=== PATIENT | male | born 1940 | race Caucasian/White ===

== ENCOUNTER 2017-05-24 10:54 | Emergency (ER) | payer MEDICARE, BC ==
[2017-05-24] MEDS ORDERED: RX INFO: IV CONTRAST WAS GIVEN 1 EACH MISC MISCELLANE PRN (11:51)
[2017-05-24] MEDS ORDERED: IOHEXOL 350 MG/ML 25 ML BOTTLE (ORAL USE) PO PRN (11:51)
--- NOTE | 2017-05-24 11:58 | ED ---
Abdominal Pain HPI - General Chief Complaint: Abdominal Pain Stated Complaint: abdominal pain Time Seen by Provider: 05/24/17 11:32 Source: patient Mode of arrival: ambulatory Limitations: no limitations - History of Present Illness Initial Comments: is a 76-year-old male presents to the emergency department for evaluation of lower abdominal pain for approximately 2 weeks duration. Patient reports that approximately 2 weeks ago he began experiencing a sharp pain that begins in his Helbig her suprapubic region, radiates up to his umbilicus and then resolves. He reports the pain occurs intermittently without any exacerbating or causative features. The pain occurs tout relation to urination, bowel movements, eating, or movement. When the pain occurs it lasts for moments and then resolves. Patient reports that despite having this pain intermittently for 2 weeks he has maintained his normal diet. He denies any change in bowel or bladder habits. He denies any history of urinary tract infection or kidney stones. He does have a history of prostate cancer which was treated with radiation in the past. Patient reports there is no pain to palpation and he cannot elicit the pain in any way. He reports that yesterday evening he had an episode of pain which was associated with dry heaves and breaking out in a cold sweat, however this resolved within minutes. He reports that after that episode he drank a cold glass of water and was able to sleep comfortably throughout the night. He reports that while waiting in the emergency department he did have a mild episode of pain however had resolved prior to being evaluated. Patient denies any fevers, vomiting, diarrhea, constipation, dysuria or urinary frequency, chest pain or shortness of breath. He denies any change in activities of daily living, diet. He denies any pain in his back or weakness in his legs. He reports he is otherwise feeling well. Patient states the reason he came to the emergency department this morning is because he told his with episode of pain and dry heaves last night and she advised him he needed to be evaluated. Patient has never had a colonoscopy due to refusal to have one. - Related Data Home Medications Medication Instructions Recorded Confirmed Albuterol Inhaler [Ventolin Hfa 2 puff INHALATION RT-QID PRN 06/05/15 05/24/17 Inhaler] Albuterol Nebulized (Conc) 2.5 mg INHALATION RT-TID 06/05/15 05/24/17 [Ventolin Nebulized (Conc)] Budesonide [Pulmicort] 0.5 mg INHALATION RT-BID 06/05/15 05/24/17 Cetirizine HCl [Zyrtec] 10 mg PO DAILY 06/05/15 05/24/17 Lisinopril [Prinivil] 10 mg PO DAILY 06/05/15 05/24/17 Simvastatin [Zocor] 40 mg PO HS 06/05/15 05/24/17 Omeprazole 40 mg PO DAILY 05/24/17 05/24/17 Previous Rx's Medication Instructions Recorded Oxybutynin Chloride [Ditropan] 2.5 mg PO TID #15 tab 05/24/17 Allergies Allergy/AdvReac Type Severity Reaction Status Date / Time No Known Allergies Allergy Verified 05/24/17 12:41 Review of Systems ROS Statement: Those systems with pertinent positive or pertinent negative responses have been documented in the HPI. ROS Other: All systems not noted in ROS Statement are negative. Constitutional: Denies: fever, chills, weakness, night sweats ENT: Denies: congestion Respiratory: Denies: cough, dyspnea Cardiovascular: Denies: chest pain, palpitations Endocrine: Denies: fatigue Gastrointestinal: Reports: abdominal pain, nausea. Denies: vomiting, diarrhea, constipation, hematemesis, melena, hematochezia Genitourinary: Denies: urgency, dysuria, frequency Musculoskeletal: Denies: back pain Skin: Denies: rash, lesions Neurological: Denies: headache, weakness, numbness Psychiatric: Reports: anxiety (Patient states seen doctors makes him anxious). Denies: depression Hematological/Lymphatic: Denies: easy bleeding, easy bruising, swollen glands Past Medical History Past Medical History: Asthma, Cancer, COPD, Hyperlipidemia, Hypertension Additional Past Medical History / Comment(s): prostate cancer History of Any Multi-Drug Resistant Organisms: None Reported Past Surgical History: Cholecystectomy Additional Past Surgical History / Comment(s): radiation for prostate cancer; and hormone treatment for prostate cancer Past Psychological History: No Psychological Hx Reported Smoking Status: Former smoker Past Alcohol Use History: Occasional Past Drug Use History: None Reported - Past Family History Father Family Medical History: Deep Vein Thrombosis (DVT) Mother Family Medical History: Deep Vein Thrombosis (DVT) General Exam Limitations: no limitations General appearance: alert, in no apparent distress Head exam: Present: atraumatic, normocephalic ENT exam: Present: normal exam, mucous membranes moist. Absent: mucous membranes dry Neck exam: Present: normal inspection Respiratory exam: Present: normal lung sounds bilaterally. Absent: respiratory distress, wheezes Cardiovascular Exam: Present: regular rate GI/Abdominal exam: Present: soft, normal bowel sounds. Absent: distended, tenderness, guarding, rebound, rigid, diminished bowel sounds, hyperactive bowel sounds, hypoactive bowel sounds, organomegaly, mass, bruit, pulsatile mass , hernia Rectal exam: Present: deferred Extremities exam: Present: normal inspection Back exam: Present: normal inspection Neurological exam: Present: alert, oriented X3, normal gait Psychiatric exam: Present: normal affect, normal mood Skin exam: Present: warm, dry, intact, normal color. Absent: rash Course Vital Signs 05/24/17 05/24/17 05/24/17 10:58 13:41 15:18 Temperature 97.8 F 98.4 F 98.7 F Pulse Rate 100 85 63 Respiratory 20 18 18 Rate Blood Pressure 190/88 189/103 189/103 O2 Sat by Pulse 99 98 97 Oximetry - Reevaluation(s) Reevaluation #1: Lab and CT results were discussed with the patient and his at bedside. Patient reports he has had no episodes of pain while being in the emergency department. The patient that he has a mass on CT located in his colon, and that he needs further imaging and evaluation to further delineate the cause of this mass. I advised the patient that he needs follow-up with GI for colonoscopy. at bedside ensures that he will have appropriate follow-up. Patient reports otherwise feeling well and is eager for discharge home. 05/24/17 14:54 Medical Decision Making - Medical Decision Making Patient was seen and examined Vital signs were reviewed patient is afebrile, patient was noted to have a heart rate of 100 upon arrival however his heart rate had decreased upon evaluation Labs and CT imaging were ordered Patient reports no symptoms at the time of evaluation, he did declined any medications for pain or antiemetics CT results reveal abnormal bladder consistent with history of radiation as well as a mass in the colon concerning for colon cancer. During that the patient has never had a colonoscopy this is a very concerning finding. I discussed these findings with the patient and his at bedside I advised that he needs follow-up with his PCP for referral to GI for colonoscopy in the near future. Patient expressed understanding. I discussed with the patient that his suprapubic pain without any evidence of urinary tract infection or findings on CT is consistent with possible bladder spasms and that he can try ditropan and for treatment. Patient is agreeable and prescription was given. All questions pertaining to care were answered to the best of my ability, I advised the patient and that CT imaging is not definitive diagnosis for any type of cancer and that he needs a colonoscopy with possible biopsy. I advised them that our workup did not reveal a definitive cause for his pain and that if it persists he needs to follow-up with his [facility] physician and possible referral to urology. Patient is at bedside expressed understanding of this plan and agreement with plan for discharge home. - Lab Data Result diagrams: 05/24/17 11:25 05/24/17 11:25 Lab Results 05/24/17 05/24/17 05/24/17 Range/Units 11:25 11:25 11:25 WBC 9.5 (3.8-10.6) k/uL RBC 4.15 L (4.30-5.90) m/uL Hgb 13.4 (13.0-17.5) gm/dL Hct 38.8 L (39.0-53.0) % MCV 93.4 (80.0-100.0) fL MCH 32.3 (25.0-35.0) pg MCHC 34.6 (31.0-37.0) g/dL RDW 14.3 (11.5-15.5) % Plt Count 342 (150-450) k/uL Neutrophils % 71 % Lymphocytes % 21 % Monocytes % 5 % Eosinophils % 2 % Basophils % 0 % Neutrophils # 6.8 (1.3-7.7) k/uL Lymphocytes # 2.0 (1.0-4.8) k/uL Monocytes # 0.5 (0-1.0) k/uL Eosinophils # 0.2 (0-0.7) k/uL Basophils # 0.0 (0-0.2) k/uL Sodium 136 L (137-145) mmol/L Potassium 4.5 (3.5-5.1) mmol/L Chloride 103 (98-107) mmol/L Carbon Dioxide 23 (22-30) mmol/L Anion Gap 10 mmol/L BUN 10 (9-20) mg/dL Creatinine 0.87 (0.66-1.25) mg/dL Est GFR (MDRD) Af Amer >60 (>60 ml/min/1.73 sqM) Est GFR (MDRD) Non-Af >60 (>60 ml/min/1.73 sqM) Glucose 99 (74-99) mg/dL Calcium 9.0 (8.4-10.2) mg/dL Urine Color Yellow Urine Appearance Clear (Clear) Urine pH 6.0 (5.0-8.0) Ur Specific Dendron 1.016 (1.001-1.035) Urine Protein Trace H (Negative) Urine Glucose (UA) Negative (Negative) Urine Ketones Negative (Negative) Urine Blood Negative (Negative) Urine Nitrite Negative (Negative) Urine Bilirubin Negative (Negative) Urine Urobilinogen 2.0 (<2.0) mg/dL Ur Leukocyte Esterase Negative (Negative) Disposition Clinical Impression: Abdominal pain, Bladder spasms, Mass of colon Disposition: HOME SELF-CARE Instructions: Abdominal Pain (ED) Additional Instructions: CT scan reveals a mass in the colon, you need to follow up with GI for colonoscopy. Prescriptions: Oxybutynin Chloride [Ditropan] 2.5 mg PO TID #15 tab Referrals: Truman Yu DO [Primary Care Provider] - 1-2 days
[2017-05-24 12:12] LABS: Basophils % (A) 0 %; CH 31.6; Eosinophils # (A) 0.2 k/uL (0-0.7); Eosinophils % (A) 2 %; HCT 38.8 % (39.0-53.0); HDW 2.84; HGB 13.4 gm/dL (13.0-17.5); Luc # (Auto) 0.13; Luc % (Auto) 1; Lymphocytes % (A) 21 %; MCH 32.3 pg (25.0-35.0); MCHC 34.6 g/dL (31.0-37.0); MCV 93.4 fL (80.0-100.0); Monocytes # (A) 0.5 k/uL (0-1.0); Monocytes % (A) 5 %; Neutrophils # (A) 6.8 k/uL (1.3-7.7); Neutrophils % (A) 71 %; RBC 4.15 m/uL (4.30-5.90); RDW 14.3 % (11.5-15.5); WBC 9.5 k/uL (3.8-10.6); WBC (Perox) 9.76
[2017-05-24 12:16] LABS: Appearance,Urine Clear (Clear); Bilirubin,Urine Negative (Negative); Glucose,Urine (UA) Negative (Negative); Ketones,Urine Negative (Negative); Leukocyte Esterase,Urine Negative (Negative); Nitrite,Urine Negative (Negative); Protein,Urine Trace (Negative); Specific Gravity,Urine 1.016 (1.001-1.035); UA Billing (MACRO vs. MICRO) CHEM
[2017-05-24 12:20] LABS: Anion Gap 10 mmol/L; Blood Urea Nitrogen 10 mg/dL (9-20); Carbon Dioxide 23 mmol/L (22-30); Chloride 103 mmol/L (98-107); Glucose 99 mg/dL (74-99); Non-African American GFR(MDRD) >60 (>60 ml/min/1.73 sqM); Potassium 4.5 mmol/L (3.5-5.1); Sodium 136 mmol/L (137-145)
[2017-05-24 13:42] VITALS: BP 189/103; RESP 18
--- NOTE | 2017-05-24 14:37 | CT ---
EXAMINATION TYPE: CT abdomen pelvis w con DATE OF EXAM: 05/24/2017 COMPARISON: NONE HISTORY: Patient complains of midline pelvic pain. CT DLP: 1303.1 mGycm, Automated Exposure Control for Dose Reduction was Utilized. CONTRAST: CT scan of the abdomen and pelvis is performed with oral and with IV Contrast, patient injected with 100 mL of Omnipaque 300. FINDINGS: LUNG BASES: No significant abnormality is appreciated. LIVER/GB: Cholecystectomy clips are seen. There is subcentimeter low dense lesion right hepatic lobe on axial image 23 too small to further characterize per presumed benign. Smaller hypodense lesion is seen left hepatic dome on axial image 14 presumed benign. Vague subcentimeter hyperdense area right h epatic dome too small to further characterize. PANCREAS: No significant abnormality is seen. SPLEEN: Lobulated contour to spleen is seen. ADRENALS: No significant abnormality is seen. KIDNEYS: There are a few simple appearing cysts scattered throughout the left kidney upper to mid yvette e level and subcentimeter low dense lesion right kidney coronal image 65 mid to lower pole level pres umed benign. No hydronephrosis is evident bilaterally. Bladder is poorly distended with irregular mil d concentric wall thickening. BOWEL: Oral contrast does not reach terminal ileal level. There is no suspicious small or large bowel dilatation. There are some diverticula scattered throughout the colon. There is some prominence of f ecal material in the right and transverse colon as well as majority of the left colon. There is abrup t eccentric nodular soft tissue in the distal left colon Seen best coronal image 49 and also suspicio us on sagittal image 101 in which Apple core type neoplasm cannot be excluded. Lesion is less suspici ous on axial images. There is some redundant sigmoid colon with diverticula distal to this. No acute diverticulitis is liam dent. Normal-appearing appendix is sinus from the cecum towards the mid anterior abdomen and terminating on axial image 35 left of midline. PROSTATE/SEMINAL VESICLES: 3 gold therapy seeds are seen in prostate gland felt within normal limits in size. Scattered adjacent phleboliths are noted. LYMPH NODES: No greater than 1cm abdominal or pelvic lymph nodes are appreciated. OSSEOUS STRUCTURES: Slight S-shaped scoliosis is seen. Moderate multilevel spurring in the spine is n oted. There is disc space narrowing L3-L4 and L5-S1 levels. OTHER: Mild to moderate calcified atherotic change of the abdominal aorta extending into pelvic branc h vessels is seen. Slight ectasia is identified. No greater than 3 cm aneurysmal change is seen. Small fat-containing left inguinal hernia is noted. IMPRESSION: 1. Abnormal appearance to bladder with irregular concentric wall thickening, finding most likely on b asis of radiation treatment related to prostate cancer, acute cystitis should be excluded with clinic al and urine lab correlation. 2. No acute finding is seen to account for patient's symptoms. No complete bowel obstruction is noted . There is however suspicious slightly eccentric lesion in the distal left colon worrisome for coloni c neoplasm. Colonoscopy follow-up advised. This is causing mild to borderline moderate proximal colon ic fecal stasis proximal to this.
[2017-05-24 15:21] VITALS: PULSE 63; TEMP 98.7
== END 2017-05-24 15:18 | disposition home or self-care (01) ==
LOC: EC 10:54
DX: K63.89 Other specified diseases of intestine (principal); N32.89 Other specified disorders of bladder; R10.33 Periumbilical pain; J45.909 Unspecified asthma, uncomplicated; J44.9 Chronic obstructive pulmonary disease, unspecified; E78.5 Hyperlipidemia, unspecified; I10 Essential (primary) hypertension; Z87.891 Personal history of nicotine dependence; Z79.51 Long term (current) use of inhaled steroids; Z79.899 Other long term (current) drug therapy; Z85.46 Personal history of malignant neoplasm of prostate; Z90.49 Acquired absence of other specified parts of digestive tract
CPT/HCPCS: 36415; 80048; 85025; 81003; 87086; 74177; 99284; Q9967

== ENCOUNTER 2017-06-04 09:27 | Day surgery (SDC) | payer MEDICARE, BC ==
[2017-06-01 14:17] VITALS: BMI 30.7
[~2017-06-04 09:27] MED LIST: LACTATED RINGERS 1,000 ML IV SCH; LIDOCAINE 1% 20 ML VIAL (10MG/ML) FOR IV START INTRADERMA PRN
[2017-06-04 10:01] VITALS: TEMP 97.8
[2017-06-04] MEDS ORDERED: PROPOFOL 10 MG/ML 20 ML VIAL IV ONE (11:11)
--- NOTE | 2017-06-04 11:13 | P.GSHP ---
History of Present Illness H&P Date: 06/04/17 Chief Complaint: Left colon mass 's is a 76-year-old male who underwent recent CAT scan. He's found to have a suspicious mass of the left colon. He presents today for colonoscopy. Past Medical History Past Medical History: Asthma, Cancer, COPD, GERD/Reflux, Hyperlipidemia, Hypertension Additional Past Medical History / Comment(s): states "mass seen in bowel on CT scan" when seen in ER recently for bladder spasm,uses O2@2L NC during night and prn daily,prostate cancer History of Any Multi-Drug Resistant Organisms: None Reported Past Surgical History: Cholecystectomy Additional Past Surgical History / Comment(s): radiation for prostate cancer 2014; and hormone treatment for prostate cancer Past Anesthesia/Blood Transfusion Reactions: No Reported Reaction Additional Past Anesthesia/Blood Transfusion Reaction / Comment(s): no hx blood transfusion Past Psychological History: No Psychological Hx Reported Smoking Status: Former smoker Past Alcohol Use History: Occasional Additional Past Alcohol Use History / Comment(s): quit smoking 2006 approx, smoked approx 30yrs <1ppd Past Drug Use History: None Reported - Past Family History Father History Unknown: Yes Family Medical History: Deep Vein Thrombosis (DVT) Mother History Unknown: Yes Family Medical History: Deep Vein Thrombosis (DVT) Medications and Allergies Home Medications Medication Instructions Recorded Confirmed Type Albuterol Inhaler [Ventolin Hfa 2 puff INHALATION RT-QID PRN 06/05/15 06/01/17 History Inhaler] Albuterol Nebulized (Conc) 2.5 mg INHALATION RT-TID 06/05/15 06/01/17 History [Ventolin Nebulized (Conc)] Budesonide [Pulmicort] 0.5 mg INHALATION RT-BID 06/05/15 06/01/17 History Lisinopril [Prinivil] 10 mg PO QAM 06/05/15 06/01/17 History Simvastatin [Zocor] 40 mg PO HS 06/05/15 06/01/17 History Omeprazole 40 mg PO DAILY PRN 05/24/17 06/01/17 History Allergies Allergy/AdvReac Type Severity Reaction Status Date / Time No Known Allergies Allergy Verified 06/01/17 14:08 Surgical - Exam Vital Signs Temp Pulse Resp BP Pulse Ox 97.8 F 98 20 123/82 95 06/04/17 10:00 06/04/17 10:00 06/04/17 10:00 06/04/17 10:00 06/04/17 10:00 - General well developed, no distress - Eyes PERRL - ENT normal pinna - Neck no masses - Respiratory normal expansion - Cardiovascular Rhythm: regular - Abdomen Abdomen: soft, non tender Assessment and Plan Plan: CAT scan findings of left colon mass. We'll perform colonoscopy for direct visualization.
--- NOTE | 2017-06-04 11:34 | P.OP ---
Date of Procedure: 06/04/17 Preoperative Diagnosis: Colon mass Postoperative Diagnosis: Colon polyp at 70 cm Obstructing colon mass at 90 cm Procedure(s) Performed: Colonoscopy Implants: Anesthesia: MAC Surgeon: Jonathan Day Pathology: other (Colon mass at 90 cm, colon polyps at 70 cm) Condition: stable Disposition: PACU Indications for Procedure: Operative Findings: Description of Procedure: The patient's placed on the endoscopy table lateral position. He received IV sedation. Digital rectal exam was performed which revealed no abnormalities. The flexible colonoscope was then placed patient anus passed throughout the colon. The 70 cm sergey there was a pair of peduncular polyps removed with the snare. At the 90 cm sergey in the proximal left colon there was an obstructing mass which had the appearance of an adenocarcinoma. The mass was biopsied. Scope night passed beyond the mass. Scope was withdrawn. In the descending colon a few scattered diverticula. The colon polyp was visualized. There is no evidence of any bleeding. The sigmoid colon appeared normal. The rectum appeared normal. Scope was withdrawn for patient.
[2017-06-04 11:38] VITALS: RESP 16
[2017-06-04 12:10] LABS: ALT 30 U/L (21-72); AST 20 U/L (17-59); Alkaline Phosphatase 77 U/L (38-126); Anion Gap 14 mmol/L; Blood Urea Nitrogen 13 mg/dL (9-20); Calcium 8.7 mg/dL (8.4-10.2); Carbon Dioxide 24 mmol/L (22-30); Chloride 95 mmol/L (98-107); Glucose 90 mg/dL (74-99); Non-African American GFR(MDRD) >60 (>60 ml/min/1.73 sqM); Potassium 3.8 mmol/L (3.5-5.1); Sodium 133 mmol/L (137-145); Total Bilirubin 0.7 mg/dL (0.2-1.3); Total Protein 6.6 g/dL (6.3-8.2)
[2017-06-04 12:12] VITALS: BP 137/89; PULSE 71
[2017-06-04 12:26] LABS: Basophils % (A) 0 %; CH 31.3; CHCM 33.7; Eosinophils # (A) 0.1 k/uL (0-0.7); Eosinophils % (A) 1 %; HCT 36.6 % (39.0-53.0); HDW 2.83; HGB 12.6 gm/dL (13.0-17.5); Luc # (Auto) 0.14; Luc % (Auto) 1; Lymphocytes # (A) 1.2 k/uL (1.0-4.8); Lymphocytes % (A) 12 %; MCH 32.1 pg (25.0-35.0); MCHC 34.4 g/dL (31.0-37.0); MCV 93.3 fL (80.0-100.0); Mean Platelet Volume 6.8; Monocytes # (A) 0.6 k/uL (0-1.0); Monocytes % (A) 6 %; Neutrophils # (A) 7.7 k/uL (1.3-7.7); Neutrophils % (A) 80 %; RBC 3.92 m/uL (4.30-5.90); RDW 14.3 % (11.5-15.5); WBC 9.6 k/uL (3.8-10.6); WBC (Perox) 9.81
== END 2017-06-04 12:37 | disposition home or self-care (01) ==
LOC: ORWHC2ENDO 09:27
PROVIDERS: ATTEND Surgery
DX: D12.6 Benign neoplasm of colon, unspecified (principal); K57.30 Diverticulosis of large intestine without perforation or abscess without bleeding; J44.9 Chronic obstructive pulmonary disease, unspecified; K21.9 Gastro-esophageal reflux disease without esophagitis; E78.5 Hyperlipidemia, unspecified; I10 Essential (primary) hypertension; Z85.46 Personal history of malignant neoplasm of prostate; Z92.3 Personal history of irradiation; Z79.51 Long term (current) use of inhaled steroids; Z79.899 Other long term (current) drug therapy; Z87.891 Personal history of nicotine dependence
CPT/HCPCS: 93005; 88305; 80053; 82378; 85025; 45380; 45385; J2704; 44404

== ENCOUNTER 2017-06-06 07:30 | Inpatient (IN) | payer MEDICARE, BC ==
[~2017-06-06 07:30] MED LIST changes: +HEPARIN SODIUM,PORCINE 5,000 UNIT/ML 1 ML VIAL SQ ONE; -LACTATED RINGERS 1,000 ML IV SCH; -LIDOCAINE 1% 20 ML VIAL (10MG/ML) FOR IV START INTRADERMA PRN; +metroNIDAZOLE-NS PMX 500 MG in SALINE 1 100ML.BAG IVPB ONE
[2017-06-06] MEDS ORDERED: DEXAMETHASONE SOD PHOSPHATE 10 MG/ML 1 ML VIAL IV ONE (15:22)
[2017-06-06] MEDS ORDERED: ONDANSETRON 4 MG/2 ML VIAL IVP ONE (15:22)
[2017-06-06] MEDS ORDERED: LIDOCAINE 1% 20 ML VIAL (10MG/ML) FOR IV START INTRADERMA PRN (15:22)
[2017-06-06] MEDS: LACTATED RINGERS 1,000 ML IV SCH (15:30)
--- NOTE | 2017-06-06 15:36 | P.GSHP ---
History of Present Illness H&P Date: 06/06/17 Chief Complaint: Left colon mass This a 76-year-old male who underwent recent CAT scan is found have a left colon mass his colonoscopy showed a very large distracting tumor in the left colon at the 90 cm sergey. He presents today for left colectomy. Patient reversed surgery including possible colostomy. - Constitutional Constitutional: Reports as per HPI Past Medical History Past Medical History: Asthma, Cancer, COPD, GERD/Reflux, Hyperlipidemia, Hypertension Additional Past Medical History / Comment(s): states "mass seen in bowel on CT scan" when seen in ER recently for bladder spasm,uses O2@2L NC during night and prn daily,prostate cancer History of Any Multi-Drug Resistant Organisms: None Reported Past Surgical History: Cholecystectomy Additional Past Surgical History / Comment(s): radiation for prostate cancer 2014; and hormone treatment for prostate cancer Past Anesthesia/Blood Transfusion Reactions: No Reported Reaction Additional Past Anesthesia/Blood Transfusion Reaction / Comment(s): no hx blood transfusion Past Psychological History: No Psychological Hx Reported Smoking Status: Former smoker Past Alcohol Use History: Occasional Additional Past Alcohol Use History / Comment(s): quit smoking 2006 approx, smoked approx 30yrs <1ppd Past Drug Use History: None Reported - Past Family History Father History Unknown: Yes Family Medical History: Deep Vein Thrombosis (DVT) Mother History Unknown: Yes Family Medical History: Deep Vein Thrombosis (DVT) Medications and Allergies Home Medications Medication Instructions Recorded Confirmed Type Albuterol Inhaler [Ventolin Hfa 2 puff INHALATION RT-QID PRN 06/05/15 06/01/17 History Inhaler] Albuterol Nebulized (Conc) 2.5 mg INHALATION RT-TID 06/05/15 06/01/17 History [Ventolin Nebulized (Conc)] Lisinopril [Prinivil] 10 mg PO QAM 06/05/15 06/01/17 History Simvastatin [Zocor] 40 mg PO HS 06/05/15 06/01/17 History Omeprazole 40 mg PO DAILY PRN 05/24/17 06/01/17 History Allergies Allergy/AdvReac Type Severity Reaction Status Date / Time No Known Allergies Allergy Verified 06/06/17 15:22 Surgical - Exam Vital Signs Temp Pulse Resp BP Pulse Ox 98.3 F 88 16 153/91 96 06/06/17 15:18 06/06/17 15:18 06/06/17 15:18 06/06/17 15:18 06/06/17 15:18 - General well developed, no distress - Eyes PERRL - ENT normal pinna - Neck no masses - Respiratory normal expansion - Cardiovascular Rhythm: regular - Abdomen Abdomen: soft, non tender Assessment and Plan Plan: Left colon mass. Patient will undergo left colectomy today.
[2017-06-06] MEDS ORDERED: fentaNYL (PF) 50 MCG/ML 2 ML AMP IV ONE (15:50)
[2017-06-06] MEDS ORDERED: MIDAZOLAM 2 MG/2 ML VIAL IV ONE (15:50)
[2017-06-06] MEDS ORDERED: diphenhydrAMINE 50 MG/ML 1 ML VIAL IVP PRN (16:05)
[2017-06-06] MEDS ORDERED: NALOXONE 0.4 MG/ML 1 ML VIAL IV PRN (16:05)
[2017-06-06] MEDS ORDERED: ONDANSETRON 4 MG/2 ML VIAL IVP PRN ×2 (16:05→20:45)
[2017-06-06] MEDS ORDERED: SUCCINYLCHOLINE CHLORIDE 100 MG/5 ML SYR IV ONE (18:47)
[2017-06-06] MEDS ORDERED: fentaNYL (PF) 50 MCG/ML 2 ML AMP ONE (18:47)
[2017-06-06] MEDS ORDERED: MIDAZOLAM 2 MG/2 ML VIAL ONE (18:47)
[2017-06-06] MEDS ORDERED: NEOSTIGMINE 1 MG/ML 10 ML VIAL ONE (18:47)
[2017-06-06] MEDS ORDERED: LIDOCAINE 1% INJ 10MG/ML (20 ML MDV) ONE (18:47)
[2017-06-06] MEDS ORDERED: LABETALOL 5 MG/ML VIAL MDV ONE (18:47)
[2017-06-06] MEDS ORDERED: GLYCOPYRROLATE 0.2 MG/ML 2 ML VIAL ONE (18:47)
[2017-06-06] MEDS ORDERED: ROCURONIUM BROMIDE 10 MG/ML 10 ML VIAL IV ONE (18:47)
[2017-06-06] MEDS ORDERED: PROPOFOL 10 MG/ML 20 ML VIAL IV ONE (18:47)
[2017-06-06] MEDS ORDERED: LACTATED RINGERS 1,000 ML IV ONE (19:34)
[2017-06-06] MEDS: HYDROmorphone 1 MG/ML 1 ML SYRINGE IVP PRN ×2 (20:04→20:16)
[2017-06-06] MEDS: BUPIVACAINE (PF) 0.5% 37.5 ML, HYDROMORPHONE (PF) 5 MG in SODIUM CHLORIDE 0.9% 212 ML EPIDURAL PRN (20:14)
[2017-06-06] MEDS ORDERED: BENZOCAINE/MENTHOL LOZENG 1 EACH LOZENGE MUCOUS MEM PRN (20:45)
[2017-06-06] MEDS ORDERED: METOCLOPRAMIDE 5 MG/ML 2 ML VIAL IVP PRN (20:45)
[2017-06-06] MEDS ORDERED: LEVALBUTEROL NEB 1.25 MG/3 ML AMP INHALATION ONE (20:46)
--- NOTE | 2017-06-06 20:51 | P.OP ---
Date of Procedure: 06/06/17 Preoperative Diagnosis: Left colon mass Postoperative Diagnosis: left colon mass, deferred to pathology Procedure(s) Performed: Left colectomy Takedown splenic flexure Implants: Anesthesia: ARVINA Surgeon: Jonathan Day Estimated Blood Loss (ml): 0.5 Pathology: other (Left colon) Condition: stable Disposition: PACU Indications for Procedure: Operative Findings: Description of Procedure: The patient's placed the operative table in the supine position. He received general anesthesia. His abdomen was prepped and draped usual sterile fashion. The abdomen was entered through a midline incision. The Bookwalter retractors placed a wound. The abdomen explored. The liver appeared normal. The patient had a mass in the left colon near the splenic flexure. Using left cautery the white line of Toldt was divided left colon was retracted medially. Then using the LigaSure device the splenic flexure was taken down. The mass was visualized. The colon was transected proximally distally using the GI stapler, the mesentery the bowel was divided using LigaSure device. and then using the MERVAT and TA stapler a [id number] functional end-to-end staple anastomosis created. The abdomen was irrigated there is no bleeding seen. The fascia is closed loop #1 PDS suture. Skin was closed claire. Patient tolerated the procedure well will well and was sent to recovery in stable condition.
[2017-06-06 21:31] VITALS: BMI 29.9
[2017-06-06] MEDS: D5-0.45% NACL WITH KCL 20MEQ/L 1,000 ML IV SCH (21:32)
[2017-06-06] MEDS: FAMOTIDINE 20 MG/2 ML VIAL IV SCH (21:32)
[2017-06-06 21:47] LABS: Basophils % (A) 0 %; CH 31.8; CHCM 33.5; Eosinophils # (A) 0.1 k/uL (0-0.7); Eosinophils % (A) 1 %; HCT 36.5 % (39.0-53.0); HDW 2.74; HGB 12.2 gm/dL (13.0-17.5); Luc # (Auto) 0.06; Luc % (Auto) 0; Lymphocytes # (A) 0.7 k/uL (1.0-4.8); Lymphocytes % (A) 6 %; MCH 31.8 pg (25.0-35.0); MCHC 33.3 g/dL (31.0-37.0); MCV 95.5 fL (80.0-100.0); Mean Platelet Volume 7.3; Monocytes # (A) 0.3 k/uL (0-1.0); Monocytes % (A) 2 %; Neutrophils # (A) 11.8 k/uL (1.3-7.7); Neutrophils % (A) 91 %; RBC 3.82 m/uL (4.30-5.90); RDW 14.5 % (11.5-15.5); WBC (Perox) 13.62
[2017-06-06 22:16] LABS: Anion Gap 8 mmol/L; Blood Urea Nitrogen 10 mg/dL (9-20); Carbon Dioxide 23 mmol/L (22-30); Chloride 98 mmol/L (98-107); Glucose 130 mg/dL (74-99); Non-African American GFR(MDRD) >60 (>60 ml/min/1.73 sqM); Potassium 4.6 mmol/L (3.5-5.1); Sodium 129 mmol/L (137-145)
[2017-06-06] MEDS: HEPARIN SODIUM,PORCINE 5,000 UNIT/ML 1 ML VIAL SQ SCH (23:26)
[2017-06-07] MEDS ORDERED: ALBUTEROL NEBULIZED 2.5 MG/3 ML INHALATION PRN (08:21)
[2017-06-07] MEDS: HEPARIN SODIUM,PORCINE 5,000 UNIT/ML 1 ML VIAL SQ SCH ×3 (08:23→23:28)
[2017-06-07] MEDS: ALVIMOPAN 12 MG CAPSULE PO SCH ×2 (08:24→21:30)
[2017-06-07] MEDS: FAMOTIDINE 20 MG/2 ML VIAL IV SCH (08:24)
[2017-06-07] MEDS ORDERED: PANTOPRAZOLE 40 MG TABLET PO PRN (08:31)
[2017-06-07] MEDS: ALBUTEROL NEBULIZED 2.5 MG/3 ML INHALATION SCH ×3 (08:32→18:56)
--- NOTE | 2017-06-07 09:15 | P.PN ---
Progress Note - Text Postop day 1 status post left colectomy under general endotracheal anesthesia, epidural catheter placed for postoperative analgesia, vital signs stable, visual licks: 0/10 , patient currently on epidural infusion Dilaudid/ bupivacaine at 7 mL per hour, epidural site okay , no erythema ,and no tenderness, patient had no motor deficit. Assessment and plan= acute postop pain, pain well controlled we'll continue the same management, epidural infusion at 7 mL per hour
[2017-06-07] MEDS: LISINOPRIL 10 MG TAB PO SCH (09:58)
[2017-06-07] MEDS: OXYBUTYNIN CHLORIDE 5 MG TAB PO SCH ×4 (09:58→21:40)
[2017-06-07 11:25] LABS: Basophils % (A) 0 %; CH 31.3; CHCM 33.3; Eosinophils % (A) 0 %; HCT 35.5 % (39.0-53.0); HDW 2.78; HGB 11.9 gm/dL (13.0-17.5); Luc # (Auto) 0.12; Luc % (Auto) 1; Lymphocytes % (A) 7 %; MCH 31.8 pg (25.0-35.0); MCHC 33.6 g/dL (31.0-37.0); MCV 94.7 fL (80.0-100.0); Mean Platelet Volume 7.2; Monocytes # (A) 0.7 k/uL (0-1.0); Monocytes % (A) 6 %; Neutrophils # (A) 11.1 k/uL (1.3-7.7); Neutrophils % (A) 86 %; RBC 3.75 m/uL (4.30-5.90); RDW 14.2 % (11.5-15.5); WBC (Perox) 13.39
[2017-06-07 11:35] LABS: Anion Gap 7 mmol/L; Blood Urea Nitrogen 8 mg/dL (9-20); Calcium 8.1 mg/dL (8.4-10.2); Carbon Dioxide 24 mmol/L (22-30); Chloride 100 mmol/L (98-107); Glucose 111 mg/dL (74-99); Non-African American GFR(MDRD) >60 (>60 ml/min/1.73 sqM); Potassium 5.2 mmol/L (3.5-5.1); Sodium 131 mmol/L (137-145)
[2017-06-07] MEDS: LACTATED RINGERS 1,000 ML IV SCH (17:04)
[2017-06-07] MEDS: D5-0.45% NACL WITH KCL 20MEQ/L 1,000 ML IV SCH ×3 (17:05→21:16)
--- NOTE | 2017-06-07 18:04 | P.PN ---
Progress Note - Text Patient is status post left colectomy and takedown splenic flexure. He is doing fairly well today. He's had some minimal points of pain. He's had no real bowel function. On exam his vital signs are stable. His abdomen soft. His incision site is clean dry tach. The parents patient remained on clear liquid diet. We'll advance his diet once his bowel functions returned.
[2017-06-07] MEDS: BUDESONIDE 1 MG/2 ML NEBU INHALATION PRN (18:56)
[2017-06-07] MEDS: BUPIVACAINE (PF) 0.5% 37.5 ML, HYDROMORPHONE (PF) 5 MG in SODIUM CHLORIDE 0.9% 212 ML EPIDURAL PRN (21:14)
[2017-06-07] MEDS: LATANOPROST 0.005% OPHTH DROPS 2.5 ML BTL BOTH EYES SCH (21:31)
[2017-06-07] MEDS: FAMOTIDINE 20 MG TAB PO SCH (21:31)
[2017-06-07] MEDS: ATORVASTATIN 20 MG TAB PO SCH (21:31)
[2017-06-08] MEDS: D5-0.45% NACL WITH KCL 20MEQ/L 1,000 ML IV SCH ×2 (00:59→08:54)
[2017-06-08] MEDS: BUDESONIDE 1 MG/2 ML NEBU INHALATION PRN (07:49)
[2017-06-08] MEDS: ALBUTEROL NEBULIZED 2.5 MG/3 ML INHALATION SCH ×3 (07:49→19:16)
[2017-06-08] MEDS: ALVIMOPAN 12 MG CAPSULE PO SCH ×2 (08:34→20:28)
[2017-06-08] MEDS: FAMOTIDINE 20 MG TAB PO SCH ×2 (08:34→20:28)
[2017-06-08] MEDS: HEPARIN SODIUM,PORCINE 5,000 UNIT/ML 1 ML VIAL SQ SCH ×2 (08:34→17:57)
[2017-06-08] MEDS: OXYBUTYNIN CHLORIDE 5 MG TAB PO SCH ×2 (08:34→08:37)
[2017-06-08] MEDS: LISINOPRIL 10 MG TAB PO SCH (08:35)
--- NOTE | 2017-06-08 09:41 | P.PN ---
Progress Note - Text Postop day 2 from open colectomy, epidural catheter inserted for postop pain control. Epidural solution: Bupivacaine 0.075% with Dilaudid 20 mcgs/ml running at 7 mL an hour. Patient pain is well controlled with visual analog score of 0-1/10. Slight pain when he moves around. No nausea vomiting, itching, weakness or numbness in the legs or headache reported by the patient. Plan: To continue the epidural infusion at the current rate.
--- NOTE | 2017-06-08 16:53 | P.PN ---
Subjective Principal diagnosis: Status post left hemicolectomy The patient status post left hemicolectomy for colon cancer. He's doing fairly good. Pain is controlled. No nausea or vomiting. Objective - Vital Signs Vital signs: Vital Signs Temp 98.0 F 06/08/17 14:27 Pulse 76 06/08/17 14:27 Resp 18 06/08/17 14:27 BP 131/76 06/08/17 14:27 Pulse Ox 92 L 06/08/17 14:27 Intake & Output 06/07/17 06/08/17 06/08/17 18:59 06:59 18:59 Output Total 550 700 Balance -550 -700 Weight 81.647 kg Output: Urine 550 700 Other: Voiding Method Indwelling Catheter Indwelling Catheter - Constitutional General appearance: Present: cooperative, no acute distress - Respiratory Respiratory: bilateral: CTA, diminished (Mildly) - Cardiovascular Rhythm: regular - Gastrointestinal General gastrointestinal: Present: decreased bowel sounds, soft Localized gastrointestinal: surgical scar: diffuse (Dressings intact clean and dry) - Labs CBC & Chem 7: 06/07/17 11:04 06/07/17 11:04 Assessment and Plan (1) Mass of colon Status: Acute Plan: Encourage activity. Continue DVT and ulcer prophylaxis. Control pain. Monitor his oral intake. Progressing slowly.
[2017-06-08] MEDS: ATORVASTATIN 20 MG TAB PO SCH (20:28)
[2017-06-08] MEDS: LATANOPROST 0.005% OPHTH DROPS 2.5 ML BTL BOTH EYES SCH (20:28)
[2017-06-09] MEDS: HEPARIN SODIUM,PORCINE 5,000 UNIT/ML 1 ML VIAL SQ SCH ×3 (00:15→18:18)
[2017-06-09] MEDS: LACTATED RINGERS 1,000 ML IV SCH ×2 (00:24→18:18)
[2017-06-09] MEDS: ALBUTEROL NEBULIZED 2.5 MG/3 ML INHALATION SCH ×3 (07:45→18:15)
[2017-06-09] MEDS: BUDESONIDE 1 MG/2 ML NEBU INHALATION PRN ×2 (07:45→18:15)
[2017-06-09] MEDS: ALVIMOPAN 12 MG CAPSULE PO SCH ×2 (10:03→20:57)
[2017-06-09] MEDS: LISINOPRIL 10 MG TAB PO SCH (10:03)
[2017-06-09] MEDS: FAMOTIDINE 20 MG TAB PO SCH ×2 (10:03→20:57)
--- NOTE | 2017-06-09 10:13 | P.PN ---
Progress Note - Text [id number] Anesthesia POD 3. Status Post left colectomy under general endotracheal anesthesia with an epidrual catheter placed at proximately T12 for post surgical pain releif. VAS (difficult to evaluate because epidural bag was allowed to run dry 2 hours ago) Epidural catheter seems to still be in proper position however the dressing rolled off the patient's skin and had to be redressed with a Tegaderm overnight. Site however shows no erythema or other signs of infection. Plan: Remove the epidural catheter, dress with a Band-Aid, and institute alternative analgesia.
[2017-06-09] MEDS: D5-0.45% NACL WITH KCL 20MEQ/L 1,000 ML IV SCH ×2 (11:23→18:17)
[2017-06-09] MEDS: HYDROmorphone 1 MG/ML 1 ML SYRINGE IVP PRN ×2 (13:07→20:56)
--- NOTE | 2017-06-09 15:00 | P.PN ---
Subjective Principal diagnosis: Status post left hemicolectomy The patient has passed some flatus. He is hungry. He's ambulated a couple of times yesterday and once this morning. His pain is controlled. Objective - Vital Signs Vital signs: Vital Signs Temp 98.7 F 06/09/17 14:04 Pulse 92 06/09/17 14:04 Resp 16 06/09/17 14:04 BP 121/78 06/09/17 14:04 Pulse Ox 96 06/09/17 14:04 Intake & Output 06/08/17 06/09/17 06/09/17 18:59 06:59 18:59 Intake Total 1080 Output Total 1600 1250 Balance -1600 1080 -1250 Intake: Intake, IV Titration 120 Amount D5-0.45% NaCl with KCl 120 20Meq/l 1,000 ml @ 125 mls/hr IV .Q8H [facility] Rx#: [id number] Oral 960 Output: Urine 1600 1250 Other: Voiding Method Indwelling Catheter - Constitutional General appearance: Present: cooperative, no acute distress - Respiratory Respiratory: bilateral: CTA, diminished (Mildly at the bases) - Gastrointestinal General gastrointestinal: Present: decreased bowel sounds (But normalizing), soft. Absent: distended Localized gastrointestinal: surgical scar: diffuse (Dressings intact clean and dry) - Labs CBC & Chem 7: 06/07/17 11:04 06/07/17 11:04 Assessment and Plan (1) Mass of colon Status: Acute Plan: We'll discontinue the catheter. Increase his diet. Encouraged activity. He is progressing slowly.
[2017-06-09] MEDS: ATORVASTATIN 20 MG TAB PO SCH (20:57)
[2017-06-09] MEDS: LATANOPROST 0.005% OPHTH DROPS 2.5 ML BTL BOTH EYES SCH (20:57)
[2017-06-10] MEDS: ALVIMOPAN 12 MG CAPSULE PO SCH ×2 (07:26→20:29)
[2017-06-10] MEDS: LACTATED RINGERS 1,000 ML IV SCH (07:26)
[2017-06-10] MEDS: HEPARIN SODIUM,PORCINE 5,000 UNIT/ML 1 ML VIAL SQ SCH ×3 (07:26→16:20)
[2017-06-10] MEDS: FAMOTIDINE 20 MG TAB PO SCH ×2 (07:27→20:29)
[2017-06-10] MEDS: LISINOPRIL 10 MG TAB PO SCH (07:27)
--- NOTE | 2017-06-10 07:53 | PN ---
DATE OF SERVICE: 06/09/2017 I am covering for Dr. Yu. This 76-year-old gentleman with past medical history of multiple medical problems was admitted after left colon mass and colectomy and takedown splenic flexure by Dr. Day. The patient has been closely monitored. No chest pain, no palpitations, no fever. On exam, alert and oriented x3. Pulse is 99, blood pressure 126/79, respirations 20, temperature 97.8, pulse ox 97% on 2-L. HEENT: Conjunctivae normal. NECK: No jugular venous distention. CARDIOVASCULAR: S1, S2. RESPIRATORY: Breath sounds diminished at the bases. A few scattered rhonchi. ABDOMEN: Soft, status post surgery. LEGS: No edema, no swelling. NERVOUS SYSTEM: No focal deficits. LABS: WBC 13, hemoglobin 11.9, sodium 131, potassium 5.2. ASSESSMENT: 1. Status post left colectomy and takedown splenic flexure for left colonic mass. 2. Increased WBC. 3. Asthma, chronic obstructive pulmonary disease. 4. Gastroesophageal reflux disease. 5. Hypertension. 6. Hyperlipidemia. RECOMMENDATIONS AND DISCUSSION: I recommend to continue the current medications, continue monitoring, continue symptomatic treatment. Continue the home medications and DVT prophylaxis, and incentive spirometry. Closely follow with Surgery. Symptomatic treatment. Further recommendations to follow. MTDD
[2017-06-10] MEDS: ALBUTEROL NEBULIZED 2.5 MG/3 ML INHALATION SCH ×3 (08:37→20:21)
[2017-06-10] MEDS: BUDESONIDE 1 MG/2 ML NEBU INHALATION PRN ×2 (08:40→20:21)
[2017-06-10] MEDS ORDERED: HYDROcodone/APAP 5-325MG 1 EACH TAB PO PRN (09:26)
--- NOTE | 2017-06-10 12:25 | P.PN ---
Subjective Principal diagnosis: Status post left hemicolectomy The patient has tolerated diet. No nausea or vomiting. Just a small amount of flatus. No BM. He's been ambulating in the halls more. Objective - Vital Signs Vital signs: Vital Signs Temp 98.1 F 06/10/17 07:10 Pulse 76 06/10/17 11:35 Resp 16 06/10/17 08:00 BP 152/91 06/10/17 11:35 Pulse Ox 99 06/10/17 08:39 Intake & Output 06/09/17 06/10/17 06/10/17 18:59 06:59 18:59 Intake Total 120 760 360 Output Total 1250 Balance -1130 760 360 Intake: Intake, IV Titration 160 Amount Lactated Ringers 1,000 ml 160 @ 20 mls/hr IV .Q24H [facility] Rx#:[id number] Oral 120 600 360 Output: Urine 1250 Other: Voiding Method Toilet Toilet # Voids 1 1 - Constitutional General appearance: Present: cooperative, no acute distress - Respiratory Respiratory: bilateral: CTA - Cardiovascular Rhythm: regular - Gastrointestinal General gastrointestinal: Present: distended (Moderately), normal bowel sounds, soft, tenderness (Incisional) Localized gastrointestinal: surgical scar: diffuse (Dressings intact clean and dry) - Labs CBC & Chem 7: 06/07/17 11:04 06/07/17 11:04 Assessment and Plan (1) Mass of colon Status: Acute Plan: We'll change him over to by mouth pain medication. Increase his activity. Progressing slowly.
--- NOTE | 2017-06-10 13:00 | XR ---
EXAMINATION TYPE: XR chest 1V portable DATE OF EXAM: 06/10/2017 Comparison: 06/05/2015 Clinical History: 76 year-old male shortness of breath, CHF Findings: The heart is normal size. Similar mild elongation of the thoracic aorta. Pulmonary vasculature within normal limits. No consolidation or pleural effusion. Impression: Stable exam without acute cardiopulmonary process.
[2017-06-10] MEDS: D5-0.45% NACL WITH KCL 20MEQ/L 1,000 ML IV SCH ×2 (16:15→16:16)
[2017-06-10] MEDS: HYDROcodone/APAP 5-325MG 1 EACH TAB PO PRN (16:22)
[2017-06-10] MEDS: ATORVASTATIN 20 MG TAB PO SCH (20:29)
[2017-06-10] MEDS: LATANOPROST 0.005% OPHTH DROPS 2.5 ML BTL BOTH EYES SCH (20:29)
[2017-06-11] MEDS: HEPARIN SODIUM,PORCINE 5,000 UNIT/ML 1 ML VIAL SQ SCH ×2 (00:15→09:34)
[2017-06-11] MEDS: HYDROcodone/APAP 5-325MG 1 EACH TAB PO PRN (03:14)
[2017-06-11] MEDS: D5-0.45% NACL WITH KCL 20MEQ/L 1,000 ML IV SCH (03:57)
--- NOTE | 2017-06-11 07:26 | PN ---
DATE OF SERVICE: 06/10/2017 I am covering for Dr. Yu. This 76-year-old gentleman who was admitted after left colectomy is improving significantly. No chest pain or palpitation. No fever. On exam, alert and oriented x3. Pulse is 89, blood pressure 154/92, respirations 17, temperature 98.1, pulse ox 95% on 2 L. HEENT: Conjunctivae are normal. Oral mucosa moist. NECK: No jugular venous distention. No carotid bruit. CARDIOVASCULAR: S1 and S2 muffled. RESPIRATORY: Breath sounds diminished at the bases. No rhonchi. No crackles. ABDOMEN: Soft, nontender. Status post surgery. LEGS: No edema, no swelling. NERVOUS SYSTEM: No focal deficits. LABS: WBC 13, hemoglobin 11.9. Sodium 131, potassium 5.2. ASSESSMENT: 1. Status post left colectomy and takedown of splenic flexure for left colonic mass. 2. Increased WBC. 3. Asthma, chronic obstructive pulmonary disease. 4. Gastroesophageal reflux disease. 5. Hypertension. 6. Hyperlipidemia. RECOMMENDATIONS AND DISCUSSION: Recommend to continue current medications. Continue with monitoring and symptomatic treatment. Otherwise, will monitor the patient closely. Incentive spirometry. Resume the home medications. Closely monitor. Further recommendations to follow. MTDD
[2017-06-11] MEDS: ALBUTEROL NEBULIZED 2.5 MG/3 ML INHALATION SCH ×2 (08:35→13:46)
[2017-06-11] MEDS: BUDESONIDE 1 MG/2 ML NEBU INHALATION PRN (08:35)
[2017-06-11] MEDS: FAMOTIDINE 20 MG TAB PO SCH (09:34)
[2017-06-11] MEDS: LISINOPRIL 10 MG TAB PO SCH (09:34)
[2017-06-11] MEDS: ALVIMOPAN 12 MG CAPSULE PO SCH (09:34)
[2017-06-11 14:30] VITALS: BP 155/79; PULSE 87; RESP 18; TEMP 98.9
--- NOTE | 2017-06-11 16:58 | P.DS ---
Providers Date of admission: 06/06/17 13:34 Expected date of discharge: 06/11/17 Attending physician: Jonathan Day Consults: 06/06/17 20:45 Consult Physician Routine Consulting Provider: Truman Yu Consult Reason/Comments: Medical management Do you want consulting provider notified?: Yes 06/07/17 08:52 Consult Physician Routine Consulting Provider: Truman Yu Consult Reason/Comments: med manage Do you want consulting provider notified?: Yes Primary care physician: Truman Yu Hospital Course: This is a 76-year-old male who underwent left colectomy for left colon cancer. Patient did well postoperatively. Please see hospital chart for details. Procedures: Left colectomy Patient Condition at Discharge: Good Plan - Discharge Summary New Discharge Prescriptions: New Docusate [Colace] 100 mg PO BID #20 capsule HYDROcodone/APAP 7.5-325MG [[place] 7.5] 1 each PO Q4H PRN #60 tab PRN Reason: Pain No Action Albuterol Inhaler [Ventolin Hfa Inhaler] 2 puff INHALATION RT-QID PRN PRN Reason: Shortness Of Breath Lisinopril [Prinivil] 10 mg PO QAM Simvastatin [Zocor] 40 mg PO HS Albuterol Nebulized (Conc) [Ventolin Nebulized (Conc)] 2.5 mg INHALATION RT- TID Omeprazole 40 mg PO DAILY PRN PRN Reason: reflux Latanoprost Ophth [Xalatan 0.005%] 1 drop BOTH EYES HS Budesonide [Pulmicort] 1 mg INHALATION Q6HR PRN PRN Reason: shortness of breath Discharge Medication List Albuterol Inhaler [Ventolin Hfa Inhaler] 2 puff INHALATION RT-QID PRN 06/05/15 [ History] Albuterol Nebulized (Conc) [Ventolin Nebulized (Conc)] 2.5 mg INHALATION RT-TID 06/05/15 [History] Lisinopril [Prinivil] 10 mg PO QAM 06/05/15 [History] Simvastatin [Zocor] 40 mg PO HS 06/05/15 [History] Omeprazole 40 mg PO DAILY PRN 05/24/17 [History] Latanoprost Ophth [Xalatan 0.005%] 1 drop BOTH EYES HS 06/06/17 [History] Budesonide [Pulmicort] 1 mg INHALATION Q6HR PRN 06/07/17 [History] Docusate [Colace] 100 mg PO BID #20 capsule 06/11/17 [Rx] HYDROcodone/APAP 7.5-325MG [[place] 7.5] 1 each PO Q4H PRN #60 tab 06/11/17 [Rx] Follow up Appointment(s)/Referral(s): Jonathan Day MD [STAFF PHYSICIAN] - 1 Week Patient Instructions/Handouts: Colectomy (DC) Activity/Diet/Wound Care/Special Instructions: Do not soak in pools, tubs, or hot tubs. Do not drive while on pain medication.
== END 2017-06-11 19:06 | disposition home or self-care (01) | DRG 331 ==
LOC: 2ORWHC 13:34 → 3SUR 19:55
PROVIDERS: ADMIT Surgery; ATTEND Surgery
PROC: 0DTG0ZZ Resection of Left Large Intestine, Open Approach (ICD-10-PCS; principal; 2017-06-06 07:30)
DX: C18.6 Malignant neoplasm of descending colon (principal); J44.9 Chronic obstructive pulmonary disease, unspecified; K21.9 Gastro-esophageal reflux disease without esophagitis; E78.5 Hyperlipidemia, unspecified; I10 Essential (primary) hypertension; Z79.51 Long term (current) use of inhaled steroids; G89.18 Other acute postprocedural pain; Z79.899 Other long term (current) drug therapy; Z87.891 Personal history of nicotine dependence; Z85.46 Personal history of malignant neoplasm of prostate; Z90.49 Acquired absence of other specified parts of digestive tract
CPT/HCPCS: 71010; 80048; 85025; 88309; 94640; 94760

== ENCOUNTER 2019-04-03 11:51 | Inpatient (IN) | payer MEDICARE, BC ==
[2019-04-03] MEDS ORDERED: methylPREDNISolone SOD SUCCI 125 MG/2 ML VIAL IV STA (12:08)
[2019-04-03] MEDS ORDERED: IPRATROPIUM-ALBUTEROL 3 ML NEB INHALATION STA (12:08)
[2019-04-03 12:24] LABS: Basophils # (A) 0.1 k/uL (0-0.2); Basophils % (A) 1 %; Eosinophils # (A) 0.7 k/uL (0-0.7); Eosinophils % (A) 6 %; HCT 41.8 % (39.0-53.0); HGB 13.5 gm/dL (13.0-17.5); Lymphocytes # (A) 2.2 k/uL (1.0-4.8); Lymphocytes % (A) 20 %; MCH 32.2 pg (25.0-35.0); MCHC 32.3 g/dL (31.0-37.0); MCV 99.6 fL (80.0-100.0); Macrocytosis Slight; Mean Platelet Volume 7.4; Monocytes # (A) 0.5 k/uL (0-1.0); Monocytes % (A) 5 %; Neutrophils # (A) 7.4 k/uL (1.3-7.7); Neutrophils % (A) 68 %; Platelet Count 286 k/uL (150-450); RDW 15.1 % (11.5-15.5)
[2019-04-03 12:33] LABS: ALT 19 U/L (21-72); AST 24 U/L (17-59); Albumin 4.3 g/dL (3.5-5.0); Alkaline Phosphatase 69 U/L (38-126); Anion Gap 8 mmol/L; Blood Urea Nitrogen 13 mg/dL (9-20); Carbon Dioxide 24 mmol/L (22-30); Chloride 107 mmol/L (98-107); Glucose 135 mg/dL (74-99); Magnesium 1.8 mg/dL (1.6-2.3); Potassium 4.8 mmol/L (3.5-5.1); Sodium 139 mmol/L (137-145); Total Bilirubin 0.6 mg/dL (0.2-1.3); Total Protein 7.4 g/dL (6.3-8.2)
--- NOTE | 2019-04-03 12:41 | ED ---
SOB HPI - General Chief Complaint: Shortness of Breath Stated Complaint: BAL Time Seen by Provider: 04/03/19 11:52 Source: patient, EMS, RN notes reviewed Mode of arrival: EMS Limitations: no limitations - History of Present Illness Initial Comments: 78-year-old male presents emergency department via EMS chief complaint of shortness of breath. Patient has underlying COPD but states last one approximately worsening shortness of breath. He was having no relief with home treatment and inhaler. Patient states he has minimal cough denies any recent no se, congestion. No fevers or chills denies any chest pain, leg swelling or pedal edema. Patient has no history of congestive heart failure. Patient is a former smoker with underlying COPD does not have a current vb developer. He denies any nausea and diarrhea constipation no sick contacts. - Related Data Home Medications Medication Instructions Recorded Confirmed Albuterol Inhaler [Ventolin Hfa 2 puff INHALATION RT-QID PRN 06/05/15 04/03/19 Inhaler] Albuterol Nebulized (Conc) 2.5 mg INHALATION RT-TID 06/05/15 04/03/19 [Ventolin Nebulized (Conc)] Lisinopril [Prinivil] 10 mg PO QAM 06/05/15 04/03/19 Latanoprost Ophth [Xalatan 0.005%] 1 drop BOTH EYES HS 06/06/17 04/03/19 Budesonide [Pulmicort] 1 mg INHALATION Q6HR PRN 06/07/17 04/03/19 Cetirizine HCl [Zyrtec] 10 mg PO DAILY 04/03/19 04/03/19 Donepezil HCl [Aricept] 10 mg PO DAILY 04/03/19 04/03/19 Rosuvastatin [Crestor] 10 mg PO HS 04/03/19 04/03/19 Allergies Allergy/AdvReac Type Severity Reaction Status Date / Time No Known Allergies Allergy Verified 04/03/19 12:15 Review of Systems ROS Statement: Those systems with pertinent positive or pertinent negative responses have been documented in the HPI. ROS Other: All systems not noted in ROS Statement are negative. Past Medical History Past Medical History: Asthma, Cancer, COPD, GERD/Reflux, Hyperlipidemia, Hypertension Additional Past Medical History / Comment(s): states "mass seen in bowel on CT scan" when seen in ER recently for bladder spasm, uses O2@2L NC during night and prn daily,prostate cancer History of Any Multi-Drug Resistant Organisms: None Reported Past Surgical History: Cholecystectomy Additional Past Surgical History / Comment(s): radiation for prostate cancer 2014; and hormone treatment for prostate cancer Past Anesthesia/Blood Transfusion Reactions: No Reported Reaction Additional Past Anesthesia/Blood Transfusion Reaction / Comment(s): no hx blood transfusion Past Psychological History: No Psychological Hx Reported Smoking Status: Former smoker Past Alcohol Use History: Occasional Past Drug Use History: None Reported - Past Family History Father History Unknown: Yes Family Medical History: Deep Vein Thrombosis (DVT) Mother History Unknown: Yes Family Medical History: Deep Vein Thrombosis (DVT) General Exam Limitations: no limitations General appearance: alert, in no apparent distress Head exam: Present: atraumatic, normocephalic, normal inspection Eye exam: Present: normal appearance, PERRL, EOMI. Absent: scleral icterus, conjunctival injection, periorbital swelling ENT exam: Present: normal exam, mucous membranes moist Neck exam: Present: normal inspection, full ROM. Absent: tenderness, meningismus, lymphadenopathy Respiratory exam: Present: wheezes (More prominent on the right). Absent: normal lung sounds bilaterally, respiratory distress, rales, rhonchi, stridor Cardiovascular Exam: Present: regular rate, normal rhythm, normal heart sounds. Absent: systolic murmur, diastolic murmur, rubs, gallop, clicks GI/Abdominal exam: Present: soft, normal bowel sounds. Absent: distended, tenderness, guarding, rebound, rigid Extremities exam: Absent: pedal edema Neurological exam: Present: alert, oriented X3 Skin exam: Present: warm, dry, intact, normal color. Absent: rash Course Vital Signs 04/03/19 04/03/19 04/03/19 11:54 12:03 12:38 Temperature 98.5 F Pulse Rate 92 99 Respiratory 18 22 Rate Blood Pressure 122/79 O2 Sat by Pulse 93 L Oximetry 04/03/19 12:48 Temperature Pulse Rate 100 Respiratory Rate Blood Pressure O2 Sat by Pulse Oximetry Medical Decision Making - Medical Decision Making 78-year-old male presents emergency Department chief complaint of shortness of breath. Patient had chest x-ray labs EKG. Patient has COPD exacerbation had minimal improvement with treatment. Patient will be admitted for IV steroids, repeat treatment and possible pulmonology evaluation. - Lab Data Result diagrams: 04/03/19 12:07 04/03/19 12:07 Lab Results 04/03/19 04/03/19 04/03/19 Range/Units 12:07 12:07 12:07 WBC 11.0 H (3.8-10.6) k/uL RBC 4.20 L (4.30-5.90) m/uL Hgb 13.5 (13.0-17.5) gm/dL Hct 41.8 (39.0-53.0) % MCV 99.6 (80.0-100.0) fL MCH 32.2 (25.0-35.0) pg MCHC 32.3 (31.0-37.0) g/dL RDW 15.1 (11.5-15.5) % Plt Count 286 (150-450) k/uL Neutrophils % 68 % Lymphocytes % 20 % Monocytes % 5 % Eosinophils % 6 % Basophils % 1 % Neutrophils # 7.4 (1.3-7.7) k/uL Lymphocytes # 2.2 (1.0-4.8) k/uL Monocytes # 0.5 (0-1.0) k/uL Eosinophils # 0.7 (0-0.7) k/uL Basophils # 0.1 (0-0.2) k/uL Macrocytosis Slight PT (9.0-12.0) sec INR (<1.2) APTT (22.0-30.0) sec Sodium 139 (137-145) mmol/L Potassium 4.8 (3.5-5.1) mmol/L Chloride 107 (98-107) mmol/L Carbon Dioxide 24 (22-30) mmol/L Anion Gap 8 mmol/L BUN 13 (9-20) mg/dL Creatinine 0.89 (0.66-1.25) mg/dL Est GFR (CKD-EPI)AfAm >90 (>60 ml/min/1.73 sqM) Est GFR (CKD-EPI)NonAf 82 (>60 ml/min/1.73 sqM) Glucose 135 H (74-99) mg/dL Calcium 9.0 (8.4-10.2) mg/dL Magnesium 1.8 (1.6-2.3) mg/dL Total Bilirubin 0.6 (0.2-1.3) mg/dL AST 24 (17-59) U/L ALT 19 L (21-72) U/L Alkaline Phosphatase 69 (38-126) U/L Troponin I (0.000-0.034) ng/mL NT-Pro-B Natriuret Pep 58 pg/mL Total Protein 7.4 (6.3-8.2) g/dL Albumin 4.3 (3.5-5.0) g/dL 04/03/19 04/03/19 Range/Units 12:07 12:07 WBC (3.8-10.6) k/uL RBC (4.30-5.90) m/uL Hgb (13.0-17.5) gm/dL Hct (39.0-53.0) % MCV (80.0-100.0) fL MCH (25.0-35.0) pg MCHC (31.0-37.0) g/dL RDW (11.5-15.5) % Plt Count (150-450) k/uL Neutrophils % % Lymphocytes % % Monocytes % % Eosinophils % % Basophils % % Neutrophils # (1.3-7.7) k/uL Lymphocytes # (1.0-4.8) k/uL Monocytes # (0-1.0) k/uL Eosinophils # (0-0.7) k/uL Basophils # (0-0.2) k/uL Macrocytosis PT 10.5 (9.0-12.0) sec INR 1.0 (<1.2) APTT 26.2 (22.0-30.0) sec Sodium (137-145) mmol/L Potassium (3.5-5.1) mmol/L Chloride (98-107) mmol/L Carbon Dioxide (22-30) mmol/L Anion Gap mmol/L BUN (9-20) mg/dL Creatinine (0.66-1.25) mg/dL Est GFR (CKD-EPI)AfAm (>60 ml/min/1.73 sqM) Est GFR (CKD-EPI)NonAf (>60 ml/min/1.73 sqM) Glucose (74-99) mg/dL Calcium (8.4-10.2) mg/dL Magnesium (1.6-2.3) mg/dL Total Bilirubin (0.2-1.3) mg/dL AST (17-59) U/L ALT (21-72) U/L Alkaline Phosphatase (38-126) U/L Troponin I <0.012 (0.000-0.034) ng/mL NT-Pro-B Natriuret Pep pg/mL Total Protein (6.3-8.2) g/dL Albumin (3.5-5.0) g/dL Disposition Clinical Impression: Acute exacerbation of chronic obstructive airways disease Disposition: ADMITTED IP TO THIS HOSP Condition: Fair Referrals: Truman Yu DO [Primary Care Provider] - 1-2 days
[2019-04-03 12:56] LABS: Partial Thromboplastin Time 26.2 sec (22.0-30.0); Prothrombin Time 10.5 sec (9.0-12.0)
--- NOTE | 2019-04-03 13:06 | XR ---
EXAMINATION TYPE: XR chest 2V DATE OF EXAM: 04/03/2019 COMPARISON: 06/10/2017 HISTORY: Shortness of breath TECHNIQUE: Frontal and lateral views of the chest are obtained. FINDINGS: There is no focal air space opacity, pleural effusion, or pneumothorax seen. Pulmonary hy perinflation and flattening of the diaphragms relates underlying COPD. Prominence of the hilum is aga in noted bilaterally. The cardiac silhouette size is within normal limits. There is diffuse osseous d emineralization. Minimal degenerative changes of the spine. The osseous structures are intact. IMPRESSION: No acute cardiopulmonary process. Underlying COPD is seen with prominence of the hilar v asculature that may relate to underlying pulmonary arterial hypertension.
[2019-04-03] MEDS ORDERED: ALBUTEROL NEBULIZED 2.5 MG/3 ML INHALATION PRN (13:17)
[2019-04-03] MEDS ORDERED: AZITHROMYCIN 500 MG in SODIUM CHLORIDE 0.9% 250 ML IVPB STA (13:24)
[2019-04-03] MEDS: IPRATROPIUM-ALBUTEROL 3 ML NEB INHALATION SCH ×2 (15:51→19:34)
[2019-04-03] MEDS: PANTOPRAZOLE 40 MG/10 ML VIAL IVP SCH (16:20)
[2019-04-03] MEDS: LORATADINE 10 MG TAB PO SCH (16:20)
[2019-04-03] MEDS: DONEPEZIL 10 MG TAB PO SCH (16:20)
[2019-04-03 16:53] LABS: Glucose,Whole Blood 183 mg/dL (75-99)
[2019-04-03] MEDS: methylPREDNISolone SOD SUCCI 125 MG/2 ML VIAL IV SCH ×2 (17:30→23:23)
[2019-04-03] MEDS: INSULIN ASPART (NovoLOG) 100 UNIT/ML VIAL SQ SCH ×2 (17:30→20:40)
[2019-04-03] MEDS: BUDESONIDE 0.5 MG/2 ML NEBU INHALATION SCH (19:33)
[2019-04-03] MEDS: ATORVASTATIN 20 MG TAB PO SCH (19:50)
[2019-04-03 20:25] LABS: Glucose,Whole Blood 174 mg/dL (75-99)
[2019-04-03] MEDS: LATANOPROST 0.005% OPHTH DROPS 2.5 ML BTL BOTH EYES SCH (20:40)
[2019-04-04] MEDS: methylPREDNISolone SOD SUCCI 125 MG/2 ML VIAL IV SCH ×4 (05:59→23:24)
[2019-04-04 07:12] LABS: Glucose,Whole Blood 136 mg/dL (75-99)
[2019-04-04] MEDS: BUDESONIDE 0.5 MG/2 ML NEBU INHALATION SCH ×2 (07:14→20:19)
[2019-04-04] MEDS: IPRATROPIUM-ALBUTEROL 3 ML NEB INHALATION SCH ×4 (07:14→20:19)
[2019-04-04] MEDS: PANTOPRAZOLE 40 MG/10 ML VIAL IVP SCH (07:50)
[2019-04-04] MEDS: LISINOPRIL 10 MG TAB PO SCH (07:50)
[2019-04-04] MEDS: DONEPEZIL 10 MG TAB PO SCH (07:50)
[2019-04-04] MEDS: LORATADINE 10 MG TAB PO SCH (07:51)
[2019-04-04] MEDS: INSULIN ASPART (NovoLOG) 100 UNIT/ML VIAL SQ SCH ×4 (07:51→21:34)
[2019-04-04 08:27] LABS: Anion Gap 8 mmol/L; Blood Urea Nitrogen 18 mg/dL (9-20); Calcium 9.3 mg/dL (8.4-10.2); Carbon Dioxide 26 mmol/L (22-30); Chloride 106 mmol/L (98-107); Glucose 142 mg/dL (74-99); Potassium 4.7 mmol/L (3.5-5.1); Sodium 140 mmol/L (137-145)
[2019-04-04 08:57] LABS: Basophils % (A) 0 %; Eosinophils % (A) 0 %; HCT 41.2 % (39.0-53.0); HGB 13.2 gm/dL (13.0-17.5); Lymphocytes # (A) 1.4 k/uL (1.0-4.8); Lymphocytes % (A) 10 %; MCH 31.9 pg (25.0-35.0); MCV 99.6 fL (80.0-100.0); Macrocytosis Slight; Mean Platelet Volume 7.4; Monocytes # (A) 0.3 k/uL (0-1.0); Monocytes % (A) 2 %; Neutrophils # (A) 12.5 k/uL (1.3-7.7); Neutrophils % (A) 87 %; Platelet Count 264 k/uL (150-450); RBC 4.14 m/uL (4.30-5.90); RDW 14.9 % (11.5-15.5); WBC 14.4 k/uL (3.8-10.6)
--- NOTE | 2019-04-04 09:11 | P.HPIM ---
History of Present Illness H&P Date: 04/04/19 Chief Complaint: Difficulty breathing, shortness of breath This is a 78-year-old gentleman with history of COPD, asthma, prior nicotine dependence, chronic hypoxic respiratory failure, wears 2 L at bedtime and prn during the day at home, colon cancer-left colectomy, presented to the ER with worsening shortness of breath, difficulty in breathing. Attempted nebulizers and inhalers at home with minimal improvement.Reports minimal cough with white colored sputum. Denies nasal congestion or recent upper respiratory infection. Denies chest pain, palpitations. Denies fever or, chills. Denies nausea vomiting or diarrhea. Denies abdominal pain. Chest x-ray reported no acute cardiopulmonary process, prominent hilar vasculature -underlying COPD, possible pulmonary arterial hypertension .EKG reported normal sinus rhythm with left anterior fascicular block. Troponins negative 1. Afebrile, WBC 11. T-max 99.1. Chloride 107, CO2 24. Creatinine 0.89. 93% on room air, tachypneic with respiratory rate of 18-22 on admission, heart rates 90s to low 100s. IV steroids, nebulized bronchodilators, Pulmicort, Azithromycin initiated. Review of Systems ROS Statement: Those systems with pertinent positive or pertinent negative responses have been documented in the HPI. ROS Other: All systems not noted in ROS Statement are negative. Past Medical History Past Medical History: Asthma, Cancer, COPD, GERD/Reflux, Hyperlipidemia, Hypertension, Osteoarthritis (OA), Pneumonia Additional Past Medical History / Comment(s): Bronchitis, home oxygen at 2L/NC at HS and prn in daytime, prostate surgery with radiation/hormone treatments, colon cancer with colectomy, glaucoma bilateral eyes, slight memory impairment. History of Any Multi-Drug Resistant Organisms: None Reported Past Surgical History: Bowel Resection, Cholecystectomy Additional Past Surgical History / Comment(s): Colonoscopy, L colectomy, bilateral eyes cataract removals and lens implants, bilateral eye laser surgery d/t glaucoma Past Anesthesia/Blood Transfusion Reactions: No Reported Reaction Additional Past Anesthesia/Blood Transfusion Reaction / Comment(s): no hx blood transfusion Past Psychological History: No Psychological Hx Reported Additional Psychological History / Comment(s): Pt resides with his spouse. He is independent. He has home oxygen and a nebulizer. Smoking Status: Former smoker Past Alcohol Use History: Occasional Additional Past Alcohol Use History / Comment(s): Pt started smoking in 1954 and quit in 2008. He was a 3 ppd smoker. Past Drug Use History: None Reported - Past Family History Father History Unknown: Yes Family Medical History: No Reported History Additional Family Medical History / Comment(s): Father was healthy. Mother History Unknown: Yes Family Medical History: Deep Vein Thrombosis (DVT), Myocardial Infarction (CA) Medications and Allergies Home Medications Medication Instructions Recorded Confirmed Type Albuterol Inhaler [Ventolin Hfa 2 puff INHALATION RT-QID PRN 06/05/15 04/03/19 History Inhaler] Albuterol Nebulized (Conc) 2.5 mg INHALATION RT-TID 06/05/15 04/03/19 History [Ventolin Nebulized (Conc)] Lisinopril [Prinivil] 10 mg PO QAM 06/05/15 04/03/19 History Latanoprost Ophth [Xalatan 0.005%] 1 drop BOTH EYES HS 06/06/17 04/03/19 History Budesonide [Pulmicort] 1 mg INHALATION Q6HR PRN 06/07/17 04/03/19 History Cetirizine HCl [Zyrtec] 10 mg PO DAILY 04/03/19 04/03/19 History Donepezil HCl [Aricept] 10 mg PO DAILY 04/03/19 04/03/19 History Rosuvastatin [Crestor] 10 mg PO HS 04/03/19 04/03/19 History Allergies Allergy/AdvReac Type Severity Reaction Status Date / Time No Known Allergies Allergy Verified 04/03/19 12:15 Physical Exam Vitals: Vital Signs Temp Pulse Pulse Resp BP BP Pulse Ox 04/04/19 07:35 86 04/04/19 07:17 80 97 04/04/19 05:30 98.3 F 89 18 128/71 97 04/03/19 21:00 98.0 F 107 H 20 148/68 95 04/03/19 20:52 16 04/03/19 19:56 104 H 04/03/19 19:34 100 96 04/03/19 16:03 94 04/03/19 15:51 92 04/03/19 14:45 99.1 F 97 16 169/90 94 L 04/03/19 14:19 97.8 F 90 22 124/86 95 04/03/19 13:30 96.7 F L 91 22 146/94 95 04/03/19 12:48 100 04/03/19 12:38 99 04/03/19 12:03 22 04/03/19 11:54 98.5 F 92 18 122/79 93 L Intake and Output 04/03/19 04/04/19 04/04/19 22:59 06:59 14:59 Intake Total 890 400 Balance 890 400 Intake: Oral 890 400 Other: Voiding Method Toilet # Voids 1 2 PHYSICAL EXAM: VITAL SIGNS: As above GENERAL: Sitting up in bed, no acute distress, mild shortness of breath with conversing HEENT: Conjunctivae normal. eyes normal. Dry mucosa moist NECK: No JVD. No thyroid enlargement. No LNs CARDIOVASCULAR: S1, S2 regular. No murmur, rubs or gallops RESPIRATION: Respiratory effort mildly increased ,Breath sounds diminished in the bases. No rhonchi or crackles. No expiratory wheezing. ABDOMEN: Soft, nontender . No guarding. no masses palpable. Bowel sounds heard. LEGS: No edema. no swelling PSYCHIATRY: Alert and oriented -3, mood and affect normal. NERVOUS SYSTEM: Cranial N 2-12 grossly normal. Moves all 4 limbs. Diffuse weakness No focal deficits. No sensory deficit. Skin: no lesions, no rash, no clubbing, no cyanosis Joints: No active swelling. No inflammation. Lymphatic system. No LN neck axilla or groin. Results CBC & Chem 7: 04/04/19 07:53 04/04/19 07:53 Labs: Abnormal Lab Results - Last 24 Hours (Table) 04/03/19 04/03/19 04/03/19 Range/Units 12:07 12:07 16:29 WBC 11.0 H (3.8-10.6) k/uL RBC 4.20 L (4.30-5.90) m/uL Glucose 135 H (74-99) mg/dL POC Glucose (mg/dL) 183 H (75-99) mg/dL ALT 19 L (21-72) U/L 04/03/19 04/04/19 04/04/19 Range/Units 20:10 07:00 07:53 WBC (3.8-10.6) k/uL RBC (4.30-5.90) m/uL Glucose 142 H (74-99) mg/dL POC Glucose (mg/dL) 174 H 136 H (75-99) mg/dL ALT (21-72) U/L Thrombosis Risk Factor Assmnt - Choose All That Apply Any of the Below Risk Factors Present?: Yes Each Factor Represents 1 point: Abnormal pulmonary function (COPD), Obesity (BMI >25) Other Risk Factors: Yes Each Risk Factor Represents 2 Points: Malignancy Each Risk Factor Represents 3 Points: Age 75 years or older Other congenital or acquired thrombophilia - If yes, enter type in comment: No Thrombosis Risk Factor Assessment Total Risk Factor Score: 7 Thrombosis Risk Factor Assessment Level: High Risk Assessment and Plan Assessment: -Acute COPD exacerbation. -Chronic hypoxic respiratory failure, wears 2 L Q pm & prn during the day. -Asthma, chronic persistent -History of pneumonia, bronchitis -Gastroesophageal reflux disease -Hypertension -Hyperlipidemia -Osteoarthritis -Glaucoma -Cataracts, status post surgery- -History of prostate cancer with radiation/hormone treatments -History of colon cancer with left colectomy -Former nicotine abuse Plan: Continue on current medication regime ,monitoring and symptomatic treatment. Continue on IV steroids, nebulized bronchodilators, Zithromax. Pulmonary consulted with recommendations pending. Home meds have been reviewed and resumed. GI and DVT prophylaxis in place. Increase ambulation as tolerated. The impression and plan of care has been dictated as directed. : I performed a history and examination of this patient, discussed the same with the dictator. I agree with the dictator's note ,documented as a scribe. Any additional findings or plans will be noted. Time taken: 35 minutes
[2019-04-04] MEDS ORDERED: AZITHROMYCIN 500 MG in SODIUM CHLORIDE 0.9% 250 ML IVPB SCH (10:00)
[2019-04-04] MEDS: HEPARIN SODIUM,PORCINE 5,000 UNIT/ML 1 ML VIAL SQ SCH ×2 (10:36→21:34)
[2019-04-04 11:29] LABS: Glucose,Whole Blood 264 mg/dL (75-99)
--- NOTE | 2019-04-04 16:36 | P.CNPUL ---
History of Present Illness Consult date: 04/04/19 Reason for consult: dyspnea, COPD History of present illness: 8-year-old male patient with known history of COPD was also chronic smoker comes in yesterday to the hospital because of worsening shortness of breath. He typically gets 1 COPD exacerbation on a yearly basis. At home, uses Ventolin rescue inhaler and he has a albuterol nebulizer that she was on a when necessary basis. In the past, he was given Incruse through our office. He has not been using it on a regular basis. No angina. No palpitation. No chest pain. No fever. No chills. Chest x-ray is consistent with COPD and there are no acute abnormalities. EKG shows a normal sinus rhythm with a left anterior fascicular block. Troponin was negative. The patient is afebrile. Pulse ox on room air is 93%. Responded to bronchodilators and systemic steroids. Start on Zithromax as an empiric antibiotic coverage. Review of Systems Constitutional: Denies chills, Denies fever Eyes: denies as per HPI, denies blurred vision, denies bulging eye, denies decreased vision, denies diplopia, denies discharge, denies dry eye, denies irritation, denies itching, denies pain, denies photophobia, denies loss of per ipheral vision, denies loss of vision, denies tunnel vision/blind spots Ears: deny: decreased hearing, ear discharge, earache, tinnitus Ears, nose, mouth and throat: Reports as per HPI Breasts: absent: as per HPI, gynecomastia Cardiovascular: Reports decreased exercise tolerance, Reports dyspnea on exertion, Reports shortness of breath Respiratory: Reports cough, Reports dyspnea, Reports wheezing Gastrointestinal: Reports as per HPI Genitourinary: Reports as per HPI Musculoskeletal: Reports as per HPI Musculoskeletal: absent: ankle pain, ankle stiffness, ankle swelling, as per HPI, elbow pain, elbow stiffness, elbow swelling, foot pain, foot stiffness, foot swelling, hand pain, hand stiffness, hand swelling, hip pain, hip stiffness, hip swelling, knee pain, knee stiffness, knee swelling, shoulder pain, shoulder stiffness, shoulder swelling, wrist pain, wrist stiffness, wrist swelling Integumentary: Reports as per HPI Neurological: Reports as per HPI Psychiatric: Reports as per HPI Endocrine: Reports as per HPI Hematologic/Lymphatic: Reports as per HPI Allergic/Immunologic: Reports as per HPI Past Medical History Past Medical History: Cancer, COPD, GERD/Reflux, Hyperlipidemia, Hypertension, Osteoarthritis (OA), Pneumonia Additional Past Medical History / Comment(s): Bronchitis, home oxygen at 2L/NC at HS and prn in daytime, prostate surgery with radiation/hormone treatments, colon cancer with colectomy, glaucoma bilateral eyes, slight memory impairment. History of Any Multi-Drug Resistant Organisms: None Reported Past Surgical History: Bowel Resection, Cholecystectomy Additional Past Surgical History / Comment(s): Colonoscopy, L colectomy, bilateral eyes cataract removals and lens implants, bilateral eye laser surgery d/t glaucoma Past Anesthesia/Blood Transfusion Reactions: No Reported Reaction Additional Past Anesthesia/Blood Transfusion Reaction / Comment(s): no hx blood transfusion Past Psychological History: No Psychological Hx Reported Additional Psychological History / Comment(s): Pt resides with his spouse. He is independent. He has home oxygen and a nebulizer. Smoking Status: Former smoker Past Alcohol Use History: Occasional Additional Past Alcohol Use History / Comment(s): Pt started smoking in 195 and quit in 2008. He was a 3 ppd smoker. Past Drug Use History: None Reported - Past Family History Father History Unknown: Yes Family Medical History: No Reported History Additional Family Medical History / Comment(s): Father was healthy. Mother History Unknown: Yes Family Medical History: Deep Vein Thrombosis (DVT), Myocardial Infarction (UT) Medications and Allergies Home Medications Medication Instructions Recorded Confirmed Type Albuterol Inhaler [Ventolin Hfa 2 puff INHALATION RT-QID PRN 06/05/15 04/03/19 History Inhaler] Albuterol Nebulized (Conc) 2.5 mg INHALATION RT-TID 06/05/15 04/03/19 History [Ventolin Nebulized (Conc)] Lisinopril [Prinivil] 10 mg PO QAM 06/05/15 04/03/19 History Latanoprost Ophth [Xalatan 0.005%] 1 drop BOTH EYES HS 06/06/17 04/03/19 History Budesonide [Pulmicort] 1 mg INHALATION Q6HR PRN 06/07/17 04/03/19 History Cetirizine HCl [Zyrtec] 10 mg PO DAILY 04/03/19 04/03/19 History Donepezil HCl [Aricept] 10 mg PO DAILY 04/03/19 04/03/19 History Rosuvastatin [Crestor] 10 mg PO HS 04/03/19 04/03/19 History Allergies Allergy/AdvReac Type Severity Reaction Status Date / Time No Known Allergies Allergy Verified 04/03/19 12:15 Physical Exam Vitals: Vital Signs Temp Pulse Pulse Resp BP Pulse Ox 04/04/19 15:20 82 04/04/19 15:09 86 04/04/19 13:31 98.1 F 89 20 124/73 94 L 04/04/19 11:35 88 04/04/19 11:27 86 04/04/19 07:35 86 04/04/19 07:17 80 97 04/04/19 05:30 98.3 F 89 18 128/71 97 04/03/19 21:00 98.0 F 107 H 20 148/68 95 04/03/19 20:52 16 04/03/19 19:56 104 H 04/03/19 19:34 100 96 Intake and Output 04/04/19 04/04/19 04/04/19 06:59 14:59 22:59 Intake Total 400 1210 Balance 400 1210 Intake: IV 250 Azithromycin 500 mg In 250 Sodium Chloride 0.9% 250 ml @ 250 mls/hr IVPB DAILY [facility] Rx#:[id number] Oral 400 960 Other: # Voids 2 GENERAL: Sitting up in bed, no acute distress, mild shortness of breath with conversing HEENT: Conjunctivae normal. eyes normal. Dry mucosa moist NECK: No JVD. No thyroid enlargement. No LNs CARDIOVASCULAR: S1, S2 regular. No murmur, rubs or gallops RESPIRATION: Respiratory effort mildly increased ,Breath sounds diminished in the bases. No rhonchi or crackles. Minimal expiratory wheezes heard bilaterally. ABDOMEN: Soft, nontender . No guarding. no masses palpable. Bowel sounds heard. LEGS: No edema. no swelling PSYCHIATRY: Alert and oriented -3, mood and affect normal. NERVOUS SYSTEM: Cranial N 2-12 grossly normal. Moves all 4 limbs. Diffuse weakness No focal deficits. No sensory deficit. Skin: no lesions, no rash, no clubbing, no cyanosis Joints: No active swelling. No inflammation. Lymphatic system. No LN neck axilla or groin. Results - Laboratory Findings CBC and BMP: 04/04/19 07:53 04/04/19 07:53 PT/INR, D-dimer PT 10.5 sec (9.0-12.0) 04/03/19 12:07 INR 1.0 (<1.2) 04/03/19 12:07 Abnormal lab findings: Abnormal Labs 04/03/19 04/03/19 04/03/19 12:07 12:07 16:29 WBC 11.0 H RBC 4.20 L Neutrophils # Glucose 135 H POC Glucose (mg/dL) 183 H ALT 19 L 04/03/19 04/04/19 04/04/19 20:10 07:00 07:53 WBC 14.4 H RBC 4.14 L Neutrophils # 12.5 H Glucose POC Glucose (mg/dL) 174 H 136 H ALT 04/04/19 04/04/19 07:53 11:19 WBC RBC Neutrophils # Glucose 142 H POC Glucose (mg/dL) 264 H ALT - Diagnostic Findings Chest x-ray: image reviewed Assessment and Plan Plan: 1 acute exacerbation of COPD with secondary shortness of breath, improving 2 chronic hypoxic respiratory failure secondary to COPD 3 hypertension 4 hyperlipidemia 5 osteoarthritis 6 glaucoma/cataracts 7 history of prostate cancer with previous radiation therapy and hormonal treatment 8 history of colon cancer with a previous colectomy Plan Agree on the current treatment. Outpatient follow-up once the patient is fully recovered for a PFT and further management of his underlying COPD.
[2019-04-04 17:27] LABS: Glucose,Whole Blood 135 mg/dL (75-99)
[2019-04-04 20:26] LABS: Glucose,Whole Blood 162 mg/dL (75-99)
[2019-04-04] MEDS: ATORVASTATIN 20 MG TAB PO SCH (21:34)
[2019-04-04] MEDS: LATANOPROST 0.005% OPHTH DROPS 2.5 ML BTL BOTH EYES SCH (21:35)
[2019-04-05] MEDS: IPRATROPIUM-ALBUTEROL 3 ML NEB INHALATION SCH ×4 (04:37→18:47)
[2019-04-05] MEDS: BUDESONIDE 0.5 MG/2 ML NEBU INHALATION SCH ×2 (04:38→18:47)
[2019-04-05] MEDS: methylPREDNISolone SOD SUCCI 125 MG/2 ML VIAL IV SCH ×3 (06:07→17:12)
[2019-04-05 07:07] LABS: Glucose,Whole Blood 129 mg/dL (75-99)
[2019-04-05 07:29] LABS: Basophils % (A) 0 %; Eosinophils % (A) 0 %; HCT 36.3 % (39.0-53.0); HGB 11.8 gm/dL (13.0-17.5); Lymphocytes % (A) 6 %; MCH 32.2 pg (25.0-35.0); MCHC 32.6 g/dL (31.0-37.0); MCV 98.7 fL (80.0-100.0); Mean Platelet Volume 6.9; Monocytes # (A) 0.7 k/uL (0-1.0); Monocytes % (A) 4 %; Neutrophils # (A) 13.2 k/uL (1.3-7.7); Neutrophils % (A) 88 %; Platelet Count 265 k/uL (150-450); RBC 3.67 m/uL (4.30-5.90); RDW 14.5 % (11.5-15.5); WBC 14.9 k/uL (3.8-10.6)
[2019-04-05] MEDS: INSULIN ASPART (NovoLOG) 100 UNIT/ML VIAL SQ SCH ×4 (08:24→21:40)
[2019-04-05] MEDS: AZITHROMYCIN 500 MG TAB PO SCH (08:24)
[2019-04-05] MEDS: LISINOPRIL 10 MG TAB PO SCH (08:24)
[2019-04-05] MEDS: LORATADINE 10 MG TAB PO SCH (08:24)
[2019-04-05] MEDS: DONEPEZIL 10 MG TAB PO SCH (08:24)
[2019-04-05] MEDS: PANTOPRAZOLE 40 MG TABLET PO SCH (08:24)
[2019-04-05] MEDS: HEPARIN SODIUM,PORCINE 5,000 UNIT/ML 1 ML VIAL SQ SCH ×2 (08:24→21:25)
[2019-04-05 08:36] LABS: Anion Gap 5 mmol/L; Blood Urea Nitrogen 22 mg/dL (9-20); Calcium 8.9 mg/dL (8.4-10.2); Carbon Dioxide 27 mmol/L (22-30); Chloride 108 mmol/L (98-107); Glucose 131 mg/dL (74-99); Potassium 5.2 mmol/L (3.5-5.1); Sodium 140 mmol/L (137-145)
[2019-04-05] MEDS: IPRATROPIUM-ALBUTEROL 3 ML NEB INHALATION PRN ×2 (09:37→23:12)
[2019-04-05 11:55] LABS: Glucose,Whole Blood 97 mg/dL (75-99)
--- NOTE | 2019-04-05 14:16 | P.PN ---
Subjective 78-year-old gentleman with past medical history significant for COPD is admitted for shortness of breath and COPD exacerbation. He was not getting relief with his home breathing treatments psychiatric the ER. Patient is still short of breath and coughing No chest pain or racing heart Objective - Vital Signs Vital signs: Vital Signs Temp 97.6 F 04/05/19 05:29 Pulse 92 04/05/19 12:30 Resp 18 04/05/19 12:30 BP 142/69 04/05/19 05:29 Pulse Ox 97 04/05/19 05:29 Intake & Output 04/04/19 04/05/19 04/05/19 18:59 06:59 18:59 Intake Total 1210 Balance 1210 Intake: IV 250 Azithromycin 500 mg In 250 Sodium Chloride 0.9% 250 ml @ 250 mls/hr IVPB DAILY [facility] Rx#:[id number] Oral 960 Other: Voiding Method Toilet # Voids 1 - Exam PHYSICAL EXAM: GENERAL: Sitting up in bed, no acute distress, mild shortness of breath with conversing HEENT: Conjunctivae normal. eyes normal. Dry mucosa moist NECK: No JVD. No thyroid enlargement. No LNs CARDIOVASCULAR: S1, S2 regular. No murmur, rubs or gallops RESPIRATION: Respiratory effort mildly increased ,Breath sounds diminished in the bases. No rhonchi or crackles. No expiratory wheezing. ABDOMEN: Soft, nontender . No guarding. no masses palpable. Bowel sounds heard. LEGS: No edema. no swelling PSYCHIATRY: Alert and oriented -3, mood and affect normal. NERVOUS SYSTEM: Cranial N 2-12 grossly normal. Moves all 4 limbs. Diffuse weakness No focal deficits. No sensory deficit. Skin: no lesions, no rash, no clubbing, no cyanosis Joints: No active swelling. No inflammation. Lymphatic system. No LN neck axilla or groin. - Labs CBC & Chem 7: 04/05/19 07:02 04/05/19 07:02 Labs: Abnormal Lab Results - Last 24 Hours (Table) 04/04/19 04/04/19 04/05/19 Range/Units 17:18 20:25 07:02 WBC 14.9 H (3.8-10.6) k/uL RBC 3.67 L (4.30-5.90) m/uL Hgb 11.8 L (13.0-17.5) gm/dL Hct 36.3 L (39.0-53.0) % Neutrophils # 13.2 H (1.3-7.7) k/uL Potassium (3.5-5.1) mmol/L Chloride (98-107) mmol/L BUN (9-20) mg/dL Glucose (74-99) mg/dL POC Glucose (mg/dL) 135 H 162 H (75-99) mg/dL 04/05/19 04/05/19 Range/Units 07:02 07:06 WBC (3.8-10.6) k/uL RBC (4.30-5.90) m/uL Hgb (13.0-17.5) gm/dL Hct (39.0-53.0) % Neutrophils # (1.3-7.7) k/uL Potassium 5.2 H (3.5-5.1) mmol/L Chloride 108 H (98-107) mmol/L BUN 22 H (9-20) mg/dL Glucose 131 H (74-99) mg/dL POC Glucose (mg/dL) 129 H (75-99) mg/dL Assessment and Plan Assessment: - Acute COPD exacerbation - Acute hypoxic respiratory Prilosec irritable - Remote history of TOBACCO abuse patient quit smoking 10 years ago - History of GERD - Hypertension - Hyperlipidemia - Osteoarthritis - History of prostate cancer Plan - Any breathing treatments and steroids - Patient is still tight and coughing. Start him on Mucinex - We'll continue rest of the medical care Time with Patient: Less than 30
--- NOTE | 2019-04-05 14:30 | P.PN ---
Subjective Progress Note Date: 04/05/19 On today's evaluation of 04/05/2019, the patient is still short of breath bronchospastic and wheezy typically of an underlying COPD exacerbation. Limited improvement since yesterday. Remains on IV Solu Medrol 60 mg every 6 hours. Remains on DuoNeb the right symptoms [id number]. He remains on a c ombination of Perforomist nebulized treatments twice a day. No significant sputum production. No pleurisy. No hemoptysis. No chest pain. No edema in lower extremities. No other significant events otherwise for now. No altered mentation. Hemodynamically stable. Objective - Vital Signs Vital signs: Vital Signs Temp 97.6 F 04/05/19 05:29 Pulse 92 04/05/19 12:30 Resp 18 04/05/19 12:30 BP 142/69 04/05/19 05:29 Pulse Ox 97 04/05/19 05:29 Intake & Output 04/04/19 04/05/19 04/05/19 18:59 06:59 18:59 Intake Total 1210 Balance 1210 Intake: IV 250 Azithromycin 500 mg In 250 Sodium Chloride 0.9% 250 ml @ 250 mls/hr IVPB DAILY [facility] Rx#:[id number] Oral 960 Other: Voiding Method Toilet # Voids 1 - Exam GENERAL: Sitting up in bed, no acute distress, mild shortness of breath with conversing HEENT: Conjunctivae normal. eyes normal. Dry mucosa moist NECK: No JVD. No thyroid enlargement. No LNs CARDIOVASCULAR: S1, S2 regular. No murmur, rubs or gallops RESPIRATION: Respiratory effort mildly increased ,Breath sounds diminished in the bases. No rhonchi or crackles. Significant expiratory wheezes heard bilaterally. ABDOMEN: Soft, nontender . No guarding. no masses palpable. Bowel sounds heard. LEGS: No edema. no swelling PSYCHIATRY: Alert and oriented -3, mood and affect normal. NERVOUS SYSTEM: Cranial N 2-12 grossly normal. Moves all 4 limbs. Diffuse weakness No focal deficits. No sensory deficit. Skin: no lesions, no rash, no clubbing, no cyanosis Joints: No active swelling. No inflammation. Lymphatic system. No LN neck axilla or groin. - Labs CBC & Chem 7: 04/05/19 07:02 04/05/19 07:02 Labs: Abnormal Lab Results - Last 24 Hours (Table) 04/04/19 04/04/19 04/05/19 Range/Units 17:18 20:25 07:02 WBC 14.9 H (3.8-10.6) k/uL RBC 3.67 L (4.30-5.90) m/uL Hgb 11.8 L (13.0-17.5) gm/dL Hct 36.3 L (39.0-53.0) % Neutrophils # 13.2 H (1.3-7.7) k/uL Potassium (3.5-5.1) mmol/L Chloride (98-107) mmol/L BUN (9-20) mg/dL Glucose (74-99) mg/dL POC Glucose (mg/dL) 135 H 162 H (75-99) mg/dL 04/05/19 04/05/19 Range/Units 07:02 07:06 WBC (3.8-10.6) k/uL RBC (4.30-5.90) m/uL Hgb (13.0-17.5) gm/dL Hct (39.0-53.0) % Neutrophils # (1.3-7.7) k/uL Potassium 5.2 H (3.5-5.1) mmol/L Chloride 108 H (98-107) mmol/L BUN 22 H (9-20) mg/dL Glucose 131 H (74-99) mg/dL POC Glucose (mg/dL) 129 H (75-99) mg/dL Assessment and Plan Plan: 1 acute exacerbation of COPD with secondary shortness of breath, still active and the patient continues to BE short of breath bronchospastic and wheezy 2 chronic hypoxic respiratory failure secondary to COPD 3 hypertension 4 hyperlipidemia 5 osteoarthritis 6 glaucoma/cataracts 7 history of prostate cancer with previous radiation therapy and hormonal treatment 8 history of colon cancer with a previous colectomy Plan Continue same treatment. We'll continue to follow.
[2019-04-05 16:54] LABS: Glucose,Whole Blood 140 mg/dL (75-99)
[2019-04-05] MEDS: ATORVASTATIN 20 MG TAB PO SCH (21:25)
[2019-04-05] MEDS: guaiFENesin 600 MG TABLET.ER PO SCH (21:25)
[2019-04-05] MEDS: LATANOPROST 0.005% OPHTH DROPS 2.5 ML BTL BOTH EYES SCH (21:25)
[2019-04-05 21:35] LABS: Glucose,Whole Blood 146 mg/dL (75-99)
[2019-04-06] MEDS: methylPREDNISolone SOD SUCCI 125 MG/2 ML VIAL IV SCH ×3 (00:09→11:06)
[2019-04-06] MEDS: IPRATROPIUM-ALBUTEROL 3 ML NEB INHALATION PRN (03:40)
[2019-04-06 06:15] VITALS: BP 137/79; TEMP 97.5
[2019-04-06 07:27] LABS: Glucose,Whole Blood 129 mg/dL (75-99)
[2019-04-06 07:34] LABS: Anion Gap 8 mmol/L; Blood Urea Nitrogen 21 mg/dL (9-20); Calcium 8.6 mg/dL (8.4-10.2); Carbon Dioxide 25 mmol/L (22-30); Chloride 107 mmol/L (98-107); Glucose 137 mg/dL (74-99); Potassium 4.6 mmol/L (3.5-5.1); Sodium 140 mmol/L (137-145)
[2019-04-06 07:37] LABS: Basophils % (A) 0 %; Eosinophils # (A) 0.9 k/uL (0-0.7); Eosinophils % (A) 7 %; HCT 35.9 % (39.0-53.0); HGB 11.4 gm/dL (13.0-17.5); Lymphocytes # (A) 0.8 k/uL (1.0-4.8); Lymphocytes % (A) 6 %; MCH 32.1 pg (25.0-35.0); MCHC 31.8 g/dL (31.0-37.0); MCV 100.8 fL (80.0-100.0); Macrocytosis Slight; Mean Platelet Volume 7.2; Monocytes # (A) 0.8 k/uL (0-1.0); Monocytes % (A) 6 %; Neutrophils # (A) 11.1 k/uL (1.3-7.7); Neutrophils % (A) 81 %; Platelet Count 225 k/uL (150-450); RBC 3.56 m/uL (4.30-5.90); RDW 14.7 % (11.5-15.5); WBC 13.7 k/uL (3.8-10.6)
[2019-04-06] MEDS: IPRATROPIUM-ALBUTEROL 3 ML NEB INHALATION SCH ×2 (08:14→11:58)
[2019-04-06] MEDS: BUDESONIDE 0.5 MG/2 ML NEBU INHALATION SCH (08:14)
[2019-04-06 08:29] VITALS: PULSE 80
[2019-04-06] MEDS: guaiFENesin 600 MG TABLET.ER PO SCH (11:04)
[2019-04-06] MEDS: PANTOPRAZOLE 40 MG TABLET PO SCH (11:04)
[2019-04-06] MEDS: AZITHROMYCIN 500 MG TAB PO SCH (11:04)
[2019-04-06] MEDS: DONEPEZIL 10 MG TAB PO SCH (11:04)
[2019-04-06] MEDS: LISINOPRIL 10 MG TAB PO SCH (11:04)
[2019-04-06] MEDS: LORATADINE 10 MG TAB PO SCH (11:04)
[2019-04-06] MEDS: INSULIN ASPART (NovoLOG) 100 UNIT/ML VIAL SQ SCH ×2 (11:05→12:31)
[2019-04-06] MEDS: HEPARIN SODIUM,PORCINE 5,000 UNIT/ML 1 ML VIAL SQ SCH (11:06)
[2019-04-06 12:11] LABS: Glucose,Whole Blood 113 mg/dL (75-99)
--- NOTE | 2019-04-06 12:26 | P.DS ---
Providers Date of admission: 04/05/19 15:10 Expected date of discharge: 04/06/19 Attending physician: Truman Yu Consults: 04/03/19 13:38 Consult Physician Urgent Consulting Provider: Kevin Haro Consult Reason/Comments: COPD Do you want consulting provider notified?: Yes Primary care physician: Truman Yu Hospital Course: Discharge diagnosis - Acute COPD exacerbation - Acute on chronic respiratory failure patient on home oxygen - History of GERD - History of hypertension - History of hyperlipidemia - History of arthritis - History of prostate cancer - History of colon cancer - History of nicotine abuse quit 10 years ago Hospital course This is a 78-year-old gentleman with history of COPD, asthma, prior nicotine dependence, chronic hypoxic respiratory failure, wears 2 L at bedtime and prn during the day at home, colon cancer-left colectomy, presented to the ER with worsening shortness of breath, difficulty in breathing. Attempted nebulizers and inhalers at home with minimal improvement.Reports minimal cough with white colored sputum. Denies nasal congestion or recent upper respiratory infection. Denies chest pain, palpitations. Denies fever or, chills. Denies nausea vomiting or diarrhea. Denies abdominal pain. Chest x-ray reported no acute cardiopulmonary process, prominent hilar vasculature -underlying COPD, possible pulmonary arterial hypertension .EKG reported normal sinus rhythm with left anterior fascicular block. Troponins negative 1. Afebrile, WBC 11. T-max 99.1. Chloride 107, CO2 24. Creatinine 0.89. 93% on room air, tachypneic with respiratory rate of 18-22 on admission, heart rates 90s to low 100s. IV steroids, nebulized bronchodilators, Pulmicort, Azithromycin initiated. Patient was seen by pulmonology. Patient says that he uses 2 L of action at night and when necessary during the day but over here he's been using it continuously during the day as well. He was continued on steroids, breathing treatments and antibiotics. His breathing improved significantly. On 04/06/2019 On exam, alert and oriented x3. HEENT: Conjunctivae normal. eyes normal. NECK: No JVD. No thyroid enlargement. No LNs CARDIOVASCULAR: S1, S2 muffled. No murmur RESPIRATION: He is having mild wheezing appreciated but better than yesterday ABDOMEN: Soft, nontender . No guarding. no masses palpable. No ascites, No hepatosplenomegaly.Bowel sounds heard. LEGS: No edema. no swelling NERVOUS SYSTEM: Cranial N 2-12 grossly normal. Moves all 4 limbs. No focal deficits. No sensory deficit. No signs of cerebellar dysfucntion. Skin: no ulcer no rash Joints: No active swelling. No inflammation. Lymphatic system. No LN neck axilla or groin. The patient will be discharge when cleared by pulmonology He was sent on breathing treatments, tapering dose of steroids and antibiotics to complete the course She sees measurement coordinator in 1 week and his primary care doctor in next 2-3 days Patient Condition at Discharge: Fair Plan - Discharge Summary Discharge Rx Participant: No New Discharge Prescriptions: New Ipratropium-Albuterol Nebulize [Duoneb 0.5 mg-3 mg/3 ml Soln] 3 ml INHALATION RT-QID #120 ampul.neb guaiFENesin [Mucinex] 600 mg PO Q12HR #10 tablet.er predniSONE 10 mg PO DIRECTED #60 tab Pantoprazole [Protonix] 40 mg PO AC-BRKFST #30 tablet. Budesonide [Pulmicort] 0.5 mg INHALATION RT-BID #60 nebu Azithromycin [Zithromax] 250 mg PO DAILY 3 Days #3 tab Continue Albuterol Inhaler [Ventolin Hfa Inhaler] 2 puff INHALATION RT-QID PRN PRN Reason: Shortness Of Breath Lisinopril [Prinivil] 10 mg PO QAM Latanoprost Ophth [Xalatan 0.005%] 1 drop BOTH EYES HS Budesonide [Pulmicort] 1 mg INHALATION Q6HR PRN PRN Reason: shortness of breath Rosuvastatin [Crestor] 10 mg PO HS Donepezil HCl [Aricept] 10 mg PO DAILY Cetirizine HCl [Zyrtec] 10 mg PO DAILY Discontinued Albuterol Nebulized (Conc) [Ventolin Nebulized (Conc)] 2.5 mg INHALATION RT- TID Discharge Medication List Albuterol Inhaler [Ventolin Hfa Inhaler] 2 puff INHALATION RT-QID PRN 06/05/15 [History] Lisinopril [Prinivil] 10 mg PO QAM 06/05/15 [History] Latanoprost Ophth [Xalatan 0.005%] 1 drop BOTH EYES HS 06/06/17 [History] Budesonide [Pulmicort] 1 mg INHALATION Q6HR PRN 06/07/17 [History] Cetirizine HCl [Zyrtec] 10 mg PO DAILY 04/03/19 [History] Donepezil HCl [Aricept] 10 mg PO DAILY 04/03/19 [History] Rosuvastatin [Crestor] 10 mg PO HS 04/03/19 [History] Azithromycin [Zithromax] 250 mg PO DAILY 3 Days #3 tab 04/06/19 [Rx] Budesonide [Pulmicort] 0.5 mg INHALATION RT-BID #60 nebu 04/06/19 [Rx] Ipratropium-Albuterol Nebulize [Duoneb 0.5 mg-3 mg/3 ml Soln] 3 ml INHALATION RT-QID #120 ampul.neb 04/06/19 [Rx] Pantoprazole [Protonix] 40 mg PO AC-BRKFST #30 tablet.dr 04/06/19 [Rx] guaiFENesin [Mucinex] 600 mg PO Q12HR #10 tablet.er 04/06/19 [Rx] predniSONE 10 mg PO DIRECTED #60 tab 04/06/19 [Rx] Follow up Appointment(s)/Referral(s): Truman Yu DO [Primary Care Provider] - 3 Days Kevin Haro MD [STAFF PHYSICIAN] - 1 Week Activity/Diet/Wound Care/Special Instructions: If you have any increased shortness of breath not getting better with breathing treatments, and increased cough, any fever or chills, any chest pain racing heart please come back to the ER for further evaluation and management Discharge Disposition: HOME SELF-CARE
[2019-04-06 12:31] VITALS: RESP 16
--- NOTE | 2019-04-06 12:58 | P.PN ---
Subjective Progress Note Date: 04/06/19 on 04/06/2019 Peewee is doing better compared to yesterday. Less short of breath less focused bronchospastic and wheezy compared to yesterday's evaluation. Note that he is still on DuoNeb nebulized treatments around the clock. He is on oral Zithromax. He is on IVSolu Medrol 60 mg every 6 hours. No chest pain. No nausea. No vomiting. Abdominal pain.no significant swelling in lower extremities. No altered mentation. No other significant events overnight. Clinically improving. Objective - Vital Signs Vital signs: Vital Signs Temp 97.5 F L 04/06/19 05:56 Pulse 80 04/06/19 12:09 Resp 16 04/06/19 08:00 BP 137/79 04/06/19 05:56 Pulse Ox 97 04/06/19 05:56 Intake & Output 04/05/19 04/06/19 04/06/19 18:59 06:59 18:59 Other: Voiding Method Toilet # Voids 3 1 - Exam GENERAL: Sitting up in bed, no acute distress, mild shortness of breath with conversing HEENT: Conjunctivae normal. eyes normal. Dry mucosa moist NECK: No JVD. No thyroid enlargement. No LNs CARDIOVASCULAR: S1, S2 regular. No murmur, rubs or gallops RESPIRATION: Respiratory effort mildly increased ,Breath sounds diminished in the bases. No rhonchi or crackles. Significant expiratory wheezes heard bilaterally. ABDOMEN: Soft, nontender . No guarding. no masses palpable. Bowel sounds heard. LEGS: No edema. no swelling PSYCHIATRY: Alert and oriented -3, mood and affect normal. NERVOUS SYSTEM: Cranial N 2-12 grossly normal. Moves all 4 limbs. Diffuse weakness No focal deficits. No sensory deficit. Skin: no lesions, no rash, no clubbing, no cyanosis Joints: No active swelling. No inflammation. Lymphatic system. No LN neck axilla or groin. - Labs CBC & Chem 7: 04/06/19 06:47 04/06/19 06:47 Labs: Abnormal Lab Results - Last 24 Hours (Table) 04/05/19 04/05/19 04/06/19 Range/Units 16:49 21:30 06:47 WBC 13.7 H (3.8-10.6) k/uL RBC 3.56 L (4.30-5.90) m/uL Hgb 11.4 L (13.0-17.5) gm/dL Hct 35.9 L (39.0-53.0) % MCV 100.8 H (80.0-100.0) fL Neutrophils # 11.1 H (1.3-7.7) k/uL Lymphocytes # 0.8 L (1.0-4.8) k/uL Eosinophils # 0.9 H (0-0.7) k/uL BUN (9-20) mg/dL Glucose (74-99) mg/dL POC Glucose (mg/dL) 140 H 146 H (75-99) mg/dL 04/06/19 04/06/19 04/06/19 Range/Units 06:47 07:15 11:47 WBC (3.8-10.6) k/uL RBC (4.30-5.90) m/uL Hgb (13.0-17.5) gm/dL Hct (39.0-53.0) % MCV (80.0-100.0) fL Neutrophils # (1.3-7.7) k/uL Lymphocytes # (1.0-4.8) k/uL Eosinophils # (0-0.7) k/uL BUN 21 H (9-20) mg/dL Glucose 137 H (74-99) mg/dL POC Glucose (mg/dL) 129 H 113 H (75-99) mg/dL Assessment and Plan Plan: 1 acute exacerbation of COPD with secondary shortness of breath, improved compared to yesterday. 2 chronic hypoxic respiratory failure secondary to COPD 3 hypertension 4 hyperlipidemia 5 osteoarthritis 6 glaucoma/cataracts 7 history of prostate cancer with previous radiation therapy and hormonal treatment 8 history of colon cancer with a previous colectomy Plan Continue same treatment. We'll continue to follow.possible discharge in a.m. if continues sto improve.
--- NOTE | 2019-04-08 10:17 | CDI ---
Documentation Clarification Form Date: 04/08/19 From: Kady Werner Phone: If questions call Laura Hou @ [phone], Hours-8:30 am & 5 pm Deana Virk Admit Date: 04/05/2019 3:10:00 PM Patient Name: Peewee Schuster Visit Number: [id number] Discharge Date: 04/06/2019 2:00:00 PM ATTENTION: The Clinical Documentation Specialists (CDI) and [facility] Coding Staff appreciate your assistance in clarifying documentation. Please respond to the clarification below the line at the bottom and electronically sign. The CDI & [facility] Coding staff will review the response and follow-up if needed. Please note: Queries are made part of the Legal Health Record. If you have any questions, please contact the author of this message via ITS. Dr. Ej Bonner Asthma, chronic persistent is documented in the H&P. History/risk factors: AECOPD, chronic hypoxic respiratory failure on O2 Treatment: IV Solu-Medrol, IV Zithromax, Nebulizer, Oxygen In your professional opinion, can you please further specify the severity of the asthma? Mild persistent Moderate persistent Severe persistent Other, please specify ____ Unable to determine MTDD
== END 2019-04-06 14:00 | disposition home or self-care (01) | DRG 190 ==
LOC: EC 11:51 → 4MS4W 13:30 → OBSVTOIN 04-05 15:10
PROVIDERS: ADMIT Family Medicine; ATTEND Family Medicine
DX: J44.1 Chronic obstructive pulmonary disease with (acute) exacerbation (principal); J96.21 Acute and chronic respiratory failure with hypoxia; I44.4 Left anterior fascicular block; I10 Essential (primary) hypertension; E78.5 Hyperlipidemia, unspecified; H40.9 Unspecified glaucoma; J45.998 Other asthma; D17.1 Benign lipomatous neoplasm of skin and subcutaneous tissue of trunk; K21.9 Gastro-esophageal reflux disease without esophagitis; M19.90 Unspecified osteoarthritis, unspecified site; Z99.81 Dependence on supplemental oxygen; Z79.51 Long term (current) use of inhaled steroids; Z79.899 Other long term (current) drug therapy; Z85.46 Personal history of malignant neoplasm of prostate; Z87.891 Personal history of nicotine dependence; Z90.49 Acquired absence of other specified parts of digestive tract; Z92.3 Personal history of irradiation; Z87.01 Personal history of pneumonia (recurrent); Z85.038 Personal history of other malignant neoplasm of large intestine; Z98.890 Other specified postprocedural states; Z98.42 Cataract extraction status, left eye; Z98.41 Cataract extraction status, right eye; Z96.1 Presence of intraocular lens; Z83.2 Family history of diseases of the blood and blood-forming organs and certain disorders involving the immune mechanism; Z82.49 Family history of ischemic heart disease and other diseases of the circulatory system
CPT/HCPCS: 36415; 71046; 80048; 80053; 83735; 83880; 84484; 85025; 85610; 85730; 93005; 94640; 94760; 96374; 99285

== ENCOUNTER 2020-02-28 13:42 | Inpatient (IN) | payer MEDICARE, BC ==
[2020-02-28] MEDS ORDERED: SODIUM CHLORIDE 0.9% 1,000 ML IV STA (13:54)
[2020-02-28] MEDS ORDERED: methylPREDNISolone SOD SUCCI 125 MG/2 ML VIAL IV STA (13:54)
[2020-02-28] MEDS ORDERED: ALBUTEROL HFA INHALER INHALATION STA (13:55)
--- NOTE | 2020-02-28 14:11 | ED ---
SOB HPI - General Chief Complaint: Shortness of Breath Stated Complaint: SOB Time Seen by Provider: 02/28/20 13:42 Source: patient, EMS, RN notes reviewed Mode of arrival: EMS Limitations: no limitations - History of Present Illness Initial Comments: This 79-year-old male with a history of COPD who presents with complaints of back pain today but also source of breath this started last evening he states he has some chest pain gets worse with deep breathing. No fevers chills sweats no overt cough or phlegm production he states his home medication is not helping. He also has some back pain. No other modifying factors at this time he was brought in by EMS. MD Complaint: shortness of breath - Related Data Home Medications Medication Instructions Recorded Confirmed Albuterol Inhaler (Bulk) [Ventolin 2 puff INHALATION RT-QID PRN 06/05/15 02/28/20 Hfa Inhaler (Bulk)] Lisinopril [Prinivil] 10 mg PO QAM 06/05/15 02/28/20 Latanoprost Ophth [Xalatan 0.005%] 1 drop BOTH EYES HS 06/06/17 02/28/20 Donepezil HCl [Aricept] 10 mg PO DAILY 04/03/19 02/28/20 Rosuvastatin [Crestor] 10 mg PO HS 04/03/19 02/28/20 Dronabinol [Marinol] 2.5 mg PO AC-BID 02/28/20 02/28/20 traMADol HCL [Ultram] 50 mg PO BID PRN 02/28/20 02/28/20 Allergies Allergy/AdvReac Type Severity Reaction Status Date / Time No Known Allergies Allergy Verified 02/28/20 14:37 Review of Systems ROS Statement: Those systems with pertinent positive or pertinent negative responses have been documented in the HPI. ROS Other: All systems not noted in ROS Statement are negative. Past Medical History Past Medical History: Cancer, COPD, GERD/Reflux, Hyperlipidemia, Hypertension, Osteoarthritis (OA), Pneumonia Additional Past Medical History / Comment(s): Bronchitis, home oxygen at 2L/NC at HS and prn in daytime, prostate surgery with radiation/hormone treatments, colon cancer with colectomy, glaucoma bilateral eyes, slight memory impairment. History of Any Multi-Drug Resistant Organisms: None Reported Past Surgical History: Bowel Resection, Cholecystectomy Additional Past Surgical History / Comment(s): Colonoscopy, L colectomy, bilateral eyes cataract removals and lens implants, bilateral eye laser surgery d/t glaucoma Past Anesthesia/Blood Transfusion Reactions: No Reported Reaction Additional Past Anesthesia/Blood Transfusion Reaction / Comment(s): no hx blood transfusion Past Psychological History: No Psychological Hx Reported Smoking Status: Former smoker Past Alcohol Use History: Occasional Past Drug Use History: None Reported - Past Family History Father History Unknown: Yes Family Medical History: No Reported History Additional Family Medical History / Comment(s): Father was healthy. Mother History Unknown: Yes Family Medical History: Deep Vein Thrombosis (DVT), Myocardial Infarction (NC) General Exam - General Exam Comments Initial Comments: This is a well-developed well-nourished awake alert oriented 3 male Limitations: no limitations General appearance: alert, in no apparent distress Head exam: Present: atraumatic, normocephalic, normal inspection Eye exam: Present: normal appearance, PERRL, EOMI. Absent: scleral icterus, conjunctival injection, periorbital swelling ENT exam: Present: normal exam, mucous membranes moist Neck exam: Present: normal inspection, full ROM, other (No stridor JVD or b ruits). Absent: tenderness, meningismus, lymphadenopathy Respiratory exam: Present: normal lung sounds bilaterally, chest wall tenderness (Is palpation over the anterior chest wall no step-off or crepitation), decreased breath sounds. Absent: respiratory distress, wheezes, rales, rhonchi, stridor Cardiovascular Exam: Present: regular rate, normal rhythm, tachycardia, normal heart sounds. Absent: systolic murmur, diastolic murmur, rubs, gallop, clicks GI/Abdominal exam: Present: soft, normal bowel sounds. Absent: distended, tenderness, guarding, rebound, rigid Extremities exam: Present: normal inspection, full ROM, normal capillary refill. Absent: tenderness, pedal edema, joint swelling, calf tenderness Back exam: Present: normal inspection Neurological exam: Present: alert, oriented X3, CN II-XII intact Psychiatric exam: Present: normal affect, normal mood Skin exam: Present: warm, dry, intact, normal color. Absent: rash Course Vital Signs 02/28/20 02/28/20 13:43 14:25 Temperature 98.2 F Pulse Rate 118 H 101 H Respiratory 22 20 Rate Blood Pressure 159/95 101/66 O2 Sat by Pulse 100 95 Oximetry Medical Decision Making - Medical Decision Making I did discuss findings with the patient as well as with the patient and with Dr. Nik bryant patient be admitted with consultation by pulmonary medicine. Through that show evidence of infiltrate as well as right pleural effusion - Lab Data Result diagrams: 02/28/20 14:20 02/28/20 14:20 Lab Results 02/28/20 02/28/20 02/28/20 Range/Units 14:20 14:20 14:20 WBC 12.1 H (3.8-10.6) k/uL RBC 3.33 L (4.30-5.90) m/uL Hgb 9.6 L (13.0-17.5) gm/dL Hct 30.4 L (39.0-53.0) % MCV 91.1 (80.0-100.0) fL MCH 28.7 (25.0-35.0) pg MCHC 31.6 (31.0-37.0) g/dL RDW 17.0 H (11.5-15.5) % Plt Count 395 (150-450) k/uL Neutrophils % 89 % Lymphocytes % 6 % Monocytes % 4 % Eosinophils % 0 % Basophils % 0 % Neutrophils # 10.8 H (1.3-7.7) k/uL Lymphocytes # 0.7 L (1.0-4.8) k/uL Monocytes # 0.5 (0-1.0) k/uL Eosinophils # 0.1 (0-0.7) k/uL Basophils # 0.0 (0-0.2) k/uL Anisocytosis Slight PT 10.5 (9.0-12.0) sec INR 1.0 (<1.2) APTT 26.4 (22.0-30.0) sec Sodium 125 L (137-145) mmol/L Potassium 5.5 H (3.5-5.1) mmol/L Chloride 92 L (98-107) mmol/L Carbon Dioxide 23 (22-30) mmol/L Anion Gap 10 mmol/L BUN 27 H (9-20) mg/dL Creatinine 0.80 (0.66-1.25) mg/dL Est GFR (CKD-EPI)AfAm >90 (>60 ml/min/1.73 sqM) Est GFR (CKD-EPI)NonAf 85 (>60 ml/min/1.73 sqM) Glucose 113 H (74-99) mg/dL Plasma Lactic Acid Monroe (0.7-2.0) mmol/L Calcium 8.8 (8.4-10.2) mg/dL Magnesium 2.0 (1.6-2.3) mg/dL Total Bilirubin 0.5 (0.2-1.3) mg/dL AST 30 (17-59) U/L ALT 42 (4-49) U/L Alkaline Phosphatase 80 (38-126) U/L Creatine Kinase 61 (55-170) U/L Troponin I (0.000-0.034) ng/mL NT-Pro-B Natriuret Pep pg/mL Total Protein 6.7 (6.3-8.2) g/dL Albumin 3.3 L (3.5-5.0) g/dL 02/28/20 02/28/20 02/28/20 Range/Units 14:20 14:20 14:20 WBC (3.8-10.6) k/uL RBC (4.30-5.90) m/uL Hgb (13.0-17.5) gm/dL Hct (39.0-53.0) % MCV (80.0-100.0) fL MCH (25.0-35.0) pg MCHC (31.0-37.0) g/dL RDW (11.5-15.5) % Plt Count (150-450) k/uL Neutrophils % % Lymphocytes % % Monocytes % % Eosinophils % % Basophils % % Neutrophils # (1.3-7.7) k/uL Lymphocytes # (1.0-4.8) k/uL Monocytes # (0-1.0) k/uL Eosinophils # (0-0.7) k/uL Basophils # (0-0.2) k/uL Anisocytosis PT (9.0-12.0) sec INR (<1.2) APTT (22.0-30.0) sec Sodium (137-145) mmol/L Potassium (3.5-5.1) mmol/L Chloride (98-107) mmol/L Carbon Dioxide (22-30) mmol/L Anion Gap mmol/L BUN (9-20) mg/dL Creatinine (0.66-1.25) mg/dL Est GFR (CKD-EPI)AfAm (>60 ml/min/1.73 sqM) Est GFR (CKD-EPI)NonAf (>60 ml/min/1.73 sqM) Glucose (74-99) mg/dL Plasma Lactic Acid Monroe 0.9 (0.7-2.0) mmol/L Calcium (8.4-10.2) mg/dL Magnesium (1.6-2.3) mg/dL Total Bilirubin (0.2-1.3) mg/dL AST (17-59) U/L ALT (4-49) U/L Alkaline Phosphatase (38-126) U/L Creatine Kinase (55-170) U/L Troponin I <0.012 (0.000-0.034) ng/mL NT-Pro-B Natriuret Pep 190 pg/mL Total Protein (6.3-8.2) g/dL Albumin (3.5-5.0) g/dL - EKG Data -: EKG Interpreted by Me EKG shows normal: sinus rhythm (Sinus tachycardia rate 109. Interval 150 to QRS duration 80 QT since QTC 322/433 with exodeviation inferior infarct of indeterminate age) - Radiology Data Radiology results: report reviewed (I did review the imaging and report evidence of a large right pleural effusion with inferior consolidation), image reviewed Disposition Clinical Impression: Right lower lobe pneumonia, Pleural effusion, right, COPD (chronic obstructive pulmonary disease) Disposition: ADMITTED IP TO THIS [facility] Condition: Fair Referrals: Truman Yu DO [Primary Care Provider] - 1-2 days
--- NOTE | 2020-02-28 14:28 | XR ---
EXAMINATION TYPE: XR chest 2V DATE OF EXAM: 02/28/2020 COMPARISON: NONE HISTORY: Dyspnea TECHNIQUE: 2 views FINDINGS: There is blunting of the right costophrenic angle. There is opacification 50% right hemitho rax. Left lung is clear. There is no heart failure. Heart size is probably normal. IMPRESSION: There is large right pleural effusion and probable right lower lobe consolidation that is new compared to old exam. No heart failure seen.
[2020-02-28 14:45] LABS: Anisocytosis Slight; Basophils % (A) 0 %; Eosinophils # (A) 0.1 k/uL (0-0.7); Eosinophils % (A) 0 %; HCT 30.4 % (39.0-53.0); HGB 9.6 gm/dL (13.0-17.5); Lymphocytes # (A) 0.7 k/uL (1.0-4.8); Lymphocytes % (A) 6 %; MCH 28.7 pg (25.0-35.0); MCHC 31.6 g/dL (31.0-37.0); MCV 91.1 fL (80.0-100.0); Mean Platelet Volume 6.9; Monocytes # (A) 0.5 k/uL (0-1.0); Monocytes % (A) 4 %; Neutrophils # (A) 10.8 k/uL (1.3-7.7); Neutrophils % (A) 89 %; Platelet Count 395 k/uL (150-450); RBC 3.33 m/uL (4.30-5.90); WBC 12.1 k/uL (3.8-10.6)
[2020-02-28 14:53] LABS: Partial Thromboplastin Time 26.4 sec (22.0-30.0); Prothrombin Time 10.5 sec (9.0-12.0)
[2020-02-28 15:04] LABS: ALT 42 U/L (4-49); AST 30 U/L (17-59); African American GFR (CKD) >90 (>60 ml/min/1.73 sqM); Albumin 3.3 g/dL (3.5-5.0); Alkaline Phosphatase 80 U/L (38-126); Anion Gap 10 mmol/L; Blood Urea Nitrogen 27 mg/dL (9-20); Calcium 8.8 mg/dL (8.4-10.2); Carbon Dioxide 23 mmol/L (22-30); Chloride 92 mmol/L (98-107); Creatine Kinase 61 U/L (55-170); Glucose 113 mg/dL (74-99); Non-African American GFR(CKD) 85 (>60 ml/min/1.73 sqM); Potassium 5.5 mmol/L (3.5-5.1); Sodium 125 mmol/L (137-145); Total Bilirubin 0.5 mg/dL (0.2-1.3); Total Protein 6.7 g/dL (6.3-8.2)
[2020-02-28] MEDS ORDERED: cefTRIAXone IN SWFI 1,000 MG/10 ML SYRINGE IVP STA (15:23)
[2020-02-28] MEDS ORDERED: AZITHROMYCIN 500 MG in SODIUM CHLORIDE 0.9% 250 ML IVPB STA (15:29)
[2020-02-28] MEDS ORDERED: PNEUMONIA PROTOCOL UTILIZED 1 EACH MISC PO PRN (15:29)
[2020-02-28] MEDS: DRONABINOL 2.5 MG CAP PO SCH (19:11)
[2020-02-28] MEDS: IPRATROPIUM-ALBUTEROL 3 ML NEB INHALATION SCH (20:21)
[2020-02-28] MEDS: ATORVASTATIN 20 MG TAB PO SCH (20:22)
[2020-02-28] MEDS: traMADol 50 MG TAB PO PRN (20:22)
[2020-02-28] MEDS: LATANOPROST 0.005% OPHTH DROPS 2.5 ML BTL BOTH EYES SCH (23:13)
[2020-02-29] MEDS: IPRATROPIUM-ALBUTEROL 3 ML NEB INHALATION SCH (01:08)
[2020-02-29] MEDS: DRONABINOL 2.5 MG CAP PO SCH ×2 (06:32→17:30)
[2020-02-29 07:03] LABS: African American GFR (CKD) >90 (>60 ml/min/1.73 sqM); Anion Gap 9 mmol/L; Blood Urea Nitrogen 24 mg/dL (9-20); Calcium 8.1 mg/dL (8.4-10.2); Carbon Dioxide 22 mmol/L (22-30); Chloride 97 mmol/L (98-107); Glucose 110 mg/dL (74-99); Non-African American GFR(CKD) 89 (>60 ml/min/1.73 sqM); Potassium 5.3 mmol/L (3.5-5.1); Sodium 128 mmol/L (137-145)
[2020-02-29] MEDS: ALBUTEROL HFA INHALER INHALATION SCH ×4 (07:44→19:36)
[2020-02-29] MEDS: TIOTROPIUM 18 MCG/PUFF INHALER INHALATION SCH (07:44)
--- NOTE | 2020-02-29 07:46 | US ---
EXAMINATION TYPE: US chest DATE OF EXAM: 02/29/2020 COMPARISON: NONE CLINICAL HISTORY: Markings for thoracentesis by pulmonary staff. Right pleural effusion. Technical li mitations, patient unable to sit up on his own, exam performed with patient lying on left side TECHNIQUE: Targeted ultrasound of the posterior lower bilateral hemithoraces EXAM MEASUREMENTS: Right Pleural Effusion pocket size: 14.1 cm - lung noted anteriorly Right skin surface to fluid distance: 4.1 cm Left Pleural Effusion pocket size: no evidence of significant fluid as visualized Right side marked for possible thoracentesis outside the dept. Left side NOT marked for possible thoracentesis outside the dept. Pulmonologists are able to review the images in the patient?s EMR. \ IMPRESSIONS: RIGHT-SIDED PLEURAL EFFUSION.
--- NOTE | 2020-02-29 08:41 | XR ---
EXAMINATION TYPE: XR chest 2V DATE OF EXAM: 02/29/2020 HISTORY: pneumonia. REFERENCE: Previous study dated 02/28/2020. FINDINGS: There is increased opacity to the right hemithorax. This likely represents a combination of airspace disease and pleural fluid. Heart size is obscured. The left lung is clear. IMPRESSION: INCREASING OPACITY OF THE RIGHT HEMITHORAX LIKELY REPRESENTS A COMBINATION OF PLEURAL FLUID AND ATELE CTASIS PLUS OR MINUS CONSOLIDATION.
--- NOTE | 2020-02-29 09:12 | CONS ---
CONSULTATION This is 80-year-old gentleman with a history of hypertension and hypercholesterolemia. I was asked to see him because of atrial fibrillation. He came to the ER yesterday afternoon. He came into the emergency room with complaints of having some back discomfort, also some shortness of breath and some sharp pains in the chest. All of these symptoms are sort of atypical. He had a significant amount of anxiety. His main complaint was shortness of breath and he does have history of COPD and apparently there was a question of atrial fibrillation and I was asked to see him in this regard. I reviewed the rhythm strips, that are in the system in detail and EKG. There is no evidence of any atrial fibrillation. He does have sinus tachycardia probably as a result of some exacerbation of COPD and as he was working hard to breathe, he had some issues. However, I did not see any clear-cut evidence of atrial fibrillation. He is comfortable, resting without symptoms. PAST MEDICAL HISTORY: Past medical history: This gentleman has what seems to be a history of chronic respiratory hypoxia secondary to COPD, hypertension, hyperlipidemia, prostate cancer with previous radiation therapy and also history of CAD, colon cancer with colectomy as per the notes. EKG revealed a sinus mechanism with sinus tachycardia and some leftward axis but no acute changes. There were nondiagnostic inferior Q-waves noted. LABORATORY DATA: Suggests that initial troponin was normal. Potassium is slightly elevated at 5.3, and his a henley virus test was negative. BNP is normal. PHYSICAL EXAMINATION: Blood pressure is 130/80, pulse rate is about 84 per minute, sinus. HEENT: Unremarkable. Fundus was not examined by me. NECK: Supple. There is JVD of 1 cm. No carotid bruit. Heart examination reveals an S1-S2 heard normally with short systolic murmur. Lungs revealed diminished air entry, especially on the on the right side. There are also some rales audible on the right side, left side breath sounds are quite diminished. Abdomen is soft, nontender. Lower extremities reveal diminished pulses. Central nervous system is normal. EKG revealed sinus rhythm, sinus tachycardia, leftward axis, nondiagnostic inferior Q- waves. IMPRESSION: 1. Pneumonia and pleural effusion on the right side with shortness of breath. 2. Exacerbation of chronic obstructive pulmonary disease. 3. Hypertension. 4. No evidence of atrial fibrillation. RECOMMENDATIONS: I am recommending echocardiogram to be performed tomorrow morning. We will start him on verapamil 40 mg t.i.d. do two sets of blood cultures. The patient is going to be seen by pulmonology. If there are any additional further cardiac problems, I will be happy to re-evaluate the patient. Thank you very much for the consult. ZULMA / CATARINA: [id number] /
--- NOTE | 2020-02-29 09:38 | XR ---
EXAMINATION TYPE: XR chest 1V portable DATE OF EXAM: 02/29/2020 HISTORY: S/P right thoracentesis. REFERENCE: Previous study dated 02/29/2020. FINDINGS: There is been a reduction in the amount of pleural fluid since thoracentesis. There is air outlining the superior vena cava on the right this suggests a small amount of mediastinal air. No def inite pneumothorax is seen. The left lung is clear. Heart size is obscured. IMPRESSION: 1. REDUCTION IN FLUID FOLLOWING THORACENTESIS. 2. AIR OUTLINING THE SUPERIOR VENA CAVA ON THE RIGHT SUGGESTS A SMALL AMOUNT OF MEDIASTINAL EMPHYSEMA .
[2020-02-29] MEDS ORDERED: RX INFO: IV CONTRAST WAS GIVEN 1 EACH MISC MISCELLANE PRN (10:14)
[2020-02-29] MEDS: LISINOPRIL 10 MG TAB PO SCH (11:16)
[2020-02-29] MEDS: DONEPEZIL 10 MG TAB PO SCH (11:16)
[2020-02-29] MEDS: VERAPAMIL 40 MG TAB PO SCH ×3 (11:16→21:50)
--- NOTE | 2020-02-29 11:31 | CT ---
EXAMINATION TYPE: CT chest w con DATE OF EXAM: 02/29/2020 COMPARISON: Plain film of earlier today HISTORY: Questionable mediastinal air following thoracentesis CT DLP: 523.8 mGycm Automated exposure control for dose reduction was used. CONTRAST: CT scan of the chest is performed with IV Contrast, patient injected with 100 mL of Isovue 300. FINDINGS: There is no evidence of mediastinal air or subcutaneous emphysema. No pneumothorax is ident ified. There is residual consolidation of the right lower lobe. There is a moderate right-sided pleural effu rojas. There is a 2.9 cm spiculated density in the anterior segment of the left upper lobe, best seen on dmitry ge 8. There is no significant axillary or mediastinal adenopathy. There is some right hilar adenopathy, lik ghanshyam reactive. There is no pericardial fluid. The heart is not enlarged. Within the abdomen, the gallbladder is been removed. There are 2 simple appearing cyst in the left ki dney. The largest measures 1.7 cm. The remainder of the visualized upper abdomen is unremarkable. There is a mild levoscoliosis present. There is minimal hypertrophic spondylosis. IMPRESSION: 1. NO EVIDENCE OF MEDIASTINAL AIR OR PNEUMOTHORAX. 2. RESIDUAL CONSOLIDATION IN THE RIGHT LOWER LOBE WITH A SMALL TO MODERATE RESIDUAL PLEURAL EFFUSION. 3. 2.9 CM SPICULATED MASS IN THE ANTERIOR SEGMENT OF THE LEFT UPPER LOBE. THIS WILL NEED FURTHER ASSE SSMENT. PET/CT MAY BE USEFUL.
--- NOTE | 2020-02-29 12:00 | CONS ---
CONSULTATION PULMONARY/CRITICAL CARE CONSULTATION: DATE OF CONSULTATION: 02/29/2020 79-year-old male who typically sees Dr. Truman Yu. The patient is somewhat of a poor historian but apparently came into the emergency room on the at about 1342, brought in by EMS for back pain and shortness of breath. The patient is coughing. He is producing some phlegm. Does not know what color it is. Denies any fever or chills. Again, not a particular good historian. The back pain is predominantly right-sided. He states he has not been feeling well for a couple days at least. The patient had a chest x-ray which showed consolidation in the right lower lobe and a large right-sided pleural effusion. Today, we did a thoracentesis. We removed 2.4 L of fluid that was yellow in color. It was sent for analysis. The patient's shortness of breath seemed to improve after the procedure. HOME MEDICATIONS: Reviewed. He is on albuterol inhaler, lisinopril, Xalatan eyedrops, Aricept, Crestor, Marinol, and Ultram. ALLERGIES: Denied. MEDICAL HISTORY: COPD from previous tobacco use, GERD, hyperlipidemia, hypertension, DJD, prior episode of pneumonia, history of bronchitis, chronic hypoxemic respiratory failure, currently on home O2 at 2 L at bedtime, colon cancer with previous colectomy, prostate cancer with previous radiation and hormonal therapy, glaucoma, memory impairment, and bilateral cataracts. SURGICAL HISTORY: Includes bowel resection, cholecystectomy, colonoscopy, left colectomy, bilateral eye cataract surgery with lens implants, laser surgery of the eyes for glaucoma. SOCIAL HISTORY: Positive for previous heavy tobacco use. Does not smoke currently. He drinks alcohol occasionally. No illicit drug use. OCCUPATIONAL HISTORY: He works as a local intermodal truck driver. FAMILY HISTORY: Positive for a father who is healthy and mother who has a history of deep venous thrombosis and myocardial infarction. REVIEW OF SYSTEMS: CONSTITUTIONAL: Negative. NEUROLOGIC: Negative. HEENT: Negative. CARDIOVASCULAR: Back pain. PULMONARY: Shortness of breath, cough, phlegm production. GI: Negative. : Negative. RHEUMATOLOGIC: Negative. IMMUNOLOGIC: Negative. ENDOCRINOLOGIC: Negative. DERMATOLOGIC: Negative. PHYSICAL EXAMINATION: Current vital signs are reviewed. Temperature 98 degrees, heart rate 85, respiratory rate 18, blood pressure 138/72, mean 94. 4 L saturation 96%. Appears in no acute distress. Frequent wet congested cough. HEENT: Examination is grossly unremarkable. Nasal O2 noted. NECK: Supple. Full range of motion. No adenopathy or thyromegaly. Neck veins are flat. He has a large lipoma noted in the right neck posteriorly and laterally as well as in the right supraclavicular area. CARDIOVASCULAR: Examination reveals regular rhythm rate. Heart rate 85. S1, S2 normal. Heart sounds are distant. LUNGS: Reveal severely diminished breath sounds in the right lung. No crackles or wheezes. ABDOMEN: Soft. Bowel sounds are heard. EXTREMITIES are intact. No edema. SKIN: Without rash. NEUROLOGIC: Examination is brief but nonfocal. LABS: Reviewed. White count 12.1, hemoglobin 9.6, hematocrit 30.4, platelet count 395,000. PT/INR and PTT all normal. Sodium 128, potassium 5.3, chloride 97, CO2 of 22, anion gap is 9. BUN and creatinine were 24 and 0.7. Coronavirus PCR test was negative. Microbiology is pending or negative. Chest x-ray post thoracentesis shows significant improvement in the fluid in the right chest. In addition, there may be some air outlining the superior vena cava on the right suggesting a small amount of mediastinal emphysema. No obvious pneumothorax. Medications are reviewed. Currently he is on albuterol inhaler, Lipitor, Zithromax, Rocephin, Aricept, Marinol, Xalatan eyedrops, Zestril, Spiriva, tramadol, and verapamil. ASSESSMENT: 1. Shortness of breath and cough, in a patient with a large right-sided pleural effusion and lung consolidation, rule out pneumonia with parapneumonic effusion. Certainly with his prior smoking history, malignancy will have to be considered. 2. Previous history of tobacco use with underlying chronic obstructive pulmonary disease. 3. History of prostate cancer, status post radiation therapy and hormonal treatments. 4. History of colon cancer with previous colectomy. 5. History of gastroesophageal reflux disease. 6. Hyperlipidemia. 7. Hypertension. 8. Degenerative joint disease. 9. Prior history of pneumonia and bronchitis. 10.Home O2 at 2 L/minute at bedtime and p.r.n. 11.History of glaucoma. 12.History of cataracts with bilateral cataract surgery and lens implant. PLAN: The patient is currently on both Rocephin and Zithromax. The patient is on albuterol and tiotropium bromide. We will go ahead and get a CT scan of the chest. In addition, we will get a Legionella urinary antigen. Additional recommendations and suggestions are forthcoming. The fluid was sent for analysis. There was no obvious pneumothorax. 2.4 L was removed. His breathing improved significantly after the procedure. MMODL / IJN: [id number] /
--- NOTE | 2020-02-29 12:30 | OP ---
OPERATIVE REPORT PROCEDURE: Right thoracentesis. There was informed consent and universal timeout. The operators were Dr. Johnson, Dr. Dumont and Amilcar Byrd RN. The right posterior chest was marked by ultrasound. There was no immediate complication. The patient tolerated procedure well. A chest x-ray was ordered to rule out complications from the procedure. The fluid that was removed was a dark yellow color. The patient tolerated the procedure well. The fluid will be sent for analysis. 2.4 L of dark yellow fluid was removed from the pleural space. As mentioned earlier, the fluid will be sent for analysis. The patient tolerated the procedure well. Chest x-ray was ordered. MMODL / IJN: [id number] /
[2020-02-29 12:39] LABS: Appearance,BF Cloudy; Color,BF Yellow; Nucleated Cells, Body Fluid 755 /uL; RBC, Body Fluid 1175 /uL
[2020-02-29 12:42] LABS: Mononuclear WBC,Body Fluid 44 %; Polynuclear WBC,Body Fluid 56 %; Total Cells Counted,Body Fluid 100
[2020-02-29] MEDS: AZITHROMYCIN 500 MG TAB PO SCH (13:04)
[2020-02-29] MEDS: traMADol 50 MG TAB PO PRN (13:04)
--- NOTE | 2020-02-29 17:48 | P.HPIM ---
History of Present Illness H&P Date: 02/28/20 Chief Complaint: Shortness of breath 79-year-old male with a history of COPD who presents with complaints of back pain today but also source of breath this started last evening he states he has some chest pain gets worse with deep breathing. No fevers chills sweats no overt cough or phlegm production he states his home medication is not helping. He also has some back pain. No other modifying factors at this time he was brought in by EMS. Workup in ED including the chest x-ray revealed a right lower lobe pneumonia with right-sided pleural effusion; blood work was positive for a sodium of 125, potassium 5.5 with BUN of 27; WBC is elevated at 12.1 with hemoglobin of 9.6 Patient is admitted to the hospital for further pulmonary evaluation of pleural effusion and treatment of pneumonia Review of Systems REVIEW OF SYSTEMS: CONSTITUTIONAL: No fever, no malaise, no fatigue. HEENT: No recent visual problems or hearing problems. Denied any sore throat. CARDIOVASCULAR: No chest pain, orthopnea, PND, no palpitations, no syncope. PULMONARY: No shortness of breath, no cough, no hemoptysis. GASTROINTESTINAL: No diarrhea, no nausea, no vomiting, no abdominal pain. NEUROLOGICAL: No headaches, no weakness, no numbness. HEMATOLOGICAL: Denies any bleeding or petechiae. GENITOURINARY: Denies any burning micturition, frequency, or urgency. MUSCULOSKELETAL/RHEUMATOLOGICAL: Denies any joint pain, swelling, or any muscle pain. ENDOCRINE: Denies any polyuria or polydipsia. The rest of the 14-point review of systems is negative. Past Medical History Past Medical History: Cancer, COPD, GERD/Reflux, Hyperlipidemia, Hypertension, Osteoarthritis (OA), Pneumonia Additional Past Medical History / Comment(s): Bronchitis, home oxygen at 2L/NC at HS and prn in daytime, prostate surgery with radiation/hormone treatments, colon cancer with colectomy, glaucoma bilateral eyes, slight memory impairment. History of Any Multi-Drug Resistant Organisms: None Reported Past Surgical History: Bowel Resection, Cholecystectomy Additional Past Surgical History / Comment(s): Colonoscopy, L colectomy, bilateral eyes cataract removals and lens implants, bilateral eye laser surgery d/t glaucoma Past Anesthesia/Blood Transfusion Reactions: No Reported Reaction Additional Past Anesthesia/Blood Transfusion Reaction / Comment(s): no hx blood transfusion Past Psychological History: No Psychological Hx Reported Smoking Status: Former smoker Past Alcohol Use History: Occasional Past Drug Use History: None Reported - Past Family History Father History Unknown: Yes Family Medical History: No Reported History Additional Family Medical History / Comment(s): Father was healthy. Mother History Unknown: Yes Family Medical History: Deep Vein Thrombosis (DVT), Myocardial Infarction ([place]) Medications and Allergies Home Medications Medication Instructions Recorded Confirmed Type Albuterol Inhaler (Bulk) [Ventolin 2 puff INHALATION RT-QID PRN 06/05/15 02/28/20 History Hfa Inhaler (Bulk)] Lisinopril [Prinivil] 10 mg PO QAM 06/05/15 02/28/20 History Latanoprost Ophth [Xalatan 0.005%] 1 drop BOTH EYES HS 06/06/17 02/28/20 History Donepezil HCl [Aricept] 10 mg PO DAILY 04/03/19 02/28/20 History Rosuvastatin [Crestor] 10 mg PO HS 04/03/19 02/28/20 History Dronabinol [Marinol] 2.5 mg PO AC-BID 02/28/20 02/28/20 History traMADol HCL [Ultram] 50 mg PO BID PRN 02/28/20 02/28/20 History Allergies Allergy/AdvReac Type Severity Reaction Status Date / Time No Known Allergies Allergy Verified 02/28/20 17:23 Physical Exam Vitals: Vital Signs Temp Pulse Resp BP Pulse Ox 02/28/20 14:25 101 H 20 101/66 95 02/28/20 13:43 98.2 F 118 H 22 159/95 100 Intake and Output 02/28/20 02/28/20 02/28/20 06:59 14:59 22:59 Other: Weight 122.47 kg PHYSICAL EXAMINATION: GENERAL: The patient is alert and oriented x3, not in any acute distress. Well developed, well nourished. HEENT: Pupils are round and equally reacting to light. EOMI. No scleral icterus. No conjunctival pallor. Normocephalic, atraumatic. No pharyngeal erythema. No thyromegaly. CARDIOVASCULAR: S1 and S2 present. No murmurs, rubs, or gallops. PULMONARY: Decreased breath sounds bilaterally more so on the right side. ABDOMEN: Soft, nontender, nondistended, normoactive bowel sounds. No palpable organomegaly. MUSCULOSKELETAL: No joint swelling or deformity. EXTREMITIES: No cyanosis, clubbing, or pedal edema. NEUROLOGICAL: Gross neurological examination did not reveal any focal deficits. SKIN: No rashes. Results CBC & Chem 7: 02/28/20 14:20 02/29/20 05:44 Labs: Abnormal Lab Results - Last 24 Hours (Table) 02/28/20 02/28/20 Range/Units 14:20 14:20 WBC 12.1 H (3.8-10.6) k/uL RBC 3.33 L (4.30-5.90) m/uL Hgb 9.6 L (13.0-17.5) gm/dL Hct 30.4 L (39.0-53.0) % RDW 17.0 H (11.5-15.5) % Neutrophils # 10.8 H (1.3-7.7) k/uL Lymphocytes # 0.7 L (1.0-4.8) k/uL Sodium 125 L (137-145) mmol/L Potassium 5.5 H (3.5-5.1) mmol/L Chloride 92 L (98-107) mmol/L BUN 27 H (9-20) mg/dL Glucose 113 H (74-99) mg/dL Albumin 3.3 L (3.5-5.0) g/dL Assessment and Plan Assessment: 1. Right-sided pneumonia; patient is started on Rocephin 1 g IV daily along with Zithromax 500 mg by mouth daily; await pulmonary recommendations for any changes 2. Right-sided large pleural effusion; consult pulmonary for further recommendations; O2 2 L per nasal cannula keeping SpO2 greater than 92% 3. COPD; not in exacerbation; continue with Ventolin inhaler 2 puffs 4 times a day along with Spiriva 1 puff daily 4. Uncontrolled hypertension; continue with home dose of lisinopril at 10 mg daily, verapamil 40 mg by mouth 3 times a day; monitor blood pressure closely for any need for further adjustment 5. Hyperlipidemia; continue with atorvastatin 20 mg by mouth daily at bedtime 6. Dementia; early onset; stable on Aricept 10 mg daily 7. Protein calorie malnutrition/cachexia; continue with Marinol 2.5 mg twice a day; we will consult nutrition services DVT prophylaxis; SCDs/subcu heparin pending decision for possible thoracentesis CODE STATUS; full code
--- NOTE | 2020-02-29 17:52 | P.PN ---
Subjective Progress Note Date: 02/29/20 Principal diagnosis: Right-sided pneumonia Large right-sided pleural effusion 79-year-old male patient admitted to the hospital for community-acquired pneumonia and large right-sided pleural effusion 02/29/2020 Patient is seen and evaluated in room at bedside; patient is sleepy but easily arousable; denies any specific complaints; patient is saturating 95% on 4 L Patient is evaluated by pulmonary and underwent thoracentesis with removal of 2.4 L of fluid which has been sent for analysis; pulmonary recommending CT of the chest along with urinary Legionella antigen Lab review shows sodium level of 128 which has trended up from 125 yesterday; potassium is trending down from 5.5 yesterday down to 5.3 this morning; BUN/creatinine remained stable Objective - Vital Signs Vital signs: Vital Signs Temp 99.1 F 02/29/20 12:00 Pulse 94 02/29/20 12:00 Resp 20 02/29/20 12:00 BP 119/67 02/29/20 12:00 Pulse Ox 94 L 02/29/20 12:00 Intake & Output 02/28/20 02/29/20 02/29/20 18:59 06:59 18:59 Intake Total 1240 Output Total 600 Balance 640 Weight 122.47 kg Intake: Intake, IV Titration 1000 Amount Azithromycin 500 mg In 250 Sodium Chloride 0.9% 250 ml @ 250 mls/hr IVPB ONCE STA Rx#:[id number] Sodium Chloride 0.9% 1, 750 000 ml @ 75 mls/hr IV . [id number] STA Rx#:[id number] Oral 240 Output: Urine 600 Other: Voiding Method Urinal # Voids 2 # Bowel Movements 0 - Exam PHYSICAL EXAMINATION: GENERAL: The patient is alert and oriented x3, not in any acute distress. Well developed, well nourished. HEENT: Pupils are round and equally reacting to light. EOMI. No scleral icterus. No conjunctival pallor. Normocephalic, atraumatic. No pharyngeal erythema. No thyromegaly. CARDIOVASCULAR: S1 and S2 present. No murmurs, rubs, or gallops. PULMONARY: Chest is clear to auscultation, no wheezing or crackles. ABDOMEN: Soft, nontender, nondistended, normoactive bowel sounds. No palpable organomegaly. MUSCULOSKELETAL: No joint swelling or deformity. EXTREMITIES: No cyanosis, clubbing, or pedal edema. NEUROLOGICAL: Gross neurological examination did not reveal any focal deficits. SKIN: No rashes. - Labs CBC & Chem 7: 02/28/20 14:20 02/29/20 05:44 Labs: Abnormal Lab Results - Last 24 Hours (Table) 02/29/20 Range/Units 05:44 Sodium 128 L (137-145) mmol/L Potassium 5.3 H (3.5-5.1) mmol/L Chloride 97 L (98-107) mmol/L BUN 24 H (9-20) mg/dL Glucose 110 H (74-99) mg/dL Calcium 8.1 L (8.4-10.2) mg/dL Assessment and Plan Assessment: 1. Right-sided pneumonia; patient is started on Rocephin 1 g IV daily along with Zithromax 500 mg by mouth daily; await pulmonary recommendations for any changes 2. Right-sided large pleural effusion; consult pulmonary for further recommendations; O2 2 L per nasal cannula keeping SpO2 greater than 92% 3. COPD; not in exacerbation; continue with Ventolin inhaler 2 puffs 4 times a day along with Spiriva 1 puff daily 4. Uncontrolled hypertension; continue with home dose of lisinopril at 10 mg daily, verapamil 40 mg by mouth 3 times a day; monitor blood pressure closely for any need for further adjustment 5. Hyperlipidemia; continue with atorvastatin 20 mg by mouth daily at bedtime 6. Dementia; early onset; stable on Aricept 10 mg daily 7. Protein calorie malnutrition/cachexia; continue with Marinol 2.5 mg twice a day; we will consult nutrition services DVT prophylaxis; SCDs/subcu heparin pending decision for possible thoracentesis CODE STATUS; full code Time with Patient: Greater than 30
[2020-02-29] MEDS: SODIUM CHLORIDE 0.9% 1,000 ML IV SCH (18:31)
[2020-02-29] MEDS: ATORVASTATIN 20 MG TAB PO SCH (21:14)
[2020-02-29] MEDS: LATANOPROST 0.005% OPHTH DROPS 2.5 ML BTL BOTH EYES SCH (21:14)
[2020-03-01] MEDS: traMADol 50 MG TAB PO PRN ×2 (01:48→11:23)
[2020-03-01] MEDS: DRONABINOL 2.5 MG CAP PO SCH ×2 (06:28→17:16)
[2020-03-01] MEDS: SODIUM CHLORIDE 0.9% 1,000 ML IV SCH ×2 (06:29→21:27)
[2020-03-01 07:24] LABS: African American GFR (CKD) >90 (>60 ml/min/1.73 sqM); Anion Gap 6 mmol/L; Blood Urea Nitrogen 24 mg/dL (9-20); Calcium 7.8 mg/dL (8.4-10.2); Carbon Dioxide 23 mmol/L (22-30); Chloride 99 mmol/L (98-107); Glucose 92 mg/dL (74-99); Non-African American GFR(CKD) 87 (>60 ml/min/1.73 sqM); Potassium 4.7 mmol/L (3.5-5.1); Sodium 128 mmol/L (137-145)
[2020-03-01] MEDS: ALBUTEROL HFA INHALER INHALATION SCH ×4 (07:34→20:03)
[2020-03-01] MEDS: TIOTROPIUM 18 MCG/PUFF INHALER INHALATION SCH (07:34)
[2020-03-01] MEDS: DONEPEZIL 10 MG TAB PO SCH (09:16)
[2020-03-01] MEDS: LISINOPRIL 10 MG TAB PO SCH (09:16)
[2020-03-01] MEDS: AZITHROMYCIN 500 MG TAB PO SCH (09:16)
[2020-03-01] MEDS: VERAPAMIL 40 MG TAB PO SCH ×3 (09:16→21:27)
--- NOTE | 2020-03-01 10:37 | P.PN ---
Subjective Progress Note Date: 03/01/20 Principal diagnosis: This is an 79-year-old gentleman who follows with Dr. Truman Yu on an outpatient basis. He has a past medical history significant for COPD from previous tobacco use, GERD, hyperlipidemia, hypertension, DJD, by her episode of pneumonia, history of bronchitis, chronic hypoxemic respiratory failure, home oxygen use of 2 L at bedtime, colon cancer with previous colectomy, prostate cancer with previous radiation and hormonal therapy, glaucoma and memory impa irment. The patient is somewhat a poor historian but apparently came into the emergency department on 02/28/2020 via EMS with complaints of back pain and shortness of breath. He does admit to coughing, producing phlegm but is unable to state what color it is. Denies any fevers, chills, nausea, vomiting, diarrhea, or hemoptysis. He reports that his back pain is predominantly right sided and that it is been present for at least a couple of days. A chest x-ray was completed which demonstrated consolidation to his right lower lobe and a large right-sided pleural effusion. Subsequently, the patient underwent a right-sided thoracentesis performed by Dr. Johnson with 2.4 L of yellow-colored fluid drained. Post thoracentesis the patient reported that his shortness of breath seemed to improve. The patient was seen in follow-up today 03/01/2020 on the cardiac stepdown unit. He is in no acute distress and his oxygen saturations are 95% on 5 L nasal cannula. He is hemodynamically stable and has remained afebrile the last 24 hours. The patient underwent a right-sided thoracentesis yesterday with 2.4 L of cloudy yellow fluid drained from his right side. Cytology results remain pending. He was tested for COVID19 which was not detected. There is no x-ray completed today and his laboratory results showed sodium 128, potassium 4.7, BUN 24, creatinine 0.75. He is on Zithromax and Rocephin for her antibiotic coverage he has 0.9% normal saline infusing at 75 mL per hour and is on alb uterol inhaler 2 puffs 4 times a day and Spiriva 1 puff daily. A computed tomography scan of his chest was completed yesterday with contrast which demonstrated no evidence of mediastinal air or pneumothorax, residual consolidation in the right lower lobe with small to moderate residual pleural effusion, and a 2.9 cm speculated mass in the anterior segment of the right upper lobe. Objective - Vital Signs Vital signs: Vital Signs Temp 98.2 F 03/01/20 07:48 Pulse 100 03/01/20 07:48 Resp 18 03/01/20 07:48 BP 115/62 03/01/20 07:48 Pulse Ox 95 03/01/20 07:48 Intake & Output 02/29/20 03/01/20 03/01/20 18:59 06:59 18:59 Intake Total 340 540 200 Output Total 300 450 Balance 40 90 200 Intake: Oral 340 540 200 Output: Urine 300 450 Other: Voiding Method Urinal Urinal # Voids 0 # Bowel Movements 0 - Exam The patient is an 79-year-old gentleman who is alert and oriented 3 with periods of forgetfulness. He is in no acute distress. Oxygen saturation is 95% on 5 L nasal cannula. - Constitutional General appearance: Present: cooperative, morbidly obese, no acute distress - EENT Eyes: Present: PERRLA, normal appearance. Absent: scleral icterus ENT: Present: hard of hearing. Absent: thrush - Neck Details: Neck is supple, no JVD. Neck: Absent: lymphadenopathy, stridor - Respiratory Details: Lung sounds with severely diminished breath sounds to his right lower lobe. No wheezes, rhonchi or crackles. Respirations are symmetrical and nonlabored. - Cardiovascular Details: Regular rhythm and rate. S1 and S2 present, negative for S3, gallop or murmur. - Gastrointestinal Gastrointestinal Comment(s): Abdomen is soft, nontender nondistended. Active bowel sounds present in all 4 abdominal quadrants. No guarding or rigidity. General gastrointestinal: Absent: organomegaly - Integumentary Integumentary Comment(s): Skin is warm and dry. No clubbing or cyanosis present. No rash. - Neurologic Neurologic: Present: CNII-XII intact - Musculoskeletal Musculoskeletal: Present: generalized weakness, strength equal bilaterally - Psychiatric Psychiatric: Present: A&O x's 3, appropriate affect, intact judgment & insight - Allied health notes Allied health notes reviewed: nursing - Labs CBC & Chem 7: 02/28/20 14:20 03/01/20 06:22 Labs: Abnormal Lab Results - Last 24 Hours (Table) 03/01/20 Range/Units 06:22 Sodium 128 L (137-145) mmol/L BUN 24 H (9-20) mg/dL Calcium 7.8 L (8.4-10.2) mg/dL Microbiology - Last 24 Hours (Table) 02/29/20 09:00 Gram Stain - Preliminary Pleural Fluid Body Fluid Culture - Preliminary 02/28/20 09:20 Gram Stain - Preliminary Sputum Sputum Culture - Preliminary 02/28/20 16:20 Blood Culture - Preliminary Blood No Growth after 24 hours 02/29/20 09:00 Fungal Culture - Preliminary Pleural Fluid 02/29/20 09:00 Acid Fast Bacilli Culture - Preliminary Pleural Fluid Assessment and Plan Assessment: 1. Shortness of breath and cough, in a patient with a large right-sided pleural effusion and lung consolidation, rule out pneumonia with her Danielle fusion. Certainly with a history of prior smoking, malignancy will have to be considered. A 2.9 cm spiculated mass to his left upper lobe found on computed tomography scan of his chest, suspicious for malignancy. 2. Remote history of tobacco use with underlying chronic obstructive pulmonary disease. Quit smoking 5 years ago. 3. History of prostate cancer, status post radiation therapy and hormonal treatments. 4. History of colon cancer with previous colectomy. 5. History of gastroesophageal reflux disease. 6. Hypertension. 7. Hyperlipidemia. 8. Degenerative joint disease 9. Prior history of pneumonia and bronchitis. 10. Home O2 at 2 L/m at bedtime and when necessary. 11. History of glaucoma. 12. History of cataracts with bilateral cataract surgery and lens implants. Plan: 1. The patient was seen and examined at his bedside with Dr. Haro. 2. Continue Rocephin and Zithromax for empiric antibiotic coverage. 3. The 2.9 cm spiculated mass found on the computed tomography scan of his chest is suspicious for malignancy and will need to be followed on an outpatient basis. Will need a follow-up computed tomography scan of the chest in 3-4 months post discharge. 4. Continue albuterol and Spiriva. 5. Wean oxygen as tolerated to keep oxygen saturations greater than or equal to 92%. 6. We will follow the cytology results from the pleural fluid. Results remain pending. 7. More recommendations to follow based on patient's clinical course. I, the cosigning physician, performed a history and physical examination on the patient. Lungs are clear and diminished to his right lower lobe, maintaining O2 saturation in the 90s on 5 L nasal cannula. I discussed the plan and assessment of care with Amilcar Byrd UI SOFTWARE DEVELOPER. I attest that the above note is dictated by him. Time with Patient: Less than 30
[2020-03-01 11:20] LABS: Glucose, BF Source Pleural Fluid; Glucose, Body Fluid 82 mg/dL; LDH, Body Fluid Source Pleural Fluid; Total Protein, Body Fluid 430.7 mg/dL
--- NOTE | 2020-03-01 12:31 | ECHOF ---
Referral Reason:chest pain w/SOB MEASUREMENTS -------- HEIGHT: 162.6 cm WEIGHT: 122.5 kg BP: 134/64 IVSd: 1.0 cm (0.6 - 1.1) LVIDd: 3.5 cm (3.9 - 5.3) LVPWd: 1.3 cm (0.6 - 1.1) IVSs: 1.3 cm LVIDs: 2.0 cm LVPWs: 1.5 cm LAESV Index (A-L): 15.00 ml/m Ao Diam: 3.7 cm (2.0 - 3.7) AV Cusp: 1.9 cm (1.5 - 2.6) LA Diam: 3.6 cm (2.7 - 3.8) MV E South: 0.50 m/s MV DecT: 196 ms MV A South: 0.81 m/s MV E/A Ratio: 0.62 RAP: 5.00 mmHg RVSP: 27.50 mmHg FINDINGS -------- Sinus rhythm. This was a technically difficult study with suboptimal views. The left ventricular size is normal. Left ventricular wall thickness is normal. Overall left vent ricular systolic function is normal with, an EF between 55 - 60 %. The RV was not well visualized. The left atrial size is normal. Normal LA size by volume 22+/-6 ml/m2. The right atrial size is normal. The aortic valve is trileaflet and appears structurally normal. The mitral valve is normal. There is trace mitral regurgitation. The tricuspid valve appears structurally normal. Mild tricuspid regurgitation present. Right vent ricular systolic pressure is normal at < 35 mmHg. The pulmonic valve was not well visualized. The aortic root size is normal. IVC Not well visulized. There is no pericardial effusion. CONCLUSIONS -------- 1. Sinus rhythm. 2. This was a technically difficult study with suboptimal views. 3. The left ventricular size is normal. 4. Left ventricular wall thickness is normal. 5. Overall left ventricular systolic function is normal with, an EF between 55 - 60 %. 6. The RV was not well visualized. 7. The left atrial size is normal. 8. Normal LA size by volume 22+/-6 ml/m2. 9. The right atrial size is normal. 10. The aortic valve is trileaflet and appears structurally normal. 11. The mitral valve is normal. 12. There is trace mitral regurgitation. 13. The tricuspid valve appears structurally normal. 14. Mild tricuspid regurgitation present. 15. Right ventricular systolic pressure is normal at < 35 mmHg. 16. The pulmonic valve was not well visualized. 17. The aortic root size is normal. 18. IVC Not well visulized. 19. There is no pericardial effusion. ORDER PULLER: Cindy Agosto RDCS
--- NOTE | 2020-03-01 16:07 | P.PN ---
Subjective Progress Note Date: 03/01/20 This is a 79-year-old gentleman admitted to the hospital for community-acquired pneumonia, large right-sided pleural effusion. Underwent right-sided thoracentesis yesterday with 2.4 L removed. Tolerated procedure well. Pleural cytology pending. CT post thoracentesis reporting no evidence of mediastinal air or pneumothorax,right lower lobe with small to moderate residual pleural effusion, 2.9 cm spiculated mass anterior left upper lobe, no prior CTs here to compare to as per radiology. Tested negative for coronavirus. Legionella cultures pending. Maintaining O2 sats of mid 90s on 5 L nasal cannula in a patient who normally wears 2 L nasal cannula,. Sodium 128, potassium 4.7, creatinine 0.75. Afebrile. Objective - Vital Signs Vital signs: Vital Signs Temp 97.9 F 03/01/20 11:45 Pulse 89 03/01/20 11:45 Resp 18 03/01/20 11:45 BP 100/64 03/01/20 11:45 Pulse Ox 96 03/01/20 11:45 Intake & Output 02/29/20 03/01/20 03/01/20 18:59 06:59 18:59 Intake Total 340 540 360 Output Total 300 450 Balance 40 90 360 Intake: Intake, IV Titration 100 Amount cefTRIAXone 1 gm In 100 Sodium Chloride 0.9% 50 ml @ 100 mls/hr IVPB Q24HR [facility] Rx#:[id number] Oral 340 540 260 Output: Urine 300 450 Other: Voiding Method Urinal Urinal # Voids 0 # Bowel Movements 0 - Exam PHYSICAL EXAM: VITAL SIGNS: As above GENERAL: Sitting up in bed, no acute distress HEENT: Conjunctivae normal. eyes normal. Oral mucosa moist NECK: No JVD. No thyroid enlargement. No LNs CARDIOVASCULAR: S1, S2 regular.. No murmur RESPIRATION: Breath sounds diminished in the bases. No rhonchi or crackles. No expiratory wheezing ABDOMEN: Soft, nontender . No guarding. no masses palpable. Bowel sounds heard. LEGS: No edema. no swelling PSYCHIATRY: Alert and oriented X3, mood and affect normal. NERVOUS SYSTEM: Cranial N 2-12 grossly normal. Moves all 4 limbs. Diffuse weakness. No focal deficits. Strength and sensation grossly intact. Skin: no rash. - Labs CBC & Chem 7: 02/28/20 14:20 03/01/20 06:22 Labs: Abnormal Lab Results - Last 24 Hours (Table) 02/29/20 03/01/20 Range/Units 05:44 06:22 Sodium 128 L (137-145) mmol/L BUN 24 H (9-20) mg/dL Calcium 7.8 L (8.4-10.2) mg/dL Procalcitonin 0.62 H (0.02-0.09) ng/mL Microbiology - Last 24 Hours (Table) 02/29/20 09:00 Gram Stain - Preliminary Pleural Fluid Body Fluid Culture - Preliminary 02/28/20 09:20 Gram Stain - Preliminary Sputum Sputum Culture - Preliminary 02/28/20 16:20 Blood Culture - Preliminary Blood No Growth after 24 hours 02/29/20 09:00 Fungal Culture - Preliminary Pleural Fluid 02/29/20 09:00 Acid Fast Bacilli Culture - Preliminary Pleural Fluid Assessment and Plan Assessment: Acute on chronic hypoxic, hypercapnic respiratory failure secondary to right large pleural effusion, possible right-sided pneumonia, possible malignancy. Wears 2 L O2 nasal cannula at home. Acute right large pleural effusion, status post thoracentesis, cytology pending. 2.9 cm spiculated mass anterior left upper lobe, pulmonary following with rther outpatient follow-up. Ruling out Legionella Hyponatremia History of nicotine dependence Prostate cancer, history of radiation and hormonal treatments Colon cancer with history of colectomy Gastroesophageal reflux disease Hypertension Hyperlipidemia Degenerative joint disease Glaucoma History of cataracts with lens implant Plan: Continue current medication regime ,monitoring and symptomatic treatment. Titrate O2 to parameters established per pulmonary, maintain O2 sats greater than or equal to 92%, patient normally wears 2 L nasal cannula O2 at home . Pleural Cytology pending.Continue on Rocephin, Zithromax. Further outpatient pulmonary follow-up regarding mass on CT. The impression and plan of care has been dictated as directed. : I performed a history and examination of this patient, discussed the same with the dictator. I agree with the dictator's note ,documented as a scribe. Any additional findings or plans will be noted.
[2020-03-01] MEDS: ATORVASTATIN 20 MG TAB PO SCH (21:27)
[2020-03-01] MEDS: LATANOPROST 0.005% OPHTH DROPS 2.5 ML BTL BOTH EYES SCH (21:27)
[2020-03-02] MEDS ORDERED: ALPRAZolam 0.25 MG TAB PO STA (02:13)
[2020-03-02] MEDS ORDERED: IPRATROPIUM-ALBUTEROL 3 ML NEB INHALATION PRN (02:14)
[2020-03-02] MEDS: traMADol 50 MG TAB PO PRN ×2 (03:50→17:05)
[2020-03-02] MEDS: DRONABINOL 2.5 MG CAP PO SCH ×2 (06:26→16:59)
[2020-03-02] MEDS: ALBUTEROL HFA INHALER INHALATION SCH ×4 (07:33→19:34)
[2020-03-02] MEDS: TIOTROPIUM 18 MCG/PUFF INHALER INHALATION SCH (07:40)
--- NOTE | 2020-03-02 08:19 | XR ---
EXAMINATION TYPE: XR chest 1V DATE OF EXAM: 03/02/2020 COMPARISON: 02/29/2020 INDICATION: Pneumonia TECHNIQUE: Single frontal view of the chest is obtained. FINDINGS: The heart size is normal. The pulmonary vasculature is normal. There is a moderate to large right-sided pleural effusion, increased from a small right pleural effus ion previous day. IMPRESSION: 1. Increasing right-sided moderate to large pleural effusion
[2020-03-02] MEDS: LISINOPRIL 10 MG TAB PO SCH (09:35)
[2020-03-02] MEDS: AZITHROMYCIN 500 MG TAB PO SCH (09:35)
[2020-03-02] MEDS: DONEPEZIL 10 MG TAB PO SCH (09:35)
[2020-03-02] MEDS: VERAPAMIL 40 MG TAB PO SCH ×3 (09:35→20:37)
[2020-03-02] MEDS ORDERED: VANCOMYCIN IV PER PHARMACY 1 EACH MISC MISCELLANE PRN (10:39)
--- NOTE | 2020-03-02 11:09 | P.PN ---
Subjective Progress Note Date: 03/02/20 Principal diagnosis: This is an 79-year-old gentleman who follows with Dr. Truman Yu on an outpatient basis. He has a past medical history significant for COPD from previous tobacco use, GERD, hyperlipidemia, hypertension, DJD, by her episode of pneumonia, history of bronchitis, chronic hypoxemic respiratory failure, home oxygen use of 2 L at bedtime, colon cancer with previous colectomy, prostate cancer with previous radiation and hormonal therapy, glaucoma and memory impa irment. The patient is somewhat a poor historian but apparently came into the emergency department on 02/28/2020 via EMS with complaints of back pain and shortness of breath. He does admit to coughing, producing phlegm but is unable to state what color it is. Denies any fevers, chills, nausea, vomiting, diarrhea, or hemoptysis. He reports that his back pain is predominantly right sided and that it is been present for at least a couple of days. A chest x-ray was completed which demonstrated consolidation to his right lower lobe and a large right-sided pleural effusion. Subsequently, the patient underwent a right-sided thoracentesis performed by Dr. Johnson with 2.4 L of yellow-colored fluid drained. Post thoracentesis the patient reported that his shortness of breath seemed to improve. The patient was seen in follow-up today 03/01/2020 on the cardiac stepdown unit. He is in no acute distress and his oxygen saturations are 95% on 5 L nasal cannula. He is hemodynamically stable and has remained afebrile the last 24 hours. The patient underwent a right-sided thoracentesis yesterday with 2.4 L of cloudy yellow fluid drained from his right side. Cytology results remain pending. He was tested for COVID19 which was not detected. There is no x-ray completed today and his laboratory results showed sodium 128, potassium 4.7, BUN 24, creatinine 0.75. He is on Zithromax and Rocephin for her antibiotic coverage he has 0.9% normal saline infusing at 75 mL per hour and is on alb uterol inhaler 2 puffs 4 times a day and Spiriva 1 puff daily. A computed tomography scan of his chest was completed yesterday with contrast which demonstrated no evidence of mediastinal air or pneumothorax, residual consolidation in the right lower lobe with small to moderate residual pleural effusion, and a 2.9 cm speculated mass in the anterior segment of the right upper lobe. The patient was seen in follow-up today on the cardiac stepdown unit. He is in no acute distress, he remained hemodynamically stable and has been afebrile the last 24 hours. Oxygen saturations are 96% on 5 L nasal cannula. He does report that early this morning he was having some episodes of shortness of breath and was quite anxious. He currently denies any pain and reports his anxiety has improved. A repeat chest x-ray was completed today which demonstrated an increasing right-sided moderate to large left pleural effusion despite undergoing a right thoracentesis on 02/29/2020 with 2.4 L of cloudy yellow fluid drained. The fluid drained showed an exudative effusion and his cytology results remain pending. Laboratory results today showed a sodium 128, BUN 24, creatinine 0.75 and potassium 4.7. He is currently on Zithromax for antibiotic coverage. Objective - Vital Signs Vital signs: Vital Signs Temp 98.2 F 03/02/20 03:21 Pulse 92 03/02/20 03:21 Resp 20 03/02/20 03:21 BP 124/68 03/02/20 03:21 Pulse Ox 96 03/02/20 03:21 Intake & Output 03/01/20 03/02/20 03/02/20 18:59 06:59 18:59 Intake Total 420 Output Total 400 Balance 420 -400 Intake: Intake, IV Titration 100 Amount cefTRIAXone 1 gm In 100 Sodium Chloride 0.9% 50 ml @ 100 mls/hr IVPB Q24HR [facility] Rx#:[id number] Oral 320 Output: Urine 400 Other: Voiding Method Urinal - Exam The patient is pleasant 79-year-old gentleman who is alert and oriented 3 with periods of forgetfulness. He is in no acute distress. Oxygen saturation is 96% on 6 L nasal cannula. - Constitutional General appearance: Present: cooperative, morbidly obese, no acute distress - EENT Eyes: Present: PERRLA, normal appearance. Absent: scleral icterus ENT: Present: hard of hearing, normal oropharynx. Absent: thrush - Neck Details: Neck is supple, no JVD. Neck: Absent: lymphadenopathy, stridor, thyromegaly - Respiratory Details: Lung sounds with scattered expiratory wheezes and severely diminished breath sounds to his right lower lobe. No rhonchi or crackles. Respirations are symmetrical and nonlabored. - Cardiovascular Details: Regular rhythm and rate. S1 and S2 present, negative for S3, gallop or murmur. Remote telemetry showing normal sinus rhythm heart rate 81. - Gastrointestinal Gastrointestinal Comment(s): Abdomen soft, nontender and nondistended. Active bowel sounds present all 4 abdominal quadrants. No guarding or rigidity. No organomegaly. - Integumentary Integumentary Comment(s): Skin is warm and dry. No clubbing or cyanosis is present. No rash. - Neurologic Neurologic: Present: CNII-XII intact - Musculoskeletal Musculoskeletal: Present: generalized weakness, strength equal bilaterally - Psychiatric Psychiatric Comment(s): Alert and oriented 3 with periods of forgetfulness. Psychiatric: Present: appropriate affect, intact judgment & insight - Allied health notes Allied health notes reviewed: nursing - Labs CBC & Chem 7: 02/28/20 14:20 03/01/20 06:22 Labs: Abnormal Lab Results - Last 24 Hours (Table) 02/29/20 Range/Units 05:44 Procalcitonin 0.62 H (0.02-0.09) ng/mL Microbiology - Last 24 Hours (Table) 02/28/20 09:20 Gram Stain - Final Sputum Sputum Culture - Final 02/29/20 09:00 Acid Fast Bacilli Smear - Final Pleural Fluid Acid Fast Bacilli Culture - Preliminary 02/28/20 16:20 Blood Culture - Preliminary Blood No Growth after 48 hours 02/29/20 09:00 Gram Stain - Preliminary Pleural Fluid Body Fluid Culture - Preliminary - Imaging and Cardiology Chest x-ray: report reviewed, image reviewed Assessment and Plan Assessment: 1. Shortness of breath and cough, in a patient with a large right-sided pleural effusion and lung consolidation, rule out pneumonia with pleural effusion. Certainly with a history of prior smoking, malignancy will have to be conside red. A 2.9 cm spiculated mass to his left upper lobe found on computed tomography scan of his chest, suspicious for malignancy. 2. Remote history of tobacco use with underlying chronic obstructive pulmonary disease. Quit smoking 5 years ago. 3. History of prostate cancer, status post radiation therapy and hormonal treatments. 4. History of colon cancer with previous colectomy. 5. History of gastroesophageal reflux disease. 6. Hypertension. 7. Hyperlipidemia. 8. Degenerative joint disease 9. Prior history of pneumonia and bronchitis. 10. Home O2 at 2 L/m at bedtime and when necessary. 11. History of glaucoma. 12. History of cataracts with bilateral cataract surgery and lens implants. Plan: 1. The patient was seen and examined at his bedside with Dr. Haro. 2. Discontinue Zithromax and start Zosyn and vancomycin for empiric antibiotic coverage. 3. A 2.9 cm spiculated mass found on the computed tomography scan of his chest is suspicious for malignancy and will need to be followed on an outpatient basis. Will need a follow-up computed tomography scan of the chest in 3-4 months post discharge. 4. Continue albuterol and Spiriva. 5. Wean oxygen as tolerated to keep oxygen saturations greater than or equal to 92%. 6. We will follow the cytology results from the pleural fluid. Results remain pending. 7. Consult intervention radiology for right-sided pigtail catheter placement for recurrent right pleural effusion. 8. More recommendations to follow based on patient's clinical course. I, the cosigning physician, performed a history and physical examination on the patient. Lungs are clear and diminished to his right lower lobe, maintaining O2 saturation in the 90s on 5 L nasal cannula. I discussed the plan and assessment of care with Amilcar Byrd NP. I attest that the above note is dictated by him. Time with Patient: Less than 30
[2020-03-02] MEDS: VANCOMYCIN 2,000 MG in SODIUM CHLORIDE 0.9% 500 ML 500 ML IVPB SCH (13:20)
--- NOTE | 2020-03-02 14:45 | US ---
EXAMINATION TYPE: US guided chest tube insertion DATE OF EXAM: 03/02/2020 COMPARISON: NONE HISTORY: Right Pleural effusion. FINDINGS: Maximal barrier technique was utilized. The skin overlying a suitable pocket of fluid in t he posterior right chest was localized and the overlying skin prepped and draped. Lidocaine was used for local anesthesia. Ultrasound was used with sterile technique. A 21 g needle was advanced into t he pleural fluid collection using ultrasound guidance and a 0.018 inch wire was advanced, access site was dilated and the catheter and wire were upsized, 8.5 Amharic tube was advanced and fixed in place in the pleural space on the right. Serous fluid returned in the hub of the catheter. Catheter nylon hot wire cutter d to water seal. Post procedure chest x-ray pending. There is no immediate complication. The patient discharged in stable condition without complication. IMPRESSION: STATUS POST ULTRASOUND GUIDED PLEURAL DRAINAGE TUBE CATHETER PLACEMENT, POST PROCEDURE EST X-RAY PENDING. THIS PROCEDURE WAS PERFORMED BY THE UNDERSIGNED.
--- NOTE | 2020-03-02 15:00 | XR ---
EXAMINATION TYPE: XR chest 1V portable DATE OF EXAM: 03/02/2020 COMPARISON: 03/02/2020 HISTORY: Right-sided thoracostomy tube placement TECHNIQUE: Single frontal view of the chest is obtained. FINDINGS: Right-sided thoracostomy tube is seen near the costophrenic angle. There is slight improve ment in the moderate to large right pleural effusion with multifocal right-sided airspace disease. Le ft lung remains well aerated without sizable left pleural effusion. Cardiomediastinal silhouette is p artially obscured although similar to the prior. No postprocedural pneumothorax is seen. IMPRESSION: Right-sided thoracostomy tube placement at the right costophrenic angle with slight impr ovement of a moderate to large right pleural effusion and associated airspace disease.
[2020-03-02] MEDS: SODIUM CHLORIDE 0.9% 1,000 ML IV SCH ×2 (15:15→23:29)
[2020-03-02] MEDS: PIPERACILLIN-TAZOBACTAM 3.375 GM in SODIUM CHLORIDE 0.9% 100 ML IVPB SCH ×2 (16:58→20:36)
[2020-03-02] MEDS: ATORVASTATIN 20 MG TAB PO SCH (20:36)
[2020-03-02] MEDS: LATANOPROST 0.005% OPHTH DROPS 2.5 ML BTL BOTH EYES SCH (20:37)
[2020-03-02] MEDS: DOCUSATE 100 MG CAP PO SCH (20:37)
[2020-03-02] MEDS: SENNOSIDES-DOCUSATE SODIUM 1 EACH TAB PO SCH (20:37)
[2020-03-03] MEDS: VANCOMYCIN 2,000 MG in SODIUM CHLORIDE 0.9% 500 ML 500 ML IVPB SCH ×3 (03:05→20:00)
[2020-03-03] MEDS: traMADol 50 MG TAB PO PRN ×2 (03:05→14:59)
[2020-03-03] MEDS: PIPERACILLIN-TAZOBACTAM 3.375 GM in SODIUM CHLORIDE 0.9% 100 ML IVPB SCH ×4 (03:05→22:13)
[2020-03-03 06:29] LABS: African American GFR (CKD) >90 (>60 ml/min/1.73 sqM); Non-African American GFR(CKD) 83 (>60 ml/min/1.73 sqM)
[2020-03-03] MEDS: DRONABINOL 2.5 MG CAP PO SCH ×2 (06:33→17:21)
[2020-03-03] MEDS: ALBUTEROL HFA INHALER INHALATION SCH ×4 (07:45→19:28)
[2020-03-03] MEDS: TIOTROPIUM 18 MCG/PUFF INHALER INHALATION SCH (07:46)
[2020-03-03] MEDS ORDERED: ALBUTEROL HFA INHALER INHALATION PRN (07:46)
--- NOTE | 2020-03-03 09:15 | XR ---
EXAMINATION TYPE: XR chest 1V portable DATE OF EXAM: 03/03/2020 COMPARISON: 03/02/2020 HISTORY: Follow-up for right-sided pleural effusion. TECHNIQUE: Single frontal view of the chest is obtained. FINDINGS: There is a worsening right-sided pleural effusion with right-sided airspace disease. There is shift of the mediastinum to the right partially related to patient rotation but also likely parti ally attributable to atelectasis. The left lung is well aerated. Cardiomediastinal silhouette is part ially obscured and also rotated secondary to patient positioning. Pigtail catheter is seen near the r ight costophrenic angle. No acute osseous process. IMPRESSION: Worsening large right pleural effusion although right thoracostomy tube positioning appe ars appropriately radiographically. Mediastinal shift to the right is partially secondary to patient rotation but also likely partially related to atelectasis.
[2020-03-03] MEDS: DOCUSATE 100 MG CAP PO SCH ×2 (10:00→22:10)
[2020-03-03] MEDS: LISINOPRIL 10 MG TAB PO SCH (10:00)
[2020-03-03] MEDS: SENNOSIDES-DOCUSATE SODIUM 1 EACH TAB PO SCH ×2 (10:00→22:10)
[2020-03-03] MEDS: VERAPAMIL 40 MG TAB PO SCH ×3 (10:01→22:10)
[2020-03-03] MEDS: DONEPEZIL 10 MG TAB PO SCH (10:01)
[2020-03-03] MEDS ORDERED: RX INFO: IV CONTRAST WAS GIVEN 1 EACH MISC MISCELLANE PRN (10:06)
--- NOTE | 2020-03-03 10:49 | P.PN ---
Subjective Progress Note Date: 03/02/20 This is a 79-year-old gentleman admitted to the hospital for community-acquired pneumonia, large right-sided pleural effusion. Underwent right-sided thoracentesis yesterday with 2.4 L removed. Tolerated procedure well. Pleural cytology pending. CT post thoracentesis reporting no evidence of mediastinal air or pneumothorax,right lower lobe with small to moderate residual pleural effusion, 2.9 cm spiculated mass anterior left upper lobe, no prior CTs here to compare to as per radiology. Tested negative for coronavirus. Legionella cultures pending. Maintaining O2 sats of mid 90s on 5 L nasal cannula in a patient who normally wears 2 L nasal cannula,. Sodium 128, potassium 4.7, creatinine 0.75. Afebrile. 03/02/2020 Minimal ambulation. Complains of constipation. Antibiotics adjusted to Zosyn and vancomycin. Maintaining O2 sats in the 90s on 5 L nasal cannula. Complained of increased shortness of breath earlier this morning , currently denies .Chest x-ray reporting increasing moderate to large right pleural effusion .scheduled for PIG tail placement with interventional radiology. Pleura l cytology pending from prior thoracentesis. Afebrile. Objective - Vital Signs Vital signs: Vital Signs Temp 98.0 F 03/02/20 16:00 Pulse 88 03/02/20 16:00 Resp 18 03/02/20 16:00 BP 122/59 03/02/20 16:00 Pulse Ox 96 03/02/20 16:00 Intake & Output 03/02/20 03/02/20 03/03/20 06:59 18:59 06:59 Intake Total 580 Output Total 400 1950 Balance -400 -1370 Intake: Intake, IV Titration 100 Amount cefTRIAXone 1 gm In 100 Sodium Chloride 0.9% 50 ml @ 100 mls/hr IVPB Q24HR [facility] Rx#:[id number] Oral 480 Output: Chest Tube Drainage 1650 Chest Tube Right Upper 1650 Urine 400 300 Other: Voiding Method Urinal Urinal # Voids 0 # Bowel Movements 0 - Exam PHYSICAL EXAM: VITAL SIGNS: As above GENERAL: Sitting up in bed, no acute distress HEENT: Conjunctivae normal. eyes normal. Oral mucosa moist NECK: No JVD. No thyroid enlargement. No LNs CARDIOVASCULAR: S1, S2 regular.. No murmur RESPIRATION: Respiratory effort mildly increased .Breath sounds diminished in the bases, worse on the right. No rhonchi or crackles. No expiratory wheezing ABDOMEN: Soft, nontender . No guarding. no masses palpable. Bowel sounds heard. LEGS: No edema. no swelling PSYCHIATRY: Alert and oriented X3, mood and affect normal. NERVOUS SYSTEM: Cranial N 2-12 grossly normal. Moves all 4 limbs. Diffuse weakness. No focal deficits. Strength and sensation grossly intact. Skin: no rash. - Labs CBC & Chem 7: 02/28/20 14:20 03/03/20 05:44 Labs: Microbiology - Last 24 Hours (Table) 02/28/20 16:20 Blood Culture - Preliminary Blood No Growth after 72 hours 02/29/20 09:00 Gram Stain - Preliminary Pleural Fluid Body Fluid Culture - Preliminary 02/28/20 09:20 Gram Stain - Final Sputum Sputum Culture - Final 02/29/20 09:00 Acid Fast Bacilli Smear - Final Pleural Fluid Acid Fast Bacilli Culture - Preliminary Assessment and Plan Assessment: Acute on chronic hypoxic, hypercapnic respiratory failure secondary to right large pleural effusion, possible right-sided pneumonia, possible malignancy. Wears 2 L O2 nasal cannula at home. Acute right large pleural effusion, status post thoracentesis, cytology pending. Recurrent Right pleural effusion , pigtail cath placement pending. 2.9 cm spiculated mass anterior left upper lobe, suspect malignancy, pulmonary following with further outpatient follow-up/PET scan. Ruling out Legionella Hyponatremia History of nicotine dependence Prostate cancer, history of radiation and hormonal treatments Colon cancer with history of colectomy Gastroesophageal reflux disease Hypertension Hyperlipidemia Degenerative joint disease Glaucoma History of cataracts with lens implant Plan: Continue current medication regime ,monitoring and symptomatic treatment. Interventional radiology consulted for Pig tail placement. Pleural Cytology pending. Maintain nebulized bronchodilators, antibiotics of Zosyn, vancomycin. Colace and Senokot added for constipation. Patient has chronic back pain, minimal ambulation. Up in chair for all meals, increase activity/ambulation as tolerated.PT/OT. The impression and plan of care has been dictated as directed. : I performed a history and examination of this patient, discussed the same with the dictator. I agree with the dictator's note ,documented as a scribe. Any additional findings or plans will be noted.
[2020-03-03 11:24] LABS: Anion Gap 1 mmol/L; Blood Urea Nitrogen 31 mg/dL (9-20); Calcium 8.2 mg/dL (8.4-10.2); Carbon Dioxide 22 mmol/L (22-30); Chloride 104 mmol/L (98-107); Potassium 5.2 mmol/L (3.5-5.1); Sodium 127 mmol/L (137-145)
[2020-03-03 11:25] LABS: Glucose 94 mg/dL (74-99)
[2020-03-03 12:11] LABS: Anisocytosis Slight; Basophils % (A) 0 %; Eosinophils # (A) 0.1 k/uL (0-0.7); Eosinophils % (A) 1 %; HCT 27.5 % (39.0-53.0); HGB 8.7 gm/dL (13.0-17.5); Hypochromasia Slight; Lymphocytes # (A) 0.9 k/uL (1.0-4.8); Lymphocytes % (A) 11 %; MCHC 31.4 g/dL (31.0-37.0); MCV 92.3 fL (80.0-100.0); Mean Platelet Volume 8.5; Monocytes # (A) 0.5 k/uL (0-1.0); Monocytes % (A) 6 %; Neutrophils # (A) 7.1 k/uL (1.3-7.7); Neutrophils % (A) 82 %; Platelet Count 301 k/uL (150-450); RBC 2.98 m/uL (4.30-5.90); RDW 17.3 % (11.5-15.5); WBC 8.7 k/uL (3.8-10.6)
--- NOTE | 2020-03-03 12:38 | CT ---
EXAMINATION TYPE: CT chest w con DATE OF EXAM: 03/03/2020 COMPARISON: CT chest dated 02/29/2020 HISTORY: history of mass. Shortness of breath. CT DLP: 376.1 mGycm. Automated Exposure Control for Dose Reduction was Utilized. TECHNIQUE: CT scan of the thorax is performed following with IV Contrast, patient injected with 100 mL of Isovue 300. FINDINGS: LUNGS: Again there is a spiculated left apical nodule measuring approximately 2.4 x 1 point for centi meters. Tethering of the pleural surfaces is seen. Mild background emphysematous changes of lungs. Ba ndlike atelectasis or scarring is seen of the superior lateral aspect of the left lower lobe and at t he left lung base. There is mediastinal shift to the right secondary to represent atelectasis. There are new foci of air within the right pleural effusion rendering this a hydropneumothorax. Both the degree of atelectasis and the effusion size have increased in the interim. Pleural fluid is loculated at the lung apex and surrounding the right upper lobe. Enhancement of the atelectatic right lung is heterogenous particul paul posteriorly on image 30, which can indicate underlying pneumonia. MEDIASTINUM: There is a new density in the mediastinum abutting the tracheal surface on axial image 1 7. There is cut off of the right mainstem bronchi with paucity of distal aerated segmental and subseg mental bronchi. Few coronary calcifications are seen. There are no greater than 1 cm hilar or mediast inal lymph nodes. Very questionable tiny foci of pneumomediastinum versus spray artifact from the adj acent densely contrast filled superior vena cava. OTHER: Very small perihepatic ascites. Cholecystectomy clips are present. Heterogenous right adrenal gland nodule is new from the prior of 05/24/2017. This measures 2.2 cm. Upper abdomen is markedly limi avi by patient motion. Too small to accurately characterize hypoattenuated renal lesions and hepatic lesions are seen as well as a fluid attenuated 1.8 cm left renal cyst. Compression deformity of T12 and to a lesser degree of L1 are not visualized in 2017 and are overall age-indeterminate but have occurred somewhere in the interim. Mild degenerative change of the thoraci c spine. IMPRESSION: 1. New air and the increasing large right loculated pleural effusion rendering this a hydropneumothor ax by definition. There is also increase in the degree of right lung atelectasis, near complete, with rightward mediastinal shift and areas of low density intervening within the atelectasis raising susp icion for underlying pneumonia. 2. Punctate foci of questionable air in the mediastinum directly adjacent to the superior vena cava ( spray artifact from a densely contrast-filled inferior vena cava is alternatively possible). 3. New superior mediastinal density at the right lateral aspect of the trachea that may represent med iastinal fluid or mediastinal hematoma/hemorrhage. 4. Cut off of the right mainstem bronchus with paucity of downstream aerated right-sided bronchi. Bro nchial injury is a consideration. 5. Age indeterminant compression deformities of T12 and L1 not visualized in 2017, occurring sometime in the interim. 6. New right adrenal gland nodule in comparison to the prior of 2017 and spiculated left upper lobe p ulmonary nodule. Findings are concerning for lung cancer and potential metastasis. 7. Very small amount of perihepatic ascites. A [place] critical message alert has been initiated for Kevin Haro MD via the [employer] Critical Results System on 03/03/2020 12:35 PM. This message alert has been sent to Kevin schmtiz MD via the preferences provided by the clinician for the receipt of Radiology Critical Findings. M essage ID [id number].
--- NOTE | 2020-03-03 14:49 | P.PN ---
Subjective Progress Note Date: 03/03/20 Principal diagnosis: Shortness of breath, cough, large right-sided pleural effusion and lung consolidation This is an 79-year-old gentleman who follows with Dr. Truman Yu on an outpatient basis. He has a past medical history significant for COPD from previous tobacco use, GERD, hyperlipidemia, hypertension, DJD, by her episode of pneumonia, history of bronchitis, chronic hypoxemic respiratory failure, home oxygen use of 2 L at bedtime, colon cancer with previous colectomy, prostate cancer with previous radiation and hormonal therapy, glaucoma and memory impairment. The patient is somewhat a poor historian but apparently came into the emergency department on 02/28/2020 via EMS with complaints of back pain and shortness of breath. He does admit to coughing, producing phlegm but is unable to state what color it is. Denies any fevers, chills, nausea, vomiting, diar brandy, or hemoptysis. He reports that his back pain is predominantly right sided and that it is been present for at least a couple of days. A chest x-ray was completed which demonstrated consolidation to his right lower lobe and a large right-sided pleural effusion. Subsequently, the patient underwent a right-sided thoracentesis performed by Dr. Johnson with 2.4 L of yellow-colored fluid drained. Post thoracentesis the patient reported that his shortness of breath seemed to improve. The patient was seen in follow-up today 03/01/2020 on the cardiac stepdown unit. He is in no acute distress and his oxygen saturations are 95% on 5 L nasal cannula. He is hemodynamically stable and has remained afebrile the last 24 hours. The patient underwent a right-sided thoracentesis yesterday with 2.4 L of cloudy yellow fluid drained from his right side. Cytology results remain pending. He was tested for COVID19 which was not detected. There is no x-ray completed today and his laboratory results showed sodium 128, potassium 4.7, BUN 24, creatinine 0.75. He is on Zithromax and Rocephin for her antibiotic coverage he has 0.9% normal saline infusing at 75 mL per hour and is on albuterol inhaler 2 puffs 4 times a day and Spiriva 1 puff daily. A computed tomography scan of his chest was completed yesterday with contrast which demonstrated no evidence of mediastinal air or pneumothorax, residual consolidation in the right lower lobe with small to moderate residual pleural effusion, and a 2.9 cm speculated mass in the anterior segment of the right upper lobe. The patient was seen in follow-up today on the cardiac stepdown unit. He is in no acute distress, he remained hemodynamically stable and has been afebrile the last 24 hours. Oxygen saturations are 96% on 5 L nasal cannula. He does report that early this morning he was having some episodes of shortness of breath and was quite anxious. He currently denies any pain and reports his anxiety has improved. A repeat chest x-ray was completed today which demonstrated an increasing right-sided moderate to large left pleural effusion despite undergoing a right thoracentesis on 02/29/2020 with 2.4 L of cloudy yellow fluid drained. The fluid drained showed an exudative effusion and his cytology results remain pending. Laboratory results today showed a sodium 128, BUN 24, creatinine 0.75 and potassium 4.7. He is currently on Zithromax for antibiotic coverage. On 03/03/2020 patient seen in follow-up on selective care unit, he is awake and alert, in no acute distress, he is currently on 6 L of oxygen with a pulse ox of 94-95%, hemodynamically stable he is afebrile. Today's chest x-ray has been reviewed showing worsening large right pleural effusion, he is right-sided thoracostomy tube is connected to Pleur-evac, and and patient drained a total of 1860 mL initially after placement of the chest tube, and currently there is only 75 mL in the Pleur-evac of serous output. CT chest was obtained today, showing increasing large right loculated pleural effusion, degree of right lung atelectasis, near complete, with rightward mediastinal shift, punctate questionable air in the mediastinum, adjacent to the superior vena cava, new superior mediastinal density at the right lateral aspect of the trachea possible bronchial injury, new right adrenal gland nodule and spiculated left upper lobe pulmonary nodule with possibility of lung cancer and potential metastasis. Pleural fluid cultures so far have shown no growth, blood and sputum cultures have been negative, patient remains on Zosyn and vancomycin for antibiotic coverage. We'll consider TPA infusion, and consider CT surgery consultation. Objective - Vital Signs Vital signs: Vital Signs Temp 98.4 F 03/03/20 11:22 Pulse 84 04/22/20 11:22 Resp 20 03/03/20 11:22 BP 114/67 03/03/20 11:22 Pulse Ox 94 L 03/03/20 11:22 Intake & Output 03/02/20 03/03/20 03/03/20 18:59 06:59 18:59 Intake Total 273 522 7696 Output Total 1950 510 Balance -1370 -410 1060 Intake: Intake, IV Titration 100 940 Amount Piperacillin-Tazobactam 3 200 .375 gm In Sodium Chloride 0.9% 100 ml @ 25 mls/hr IVPB Q8H [facility] Rx#: [id number] Sodium Chloride 0.9% 1, 240 000 ml @ 20 mls/hr IV . Q24H [facility] Rx#:[id number] Vancomycin 2,000 mg In 500 Sodium Chloride 0.9% 500 ml 500 ml @ 167 mls/hr IVPB Q16H [facility] Rx#: [id number] cefTRIAXone 1 gm In 100 Sodium Chloride 0.9% 50 ml @ 100 mls/hr IVPB Q24HR [facility] Rx#:[id number] Oral 480 100 120 Output: Chest Tube Drainage 1650 210 Chest Tube Right Upper 1650 210 Urine 300 300 Other: Voiding Method Urinal Urinal Urinal # Voids 0 # Bowel Movements 0 - Exam GENERAL EXAM: Alert, very pleasant, gentleman on 6 L of oxygen with a pulse ox of 94-95% comfortable in no apparent distress. HEAD: Normocephalic/atraumatic. EYES: Normal reaction of pupils, equal size. Conjunctiva pink, sclera white. NOSE: Clear with pink turbinates. THROAT: No erythema or exudates. NECK: No masses, no JVD, no thyroid enlargement, no adenopathy. CHEST: No chest wall deformity. Symmetrical expansion. right-sided chest tube in place, with small amount of serous drainage LUNGS: Equal air entry with diminished breath sounds at the right lower and middle lobe. Pigtail catheter is present CVS: Regular rate and rhythm, normal S1 and S2, no gallops, no murmurs, no rubs ABDOMEN: Soft, nontender. No hepatosplenomegaly, normal bowel sounds, no guarding or rigidity. EXTREMITIES: No clubbing, no edema, no cyanosis, 2+ pulses and upper and lower extremities. MUSCULOSKELETAL: Muscle strength and tone normal. SPINE: No scoliosis or deformity SKIN: No rashes CENTRAL NERVOUS SYSTEM: Alert and oriented -3. No focal deficits, tone is normal in all 4 extremities. PSYCHIATRIC: Alert and oriented -3. Appropriate affect. Intact judgment and insight. - Labs CBC & Chem 7: 03/03/20 05:33 03/03/20 05:44 Labs: Abnormal Lab Results - Last 24 Hours (Table) 03/03/20 03/03/20 Range/Units 05:33 05:44 RBC 2.98 L (4.30-5.90) m/uL Hgb 8.7 L (13.0-17.5) gm/dL Hct 27.5 L (39.0-53.0) % RDW 17.3 H (11.5-15.5) % Lymphocytes # 0.9 L (1.0-4.8) k/uL Sodium 127 L (137-145) mmol/L Potassium 5.2 H (3.5-5.1) mmol/L BUN 31 H (9-20) mg/dL Calcium 8.2 L (8.4-10.2) mg/dL Microbiology - Last 24 Hours (Table) 02/29/20 09:00 Gram Stain - Preliminary Pleural Fluid Body Fluid Culture - Preliminary 02/28/20 16:20 Blood Culture - Preliminary Blood No Growth after 72 hours Assessment and Plan Plan: 1. Shortness of breath and cough, in a patient with a large right-sided pleural effusion and lung consolidation, rule out pneumonia with pleural effusion. Certainly with a history of prior smoking, malignancy will have to be considered. A 2.9 cm spiculated mass to his left upper lobe found on computed tomography scan of his chest, suspicious for malignancy. patient had a right- sided pigtail chest tube inserted on 03/02/2020 by interventional radiology and 1860 mL of pleural fluid was immediately drained cytology is pending, cultures are pending 2. new air and increasing large right loculated pleural effusion, hydropneumot horax, extensive degree of right lung atelectasis with mediastinal shift, questionable air in the mediastinum 3. new superior mediastinal density at the right lateral aspect of the trachea with the possibility of mediastinal fluid or mediastinal hematoma in on the CT of the chest today on 03/03/2020 4. Remote history of tobacco use with underlying chronic obstructive pulmonary disease. Quit smoking 5 years ago. 5. History of prostate cancer, status post radiation therapy and hormonal treat ments. 6. History of colon cancer with previous colectomy. 7. History of gastroesophageal reflux disease. 8. Hypertension. 9. Hyperlipidemia. 10. Degenerative joint disease 11. Prior history of pneumonia and bronchitis. 12. Home O2 at 2 L/m at bedtime and when necessary. 13. History of glaucoma. 14. History of cataracts with bilateral cataract surgery and lens implants. Plan: Continue current antibiotics,awaiting results of the final pleural fluid cultures, patient is afebrile, today's chest x-ray has been reviewed showing worsening of the right-sided pleural effusion, CT chest has been obtained and has been reviewed, showing increasing large right likely pleural effusion, extensive atelectasis, hydropneumothorax, and possibility of air in the mediastinum, we'll give the patient a dose of TPA through the pigtail chest tube, monitor output, consult to thoracic surgery. We'll continue with current medical management, I performed a history & physical examination of the patient and discussed their management with my nurse practitioner, Lyndsay Zamudio. I reviewed the nurse practitioner's note and agree with the documented findings and plan of care. Lung sounds are positive for diminished breath sounds. The findings and the impression was discussed with the patient. I attest to the documentation by the nurse practitioner. Time with Patient: Less than 30
[2020-03-03] MEDS: SODIUM CHLORIDE 0.9% 1,000 ML IV SCH (15:00)
[2020-03-03] MEDS ORDERED: ALTEPLASE 10 MG in SODIUM CHLORIDE 0.9% 100 ML IRRIGATION ONE (15:10)
--- NOTE | 2020-03-03 16:19 | P.GSCN ---
<Michael Byrd - Last Filed: 03/03/20 16:16> History of Present Illness Consult date: 03/03/20 Reason for Consult: Hydropneumothorax, possible pneumomediastinum. Requesting physician: Kevin Haro History of present illness: This is an 79-year-old gentleman who follows with Dr. Truman Yu on an outpatient basis. He has past medical history significant for hypertension, hyperlipidemia, chronic obstructive pulmonary disease with home oxygen use at bedtime and when necessary 2 L per nasal cannula, history of tobacco abuse which he quit smoking 5 years ago, prostate cancer with radiation/hormone treatments, colon cancer with colectomy, GERD, osteoarthritis, memory impairment and history of pneumonia. On 02/28/2020 the patient presented to the emergency department here at [facility] with complaints of shortness of breath and back pain which is worse when taking a deep breath. He denied any fevers, chills, cough, hemoptysis, headache, nausea, vomiting, or diarrhea. A chest x- ray was completed in the emergency department which showed a large right pleural effusion and probable right lower lobe consolidation that was new compared to his old exam. Dr. Johnson from pulmonary medicine was consulted and an ultrasound of his chest was completed which demonstrated a right pleural effusion pocket size of 14.1 cm. Subsequently, due to the large right pleural effusion he underwent a right thoracentesis with 2.4 L of dark yellow fluid drained from the pleural space. A repeat chest x-ray was completed yesterday which showed an increasing right-sided moderate to large pleural effusion. Due to the recurrent right pleural effusion he underwent an ultrasound-guided placement of a right pleural drainage tube catheter placed by interventional radiology. The patient right chest pigtail catheter remains in place to waterseal and his draining thin serosanguineous drainage. The x-ray completed this morning demonstrates a worsening large right pleural effusion despite the right thoracostomy tube positioning appears to be appropriately radiographically. It also showed a mediastinal shift to the right is partially secondary to the patient rotation but also likely partially related to atelectasis. For further evaluation and computed tomography scan of his chest with contrast was completed which the report demonstrated new air and an increasing large right loculated pleural effusion rendering this a hydropneumothorax by definition, also showed in increase in the degree of right lung atelectasis, near-complete with rightward mediastinal shift and areas of low density intervening within the atelectasis raising suspicion for underlying pneumonia, punctuate foci of questionable air in the mediastinum and directly adjacent to the superior vena cava, new superior mediastinal density at the right lateral aspect of the trachea that may represent mediastinal fluid or mediastinal hematoma, cut off of the right mainstem bronchus with paucity of downstream aerated right lung bronchi, new right adrenal gland nodule in comparison to his prior exam in 2017 and a spiculated left upper lobe pulmonary nodule with findings concerning for lung cancer and potential metastasis, and very small amount of perihepatic ascites. Due to the patient's presenting symptoms, and findings on his computed tomography scan of his chest a consult was placed to Dr. Gigi Munoz from cardiothoracic surgery for further evaluation and treatment recommendations. Review of Systems A 14 point review of systems was completed was negative except as mentioned in the HPI. Past Medical History Past Medical History: Cancer, COPD, GERD/Reflux, Hyperlipidemia, Hypertension, Osteoarthritis (OA), Pneumonia Additional Past Medical History / Comment(s): Bronchitis, home oxygen at 2L/NC at HS and prn in daytime, prostate surgery with radiation/hormone treatments, colon cancer with colectomy, glaucoma bilateral eyes, slight memory impairment. History of Any Multi-Drug Resistant Organisms: None Reported Past Surgical History: Bowel Resection, Cholecystectomy, Prostate Surgery Additional Past Surgical History / Comment(s): Colonoscopy, L colectomy, bilateral eyes cataract removals and lens implants, bilateral eye laser surgery d/t glaucoma Past Anesthesia/Blood Transfusion Reactions: No Reported Reaction Additional Past Anesthesia/Blood Transfusion Reaction / Comm: no hx blood transfusion Past Psychological History: No Psychological Hx Reported Smoking Status: Former smoker (Quit smoking 5 years ago.) Past Alcohol Use History: Occasional Past Drug Use History: None Reported - Past Family History Father History Unknown: Yes Family Medical History: No Reported History Additional Family Medical History / Comment(s): Father was healthy. Mother History Unknown: Yes Family Medical History: Deep Vein Thrombosis (DVT), Myocardial Infarction (AR) Medications and Allergies Home Medications Medication Instructions Recorded Confirmed Type Albuterol Inhaler (Bulk) [Ventolin 2 puff INHALATION RT-QID PRN 06/05/15 02/28/20 History Hfa Inhaler (Bulk)] Lisinopril [Prinivil] 10 mg PO QAM 06/05/15 02/28/20 History Latanoprost Ophth [Xalatan 0.005%] 1 drop BOTH EYES HS 06/06/17 02/28/20 History Donepezil HCl [Aricept] 10 mg PO DAILY 04/03/19 02/28/20 History Rosuvastatin [Crestor] 10 mg PO HS 04/03/19 02/28/20 History Dronabinol [Marinol] 2.5 mg PO AC-BID 02/28/20 02/28/20 History traMADol HCL [Ultram] 50 mg PO BID PRN 02/28/20 02/28/20 History Allergies Allergy/AdvReac Type Severity Reaction Status Date / Time No Known Allergies Allergy Verified 02/28/20 17:23 Surgical - Exam Vital Signs Temp Pulse Resp BP Pulse Ox 98.2 F 118 H 22 159/95 100 02/28/20 13:43 02/28/20 13:43 02/28/20 13:43 02/28/20 13:43 02/28/20 13:43 This is a pleasant 79-year-old gentleman who is alert and oriented with some periods of forgetfulness. He is in no acute distress. Oxygen saturations are 94% on 6 L nasal cannula. - General Morbidly obese. no distress, no pain - Eyes PERRL, normal ocular movement - ENT normal pinna, normal nares, normal mucosa, no congestion, decreased hearing - Neck Neck is supple, no JVD. no masses, no bruits, trachea midline, no venous distension - Respiratory Lung sounds with some scattered expiratory wheezes, diminished to his right lobes. Respirations are spent on nonlabored. Right pigtail catheter in place and is connected to a Pleur-evac and is on waterseal. - Cardiovascular Regular rhythm and rate. S1 and S2 present, negative for S3, gallop or murmur. Remote telemetry showing normal sinus rhythm heart rate 77. - Abdomen Abdomen is soft, nontender and nondistended. Active bowel sounds all 4 abdominal quadrants. No guarding or rigidity. No organomegaly appreciated. - Genitourinary Deferred - Rectum Deferred - Integumentary Skin is warm and dry. No clubbing or cyanosis present. Dressing is clean, dry and intact to his right chest pigtail catheter. no rash, no growths, no abnormal pigmentation - Neurologic Episodes of forgetfulness normal sensation - Musculoskeletal Generalized weakness, strength equally bilaterally - Psychiatric oriented to person, oriented to place Results - Labs 03/03/20 05:33 03/03/20 05:44 Abnormal Lab Results - Last 24 Hours (Table) 03/03/20 03/03/20 Range/Units 05:33 05:44 RBC 2.98 L (4.30-5.90) m/uL Hgb 8.7 L (13.0-17.5) gm/dL Hct 27.5 L (39.0-53.0) % RDW 17.3 H (11.5-15.5) % Lymphocytes # 0.9 L (1.0-4.8) k/uL Sodium 127 L (137-145) mmol/L Potassium 5.2 H (3.5-5.1) mmol/L BUN 31 H (9-20) mg/dL Calcium 8.2 L (8.4-10.2) mg/dL Microbiology - Last 24 Hours (Table) 02/29/20 09:00 Gram Stain - Preliminary Pleural Fluid Body Fluid Culture - Preliminary 02/28/20 16:20 Blood Culture - Preliminary Blood No Growth after 72 hours 02/28/20 09:20 Gram Stain - Final Sputum Sputum Culture - Final Diabetes panel 03/03/20 Range/Units 05:44 Sodium 127 L (137-145) mmol/L Potassium 5.2 H (3.5-5.1) mmol/L Chloride 104 (98-107) mmol/L Carbon Dioxide 22 (22-30) mmol/L BUN 31 H (9-20) mg/dL Creatinine 0.83 (0.66-1.25) mg/dL Glucose 94 (74-99) mg/dL Calcium 8.2 L (8.4-10.2) mg/dL Calcium panel 03/03/20 Range/Units 05:44 Calcium 8.2 L (8.4-10.2) mg/dL Pituitary panel 03/03/20 Range/Units 05:44 Sodium 127 L (137-145) mmol/L Potassium 5.2 H (3.5-5.1) mmol/L Chloride 104 (98-107) mmol/L Carbon Dioxide 22 (22-30) mmol/L BUN 31 H (9-20) mg/dL Creatinine 0.83 (0.66-1.25) mg/dL Glucose 94 (74-99) mg/dL Calcium 8.2 L (8.4-10.2) mg/dL Adrenal panel 03/03/20 Range/Units 05:44 Sodium 127 L (137-145) mmol/L Potassium 5.2 H (3.5-5.1) mmol/L Chloride 104 (98-107) mmol/L Carbon Dioxide 22 (22-30) mmol/L BUN 31 H (9-20) mg/dL Creatinine 0.83 (0.66-1.25) mg/dL Glucose 94 (74-99) mg/dL Calcium 8.2 L (8.4-10.2) mg/dL - Imaging Chest x-ray: report reviewed, image reviewed CT scan - chest: report reviewed, image reviewed Assessment and Plan Assessment: 1. Shortness of breath and cough, in a patient with a large right-sided pleural effusion and lung consolidation, rule out pneumonia with pleural effusion. Certainly with a history of prior smoking, malignancy will have to be considered. A 2.9 cm spiculated mass to his left upper lobe found on computed tomography scan of his chest, suspicious for malignancy. Status post placement of right chest pigtail catheter placed by interventional radiology. Computed tomography scan of his chest completed 03/03/2020 showing increased large right loculated pleural effusion and questionable for air in the mediastinum. 2. Remote history of tobacco use with underlying chronic obstructive pulmonary disease. Quit smoking 5 years ago. 3. History of prostate cancer, status post radiation therapy and hormonal treatments. 4. History of colon cancer with previous colectomy. 5. History of gastroesophageal reflux disease. 6. Hypertension. 7. Hyperlipidemia. 8. Osteoarthritis 9. Prior history of pneumonia and bronchitis. 10. Home O2 at 2 L/m at bedtime and when necessary. 11. History of glaucoma. 12. History of cataracts with bilateral cataract surgery and lens implants. Plan: The patient was seen and examined at his bedside on the third floor cardiac stepdown unit. His chart diagnostics were reviewed. His case was discussed in detail with Dr. Gigi Munoz from cardiothoracic surgery. Keep his right pleural pigtail catheter in place and connected to low continuous wall suction - 20 cm H2O. Agree with pleural alteplase instillation. Computed tomography scan of the chest reviewed by Dr. Gigi Munoz, shows 2.9 cm spiculated mass to his left upper lobe suspicious for malignancy and also demonstrate obstruction of right mainstem bronchus and feel there is no air in the pneumomediastinum. May require a bronchoscopy for further investigation of the right mainstem bronchus. Agree with alteplase pleural instillation. No surgical intervention is warranted at this time. Medical management per primary care service and pulmonary care service. Encourage use of his incentive spirometry every hour while awake. Continue right pleural pigtail catheter to low continuous wall suction -20 cm H2O. Thank you Dr. Haro for this consult and we will look forward to working with you in the care of this patient. Time with Patient: Greater than 30 <Gigi Munoz - Last Filed: 03/03/20 16:26> Surgical - Exam Vital Signs Temp Pulse Resp BP Pulse Ox 98.2 F 118 H 22 159/95 100 02/28/20 13:43 02/28/20 13:43 02/28/20 13:43 02/28/20 13:43 02/28/20 13:43 Results - Labs 03/03/20 05:33 03/03/20 05:44 Abnormal Lab Results - Last 24 Hours (Table) 03/03/20 03/03/20 Range/Units 05:33 05:44 RBC 2.98 L (4.30-5.90) m/uL Hgb 8.7 L (13.0-17.5) gm/dL Hct 27.5 L (39.0-53.0) % RDW 17.3 H (11.5-15.5) % Lymphocytes # 0.9 L (1.0-4.8) k/uL Sodium 127 L (137-145) mmol/L Potassium 5.2 H (3.5-5.1) mmol/L BUN 31 H (9-20) mg/dL Calcium 8.2 L (8.4-10.2) mg/dL Microbiology - Last 24 Hours (Table) 02/29/20 09:00 Gram Stain - Preliminary Pleural Fluid Body Fluid Culture - Preliminary 02/28/20 16:20 Blood Culture - Preliminary Blood No Growth after 72 hours Diabetes panel 03/03/20 Range/Units 05:44 Sodium 127 L (137-145) mmol/L Potassium 5.2 H (3.5-5.1) mmol/L Chloride 104 (98-107) mmol/L Carbon Dioxide 22 (22-30) mmol/L BUN 31 H (9-20) mg/dL Creatinine 0.83 (0.66-1.25) mg/dL Glucose 94 (74-99) mg/dL Calcium 8.2 L (8.4-10.2) mg/dL Calcium panel 03/03/20 Range/Units 05:44 Calcium 8.2 L (8.4-10.2) mg/dL Pituitary panel 03/03/20 Range/Units 05:44 Sodium 127 L (137-145) mmol/L Potassium 5.2 H (3.5-5.1) mmol/L Chloride 104 (98-107) mmol/L Carbon Dioxide 22 (22-30) mmol/L BUN 31 H (9-20) mg/dL Creatinine 0.83 (0.66-1.25) mg/dL Glucose 94 (74-99) mg/dL Calcium 8.2 L (8.4-10.2) mg/dL Adrenal panel 03/03/20 Range/Units 05:44 Sodium 127 L (137-145) mmol/L Potassium 5.2 H (3.5-5.1) mmol/L Chloride 104 (98-107) mmol/L Carbon Dioxide 22 (22-30) mmol/L BUN 31 H (9-20) mg/dL Creatinine 0.83 (0.66-1.25) mg/dL Glucose 94 (74-99) mg/dL Calcium 8.2 L (8.4-10.2) mg/dL Assessment and Plan Plan: Patient's computed tomography scan demonstrates a spiculated nodule in the left upper lobe which is consistent with bronchogenic carcinoma. There is complete obstruction of the right mainstem bronchus also suspicious for bronchogenic carcinoma. There is a right pleural effusion. There is no evidence of mediastinal air. Recommendation at this time is for bronchoscopy for diagnosis. Needle biopsy of the left upper lobe mass may also be necessary for staging. Appears to be an advanced stage carcinoma and surgery is unlikely to be of benefit to this patient. Patient will likely need drainage of the right pleural effusion. He may need a Pleurx catheter. Pigtail is currently in place.
[2020-03-03] MEDS ORDERED: HEPARIN SODIUM,PORCINE 5,000 UNIT/ML 1 ML VIAL IV PRN (17:11)
[2020-03-03] MEDS ORDERED: HEPARIN SOD,PORK IN 0.45% NACL 25,000 UNIT in 0.45% NACL 1 250ML.BAG IV SCH (17:15)
--- NOTE | 2020-03-03 17:49 | P.PN ---
Subjective Progress Note Date: 03/03/20 This is a 79-year-old gentleman admitted to the hospital for community-acquired pneumonia, large right-sided pleural effusion. Underwent right-sided thoracentesis yesterday with 2.4 L removed. Tolerated procedure well. Pleural cytology pending. CT post thoracentesis reporting no evidence of mediastinal air or pneumothorax,right lower lobe with small to moderate residual pleural effusion, 2.9 cm spiculated mass anterior left upper lobe, no prior CTs here to compare to as per radiology. Tested negative for coronavirus. Legionella cultures pending. Maintaining O2 sats of mid 90s on 5 L nasal cannula in a patient who normally wears 2 L nasal cannula,. Sodium 128, potassium 4.7, creatinine 0.75. Afebrile. 03/02/2020 Minimal ambulation. Complains of constipation. Antibiotics adjusted to Zosyn and vancomycin. Maintaining O2 sats in the 90s on 5 L nasal cannula. Complained of increased shortness of breath earlier this morning , currently denies .Chest x-ray reporting increasing moderate to large right pleural effusion .scheduled for PIG tail placement with interventional radiology. Pleura l cytology pending from prior thoracentesis. Afebrile. 03/03/2020 Chest x-ray reporting increasing right-sided moderate to large pleural effusion, minimal Pleur-evac output since initial drainage status post placement.repeat CT scan ordered for comparison regarding lung mass. TPA to chest tube pending as per pulmonary. Respiratory status worsened today, patient appears pasty with increased shortness of breath. Denies chest pain, palpitations. Telemetry sinus rhythm. Objective - Vital Signs Vital signs: Vital Signs Temp 98.6 F 03/03/20 04:00 Pulse 95 03/03/20 04:00 Resp 21 03/03/20 04:00 BP 110/70 03/03/20 04:00 Pulse Ox 93 L 03/03/20 04:00 Intake & Output 03/02/20 03/03/20 03/03/20 18:59 06:59 18:59 Intake Total 580 100 120 Output Total 1950 510 Balance -1370 -410 120 Intake: Intake, IV Titration 100 Amount cefTRIAXone 1 gm In 100 Sodium Chloride 0.9% 50 ml @ 100 mls/hr IVPB Q24HR [facility] Rx#:[id number] Oral 480 100 120 Output: Chest Tube Drainage 1650 210 Chest Tube Right Upper 1650 210 Urine 300 300 Other: Voiding Method Urinal Urinal # Voids 0 # Bowel Movements 0 - Exam PHYSICAL EXAM: VITAL SIGNS: As above GENERAL: Sitting up in bed, pasty, pale, increased respiratory effort HEENT: Conjunctivae normal. eyes normal. Oral mucosa moist. NECK: No JVD. No thyroid enlargement. No LNs CARDIOVASCULAR: S1, S2 regular. No murmur RESPIRATION: Bilateral bases diminished, right pigtail catheter present .No rhonchi or crackles. Fine scattered expiratory wheezing ABDOMEN: Soft, nontender . No guarding. no masses palpable. Bowel sounds heard. LEGS: No edema. no swelling PSYCHIATRY: Alert and oriented X3, mood and affect normal. NERVOUS SYSTEM: Cranial N 2-12 grossly normal. Moves all 4 limbs. Diffuse weakness. No focal deficits. Strength and sensation grossly intact. Skin: no rash. - Labs CBC & Chem 7: 03/03/20 05:33 03/03/20 05:44 Labs: Microbiology - Last 24 Hours (Table) 02/29/20 09:00 Gram Stain - Preliminary Pleural Fluid Body Fluid Culture - Preliminary 02/28/20 16:20 Blood Culture - Preliminary Blood No Growth after 72 hours 02/28/20 09:20 Gram Stain - Final Sputum Sputum Culture - Final Assessment and Plan Assessment: Acute on chronic hypoxic, hypercapnic respiratory failure secondary to right large pleural effusion, possible right-sided pneumonia, possible malignancy. Wears 2 L O2 nasal cannula at home. Acute right large pleural effusion, status post thoracentesis, cytology pending. Recurrent Right pleural effusion , s/p right pigtail cath placement. Repeat CT pending. 2.9 cm spiculated mass anterior left upper lobe, suspect malignancy, pulmonary following with further outpatient follow-up/PET scan. Ruling out Legionella Hyponatremia History of nicotine dependence Prostate cancer, history of radiation and hormonal treatments Colon cancer with history of colectomy Gastroesophageal reflux disease Hypertension Hyperlipidemia Degenerative joint disease Glaucoma History of cataracts with lens implant Plan: Continue current medication regime ,monitoring and symptomatic treatment. Labs pending. Repeat CT pending for comparison of lung mass. TPA to chest tube pending. Pleural Cytology pending. Maintain nebulized bronchodilators, antibiotics of Zosyn, vancomycin. Encourage ambulation,PT/OT. The impression and plan of care has been dictated as directed. : I performed a history and examination of this patient, discussed the same with the dictator. I agree with the dictator's note ,documented as a scribe. Any additional findings or plans will be noted.
[2020-03-03] MEDS: ACETAMINOPHEN TAB 325 MG TAB PO PRN (19:02)
[2020-03-03] MEDS ORDERED: SODIUM CHLORIDE 0.65% NASAL SPRAY 44 ML BTL NASAL SCH (22:00)
[2020-03-03] MEDS: ATORVASTATIN 20 MG TAB PO SCH (22:11)
[2020-03-03] MEDS: LATANOPROST 0.005% OPHTH DROPS 2.5 ML BTL BOTH EYES SCH (22:12)
[2020-03-04] MEDS: traMADol 50 MG TAB PO PRN ×2 (01:58→13:40)
[2020-03-04] MEDS: PIPERACILLIN-TAZOBACTAM 3.375 GM in SODIUM CHLORIDE 0.9% 100 ML IVPB SCH ×3 (02:45→22:21)
[2020-03-04] MEDS: DRONABINOL 2.5 MG CAP PO SCH ×2 (06:38→17:04)
[2020-03-04 07:47] LABS: Calcium 7.8 mg/dL (8.4-10.2)
[2020-03-04] MEDS ORDERED: ALTEPLASE 10 MG in SODIUM CHLORIDE 0.9% 100 ML IRRIGATION ONE (08:00)
[2020-03-04] MEDS: TIOTROPIUM 18 MCG/PUFF INHALER INHALATION SCH (08:07)
[2020-03-04] MEDS: ALBUTEROL HFA INHALER INHALATION SCH ×4 (08:07→19:33)
--- NOTE | 2020-03-04 08:08 | XR ---
EXAMINATION TYPE: XR chest 1V DATE OF EXAM: 03/04/2020 CLINICAL HISTORY: Difficulty breathing progress study. Right lung mass. TECHNIQUE: Single AP portable semiupright view of the chest is obtained. COMPARISON: Chest x-ray and CT chest from one day earlier. FINDINGS: Improved aeration right lung with improved right-sided volume loss. Background chronic emp hysematous change. Left lung remains clear. Cardiac silhouette size is within normal limits with athe rosclerotic and ectatic aorta. Osseous structures are demineralized. IMPRESSION: Marked improved aeration right lung. Improved right-sided volume. Background chronic emph ysematous change with persistent right basilar acute infiltrate and/or atelectasis. Obstructing endob ronchial lesion not excluded. Correlate clinically.
[2020-03-04 08:43] LABS: Anisocytosis Slight; Basophils % (A) 0 %; Eosinophils % (A) 0 %; HCT 33.9 % (39.0-53.0); HGB 10.5 gm/dL (13.0-17.5); Hypochromasia Moderate; Lymphocytes # (A) 0.8 k/uL (1.0-4.8); Lymphocytes % (A) 7 %; MCH 28.9 pg (25.0-35.0); MCHC 30.8 g/dL (31.0-37.0); MCV 93.8 fL (80.0-100.0); Monocytes # (A) 0.4 k/uL (0-1.0); Monocytes % (A) 3 %; Neutrophils # (A) 10.7 k/uL (1.3-7.7); Neutrophils % (A) 90 %; Platelet Count 377 k/uL (150-450); RBC 3.62 m/uL (4.30-5.90); RDW 16.8 % (11.5-15.5); WBC 11.9 k/uL (3.8-10.6)
[2020-03-04] MEDS ORDERED: ACETAMINOPHEN IV (For NPO) 1,000 MG in EMPTY BAG 1 BAG IVPB PRN (09:48)
[2020-03-04] MEDS ORDERED: BISACODYL 10 MG SUPP RECTAL STA (09:50)
[2020-03-04] MEDS ORDERED: SODIUM POLYSTYRENE SULFONATE 30 GM/120 ML BOTTLE RECTAL STA (09:54)
--- NOTE | 2020-03-04 10:24 | P.PN ---
Subjective Progress Note Date: 03/04/20 Principal diagnosis: This is an 79-year-old gentleman who follows with Dr. Truman Yu on an outpatient basis. He has past medical history significant for hypertension, hyperlipidemia, chronic obstructive pulmonary disease with home oxygen use at bedtime and when necessary 2 L per nasal cannula, history of tobacco abuse which he quit smoking 5 years ago, prostate cancer with radiation/hormone treatments, colon cancer with colectomy, GERD, osteoarthritis, memory impairment and history of pneumonia. On 02/28/2020 the patient presented to the emergency department here at [facility] with complaints of shortness of breath and back pain which is worse when taking a deep breath. He denied any fevers, chills, cough, hemoptysis, headache, nausea, vomiting, or diarrhea. A chest x- ray was completed in the emergency department which showed a large right pleural effusion and probable right lower lobe consolidation that was new compared to his old exam. Dr. Johnson from pulmonary medicine was consulted and an ultrasound of his chest was completed which demonstrated a right pleural effusion pocket size of 14.1 cm. Subsequently, due to the large right pleural effusion he underwent a right thoracentesis with 2.4 L of dark yellow fluid drained from the pleural space. A repeat chest x-ray was completed yesterday which showed an increasing right-sided moderate to large pleural effusion. Due to the recurrent right pleural effusion he underwent an ultrasound-guided placement of a right pleural drainage tube catheter placed by interventional radiology. The patient right chest pigtail catheter remains in place to waterseal and his draining thin serosanguineous drainage. The x-ray completed this morning demonstrates a worsening large right pleural effusion despite the right thoracostomy tube positioning appears to be appropriately radiographically. It also showed a mediastinal shift to the right is partially secondary to the patient rotation but also likely partially related to atelectasis. For further evaluation and computed tomography scan of his chest with contrast was completed which the report demonstrated new air and an increasing large right loculated pleural effusion rendering this a hydropneumothorax by definition, also showed in increase in the degree of right lung atelectasis, near-complete with rightward mediastinal shift and areas of low density intervening within the atelectasis raising suspicion for underlying pneumonia, punctuate foci of questionable air in the mediastinum and directly adjacent to the superior vena cava, new superior mediastinal density at the right lateral aspect of the trachea that may represent mediastinal fluid or mediastinal hematoma, cut off of the right mainstem bronchus with paucity of downstream aerated right lung bronchi, new right adrenal gland nodule in comparison to his prior exam in 2017 and a spiculated left upper lobe pulmonary nodule with findings concerning for lung cancer and potential metastasis, and very small amount of perihepatic ascites. Due to the patient's presenting symptoms, and findings on his computed tomography scan of his chest a consult was placed to Dr. Gigi Munoz from cardiothoracic surgery for further evaluation and treatment recommendations. POD #2 placement of right pleural pigtail catheter inserted by interventional radiology. On 03/04/2020 the patient was seen in follow-up at his bedside on the cardiac stepdown unit. He is resting comfortably in bed. He is alert and oriented 2 and is in no acute distress. He remains hemodynamically stable, he has been afebrile the last 24 hours and his oxygen saturations are 100% on 4 L nasal cannula. His oxygenation has improved as yesterday he was on 5 L nasal cannula and was satting 96%. Currently denies any complaints of pain or shortness of breath, he remains with a productive cough with white frothy phlegm. Right chest pigtail catheter remains in place to low continuous wall suction -20 cm H2O. He received a dose of pleural instillation of alteplase 10 mg/100 mL normal saline yesterday 03/03/2020. He had 1.8 L of fluid drained from his right pleural pigtail catheter in the last 24 hours with 1.3 L output in the last 8 hours. A repeat chest x-ray was completed today which demonstrated marked improvement of aeration to his right lung, improved right-sided volume, and background chronic emphysematous change with persistent right basilar acute infiltrate and/or atelectasis. He has been on it heparin drip per protocol and is currently on hold as he is scheduled for a bronchoscopy to completed by Dr. Haro today. Laboratory results today show WBC count 11.9, hemoglobin 10.5, platelets 377, PTT 84.6, sodium 128, potassium 6.0, BUN 31, creatinine 1.05. Objective - Vital Signs Vital signs: Vital Signs Temp 98.3 F 03/04/20 08:00 Pulse 88 03/04/20 08:00 Resp 20 03/04/20 08:00 BP 101/60 03/04/20 08:00 Pulse Ox 100 03/04/20 08:00 Intake & Output 03/03/20 03/04/20 03/04/20 18:59 06:59 18:59 Intake Total 1300 327.293 124.121 Output Total 30 2265 Balance 1270 -1937.707 124.121 Weight 122.7 kg Intake: Intake, IV Titration 940 207.293 124.121 Amount Heparin Sod,Pork in 0.45% 67.293 124.121 NaCl 25,000 unit In 0.45 % NaCl 1 250ml.bag @ 8.16 UNITS/KG/HR 9.994 mls/hr IV .Q24H [facility] Rx#: [id number] Piperacillin-Tazobactam 3 200 .375 gm In Sodium Chloride 0.9% 100 ml @ 25 mls/hr IVPB Q8H [facility] Rx#: [id number] Sodium Chloride 0.9% 1, 240 140 000 ml @ 20 mls/hr IV . Q24H [facility] Rx#:[id number] Vancomycin 2,000 mg In 500 Sodium Chloride 0.9% 500 ml 500 ml @ 167 mls/hr IVPB Q16H [facility] Rx#: [id number] Oral 360 120 Output: Chest Tube Drainage 30 1715 Chest Tube Right Upper 30 1715 Urine 550 Other: Voiding Method Urinal - Exam The patient is pleasant 79-year-old gentleman who is alert and oriented 2 with periods of forgetfulness. He is in no acute distress. Oxygen saturation is 100% on 4 L nasal cannula. - Constitutional General appearance: Present: cooperative, morbidly obese, no acute distress - EENT Eyes: Present: PERRLA, normal appearance. Absent: scleral icterus ENT: Present: hard of hearing, normal oropharynx. Absent: thrush - Neck Details: Neck supple, no JVD. Neck: Absent: lymphadenopathy, stridor - Respiratory Details: Lungs sounds essentially clear to his bilateral upper lobes, diminished to his bilateral bases right greater than left, with few scattered crackles. Respirations are symmetrical and nonlabored. - Cardiovascular Details: Regular rhythm and rate. S1 and S2 present, negative for S3, gallop or murmur. Remote telemetry showing normal sinus rhythm heart rate 87. - Gastrointestinal Gastrointestinal Comment(s): Abdomen is soft, nontender and nondistended. Active bowel sounds present in all 4 abdominal quadrants. No guarding or rigidity. No organomegaly. - Integumentary Integumentary Comment(s): Skin is warm and dry. No clubbing or cyanosis is present. Dressing is clean and dry to his right pigtail catheter. Integumentary: Absent: rash - Neurologic Neurologic: Present: CNII-XII intact - Musculoskeletal Musculoskeletal: Present: generalized weakness, strength equal bilaterally - Psychiatric Psychiatric Comment(s): Awake, alert and oriented 2 with. Of forgetfulness. Psychiatric: Present: appropriate affect - Allied health notes Allied health notes reviewed: nursing - Labs CBC & Chem 7: 03/04/20 06:41 03/04/20 06:41 Labs: Abnormal Lab Results - Last 24 Hours (Table) 03/03/20 03/03/20 03/03/20 Range/Units 05:33 05:44 22:57 WBC (3.8-10.6) k/uL RBC 2.98 L (4.30-5.90) m/uL Hgb 8.7 L (13.0-17.5) gm/dL Hct 27.5 L (39.0-53.0) % MCHC (31.0-37.0) g/dL RDW 17.3 H (11.5-15.5) % Neutrophils # (1.3-7.7) k/uL Lymphocytes # 0.9 L (1.0-4.8) k/uL APTT 30.2 H (22.0-30.0) sec Sodium 127 L (137-145) mmol/L Potassium 5.2 H (3.5-5.1) mmol/L Carbon Dioxide (22-30) mmol/L BUN 31 H (9-20) mg/dL Glucose (74-99) mg/dL Calcium 8.2 L (8.4-10.2) mg/dL 03/04/20 03/04/20 03/04/20 Range/Units 06:41 06:41 06:41 WBC 11.9 H (3.8-10.6) k/uL RBC 3.62 L (4.30-5.90) m/uL Hgb 10.5 L (13.0-17.5) gm/dL Hct 33.9 L (39.0-53.0) % MCHC 30.8 L (31.0-37.0) g/dL RDW 16.8 H (11.5-15.5) % Neutrophils # 10.7 H (1.3-7.7) k/uL Lymphocytes # 0.8 L (1.0-4.8) k/uL APTT 84.6 H (22.0-30.0) sec Sodium 128 L (137-145) mmol/L Potassium 6.0 H (3.5-5.1) mmol/L Carbon Dioxide 17 L (22-30) mmol/L BUN 31 H (9-20) mg/dL Glucose 101 H (74-99) mg/dL Calcium 7.8 L (8.4-10.2) mg/dL Microbiology - Last 24 Hours (Table) 02/29/20 09:00 Gram Stain - Final Pleural Fluid Body Fluid Culture - Final 02/28/20 16:20 Blood Culture - Preliminary Blood No Growth after 96 hours - Imaging and Cardiology Chest x-ray: report reviewed, image reviewed Assessment and Plan Assessment: 1. Shortness of breath and cough, in a patient with a large right-sided pleural effusion and lung consolidation, rule out pneumonia with pleural effusion. Certainly with a history of prior smoking, malignancy will have to be considered. A 2.9 cm spiculated mass to his left upper lobe found on computed tomography scan of his chest, suspicious for malignancy. Status post placement of right chest pigtail catheter placed by interventional radiology. Computed tomography scan of his chest completed 03/03/2020 showing increased large right loculated pleural effusion and questionable for air in the mediastinum. 2. Remote history of tobacco use with underlying chronic obstructive pulmonary disease. Quit smoking 5 years ago. 3. History of prostate cancer, status post radiation therapy and hormonal treatments. 4. History of colon cancer with previous colectomy. 5. History of gastroesophageal reflux disease. 6. Hypertension. 7. Hyperlipidemia. 8. Osteoarthritis 9. Prior history of pneumonia and bronchitis. 10. Home O2 at 2 L/m at bedtime and when necessary. 11. History of glaucoma. 12. History of cataracts with bilateral cataract surgery and lens implants. Plan: 1. The patient was seen and examined at his bedside on the cardiac stepdown unit with Dr. Gigi Munoz. 2. We will instill another dose of alteplase 10 mg/100 mL of normal saline for pleural instillation through his right pleural pigtail catheter. 3. Encourage use of incentive spirometry 10 times every hour while awake. 4. GI and DVT prophylaxis. Heparin drip is currently on hold for the bronchoscopy procedure. 5. He is scheduled for a bronchoscopy procedure this morning to be performed by Dr. Haro. 6. Medical management and other comorbidities per primary care service and pulmonary medicine. 7. We will continue to follow his chest x-rays. 8. Patient may need a needle biopsy of the left upper lobe mass necessary for staging as his computed tomography scan of his chest demonstrates a 2.9 cm spiculated nodule to his left upper chest which could be consistent with bronchogenic carcinoma. 9. Patient also may need a Pleurx catheter. 10. More recommendations to follow based on patient's clinical course. Time with Patient: Less than 30
[2020-03-04] MEDS ORDERED: VANCOMYCIN TROUGH DUE 1 EACH MISC MISCELLANE ONE (11:00)
[2020-03-04] MEDS: DOCUSATE 100 MG CAP PO SCH ×2 (11:02→19:50)
[2020-03-04] MEDS: LISINOPRIL 10 MG TAB PO SCH (11:02)
[2020-03-04] MEDS: DONEPEZIL 10 MG TAB PO SCH (11:02)
[2020-03-04] MEDS: SENNOSIDES-DOCUSATE SODIUM 1 EACH TAB PO SCH ×2 (11:03→19:50)
[2020-03-04] MEDS: VERAPAMIL 40 MG TAB PO SCH ×3 (11:03→19:50)
[2020-03-04] MEDS ORDERED: LIDOCAINE 1% INJ 10MG/ML (20 ML MDV) ONE (11:39)
[2020-03-04] MEDS ORDERED: ETOMIDATE 2 MG/ML 10 ML VIAL ONE (11:39)
[2020-03-04] MEDS ORDERED: SUCCINYLCHOLINE CHLORIDE 100 MG/5 ML SYR IV ONE (11:39)
[2020-03-04] MEDS ORDERED: IV FLUID CONTINUATION 1,000 ML IV ONE (11:41)
[2020-03-04] MEDS: VANCOMYCIN 2,000 MG in SODIUM CHLORIDE 0.9% 500 ML 500 ML IVPB SCH (12:34)
[2020-03-04] MEDS ORDERED: SODIUM POLYSTYRENE SULFONATE 15 GM/60 ML BOTTLE PO STA (12:55)
--- NOTE | 2020-03-04 13:49 | P.PN ---
Subjective Progress Note Date: 03/04/20 This is a 79-year-old gentleman admitted to the hospital for community-acquired pneumonia, large right-sided pleural effusion. Underwent right-sided thoracentesis yesterday with 2.4 L removed. Tolerated procedure well. Pleural cytology pending. CT post thoracentesis reporting no evidence of mediastinal air or pneumothorax,right lower lobe with small to moderate residual pleural effusion, 2.9 cm spiculated mass anterior left upper lobe, no prior CTs here to compare to as per radiology. Tested negative for coronavirus. Legionella cultures pending. Maintaining O2 sats of mid 90s on 5 L nasal cannula in a patient who normally wears 2 L nasal cannula,. Sodium 128, potassium 4.7, creatinine 0.75. Afebrile. 03/02/2020 Minimal ambulation. Complains of constipation. Antibiotics adjusted to Zosyn and vancomycin. Maintaining O2 sats in the 90s on 5 L nasal cannula. Complained of increased shortness of breath earlier this morning , currently denies .Chest x-ray reporting increasing moderate to large right pleural effusion .scheduled for PIG tail placement with interventional radiology. Pleura l cytology pending from prior thoracentesis. Afebrile. 03/03/2020 Chest x-ray reporting increasing right-sided moderate to large pleural effusion, minimal Pleur-evac output since initial drainage status post placement.repeat CT scan ordered for comparison regarding lung mass. TPA to chest tube pending as per pulmonary. Respiratory status worsened today, patient appears pasty with increased shortness of breath. Denies chest pain, palpitations. Telemetry sinus rhythm. 03/04/2020 Antrum switched out last night with approximately 1.8 L output overnight including 1.3 L over the last 8 hours, post TPA to chest tube. Chest x-ray reporting improvement in aeration of right lung with improved riight side volume, persistent right basilar acute infiltrate/atelectasis, obstructing endobronchial lesion not excluded.Scheduled for another dose of TPA today. Complains of discomfort at chest tube insertion site. Currently NPO for Bronchoscopy this morning. Potassium 6, rectal Kayexalate ordered. Follow-up CT reporting mediastinal shift to the right secondary to atelectasis, new care with increasing large right loculated pleural effusion rendering a hydropneumothorax. Pleural fluid loculated at the lung apex and surrounding the right upper lobe. New density in the mediastinum, cuttoff of the right main stem bronchi with paucity of distal aerated segment and subsegmental bronchi, q uestionable pneumomediastinum versus spray artifact from contrast. New adrenal gland nodule. Spiculated left upper lobe pulmonary nodule measuring 2.4 x 1 cm concerning for lung cancer and potential metastasis Small amount hepatic ascites. Cardiothoracic surgery consulted, radiology films reviewed, recommending diagnostic bronchoscopy regarding suspected bronchogenic carcinoma. At this time no surgical intervention recommended related to high suspicion of advanced stage. Creatinine mildly worsened, to 1.05. Currently maintaining O2 sats in the 90s on 6 L nasal cannula. Patient reports he had a rough night, with increased shortness of breath; at one point during the night required wearing a Ventimask. Afebrile, WBC up to 11.9, hemoglobin up to 10.5. Denies chest pain, palpitations. Objective - Vital Signs Vital signs: Vital Signs Temp 98.3 F 03/04/20 08:00 Pulse 88 03/04/20 08:00 Resp 20 03/04/20 08:00 BP 101/60 03/04/20 08:00 Pulse Ox 100 03/04/20 08:00 Intake & Output 03/03/20 03/04/20 03/04/20 18:59 06:59 18:59 Intake Total 1300 327.293 124.121 Output Total 30 2265 Balance 1270 -1937.707 124.121 Weight 122.7 kg Intake: Intake, IV Titration 940 207.293 124.121 Amount Heparin Sod,Pork in 0.45% 67.293 124.121 NaCl 25,000 unit In 0.45 % NaCl 1 250ml.bag @ 8.16 UNITS/KG/HR 9.994 mls/hr IV .Q24H [facility] Rx#: [id number] Piperacillin-Tazobactam 3 200 .375 gm In Sodium Chloride 0.9% 100 ml @ 25 mls/hr IVPB Q8H [facility] Rx#: [id number] Sodium Chloride 0.9% 1, 240 140 000 ml @ 20 mls/hr IV . Q24H [facility] Rx#:[id number] Vancomycin 2,000 mg In 500 Sodium Chloride 0.9% 500 ml 500 ml @ 167 mls/hr IVPB Q16H [facility] Rx#: [id number] Oral 360 120 Output: Chest Tube Drainage 30 1715 Chest Tube Right Upper 30 1715 Urine 550 Other: Voiding Method Urinal - Exam PHYSICAL EXAM: VITAL SIGNS: As above GENERAL: Sitting up in bed, pasty, fatigued ,short of breath, HEENT: Conjunctivae normal. eyes normal. Oral mucosa dry. NECK: No JVD. No thyroid enlargement. No LNs CARDIOVASCULAR: S1, S2 regular. No murmur RESPIRATION: Labored, Bilateral bases diminished, right pigtail catheter connected to low continuous wall suction. .No rhonchi, few scattered crackles. ABDOMEN: Soft, nontender . No guarding. no masses palpable. Bowel sounds heard. LEGS: No edema. no swelling PSYCHIATRY: Alert and oriented X2, mood and affect normal, mildly anxious NERVOUS SYSTEM: Cranial N 2-12 grossly normal. Moves all 4 limbs. Diffuse weakness. No focal deficits. Strength and sensation grossly intact. Skin: no rash. - Labs CBC & Chem 7: 03/04/20 06:41 03/04/20 06:41 Labs: Abnormal Lab Results - Last 24 Hours (Table) 03/03/20 03/03/20 03/03/20 Range/Units 05:33 05:44 22:57 WBC (3.8-10.6) k/uL RBC 2.98 L (4.30-5.90) m/uL Hgb 8.7 L (13.0-17.5) gm/dL Hct 27.5 L (39.0-53.0) % MCHC (31.0-37.0) g/dL RDW 17.3 H (11.5-15.5) % Neutrophils # (1.3-7.7) k/uL Lymphocytes # 0.9 L (1.0-4.8) k/uL APTT 30.2 H (22.0-30.0) sec Sodium 127 L (137-145) mmol/L Potassium 5.2 H (3.5-5.1) mmol/L Carbon Dioxide (22-30) mmol/L BUN 31 H (9-20) mg/dL Glucose (74-99) mg/dL Calcium 8.2 L (8.4-10.2) mg/dL 03/04/20 03/04/20 03/04/20 Range/Units 06:41 06:41 06:41 WBC 11.9 H (3.8-10.6) k/uL RBC 3.62 L (4.30-5.90) m/uL Hgb 10.5 L (13.0-17.5) gm/dL Hct 33.9 L (39.0-53.0) % MCHC 30.8 L (31.0-37.0) g/dL RDW 16.8 H (11.5-15.5) % Neutrophils # 10.7 H (1.3-7.7) k/uL Lymphocytes # 0.8 L (1.0-4.8) k/uL APTT 84.6 H (22.0-30.0) sec Sodium 128 L (137-145) mmol/L Potassium 6.0 H (3.5-5.1) mmol/L Carbon Dioxide 17 L (22-30) mmol/L BUN 31 H (9-20) mg/dL Glucose 101 H (74-99) mg/dL Calcium 7.8 L (8.4-10.2) mg/dL Microbiology - Last 24 Hours (Table) 02/29/20 09:00 Gram Stain - Final Pleural Fluid Body Fluid Culture - Final 02/28/20 16:20 Blood Culture - Preliminary Blood No Growth after 96 hours Assessment and Plan Assessment: Acute on chronic hypoxic, hypercapnic respiratory failure secondary to right l arge pleural effusion, possible right-sided pneumonia, possible malignancy. Wears 2 L O2 nasal cannula at home. Acute right large pleural effusion, status post thoracentesis, cytology pending. Recurrent Right pleural effusion , s/p right pigtail cath placement. Repeat CT 03/03 reporting new air and increasing large right loculated pleural effusion, hydropneumothorax, atelectasis, possible mediastinal shift with questionable air in the mediastinum. New superior mediastinal density in the right lateral aspect of the trachea with possibility of hematoma. 2.9 cm spiculated mass anterior left upper lobe, suspicious for malignancy,. Acute on chronic hypoxic respiratory failure secondary to the above. Wears 2 L nasal cannula O2 at home. Ruling out Legionella Hyperkalemia Hyponatremia History of nicotine dependence Prostate cancer, history of radiation and hormonal treatments Colon cancer with history of colectomy Gastroesophageal reflux disease Hypertension Hyperlipidemia Degenerative joint disease Glaucoma History of cataracts with lens implant Plan: Continue current medication regime ,monitoring and symptomatic treatment. Kayexalate for hyperkalemia with follow-up potassium level later this afternoon ordered.Heparin drip on hold for upcoming diagnostic bronchoscopy today. Repeat TPA to chest tube pending. Pleural cultures/Cytology pending. IV tylenol for chest tube insertion site discomfort while NPO. Maintain nebulized bronchodilators, antibiotics of Zosyn, vancomycin. Further recommendations to follow. The impression and plan of care has been dictated as directed. : I performed a history and examination of this patient, discussed the same with the dictator. I agree with the dictator's note ,documented as a scribe. Any additional findings or plans will be noted.
--- NOTE | 2020-03-04 14:21 | P.PN ---
Subjective Progress Note Date: 03/04/20 Principal diagnosis: Shortness of breath, cough, large right-sided pleural effusion and lung consolidation This is an 79-year-old gentleman who follows with Dr. Truman Yu on an outpatient basis. He has a past medical history significant for COPD from previous tobacco use, GERD, hyperlipidemia, hypertension, DJD, by her episode of pneumonia, history of bronchitis, chronic hypoxemic respiratory failure, home oxygen use of 2 L at bedtime, colon cancer with previous colectomy, prostate cancer with previous radiation and hormonal therapy, glaucoma and memory impairment. The patient is somewhat a poor historian but apparently came into the emergency department on 02/28/2020 via EMS with complaints of back pain and shortness of breath. He does admit to coughing, producing phlegm but is unable to state what color it is. Denies any fevers, chills, nausea, vomiting, diar brandy, or hemoptysis. He reports that his back pain is predominantly right sided and that it is been present for at least a couple of days. A chest x-ray was completed which demonstrated consolidation to his right lower lobe and a large right-sided pleural effusion. Subsequently, the patient underwent a right-sided thoracentesis performed by Dr. Johnson with 2.4 L of yellow-colored fluid drained. Post thoracentesis the patient reported that his shortness of breath seemed to improve. The patient was seen in follow-up today 03/01/2020 on the cardiac stepdown unit. He is in no acute distress and his oxygen saturations are 95% on 5 L nasal cannula. He is hemodynamically stable and has remained afebrile the last 24 hours. The patient underwent a right-sided thoracentesis yesterday with 2.4 L of cloudy yellow fluid drained from his right side. Cytology results remain pending. He was tested for COVID19 which was not detected. There is no x-ray completed today and his laboratory results showed sodium 128, potassium 4.7, BUN 24, creatinine 0.75. He is on Zithromax and Rocephin for her antibiotic coverage he has 0.9% normal saline infusing at 75 mL per hour and is on albuterol inhaler 2 puffs 4 times a day and Spiriva 1 puff daily. A computed tomography scan of his chest was completed yesterday with contrast which demonstrated no evidence of mediastinal air or pneumothorax, residual consolidation in the right lower lobe with small to moderate residual pleural effusion, and a 2.9 cm speculated mass in the anterior segment of the right upper lobe. The patient was seen in follow-up today on the cardiac stepdown unit. He is in no acute distress, he remained hemodynamically stable and has been afebrile the last 24 hours. Oxygen saturations are 96% on 5 L nasal cannula. He does report that early this morning he was having some episodes of shortness of breath and was quite anxious. He currently denies any pain and reports his anxiety has improved. A repeat chest x-ray was completed today which demonstrated an increasing right-sided moderate to large left pleural effusion despite undergoing a right thoracentesis on 02/29/2020 with 2.4 L of cloudy yellow fluid drained. The fluid drained showed an exudative effusion and his cytology results remain pending. Laboratory results today showed a sodium 128, BUN 24, creatinine 0.75 and potassium 4.7. He is currently on Zithromax for antibiotic coverage. On 03/03/2020 patient seen in follow-up on selective care unit, he is awake and alert, in no acute distress, he is currently on 6 L of oxygen with a pulse ox of 94-95%, hemodynamically stable he is afebrile. Today's chest x-ray has been reviewed showing worsening large right pleural effusion, he is right-sided thoracostomy tube is connected to Pleur-evac, and and patient drained a total of 1860 mL initially after placement of the chest tube, and currently there is only 75 mL in the Pleur-evac of serous output. CT chest was obtained today, showing increasing large right loculated pleural effusion, degree of right lung atelectasis, near complete, with rightward mediastinal shift, punctate questionable air in the mediastinum, adjacent to the superior vena cava, new superior mediastinal density at the right lateral aspect of the trachea possible bronchial injury, new right adrenal gland nodule and spiculated left upper lobe pulmonary nodule with possibility of lung cancer and potential metastasis. Pleural fluid cultures so far have shown no growth, blood and sputum cultures have been negative, patient remains on Zosyn and vancomycin for antibiotic coverage. We'll consider TPA infusion, and consider CT surgery consultation. On 03/04/2020 patient seen in follow-up on selective care unit. Yesterday CT surgery refused TPA into has Pigtail catheter, and there was suspected occlusion, however after flushing the pig tail catheter with TPA 1745 ML of serous fluid has draine. Cytology of the pleural fluid from 03/01/2020 is still pending, we did speak to Dr. Guidry from pathology, and the preliminary report is positive for malignancy, pending final report and origin. he does have underlying history of prostate cancer and colon cancer however the reported stains were not consistent with prostate cancer origin. Will await final report. Fluid cultures remain negative thus far. Vital signs have been stable, patient has been afebrile. After draining another 1.7 L of fluid from his Pleurx catheter today's chest x-ray shows marked improved aeration of the right lung with improved right-sided volume, obstructing endobronchial lesion was not excluded related to persistent volume loss at the right base. In view of the persistent volume loss we were asked to consider the patient for bronchoscopy with BAL and airway examination. The patient and his agreed, and the patient underwent bronchoscopy by Dr. Haro, with no evidence of endobronchial masses, BAL cultures were taken for cultures. Today's labs have been reviewed showing white blood cell count of 11.9, hemoglobin of 10.5, platelet count of 377, sodium is 128, potassium is 6.0, CO2 is 17, BUN is 31 creatinine is 1.05. Hyperkalemia was treated by Kayexalate by primary care service, patient is on empiric antibiotics in the form of Zosyn and vancomycin Objective - Vital Signs Vital signs: Vital Signs Temp 98.7 F 03/04/20 12:41 Pulse 97 03/04/20 12:41 Resp 20 03/04/20 08:00 BP 95/65 03/04/20 12:41 Pulse Ox 97 03/04/20 12:41 Intake & Output 03/03/20 03/04/20 03/04/20 18:59 06:59 18:59 Intake Total 1300 327.293 274.121 Output Total 30 2265 Balance 1270 -1937.707 274.121 Weight 122.7 kg Intake: IV 150 Intake, IV Titration 940 207.293 124.121 Amount Heparin Sod,Pork in 0.45% 67.293 124.121 NaCl 25,000 unit In 0.45 % NaCl 1 250ml.bag @ 8.16 UNITS/KG/HR 9.994 mls/hr IV .Q24H [facility] Rx#: [id number] Piperacillin-Tazobactam 3 200 .375 gm In Sodium Chloride 0.9% 100 ml @ 25 mls/hr IVPB Q8H [facility] Rx#: [id number] Sodium Chloride 0.9% 1, 240 140 000 ml @ 20 mls/hr IV . Q24H [facility] Rx#:[id number] Vancomycin 2,000 mg In 500 Sodium Chloride 0.9% 500 ml 500 ml @ 167 mls/hr IVPB Q16H [facility] Rx#: [id number] Oral 360 120 Output: Chest Tube Drainage 30 1715 Chest Tube Right Upper 30 1715 Urine 550 Other: Voiding Method Urinal - Exam GENERAL EXAM: Alert, very pleasant, gentleman on 6 L of oxygen with a pulse ox of 97% comfortable in no apparent distress. HEAD: Normocephalic/atraumatic. EYES: Normal reaction of pupils, equal size. Conjunctiva pink, sclera white. NOSE: Clear with pink turbinates. THROAT: No erythema or exudates. NECK: No masses, no JVD, no thyroid enlargement, no adenopathy. CHEST: No chest wall deformity. Symmetrical expansion. right-sided chest tube in place, with small amount of serous drainage LUNGS: Equal air entry with diminished breath sounds at the right lower and middle lobe. Pigtail catheter is present, connected to Pleur-evac, with 1700 mL of serous fluid CVS: Regular rate and rhythm, normal S1 and S2, no gallops, no murmurs, no rubs ABDOMEN: Soft, nontender. No hepatosplenomegaly, normal bowel sounds, no guarding or rigidity. EXTREMITIES: No clubbing, no edema, no cyanosis, 2+ pulses and upper and lower extremities. MUSCULOSKELETAL: Muscle strength and tone normal. SPINE: No scoliosis or deformity SKIN: No rashes CENTRAL NERVOUS SYSTEM: Alert and oriented -3. No focal deficits, tone is normal in all 4 extremities. PSYCHIATRIC: Alert and oriented -3. Appropriate affect. Intact judgment and insight. - Labs CBC & Chem 7: 03/04/20 06:41 03/04/20 06:41 Labs: Abnormal Lab Results - Last 24 Hours (Table) 03/03/20 03/04/20 03/04/20 Range/Units 22:57 06:41 06:41 WBC 11.9 H (3.8-10.6) k/uL RBC 3.62 L (4.30-5.90) m/uL Hgb 10.5 L (13.0-17.5) gm/dL Hct 33.9 L (39.0-53.0) % MCHC 30.8 L (31.0-37.0) g/dL RDW 16.8 H (11.5-15.5) % Neutrophils # 10.7 H (1.3-7.7) k/uL Lymphocytes # 0.8 L (1.0-4.8) k/uL APTT 30.2 H (22.0-30.0) sec Sodium 128 L (137-145) mmol/L Potassium 6.0 H (3.5-5.1) mmol/L Carbon Dioxide 17 L (22-30) mmol/L BUN 31 H (9-20) mg/dL Glucose 101 H (74-99) mg/dL Calcium 7.8 L (8.4-10.2) mg/dL 03/04/20 Range/Units 06:41 WBC (3.8-10.6) k/uL RBC (4.30-5.90) m/uL Hgb (13.0-17.5) gm/dL Hct (39.0-53.0) % MCHC (31.0-37.0) g/dL RDW (11.5-15.5) % Neutrophils # (1.3-7.7) k/uL Lymphocytes # (1.0-4.8) k/uL APTT 84.6 H (22.0-30.0) sec Sodium (137-145) mmol/L Potassium (3.5-5.1) mmol/L Carbon Dioxide (22-30) mmol/L BUN (9-20) mg/dL Glucose (74-99) mg/dL Calcium (8.4-10.2) mg/dL Microbiology - Last 24 Hours (Table) 02/29/20 09:00 Gram Stain - Final Pleural Fluid Body Fluid Culture - Final 02/28/20 16:20 Blood Culture - Preliminary Blood No Growth after 96 hours Assessment and Plan Plan: 1. Shortness of breath and cough, in a patient with a large right-sided pleural effusion and lung consolidation, rule out pneumonia with pleural effusion. Certainly with a history of prior smoking, malignancy will have to be considered. A 2.9 cm spiculated mass to his left upper lobe found on computed tomography scan of his chest, suspicious for malignancy. patient had a right- sided pigtail chest tube inserted on 03/02/2020 by interventional radiology and 1860 mL of pleural fluid was immediately drained cytology is pending, cultures are pending 2. new air and increasing large right loculated pleural effusion, hydropneumothorax, extensive degree of right lung atelectasis with mediastinal shift, questionable air in the mediastinum, patient's right-sided pigtail catheter was plugged, patient received TPA infusion and his drainage has significantly improved with improvement of aeration of the right lung 3. new superior mediastinal density at the right lateral aspect of the trachea with the possibility of mediastinal fluid or mediastinal hematoma in on the CT of the chest today on 03/03/2020 4. Remote history of tobacco use with underlying chronic obstructive pulmonary disease. Quit smoking 5 years ago. 5. History of prostate cancer, status post radiation therapy and hormonal haley atments. 6. History of colon cancer with previous colectomy. 7. History of gastroesophageal reflux disease. 8. Hypertension. 9. Hyperlipidemia. 10. Degenerative joint disease 11. Prior history of pneumonia and bronchitis. 12. Home O2 at 2 L/m at bedtime and when necessary. 13. History of glaucoma. 14. History of cataracts with bilateral cataract surgery and lens implants. Plan: Patient responded well to TPA infusion into the right chest pigtail catheter, drain significant amount of pleural fluid in the last 24 hours, and today's chest x-ray showed improvement in aeration of the right lung, patient underwent bronchoscopy with BAL and inspection of his airways by Dr. Haro today, there was no evidence of endobronchial masses, BAL cultures were sent for Gram stain and culture, ending at this time, continue current antibiotics, hemodynamically patient is stable, afebrile, we'll continue to follow, awaiting final results of the pleural fluid cytology with preliminary reports positive for malignancy. I performed a history & physical examination of the patient and discussed their management with my nurse practitioner, Lyndsay Zamudio. I reviewed the nurse practitioner's note and agree with the documented findings and plan of care. Lung sounds are positive for diminished breath sounds. The findings and the impression was discussed with the patient. I attest to the documentation by the nurse practitioner. Time with Patient: Less than 30
--- NOTE | 2020-03-04 17:10 | P.PCN ---
Date of Procedure: 03/04/20 Preoperative Diagnosis: Right lower lobe atelectasis, pleural effusion Postoperative Diagnosis: Compressive atelectasis of the right lower lobe segments in addition to right middle lobe segments. No evidence of any endobronchial tumor. Airways are essentially endobronchialy patent. Procedure(s) Performed: Flexible bronchoscopy, lavage of the right lower lobe Anesthesia: ARVINA Surgeon: Kevin Haro Estimated Blood Loss (ml): 0 Pathology: other Condition: stable Disposition: floor Operative Findings: This procedure was done in the endoscopy suite. The patient was intubated and placed on a mechanical ventilation. This information was done by [employer]. The airway was secured and the procedure was done as the patient was adequately ventilated and oxygenated. The flexible bronchoscope was introduced today orotracheal tube and the scope was advanced into the distal trachea. The tip of the endotracheal tube was seen around 2 cm above the ania. Distal trachea was within normal limits. Examination of the right side including the right mainstem bronchus that was within normal limits. Right upper lobe bronchus along with various segments are patent within normal limits. The bronchus intermedius was slightly narrowed. There was no endobronchial tumors or lesio ns. There was patent. The right middle lobe was identified. Right lower lobe was identified. Difference it was of a lower lobe and the right middle lobe were extensively compressed probably related to atelectasis and pleural fluid that had already recommended in the right lower lobe. No other records tumors or lesions identified. The bronchial lavage of the right lower lobe was done. Total of 60 mL of fluid was infused and testes was suctioned. The bronchoscope was then moved to the left and left mainstem bronchus and left upper lobe bronchus and left lower lobe bronchussegments and subsegments were all patent within normal limits. No lesions identified. At the completion of the procedure, the bronchoscope was removed. Patient was extubated and transferred back to his room without any major complications. We'll continue to follow.
[2020-03-04] MEDS: ATORVASTATIN 20 MG TAB PO SCH (19:50)
[2020-03-04] MEDS: LATANOPROST 0.005% OPHTH DROPS 2.5 ML BTL BOTH EYES SCH (19:53)
[2020-03-05] MEDS: traMADol 50 MG TAB PO PRN ×2 (02:52→12:27)
[2020-03-05] MEDS ORDERED: VANCOMYCIN 2,250 MG in SODIUM CHLORIDE 0.9% 500 ML 500 ML IVPB SCH (04:00)
[2020-03-05] MEDS: PIPERACILLIN-TAZOBACTAM 3.375 GM in SODIUM CHLORIDE 0.9% 100 ML IVPB SCH ×3 (05:18→21:11)
[2020-03-05] MEDS: DRONABINOL 2.5 MG CAP PO SCH ×2 (06:10→17:11)
[2020-03-05] MEDS ORDERED: ALTEPLASE 10 MG in SODIUM CHLORIDE 0.9% 100 ML IRRIGATION ONE (07:30)
--- NOTE | 2020-03-05 07:49 | XR ---
EXAMINATION TYPE: XR chest 1V portable DATE OF EXAM: 03/05/2020 Comparison: 03/04/2020 Clinical History: 79-year-old male Right pleural effusion Findings: There seems to be some shift of the heart towards the right. Extensive new opacity throughout the rig ht hemithorax with some layering pleural fluid seen along the lateral chest wall. Left lung and pleur al space remain clear. The greater margin is now completely obscured. Impression: New, near complete white out of the right hemithorax with suggestion of volume loss on this side. Gina pect interval development of significant lobar collapse with concurrent effusion and consolidation.
[2020-03-05] MEDS: TIOTROPIUM 18 MCG/PUFF INHALER INHALATION SCH (07:56)
[2020-03-05] MEDS: ALBUTEROL HFA INHALER INHALATION SCH ×4 (07:56→20:02)
[2020-03-05 09:11] LABS: Calcium 7.8 mg/dL (8.4-10.2); Potassium 5.8 mmol/L (3.5-5.1)
[2020-03-05] MEDS: DONEPEZIL 10 MG TAB PO SCH (09:31)
[2020-03-05] MEDS: VERAPAMIL 40 MG TAB PO SCH ×3 (09:31→21:12)
[2020-03-05] MEDS: DOCUSATE 100 MG CAP PO SCH ×2 (09:31→21:11)
[2020-03-05] MEDS: LISINOPRIL 10 MG TAB PO SCH (09:31)
[2020-03-05] MEDS: SENNOSIDES-DOCUSATE SODIUM 1 EACH TAB PO SCH ×2 (09:31→21:12)
[2020-03-05 09:58] LABS: Anisocytosis Slight; Basophils % (A) 0 %; Eosinophils # (A) 0.1 k/uL (0-0.7); Eosinophils % (A) 0 %; HCT 31.9 % (39.0-53.0); HGB 9.7 gm/dL (13.0-17.5); Hypochromasia Marked; Lymphocytes # (A) 1.1 k/uL (1.0-4.8); Lymphocytes % (A) 10 %; MCH 29.4 pg (25.0-35.0); MCHC 30.5 g/dL (31.0-37.0); MCV 96.3 fL (80.0-100.0); Macrocytosis Slight; Mean Platelet Volume 6.7; Monocytes # (A) 0.5 k/uL (0-1.0); Monocytes % (A) 4 %; Neutrophils # (A) 9.7 k/uL (1.3-7.7); Neutrophils % (A) 85 %; Platelet Count 352 k/uL (150-450); RBC 3.31 m/uL (4.30-5.90); RDW 17.2 % (11.5-15.5); WBC 11.5 k/uL (3.8-10.6)
[2020-03-05] MEDS ORDERED: VANCOMYCIN IV PER PHARMACY 1 EACH MISC MISCELLANE PRN (10:23)
[2020-03-05] MEDS ORDERED: SODIUM POLYSTYRENE SULFONATE 30 GM/120 ML BOTTLE RECTAL STA (11:20)
--- NOTE | 2020-03-05 11:52 | XR ---
EXAMINATION TYPE: XR abdomen 1V DATE OF EXAM: 03/05/2020 Comparison: None Clinical History: 79-year-old male constipation Findings: Supine imaging limited for assessment of free air. Cholecystectomy clips. Asymmetric elevation right hemidiaphragm. A right basilar pigtail pleural catheter is present. Effusion appears to have decrease d as compared to 03/05/2020. Distended small bowel loops measuring up to 3.7 cm. Some scattered colonic air seems to be present as well. The radiograph of the upper abdomen is limited due to centering and penetration. Impression: Distended small bowel loops measuring up to 3.7 cm. Some scattered colonic air is also present sugges ting generalized ileus rather than obstruction at this time. Radiographic follow-up recommended.
--- NOTE | 2020-03-05 13:09 | P.CONS ---
<Laura Salazar - Last Filed: 03/05/20 16:33> History of Present Illness - Reason for Consult Consult date: 03/05/20 Metastatic Adenocarcinoma colon cancer Requesting physician: Kevin Haro - Chief Complaint SOB - History of Present Illness Mr Schuster is a pleasant white male, who had presented to his PCP, Dr. Truman Yu with complains of a pain in the lower mid abdomen, which seemed to be associated with some difficulty in urination. The patient has a history of prostate cancer, diagnosed about 2 years prior, treated with radiation. He therefore underwent a computed tomography scan of the abdomen and pelvis on 05/24/17. This showed some irregular concentric wall thickening in the bladder, that was felt t o be related to postradiation change. Incidentally, an eccentric lesion in the distal left colon was seen that was worrisome for neoplasm. The patient was referred to Dr. Day and had a colonoscopy on 06/04/17. According to the operative note, he was found to have an obstructive mass at the 90 cm sergey in the proximal left colon. Labs on the same day revealed CBC to be essentially normal other than a mild anemia at 12.6. CEA level was 3.3, with normal liver enzymes and renal function. Biopsy was positive for adenoma with high-grade dysplasia. He has a past medical history significant for COPD from previous tobacco use, GERD, hyperlipidemia, hypertension, DJD, by her episode of pneumonia, history of bronchitis, chronic hypoxemic respiratory failure, home oxygen use of 2 L at bedtime, colon cancer with previous colectomy, prostate cancer with previous radiation and hormonal therapy, glaucoma and memory impairment. The patient underwent left hemicolectomy on 06/06/17. The operative report noted no obvious disease in the abdominal cavity. Surgical pathology revealed a grade 1 adenocarcinoma, 3.5 cm, T3, with 0 of 14 nodes involved. No perforation was identified. The patient tolerated the surgery well, and was then discharged and referred here for further evaluation and recommendations. He had never had a colonoscopy before this one. He had an Oncotype colon test done, which indicated a 12 % risk of recurrence, with 5 FU based chemo reducing the risk by 5-7 % The Oncotype and implications were discussed in detail. His risk may actually be lower as 12+ nodes were sampled. Side effects of Xeloda were discussed. - At this time, the pt is quite comfortable with the cure rate with surgery alone, and does not want any chemotherapy - I discussed doing serial CT scans , though there no guidelines recommending the same for lower risk patients, vs doing those prn. He decided on the latter and will f/u with his PCP. He was advised to continue surveillance colonoscopies as recommended by his surgeon. He has not been seen back in office by Dr. Lacey since June 2017. Mr. Schuster now presents to Emergency with complaints of pain and shortness of breath. He was found to have a large right-sided pleural effusion and lung consolidation. He is a poor historian, [facility] via EMS. A chest x-ray was completed which showed consolidation in the right lower lobe and a large right-sided pleural effusion. Subsequently, the patient underwent a right-sided thoracentesis performed by pulmonary with 2.4 L of pleural fluid drained (12/31/19). His initial work-up included COvid testing which was negative, CT Chest with contrast revealed no evidence of mediastinal air or pneumothorax, residual consolidation in the right lower lobe with small to moderate residual pleural effusion, and a 2.9 cm speculated mass in the anterior segment of the right upper lobe. On 03/01/20 repeat chest xray showed increasing right moderate to large left pleural effusion (right pleural effusion previously drained). On 03/02 serial chest xray again revealed worsening large right pleural effusion, A right-sided thoracostomy tube pulling serous output. Repeat CT chest with increasing large right loculated pleural effusion, new right adrenal gland nodule and spiculated left upper lobe pulmonary nodule. A metastatic picture of recurrent (GI primary versus Lung primary) is shown. Cytology of the pleural fluid from 03/01/2020 confirmed malignant pleural effusion with metastatic adenocarcinoma. Therefore Medical oncology has been asked to further evaluate. The suspicion is for a lung primary versus upper GI primary malignancy. He would benefit from further evaluation with EGD and MRCP as primary site will determine treatment options. At this time he is still frail and would require overall performance and respiratory improvement before considered to be a candidate for any systemic treatment. If the chest tube is considered inefficient in providing adequate drainage could consider cardiac thoracic surgical consult for decortication. Patients renal function has increased today, therefore will hold off on further imaging with contrast till improved. Past Medical History Past Medical History: Cancer, COPD, GERD/Reflux, Hyperlipidemia, Hypertension, Osteoarthritis (OA), Pneumonia Additional Past Medical History / Comment(s): Bronchitis, home oxygen at 2L/NC at HS and prn in daytime, prostate surgery with radiation/hormone treatments, colon cancer with colectomy, glaucoma bilateral eyes, slight memory impairment. History of Any Multi-Drug Resistant Organisms: None Reported Past Surgical History: Bowel Resection, Cholecystectomy, Prostate Surgery Additional Past Surgical History / Comment(s): Colonoscopy, L colectomy, bilateral eyes cataract removals and lens implants, bilateral eye laser surgery d/t glaucoma Past Anesthesia/Blood Transfusion Reactions: No Reported Reaction Additional Past Anesthesia/Blood Transfusion Reaction / Comm: no hx blood tr ansfusion Past Psychological History: No Psychological Hx Reported Smoking Status: Former smoker (Quit smoking 5 years ago.) Past Alcohol Use History: Occasional Past Drug Use History: None Reported - Past Family History Father History Unknown: Yes Family Medical History: No Reported History Additional Family Medical History / Comment(s): Father was healthy. Mother History Unknown: Yes Family Medical History: Deep Vein Thrombosis (DVT), Myocardial Infarction ([place]) Medications and Allergies Home Medications Medication Instructions Recorded Confirmed Type Albuterol Inhaler (Bulk) [Ventolin 2 puff INHALATION RT-QID PRN 06/05/15 02/28/20 History Hfa Inhaler (Bulk)] Lisinopril [Prinivil] 10 mg PO QAM 06/05/15 02/28/20 History Latanoprost Ophth [Xalatan 0.005%] 1 drop BOTH EYES HS 06/06/17 02/28/20 History Donepezil HCl [Aricept] 10 mg PO DAILY 04/03/19 02/28/20 History Rosuvastatin [Crestor] 10 mg PO HS 04/03/19 02/28/20 History Dronabinol [Marinol] 2.5 mg PO AC-BID 02/28/20 02/28/20 History traMADol HCL [Ultram] 50 mg PO BID PRN 02/28/20 02/28/20 History Allergies Allergy/AdvReac Type Severity Reaction Status Date / Time No Known Allergies Allergy Verified 02/28/20 17:23 Physical Exam Vitals: Vital Signs Temp Pulse Resp BP Pulse Ox 03/05/20 12:00 98.1 F 99 18 107/68 95 03/05/20 08:00 98.3 F 105 H 18 118/78 97 03/05/20 06:38 98.1 F 81 18 110/64 94 L 03/05/20 03:33 97.8 F 91 20 109/65 91 L 03/04/20 23:00 98.2 F 80 20 110/60 99 03/04/20 19:54 98.1 F 84 20 104/67 98 03/04/20 15:21 98.5 F 87 24 93/55 95 Intake and Output 03/04/20 03/05/20 03/05/20 22:59 06:59 14:59 Intake Total 500 640 Output Total 340 500 Balance 160 140 Intake: Intake, IV Titration 500 80 Amount Sodium Chloride 0.9% 1, 80 000 ml @ 20 mls/hr IV . Q24H [facility] Rx#:[id number] Vancomycin 2,250 mg In 500 Sodium Chloride 0.9% 500 ml 500 ml @ 167 mls/hr IVPB Q16H [facility] Rx#: [id number] Oral 560 Output: Chest Tube Drainage 340 0 Chest Tube Right Upper 340 0 Urine 500 Results CBC & Chem 7: 03/05/20 09:09 03/05/20 06:20 Labs: Abnormal Lab Results - Last 24 Hours (Table) 03/04/20 03/05/20 03/05/20 Range/Units 16:08 06:20 09:09 WBC 11.5 H (3.8-10.6) k/uL RBC 3.31 L (4.30-5.90) m/uL Hgb 9.7 L (13.0-17.5) gm/dL Hct 31.9 L (39.0-53.0) % MCHC 30.5 L (31.0-37.0) g/dL RDW 17.2 H (11.5-15.5) % Neutrophils # 9.7 H (1.3-7.7) k/uL Sodium 131 L (137-145) mmol/L Potassium 5.4 H 5.8 H (3.5-5.1) mmol/L Carbon Dioxide 16 L (22-30) mmol/L BUN 41 H (9-20) mg/dL Creatinine 1.47 H (0.66-1.25) mg/dL Calcium 7.8 L (8.4-10.2) mg/dL Microbiology - Last 24 Hours (Table) 03/04/20 11:55 Gram Stain - Preliminary Bronchoalviolar Lavage - Right Bronchial Washings Culture - Preliminary 02/28/20 16:20 Blood Culture - Preliminary Blood No Growth after 120 hours 02/29/20 09:00 Gram Stain - Final Pleural Fluid Body Fluid Culture - Final CT scan - chest: report reviewed Assessment and Plan Plan: Assessment and Recommendations: Large PLeural Effusions: Malignant Positive cytology for metastatic adenocarcinoma - CUrrently with drainage via pleura vac chest tube - Pulmonary following - Consider CTS consult if needed for further intervention with thorascopy/decortication Metastatic Adenocarcinoma: - Primary site unknown ig upper GI versus lung - Once patient improves rec further work-up with EGD, MRCP and CT imaging - Will discuss with to determine aggressiveness of work--up and goals of overall care Hx: Colorectal Cancer: - Last seen in regards to this with stable picture in 2017 Than you for allowing us to participate in the care of this patient. Physician Attest: I have completed the full history and physical and developed the full assessment and plan, agree with above dictation by Laura Salazar NP. Dictated as a scribe <Jose Lacey - Last Filed: 03/07/20 16:17> Review of Systems Constitutional: Reports fatigue, Reports weakness Eyes: denies blurred vision, denies pain Ears: deny: decreased hearing, ear discharge, earache, tinnitus Ears, nose, mouth and throat: Denies headache, Denies sore throat Cardiovascular: Reports shortness of breath Respiratory: Reports cough, Reports dyspnea Gastrointestinal: Denies abdominal pain, Denies diarrhea, Denies nausea, Denies vomiting Genitourinary: Reports as per HPI Musculoskeletal: Reports muscle weakness Integumentary: Denies pruritus, Denies rash Neurological: Reports memory loss, Reports weakness Psychiatric: Reports memory loss Endocrine: Reports fatigue Hematologic/Lymphatic: Reports as per HPI Physical Exam Vitals: Vital Signs Temp Pulse Resp BP Pulse Ox 03/05/20 15:24 98.2 F 93 22 112/55 95 03/05/20 12:00 98.1 F 99 18 107/68 95 03/05/20 08:00 98.3 F 105 H 18 118/78 97 03/05/20 06:38 98.1 F 81 18 110/64 94 L 03/05/20 03:33 97.8 F 91 20 109/65 91 L 04/23/20 23:00 98.2 F 80 20 110/60 99 03/04/20 19:54 98.1 F 84 20 104/67 98 Intake and Output 03/05/20 03/05/20 03/05/20 06:59 14:59 22:59 Intake Total 640 Output Total 500 Balance 140 Intake: Intake, IV Titration 80 Amount Sodium Chloride 0.9% 1, 80 000 ml @ 20 mls/hr IV . [facility] Rx#:[id number] Oral 560 Output: Chest Tube Drainage 0 Chest Tube Right Upper 0 Urine 500 Other: Weight 122.7 kg - Constitutional General appearance: mild distress - EENT Eyes: EOMI, PERRLA ENT: hearing grossly normal, normal oropharynx - Neck Neck: no lymphadenopathy Thyroid: bilateral: normal size - Respiratory Respiratory: right: CTA - Cardiovascular Rhythm: regular Heart sounds: normal: S1, S2 - Gastrointestinal Localized gastrointestinal: tender: LUQ, rebound: LUQ - Integumentary Integumentary: normal - Neurologic Neurologic: CNII-XII intact - Musculoskeletal Musculoskeletal: generalized weakness, strength equal bilaterally - Psychiatric recall poor, comprehension seems diminished Psychiatric: A&O x's 3 Results CBC & Chem 7: 03/06/20 07:11 03/07/20 05:51 Labs: Abnormal Lab Results - Last 24 Hours (Table) 03/04/20 03/05/20 03/05/20 Range/Units 16:08 06:20 09:09 WBC 11.5 H (3.8-10.6) k/uL RBC 3.31 L (4.30-5.90) m/uL Hgb 9.7 L (13.0-17.5) gm/dL Hct 31.9 L (39.0-53.0) % MCHC 30.5 L (31.0-37.0) g/dL RDW 17.2 H (11.5-15.5) % Neutrophils # 9.7 H (1.3-7.7) k/uL Sodium 131 L (137-145) mmol/L Potassium 5.4 H 5.8 H (3.5-5.1) mmol/L Carbon Dioxide 16 L (22-30) mmol/L BUN 41 H (9-20) mg/dL Creatinine 1.47 H (0.66-1.25) mg/dL Calcium 7.8 L (8.4-10.2) mg/dL Microbiology - Last 24 Hours (Table) 03/04/20 11:55 Gram Stain - Preliminary Bronchoalviolar Lavage - Right Bronchial Washings Culture - Preliminary 02/28/20 16:20 Blood Culture - Preliminary Blood No Growth after 120 hours Assessment and Plan Plan: Case d/w admitting service in detail
--- NOTE | 2020-03-05 13:34 | P.PN ---
Subjective Progress Note Date: 03/05/20 Principal diagnosis: Large right-sided pleural effusion and lung consolidation This is an 79-year-old gentleman who follows with Dr. Truman Yu on an outpatient basis. He has a past medical history significant for COPD from previous tobacco use, GERD, hyperlipidemia, hypertension, DJD, by her episode of pneumonia, history of bronchitis, chronic hypoxemic respiratory failure, home oxygen use of 2 L at bedtime, colon cancer with previous colectomy, prostate cancer with previous radiation and hormonal therapy, glaucoma and memory impairment. The patient is somewhat a poor historian but apparently came into the emergency department on 02/28/2020 via EMS with complaints of back pain and shortness of breath. He does admit to coughing, producing phlegm but is unable to state what color it is. Denies any fevers, chills, nausea, vomiting, diarrhea, or hemoptysis. He reports that his back pain is predominantly right sided and that it is been present for at least a couple of days. A chest x-ray was completed which demonstrated consolidation to his right lower lobe and a large right-sided pleural effusion. Subsequently, the patient underwent a right-sided thoracentesis performed by Dr. Johnson with 2.4 L of yellow-colored fluid drained. Post thoracentesis the patient reported that his shortness of breath seemed to improve. The patient was seen in follow-up today 03/01/2020 on the cardiac stepdown unit. He is in no acute distress and his oxygen saturations are 95% on 5 L nasal cannula. He is hemodynamically stable and has remained afebrile the last 24 hours. The patient underwent a right-sided thoracentesis yesterday with 2.4 L of cloudy yellow fluid drained from his right side. Cytology results remain pending. He was tested for COVID19 which was not detected. There is no x-ray completed today and his laboratory results showed sodium 128, potassium 4.7, BUN 24, creatinine 0.75. He is on Zithromax and Rocephin for her antibiotic coverage he has 0.9% normal saline infusing at 75 mL per hour and is on albuterol inhaler 2 puffs 4 times a day and Spiriva 1 puff daily. A computed tomography scan of his chest was completed yesterday with contrast which demonstrated no evidence of mediastinal air or pneumothorax, residual consolidation in the right lower lobe with small to moderate residual pleural effusion, and a 2.9 cm speculated mass in the anterior segment of the right upper lobe. The patient was seen in follow-up today on the cardiac stepdown unit. He is in no acute distress, he remained hemodynamically stable and has been afebrile the last 24 hours. Oxygen saturations are 96% on 5 L nasal cannula. He does report that early this morning he was having some episodes of shortness of breath and was quite anxious. He currently denies any pain and reports his anxiety has improved. A repeat chest x-ray was completed today which demonstrated an increasing right-sided moderate to large left pleural effusion despite undergoing a right thoracentesis on 02/29/2020 with 2.4 L of cloudy yellow fluid drained. The fluid drained showed an exudative effusion and his cytology results remain pending. Laboratory results today showed a sodium 128, BUN 24, creatinine 0.75 and potassium 4.7. He is currently on Zithromax for antibiotic coverage. On 03/03/2020 patient seen in follow-up on selective care unit, he is awake and alert, in no acute distress, he is currently on 6 L of oxygen with a pulse ox of 94-95%, hemodynamically stable he is afebrile. Today's chest x-ray has been reviewed showing worsening large right pleural effusion, he is right-sided thoracostomy tube is connected to Pleur-evac, and and patient drained a total of 1860 mL initially after placement of the chest tube, and currently there is only 75 mL in the Pleur-evac of serous output. CT chest was obtained today, showing increasing large right loculated pleural effusion, degree of right lung atelectasis, near complete, with rightward mediastinal shift, punctate questionable air in the mediastinum, adjacent to the superior vena cava, new superior mediastinal density at the right lateral aspect of the trachea possible bronchial injury, new right adrenal gland nodule and spiculated left upper lobe pulmonary nodule with possibility of lung cancer and potential metastasis. Pleural fluid cultures so far have shown no growth, blood and sputum cultures have been negative, patient remains on Zosyn and vancomycin for antibiotic coverage. We'll consider TPA infusion, and consider CT surgery consultation. On 03/04/2020 patient seen in follow-up on selective care unit. Yesterday CT surgery refused TPA into has Pigtail catheter, and there was suspected occlusion, however after flushing the pig tail catheter with TPA 1745 ML of serous fluid has draine. Cytology of the pleural fluid from 03/01/2020 is still pending, we did speak to Dr. Guidry from pathology, and the preliminary report is positive for malignancy, pending final report and origin. he does have underlying history of prostate cancer and colon cancer however the reported stains were not consistent with prostate cancer origin. Will await final report. Fluid cultures remain negative thus far. Vital signs have been stable, patient has been afebrile. After draining another 1.7 L of fluid from his Pleurx catheter today's chest x-ray shows marked improved aeration of the right lung with improved right-sided volume, obstructing endobronchial lesion was not excluded related to persistent volume loss at the right base. In view of the persistent volume loss we were asked to consider the patient for bronchoscopy with BAL and airway examination. The patient and his agreed, and the patient underwent bronchoscopy by Dr. Haro, with no evidence of endobronchial masses, BAL cultures were taken for cultures. Today's labs have been reviewed showing white blood cell count of 11.9, hemoglobin of 10.5, platelet count of 377, sodium is 128, potassium is 6.0, CO2 is 17, BUN is 31 creatinine is 1.05. Hyperkalemia was treated by Kayexalate by primary care service, patient is on empiric antibiotics in the form of Zosyn and vancomycin The patient is seen today 03/05/2020 in follow-up on the selective care unit. He is currently sitting up in bed. Awake and alert in no acute distress. He is maintaining O2 saturations in the mid 90s on 4 L/m per nasal cannula. Afebrile. Bronchial washings and cultures are pending from yesterday. White count 11.5. Hemoglobin 9.7. Sodium 131. Potassium 5.8. Creatinine 1.47. He remains on bronchodilators. Continued on vancomycin and Zosyn. Today's chest x-ray shows new near complete white out of the right hemithorax and suggestion of volume loss on the side. Pigtail catheter remains in place. Alteplase to be infused today. Cardiothoracic have been consulted for possible Pleurx catheter placement. Pleural fluid was positive for metastatic adenocarcinoma, suspect lung versus GI cancer in origin. Metastatic colon cancer ruled out. Objective - Vital Signs Vital signs: Vital Signs Temp 98.1 F 03/05/20 12:00 Pulse 99 03/05/20 12:00 Resp 18 03/05/20 12:00 BP 107/68 03/05/20 12:00 Pulse Ox 95 03/05/20 12:00 Intake & Output 03/04/20 03/05/20 03/05/20 18:59 06:59 18:59 Intake Total 409.843 7261 Output Total 340 500 Balance 284.121 640 Intake: IV 150 Intake, IV Titration 324.121 580 Amount ACETAMINOPHEN IV (For NPO 100 ) 1,000 mg In Empty Bag 1 bag @ 400 mls/hr IVPB Q6HR PRN Rx#:[id number] Heparin Sod,Pork in 0.45% 124.121 NaCl 25,000 unit In 0.45 % NaCl 1 250ml.bag @ 8.16 UNITS/KG/HR 9.994 mls/hr IV .Q24H [facility] Rx#: [id number] Piperacillin-Tazobactam 3 100 .375 gm In Sodium Chloride 0.9% 100 ml @ 25 mls/hr IVPB Q8H [facility] Rx#: [id number] Sodium Chloride 0.9% 1, 80 000 ml @ 20 mls/hr IV . Q24H [facility] Rx#:[id number] Vancomycin 2,250 mg In 500 Sodium Chloride 0.9% 500 ml 500 ml @ 167 mls/hr IVPB Q16H [facility] Rx#: [id number] Oral 150 560 Output: Chest Tube Drainage 340 0 Chest Tube Right Upper 340 0 Urine 500 - Exam GENERAL EXAM: Alert, very pleasant, gentleman on 4 L of oxygen with a pulse ox of 97% comfortable in no apparent distress. HEAD: Normocephalic/atraumatic. EYES: Normal reaction of pupils, equal size. Conjunctiva pink, sclera white. NOSE: Clear with pink turbinates. THROAT: No erythema or exudates. NECK: No masses, no JVD, no thyroid enlargement, no adenopathy. CHEST: No chest wall deformity. Symmetrical expansion. right-sided chest tube in place, with small amount of serous drainage LUNGS: Equal air entry with diminished breath sounds throughout the right lung. Pigtail catheter is present, connected to Pleur-evac, with serous fluid CVS: Regular rate and rhythm, normal S1 and S2, no gallops, no murmurs, no rubs ABDOMEN: Soft, nontender. No hepatosplenomegaly, normal bowel sounds, no guarding or rigidity. EXTREMITIES: No clubbing, no edema, no cyanosis, 2+ pulses and upper and lower extremities. MUSCULOSKELETAL: Muscle strength and tone normal. SPINE: No scoliosis or deformity SKIN: No rashes CENTRAL NERVOUS SYSTEM: Alert and oriented -3. No focal deficits, tone is normal in all 4 extremities. PSYCHIATRIC: Alert and oriented -3. Appropriate affect. Intact judgment and insight. - Labs CBC & Chem 7: 03/05/20 09:09 03/05/20 06:20 Labs: Abnormal Lab Results - Last 24 Hours (Table) 03/04/20 03/05/20 03/05/20 Range/Units 16:08 06:20 09:09 WBC 11.5 H (3.8-10.6) k/uL RBC 3.31 L (4.30-5.90) m/uL Hgb 9.7 L (13.0-17.5) gm/dL Hct 31.9 L (39.0-53.0) % MCHC 30.5 L (31.0-37.0) g/dL RDW 17.2 H (11.5-15.5) % Neutrophils # 9.7 H (1.3-7.7) k/uL Sodium 131 L (137-145) mmol/L Potassium 5.4 H 5.8 H (3.5-5.1) mmol/L Carbon Dioxide 16 L (22-30) mmol/L BUN 41 H (9-20) mg/dL Creatinine 1.47 H (0.66-1.25) mg/dL Calcium 7.8 L (8.4-10.2) mg/dL Microbiology - Last 24 Hours (Table) 03/04/20 11:55 Gram Stain - Preliminary Bronchoalviolar Lavage - Right Bronchial Washings Culture - Preliminary 02/28/20 16:20 Blood Culture - Preliminary Blood No Growth after 120 hours 02/29/20 09:00 Gram Stain - Final Pleural Fluid Body Fluid Culture - Final Assessment and Plan Assessment: 1. Shortness of breath and cough, in a patient with a large right-sided pleural effusion positive for metastatic adenocarcinoma possible GI versus lung in origin. Markers ruled out colon cancer metastasis. Suspect lung versus GI primary. A 2.9 cm spiculated mass to his left upper lobe found on computed tomography scan of his chest. Patient had a right-sided pigtail chest tube inserted on 03/02/2020 by interventional radiology and 1860 mL of pleural fluid was immediately drained cytology is positive for metastatic adenocarcinoma, cultures are pending 2. Large right loculated pleural effusion, hydropneumothorax, extensive degree of right lung atelectasis with mediastinal shift, questionable air in the mediastinum, patient's right-sided pigtail catheter was plugged, patient received TPA infusion and his drainage has significantly improved with improvement of aeration of the right lung. Today's chest x-ray 03/05/2020 shows near complete opacification of the right lung. To receive alteplase again today. 3. New superior mediastinal density at the right lateral aspect of the trachea with the possibility of mediastinal fluid or mediastinal hematoma in on the CT of the chest today on 03/03/2020 4. Remote history of tobacco use with underlying chronic obstructive pulmonary disease. Quit smoking 5 years ago. 5. History of prostate cancer, status post radiation therapy and hormonal treatments. 6. History of colon cancer with previous colectomy. 7. History of gastroesophageal reflux disease. 8. Hypertension. 9. Hyperlipidemia. 10. Degenerative joint disease 11. Prior history of pneumonia and bronchitis. 12. Home O2 at 2 L/m at bedtime and when necessary. 13. History of glaucoma. 14. History of cataracts with bilateral cataract surgery and lens implants. 15. Abdominal distention with possible generalized ileus versus obstruction Plan: The patient was seen and evaluated by Dr. Haro Pleural fluid positive for metastatic adenocarcinoma. Further markers ruled out metastatic colon cancer, possible GI but most likely lung within the differential Oncology has been consulted Chest x-ray reviewed, alteplase to be infused via pigtail catheter Cardiothoracic on the case for possible Pleurx catheter placement Bronchoscopy performed yesterday with no endobronchial lesions. Cultures pending Continued on Zosyn Discontinue vancomycin We'll continue to follow I, the cosigning physician, performed a history & physical examination of the patient. Lungs sounds diminished in the right lung. Maintaining good O2 saturations in the 90s on 4 L/m per nasal cannula. I discussed the assessment and plan of care with my nurse practitioner, Kadi Dumont. I attest to the above note as dictated by her.
--- NOTE | 2020-03-05 13:56 | P.PN ---
Subjective Progress Note Date: 03/05/20 Principal diagnosis: This is an 79-year-old gentleman who follows with Dr. Truman Yu on an outpatient basis. He has past medical history significant for hypertension, hyperlipidemia, chronic obstructive pulmonary disease with home oxygen use at bedtime and when necessary 2 L per nasal cannula, history of tobacco abuse which he quit smoking 5 years ago, prostate cancer with radiation/hormone treatments, colon cancer with colectomy, GERD, osteoarthritis, memory impairment and history of pneumonia. On 02/28/2020 the patient presented to the emergency department here at [facility] with complaints of shortness of breath and back pain which is worse when taking a deep breath. He denied any fevers, chills, cough, hemoptysis, headache, nausea, vomiting, or diarrhea. A chest x- ray was completed in the emergency department which showed a large right pleural effusion and probable right lower lobe consolidation that was new compared to his old exam. Dr. Johnson from pulmonary medicine was consulted and an ultrasound of his chest was completed which demonstrated a right pleural effusion pocket size of 14.1 cm. Subsequently, due to the large right pleural effusion he underwent a right thoracentesis with 2.4 L of dark yellow fluid drained from the pleural space. A repeat chest x-ray was completed yesterday which showed an increasing right-sided moderate to large pleural effusion. Due to the recurrent right pleural effusion he underwent an ultrasound-guided placement of a right pleural drainage tube catheter placed by interventional radiology. The patient right chest pigtail catheter remains in place to waterseal and his draining thin serosanguineous drainage. The x-ray completed this morning demonstrates a worsening large right pleural effusion despite the right thoracostomy tube positioning appears to be appropriately radiographically. It also showed a mediastinal shift to the right is partially secondary to the patient rotation but also likely partially related to atelectasis. For further evaluation and computed tomography scan of his chest with contrast was completed which the report demonstrated new air and an increasing large right loculated pleural effusion rendering this a hydropneumothorax by definition, also showed in increase in the degree of right lung atelectasis, near-complete with rightward mediastinal shift and areas of low density intervening within the atelectasis raising suspicion for underlying pneumonia, punctuate foci of questionable air in the mediastinum and directly adjacent to the superior vena cava, new superior mediastinal density at the right lateral aspect of the trachea that may represent mediastinal fluid or mediastinal hematoma, cut off of the right mainstem bronchus with paucity of downstream aerated right lung bronchi, new right adrenal gland nodule in comparison to his prior exam in 2017 and a spiculated left upper lobe pulmonary nodule with findings concerning for lung cancer and potential metastasis, and very small amount of perihepatic ascites. Due to the patient's presenting symptoms, and findings on his computed tomography scan of his chest a consult was placed to Dr. Gigi Munoz from cardiothoracic surgery for further evaluation and treatment recommendations. POD #3 placement of right pleural pigtail catheter inserted by interventional radiology. On 03/04/2020 the patient was seen in follow-up at his bedside on the cardiac stepdown unit. He is resting comfortably in bed. He is alert and oriented 2 and is in no acute distress. He remains hemodynamically stable, he has been afebrile the last 24 hours and his oxygen saturations are 100% on 4 L nasal cannula. His oxygenation has improved as yesterday he was on 5 L nasal cannula and was satting 96%. Currently denies any complaints of pain or shortness of breath, he remains with a productive cough with white frothy phlegm. Right chest pigtail catheter remains in place to low continuous wall suction -20 cm H2O. He received a dose of pleural instillation of alteplase 10 mg/100 mL normal saline yesterday 03/03/2020. He had 1.8 L of fluid drained from his right pleural pigtail catheter in the last 24 hours with 1.3 L output in the last 8 hours. A repeat chest x-ray was completed today which demonstrated marked improvement of aeration to his right lung, improved right-sided volume, and background chronic emphysematous change with persistent right basilar acute infiltrate and/or atelectasis. He has been on it heparin drip per protocol and is currently on hold as he is scheduled for a bronchoscopy to completed by Dr. Haro today. Laboratory results today show WBC count 11.9, hemoglobin 10.5, platelets 377, PTT 84.6, sodium 128, potassium 6.0, BUN 31, creatinine 1.05. On 03/04/2020 the patient was seen in follow-up at his bedside on the cardiac stepdown unit. He is currently resting comfortably in bed, he is in no acute distress. He is awake and alert and oriented 3 with periods of forgetfulness. Oxygen saturations are 95% on 4 L nasal cannula. He is achieving 500 mL on his incentive spirometry. Right pleural pigtail catheter remains in place to Pleur- evac and to low continuous wall suction -20 cm H2O. No air leak is present. Draining thin serosanguineous drainage with 280 mL output in the last 24 hours. He received a second dose of alteplase 10 mg/100 mils of normal saline yesterday. A repeat chest x-ray was completed today which shows new, near complete whiteout of the right hemithorax with suggestion of volume loss on this side. He also underwent a bronchoscopy yesterday completed by Dr. Haro from pulmonary medicine which showed compressive atelectasis of the right lower lobe segments in addition to the right middle lobe segments, no evidence of any endobronchial tumors and airways were essentially endobronchially patent. Laboratory results today show a WBC count 11.5, hemoglobin 9.7, platelets 352, sodium 131, potassium 5.8, BUN 41, and creatinine 1.47. Preliminary bronchial washing cultures showed rare gram-positive cocci. He remains on Zosyn for antibiotic coverage. The right pleural fluid thoracentesis cytology results are back and show malignant effusion consistent with metastatic adenocarcinoma. Objective - Vital Signs Vital signs: Vital Signs Temp 98.1 F 03/05/20 12:00 Pulse 99 03/05/20 12:00 Resp 18 03/05/20 12:00 BP 107/68 03/05/20 12:00 Pulse Ox 95 03/05/20 12:00 Intake & Output 03/04/20 03/05/20 03/05/20 18:59 06:59 18:59 Intake Total 735.481 2836 Output Total 340 500 Balance 284.121 640 Intake: IV 150 Intake, IV Titration 324.121 580 Amount ACETAMINOPHEN IV (For NPO 100 ) 1,000 mg In Empty Bag 1 bag @ 400 mls/hr IVPB Q6HR PRN Rx#:[id number] Heparin Sod,Pork in 0.45% 124.121 NaCl 25,000 unit In 0.45 % NaCl 1 250ml.bag @ 8.16 UNITS/KG/HR 9.994 mls/hr IV .Q24H [facility] Rx#: [id number] Piperacillin-Tazobactam 3 100 .375 gm In Sodium Chloride 0.9% 100 ml @ 25 mls/hr IVPB Q8H [facility] Rx#: [id number] Sodium Chloride 0.9% 1, 80 000 ml @ 20 mls/hr IV . Q24H [facility] Rx#:[id number] Vancomycin 2,250 mg In 500 Sodium Chloride 0.9% 500 ml 500 ml @ 167 mls/hr IVPB Q16H [facility] Rx#: [id number] Oral 150 560 Output: Chest Tube Drainage 340 0 Chest Tube Right Upper 340 0 Urine 500 - Exam The patient is pleasant 79-year-old gentleman who is alert and oriented 3 with periods of forgetfulness. He is in no acute distress. Oxygen saturation is 95% on 4 L nasal cannula. - Constitutional General appearance: Present: cooperative, morbidly obese, no acute distress - EENT Eyes: Present: PERRLA, normal appearance. Absent: scleral icterus ENT: Present: hard of hearing, normal oropharynx. Absent: thrush - Neck Details: Neck is supple, no JVD. Neck: Absent: lymphadenopathy, stridor - Respiratory Details: Lungs sounds essentially clear to his bilateral upper lobes, diminished to his bilateral bases right greater than left, with few scattered crackles. Respirations are symmetrical and nonlabored. - Cardiovascular Details: Regular rhythm and rate. S1 and S2 present, negative for S3, gallop or murmur. - Gastrointestinal Gastrointestinal Comment(s): Abdomen is soft, nontender and nondistended. Active bowel sounds present in all 4 abdominal quadrants. No guarding or rigidity. - Integumentary Integumentary Comment(s): Skin is warm and dry. No clubbing or cyanosis is present. Right pleural pigtail catheter dressing is clean, dry and intact. - Neurologic Neurologic: Present: CNII-XII intact - Musculoskeletal Musculoskeletal: Present: generalized weakness, strength equal bilaterally - Psychiatric Psychiatric: Present: A&O x's 3 (Periods of forgetfulness.), appropriate affect - Allied health notes Allied health notes reviewed: nursing - Labs CBC & Chem 7: 03/05/20 09:09 03/05/20 06:20 Labs: Abnormal Lab Results - Last 24 Hours (Table) 03/04/20 03/05/20 03/05/20 Range/Units 16:08 06:20 09:09 WBC 11.5 H (3.8-10.6) k/uL RBC 3.31 L (4.30-5.90) m/uL Hgb 9.7 L (13.0-17.5) gm/dL Hct 31.9 L (39.0-53.0) % MCHC 30.5 L (31.0-37.0) g/dL RDW 17.2 H (11.5-15.5) % Neutrophils # 9.7 H (1.3-7.7) k/uL Sodium 131 L (137-145) mmol/L Potassium 5.4 H 5.8 H (3.5-5.1) mmol/L Carbon Dioxide 16 L (22-30) mmol/L BUN 41 H (9-20) mg/dL Creatinine 1.47 H (0.66-1.25) mg/dL Calcium 7.8 L (8.4-10.2) mg/dL Microbiology - Last 24 Hours (Table) 03/04/20 11:55 Gram Stain - Preliminary Bronchoalviolar Lavage - Right Bronchial Washings Culture - Preliminary 02/28/20 16:20 Blood Culture - Preliminary Blood No Growth after 120 hours - Imaging and Cardiology Chest x-ray: report reviewed, image reviewed Assessment and Plan Assessment: 1. Shortness of breath and cough, in a patient with a large right-sided pleural effusion and lung consolidation, rule out pneumonia with pleural effusion. Certainly with a history of prior smoking, malignancy will have to be considered. A 2.9 cm spiculated mass to his left upper lobe found on computed tomography scan of his chest, suspicious for malignancy. Status post placement of right chest pigtail catheter placed by interventional radiology. Computed tomography scan of his chest completed 03/03/2020 showing increased large right loculated pleural effusion and questionable for air in the mediastinum. Right pleural fluid thoracentesis cytology results showing malignant effusion consistent with metastatic adenocarcinoma. 2. Remote history of tobacco use with underlying chronic obstructive pulmonary disease. Quit smoking 5 years ago. 3. History of prostate cancer, status post radiation therapy and hormonal treatments. 4. History of colon cancer with previous colectomy. 5. History of gastroesophageal reflux disease. 6. Hypertension. 7. Hyperlipidemia. 8. Osteoarthritis 9. Prior history of pneumonia and bronchitis. 10. Home O2 at 2 L/m at bedtime and when necessary. 11. History of glaucoma. 12. History of cataracts with bilateral cataract surgery and lens implants. Plan: 1. The patient was seen and examined at his bedside on the cardiac stepdown unit with Dr. Mohit Villa. 2. We will instill another dose of alteplase 10 mg/100 mL of normal saline for pleural instillation through his right pleural pigtail catheter. 3. Encourage use of incentive spirometry 10 times every hour while awake. 4. GI and DVT prophylaxis. Heparin drip is currently on hold for the bronchoscopy procedure. 5. We will continue to follow his chest x-rays. 6. Medical management and other comorbidities per primary care service and pulmonary medicine. 7. Patient may need a needle biopsy of the left upper lobe mass necessary for staging as his computed tomography scan of his chest demonstrates a 2.9 cm spiculated nodule to his left upper chest which could be consistent with bronchogenic carcinoma. 8. Patient also may need a Pleurx catheter. 9. More recommendations to follow based on patient's clinical course. Time with Patient: Less than 30
--- NOTE | 2020-03-05 15:26 | P.PN ---
Subjective Progress Note Date: 03/05/20 This is a 79-year-old gentleman admitted to the hospital for community-acquired pneumonia, large right-sided pleural effusion. Underwent right-sided thoracentesis yesterday with 2.4 L removed. Tolerated procedure well. Pleural cytology pending. CT post thoracentesis reporting no evidence of mediastinal air or pneumothorax,right lower lobe with small to moderate residual pleural effusion, 2.9 cm spiculated mass anterior left upper lobe, no prior CTs here to compare to as per radiology. Tested negative for coronavirus. Legionella cultures pending. Maintaining O2 sats of mid 90s on 5 L nasal cannula in a patient who normally wears 2 L nasal cannula,. Sodium 128, potassium 4.7, creatinine 0.75. Afebrile. 03/02/2020 Minimal ambulation. Complains of constipation. Antibiotics adjusted to Zosyn and vancomycin. Maintaining O2 sats in the 90s on 5 L nasal cannula. Complained of increased shortness of breath earlier this morning , currently denies .Chest x-ray reporting increasing moderate to large right pleural effusion .scheduled for PIG tail placement with interventional radiology. Pleura l cytology pending from prior thoracentesis. Afebrile. 03/03/2020 Chest x-ray reporting increasing right-sided moderate to large pleural effusion, minimal Pleur-evac output since initial drainage status post placement.repeat CT scan ordered for comparison regarding lung mass. TPA to chest tube pending as per pulmonary. Respiratory status worsened today, patient appears pasty with increased shortness of breath. Denies chest pain, palpitations. Telemetry sinus rhythm. 03/04/2020 Antrum switched out last night with approximately 1.8 L output overnight including 1.3 L over the last 8 hours, post TPA to chest tube. Chest x-ray reporting improvement in aeration of right lung with improved riight side volume, persistent right basilar acute infiltrate/atelectasis, obstructing endobronchial lesion not excluded.Scheduled for another dose of TPA today. Complains of discomfort at chest tube insertion site. Currently NPO for Bronchoscopy this morning. Potassium 6, rectal Kayexalate ordered. Follow-up CT reporting mediastinal shift to the right secondary to atelectasis, new care with increasing large right loculated pleural effusion rendering a hydropneumothorax. Pleural fluid loculated at the lung apex and surrounding the right upper lobe. New density in the mediastinum, cuttoff of the right main stem bronchi with paucity of distal aerated segment and subsegmental bronchi, q uestionable pneumomediastinum versus spray artifact from contrast. New adrenal gland nodule. Spiculated left upper lobe pulmonary nodule measuring 2.4 x 1 cm concerning for lung cancer and potential metastasis Small amount hepatic ascites. Cardiothoracic surgery consulted, radiology films reviewed, recommending diagnostic bronchoscopy regarding suspected bronchogenic carcinoma. At this time no surgical intervention recommended related to high suspicion of advanced stage. Creatinine mildly worsened, to 1.05. Currently maintaining O2 sats in the 90s on 6 L nasal cannula. Patient reports he had a rough night, with increased shortness of breath; at one point during the night required wearing a Ventimask. Afebrile, WBC up to 11.9, hemoglobin up to 10.5. Denies chest pain, palpitations. 03/05/2020 Yesterday he underwent diagnostic bronchoscopy reporting compressive atelectasis of the right lower lobe in addition to right middle lobe segments with no evidence of endobronchial tumor, airways patent. Maintaining O2 sats in the 90s on 5 L nasal cannula O2. Chest x-ray reporting near complete whiteout of the right hemothorax with suspected significant lobar collapse with concurrent effusion and consolidation .Cytology reporting metastatic adenocarcinoma, suspected lung versus upper GI. Pleural cultures pending. Yesterday hyperkalemic received Kayexalate with potassium down to 5.4 yesterday afternoon. Reports no flatus, no bowel movement post Kayexalate yesterday. Potassium currently at 5.8. Renal function worsening up to 1.47. Chest tube draining 345 during the day shift yesterday, and no further drainage overnight scheduled for another dose of TPA to the chest tube. Objective - Vital Signs Vital signs: Vital Signs Temp 98.1 F 03/05/20 06:38 Pulse 81 03/05/20 06:38 Resp 18 03/05/20 06:38 BP 110/64 03/05/20 06:38 Pulse Ox 94 L 03/05/20 06:38 Intake & Output 03/04/20 03/05/20 03/05/20 18:59 06:59 18:59 Intake Total 479.619 0966 Output Total 340 500 Balance 284.121 640 Intake: IV 150 Intake, IV Titration 324.121 580 Amount ACETAMINOPHEN IV (For NPO 100 ) 1,000 mg In Empty Bag 1 bag @ 400 mls/hr IVPB Q6HR PRN Rx#:[id number] Heparin Sod,Pork in 0.45% 124.121 NaCl 25,000 unit In 0.45 % NaCl 1 250ml.bag @ 8.16 UNITS/KG/HR 9.994 mls/hr IV .Q24H [facility] Rx#: [id number] Piperacillin-Tazobactam 3 100 .375 gm In Sodium Chloride 0.9% 100 ml @ 25 mls/hr IVPB Q8H [facility] Rx#: [id number] Sodium Chloride 0.9% 1, 80 000 ml @ 20 mls/hr IV . Q24H [facility] Rx#:[id number] Vancomycin 2,250 mg In 500 Sodium Chloride 0.9% 500 ml 500 ml @ 167 mls/hr IVPB Q16H [facility] Rx#: [id number] Oral 150 560 Output: Chest Tube Drainage 340 0 Chest Tube Right Upper 340 0 Urine 500 - Exam PHYSICAL EXAM: VITAL SIGNS: As above GENERAL: Sitting up in bed, pale, fatigued HEENT: Conjunctivae normal. eyes normal. Oral mucosa dry. NECK: No JVD. No thyroid enlargement. No LNs CARDIOVASCULAR: S1, S2 regular. No murmur RESPIRATION: Labored, Bilateral bases diminished, right pigtail catheter connected to low continuous wall suction. .No rhonchi, few scattered crackles. ABDOMEN: Soft, nontender . No guarding. no masses palpable. Bowel sounds heard. LEGS: No edema. no swelling PSYCHIATRY: Alert and oriented X2, mood and affect normal, mildly anxious NERVOUS SYSTEM: Cranial N 2-12 grossly normal. Moves all 4 limbs. Diffuse weakness. No focal deficits. Strength and sensation grossly intact. Skin: no rash. - Labs CBC & Chem 7: 03/05/20 09:09 03/05/20 06:20 Labs: Abnormal Lab Results - Last 24 Hours (Table) 03/04/20 03/04/20 Range/Units 06:41 16:08 WBC 11.9 H (3.8-10.6) k/uL RBC 3.62 L (4.30-5.90) m/uL Hgb 10.5 L (13.0-17.5) gm/dL Hct 33.9 L (39.0-53.0) % MCHC 30.8 L (31.0-37.0) g/dL RDW 16.8 H (11.5-15.5) % Neutrophils # 10.7 H (1.3-7.7) k/uL Lymphocytes # 0.8 L (1.0-4.8) k/uL Potassium 5.4 H (3.5-5.1) mmol/L Microbiology - Last 24 Hours (Table) 03/04/20 11:55 Gram Stain - Preliminary Bronchoalviolar Lavage - Right Bronchial Washings Culture - Preliminary 02/28/20 16:20 Blood Culture - Preliminary Blood No Growth after 120 hours 02/29/20 09:00 Gram Stain - Final Pleural Fluid Body Fluid Culture - Final Assessment and Plan Assessment: -Acute on chronic hypoxic, hypercapnic respiratory failure secondary to right large pleural effusion, possible right-sided pneumonia, possible malignancy. Wears 2 L O2 nasal cannula at home. Acute right large pleural effusion, status post thoracentesis, cytology reporting metastatic adenocarcinoma, suspect lung versus upper GI. Recurrent Right pleural effusion , s/p right pigtail cath placement. Repeat CT 03/03 reporting new air and increasing large right loculated pleural effusion, hydropneumothorax, atelectasis, possible mediastinal shift with questionable air in the mediastinum. New superior mediastinal density in the right lateral aspect of the trachea with possibility of hematoma. Bronchoscopy 03/04 reporting compressive atelectasis of the right lower lobe segments and right middle lobe segments with no evidence of endobronchial tumor, airways patent. -2.9 cm spiculated mass anterior left upper lobe, suspicious for malignancy. -Acute on chronic hypoxic respiratory failure secondary to the above. Wears 2 L nasal cannula O2 at home. -Ruling out Legionella -Hyperkalemia -Hyponatremia -History of nicotine dependence -Prostate cancer, history of radiation and hormonal treatments -Colon cancer with history of colectomy -Gastroesophageal reflux disease -Hypertension -Hyperlipidemia -Degenerative joint disease -Glaucoma -History of cataracts with lens implant -acute renal failure Plan: Continue current medication regime ,monitoring and symptomatic treatment. Portable Flat plate of abdomen ordered .Repeat Kayexalate. Lisinopril discontinued secondary to worsening renal function, borderline hypotens ion.Repeat TPA to chest tube pending. Pleural cultures pending. Maintain nebulized bronchodilators, antibiotics of Zosyn, vancomycin. Further recommendations to follow. The impression and plan of care has been dictated as directed. : I performed a history and examination of this patient, discussed the same with the dictator. I agree with the dictator's note ,documented as a scribe. Any additional findings or plans will be noted.
[2020-03-05] MEDS ORDERED: IPRATROPIUM-ALBUTEROL 3 ML NEB INHALATION PRN (15:28)
[2020-03-05] MEDS ORDERED: IPRATROPIUM-ALBUTEROL 3 ML NEB INHALATION SCH (16:00)
[2020-03-05] MEDS: HEPARIN SODIUM,PORCINE 5,000 UNIT/ML 1 ML VIAL SQ SCH ×2 (17:11→21:12)
[2020-03-05] MEDS: SODIUM CHLORIDE 0.9% 1,000 ML IV SCH ×2 (21:05)
[2020-03-05] MEDS: ATORVASTATIN 20 MG TAB PO SCH (21:11)
[2020-03-05] MEDS: LATANOPROST 0.005% OPHTH DROPS 2.5 ML BTL BOTH EYES SCH (21:17)
[2020-03-06] MEDS: PIPERACILLIN-TAZOBACTAM 3.375 GM in SODIUM CHLORIDE 0.9% 100 ML IVPB SCH ×3 (03:27→21:43)
[2020-03-06] MEDS: DRONABINOL 2.5 MG CAP PO SCH ×2 (06:27→15:59)
[2020-03-06] MEDS: ALBUTEROL HFA INHALER INHALATION SCH ×4 (07:36→19:27)
[2020-03-06] MEDS: TIOTROPIUM 18 MCG/PUFF INHALER INHALATION SCH (07:37)
[2020-03-06 07:41] LABS: Anisocytosis Slight; Basophils % (A) 0 %; Eosinophils # (A) 0.1 k/uL (0-0.7); Eosinophils % (A) 1 %; Hypochromasia Marked; Lymphocytes # (A) 0.8 k/uL (1.0-4.8); Lymphocytes % (A) 9 %; MCH 29.3 pg (25.0-35.0); MCHC 30.9 g/dL (31.0-37.0); MCV 94.6 fL (80.0-100.0); Mean Platelet Volume 6.7; Monocytes # (A) 0.3 k/uL (0-1.0); Monocytes % (A) 3 %; Neutrophils # (A) 7.9 k/uL (1.3-7.7); Neutrophils % (A) 87 %; Platelet Count 355 k/uL (150-450); RBC 3.07 m/uL (4.30-5.90); RDW 17.2 % (11.5-15.5); WBC 9.1 k/uL (3.8-10.6)
[2020-03-06 07:44] LABS: Albumin 2.1 g/dL (3.5-5.0); Calcium 7.9 mg/dL (8.4-10.2); Potassium 4.1 mmol/L (3.5-5.1); Total Bilirubin 0.3 mg/dL (0.2-1.3); Total Protein 4.7 g/dL (6.3-8.2)
[2020-03-06 07:49] LABS: Vancomycin,Random 16.3 ug/mL
--- NOTE | 2020-03-06 08:49 | XR ---
EXAMINATION TYPE: XR chest 1V DATE OF EXAM: 03/06/2020 HISTORY: right lung pleural fluid fu. REFERENCE: Previous study dated 03/05/2020. FINDINGS: There is near complete opacification of the right hemithorax. There is shift of the mediast inal structures towards the right. The left lung is clear. The left CP angle is clear. IMPRESSION: NEAR COMPLETE WHITE OUT OF THE RIGHT LUNG WITH MEDIASTINAL SHIFT LIKELY ON THE BASIS OF A COMBINATION OF PLEURAL FLUID AND ATELECTASIS. THE OVERALL APPEARANCE MAY BE SLIGHTLY WORSE THAN PREVIOUS.
[2020-03-06] MEDS: SENNOSIDES-DOCUSATE SODIUM 1 EACH TAB PO SCH ×2 (09:31→21:44)
[2020-03-06] MEDS: HEPARIN SODIUM,PORCINE 5,000 UNIT/ML 1 ML VIAL SQ SCH ×3 (09:31→22:45)
[2020-03-06] MEDS: DOCUSATE 100 MG CAP PO SCH ×2 (09:31→21:44)
[2020-03-06] MEDS: DONEPEZIL 10 MG TAB PO SCH (09:31)
[2020-03-06] MEDS: SODIUM CHLORIDE 0.9% 1,000 ML IV SCH (09:31)
[2020-03-06] MEDS: VERAPAMIL 40 MG TAB PO SCH ×3 (09:31→21:44)
[2020-03-06] MEDS: IOPAMIDOL CONTRAST (ORAL USE) VIAL PO PRN ×2 (09:41→10:39)
[2020-03-06] MEDS ORDERED: VANCOMYCIN TROUGH DUE 1 EACH MISC MISCELLANE ONE (11:00)
--- NOTE | 2020-03-06 11:29 | P.PN ---
Subjective Progress Note Date: 03/06/20 Principal diagnosis: This is an 79-year-old gentleman who follows with Dr. Truman Yu on an outpatient basis. He has past medical history significant for hypertension, hyperlipidemia, chronic obstructive pulmonary disease with home oxygen use at bedtime and when necessary 2 L per nasal cannula, history of tobacco abuse which he quit smoking 5 years ago, prostate cancer with radiation/hormone treatments, colon cancer with colectomy, GERD, osteoarthritis, memory impairment and history of pneumonia. On 02/28/2020 the patient presented to the emergency department here at [facility] with complaints of shortness of breath and back pain which is worse when taking a deep breath. He denied any fevers, chills, cough, hemoptysis, headache, nausea, vomiting, or diarrhea. A chest x- ray was completed in the emergency department which showed a large right pleural effusion and probable right lower lobe consolidation that was new compared to his old exam. Dr. Johnson from pulmonary medicine was consulted and an ultrasound of his chest was completed which demonstrated a right pleural effusion pocket size of 14.1 cm. Subsequently, due to the large right pleural effusion he underwent a right thoracentesis with 2.4 L of dark yellow fluid drained from the pleural space. A repeat chest x-ray was completed yesterday which showed an increasing right-sided moderate to large pleural effusion. Due to the recurrent right pleural effusion he underwent an ultrasound-guided placement of a right pleural drainage tube catheter placed by interventional radiology. The patient right chest pigtail catheter remains in place to waterseal and his draining thin serosanguineous drainage. The x-ray completed this morning demonstrates a worsening large right pleural effusion despite the right thoracostomy tube positioning appears to be appropriately radiographically. It also showed a mediastinal shift to the right is partially secondary to the patient rotation but also likely partially related to atelectasis. For further evaluation and computed tomography scan of his chest with contrast was completed which the report demonstrated new air and an increasing large right loculated pleural effusion rendering this a hydropneumothorax by definition, also showed in increase in the degree of right lung atelectasis, near-complete with rightward mediastinal shift and areas of low density intervening within the atelectasis raising suspicion for underlying pneumonia, punctuate foci of questionable air in the mediastinum and directly adjacent to the superior vena cava, new superior mediastinal density at the right lateral aspect of the trachea that may represent mediastinal fluid or mediastinal hematoma, cut off of the right mainstem bronchus with paucity of downstream aerated right lung bronchi, new right adrenal gland nodule in comparison to his prior exam in 2017 and a spiculated left upper lobe pulmonary nodule with findings concerning for lung cancer and potential metastasis, and very small amount of perihepatic ascites. Due to the patient's presenting symptoms, and findings on his computed tomography scan of his chest a consult was placed to Dr. Gigi Munoz from cardiothoracic surgery for further evaluation and treatment recommendations. POD #4 placement of right pleural pigtail catheter inserted by interventional radiology. On 03/04/2020 the patient was seen in follow-up at his bedside on the cardiac stepdown unit. He is resting comfortably in bed. He is alert and oriented 2 and is in no acute distress. He remains hemodynamically stable, he has been afebrile the last 24 hours and his oxygen saturations are 100% on 4 L nasal cannula. His oxygenation has improved as yesterday he was on 5 L nasal cannula and was satting 96%. Currently denies any complaints of pain or shortness of breath, he remains with a productive cough with white frothy phlegm. Right chest pigtail catheter remains in place to low continuous wall suction -20 cm H2O. He received a dose of pleural instillation of alteplase 10 mg/100 mL normal saline yesterday 03/03/2020. He had 1.8 L of fluid drained from his right pleural pigtail catheter in the last 24 hours with 1.3 L output in the last 8 hours. A repeat chest x-ray was completed today which demonstrated marked improvement of aeration to his right lung, improved right-sided volume, and background chronic emphysematous change with persistent right basilar acute infiltrate and/or atelectasis. He has been on it heparin drip per protocol and is currently on hold as he is scheduled for a bronchoscopy to completed by Dr. Haro today. Laboratory results today show WBC count 11.9, hemoglobin 10.5, platelets 377, PTT 84.6, sodium 128, potassium 6.0, BUN 31, creatinine 1.05. On 03/05/2020 the patient was seen in follow-up at his bedside on the cardiac stepdown unit. He is currently resting comfortably in bed, he is in no acute distress. He is awake and alert and oriented 3 with periods of forgetfulness. Oxygen saturations are 95% on 4 L nasal cannula. He is achieving 500 mL on his incentive spirometry. Right pleural pigtail catheter remains in place to Pleur- evac and to low continuous wall suction -20 cm H2O. No air leak is present. Draining thin serosanguineous drainage with 280 mL output in the last 24 hours. He received a second dose of alteplase 10 mg/100 mils of normal saline yesterday. A repeat chest x-ray was completed today which shows new, near complete whiteout of the right hemithorax with suggestion of volume loss on this side. He also underwent a bronchoscopy yesterday completed by Dr. Haro from pulmonary medicine which showed compressive atelectasis of the right lower lobe segments in addition to the right middle lobe segments, no evidence of any endobronchial tumors and airways were essentially endobronchially patent. Laboratory results today show a WBC count 11.5, hemoglobin 9.7, platelets 352, sodium 131, potassium 5.8, BUN 41, and creatinine 1.47. Preliminary bronchial washing cultures showed rare gram-positive cocci. He remains on Zosyn for antibiotic coverage. The right pleural fluid thoracentesis cytology results are back and show malignant effusion consistent with metastatic adenocarcinoma. On 03/06/2020 the patient was seen in follow-up at his bedside on the cardiac stepdown unit. Currently, he is resting comfortably in bed and is in no acute distress. Denies any complaints of pain and reports that she does not have any shortness of breath and feels that his breathing is about the same as yesterday. Oxygen saturation are 92% on 3 L nasal cannula and he is achieving 1000 mL with encouragement on his incentive spirometry. He remains hemodynamically stable and has been afebrile the last 24 hours. A chest x-ray was completed this morning which demonstrates per the report and near complete white out of the right lung with mediastinal shift which is felt to be from a combination of pleural fluid and atelectasis. He remains with a right chest pigtail catheter in place draining thin serosanguineous drainage with 120 mL output in the last 24 hours. He did receive a dose of alteplase 10 mg/100 mL of normal saline pleural instillation yesterday which was his third dose today. There is no air leak present on the pigtail catheter and a remains to low continuous wall suction -20 cm H2O. The pleural fluid thoracentesis cytology results did come back positive for malignant effusion consistent with metastatic adenocarcinoma. His cultures from his bronchial alveolar lavage, pleural fluid, blood cultures and sputum cultures have all shown no growth at this time. He is receiving Zosyn for antibiotic coverage. Labs today show a WBC count 9.1, hemoglobin 9.0, platelets 355, sodium 134, BUN 37, and creatinine 1.08. Objective - Vital Signs Vital signs: Vital Signs Temp 98.1 F 03/06/20 04:00 Pulse 88 03/06/20 04:00 Resp 19 03/06/20 04:00 BP 108/57 03/06/20 04:00 Pulse Ox 92 L 03/06/20 04:00 Intake & Output 03/05/20 03/06/20 03/06/20 18:59 06:59 18:59 Intake Total 120 Output Total 740 600 Balance -740 -600 120 Weight 122.7 kg Intake: Oral 120 Output: Chest Tube Drainage 440 0 Chest Tube Right Upper 440 0 Urine 300 600 Other: Voiding Method Urinal # Voids 1 # Bowel Movements 1 1 - Exam The patient is pleasant 79-year-old gentleman who is alert and oriented 3 with periods of forgetfulness. He is in no acute distress. Oxygen saturation is 92% on 3 L nasal cannula. - Constitutional General appearance: Present: cooperative, morbidly obese, no acute distress - EENT Eyes: Present: PERRLA, normal appearance. Absent: scleral icterus ENT: Present: hard of hearing, normal oropharynx. Absent: thrush - Neck Details: Neck is supple, no JVD. Neck: Absent: lymphadenopathy, stridor - Respiratory Details: Lungs sounds essentially clear to his left lobes, diminished throughout his r ight chest. Respirations are symmetrical and nonlabored. Oxygen saturation is 92% on 3 L nasal cannula. Achieving 1000 L on his incentive spirometry. Right chest pigtail catheter in place to low continuous wall suction -20 cm H2O. No air leak is present. 120 mL output in the last 24 hours of thin serosanguineous drainage. - Cardiovascular Details: Regular rhythm and rate. S1 and S2 present, negative for S3, gallop or murmur. - Gastrointestinal Gastrointestinal Comment(s): Abdomen is soft, nontender and nondistended. Active bowel sounds present in all 4 abdominal quadrants. No guarding or rigidity. - Integumentary Integumentary Comment(s): Skin is warm and dry. No clubbing or cyanosis is present. Integumentary: Absent: rash - Neurologic Neurologic: Present: CNII-XII intact - Musculoskeletal Musculoskeletal: Present: generalized weakness, strength equal bilaterally - Psychiatric Psychiatric: Present: A&O x's 3 (With periods of forgetfulness), appropriate affect - Allied health notes Allied health notes reviewed: nursing - Labs CBC & Chem 7: 03/06/20 07:11 03/06/20 07:11 Labs: Abnormal Lab Results - Last 24 Hours (Table) 03/06/20 03/06/20 Range/Units 07:11 07:11 RBC 3.07 L (4.30-5.90) m/uL Hgb 9.0 L (13.0-17.5) gm/dL Hct 29.0 L (39.0-53.0) % MCHC 30.9 L (31.0-37.0) g/dL RDW 17.2 H (11.5-15.5) % Neutrophils # 7.9 H (1.3-7.7) k/uL Lymphocytes # 0.8 L (1.0-4.8) k/uL Sodium 134 L (137-145) mmol/L Carbon Dioxide 21 L (22-30) mmol/L BUN 37 H (9-20) mg/dL Glucose 101 H (74-99) mg/dL Calcium 7.9 L (8.4-10.2) mg/dL Total Protein 4.7 L (6.3-8.2) g/dL Albumin 2.1 L (3.5-5.0) g/dL Microbiology - Last 24 Hours (Table) 03/04/20 11:55 Gram Stain - Final Bronchoalviolar Lavage - Right Bronchial Washings Culture - Final 02/28/20 16:20 Blood Culture - Final Blood No Growth after 144 hours - Imaging and Cardiology Chest x-ray: report reviewed, image reviewed Assessment and Plan Assessment: 1. Shortness of breath and cough, in a patient with a large right-sided pleural effusion and lung consolidation, rule out pneumonia with pleural effusion. Certainly with a history of prior smoking, malignancy will have to be considered. A 2.9 cm spiculated mass to his left upper lobe found on computed tomography scan of his chest, suspicious for malignancy. Status post placement of right chest pigtail catheter placed by interventional radiology. Computed tomography scan of his chest completed 03/03/2020 showing increased large right loculated pleural effusion and questionable for air in the mediastinum. Right pleural fluid thoracentesis cytology results showing malignant effusion c onsistent with metastatic adenocarcinoma. 2. Remote history of tobacco use with underlying chronic obstructive pulmonary disease. Quit smoking 5 years ago. 3. History of prostate cancer, status post radiation therapy and hormonal treatments. 4. History of colon cancer with previous colectomy. 5. History of gastroesophageal reflux disease. 6. Hypertension. 7. Hyperlipidemia. 8. Osteoarthritis 9. Prior history of pneumonia and bronchitis. 10. Home O2 at 2 L/m at bedtime and when necessary. 11. History of glaucoma. 12. History of cataracts with bilateral cataract surgery and lens implants. Plan: 1. Keep the right pleural pigtail catheter in place to low continuous wall suction -20 cm H2O. 2. We will hold on alteplase pleural fluid installation today. 3. Encourage use of incentive spirometry 10 times every hour while awake. 4. GI and DVT prophylaxis. Heparin drip is currently on hold for the bronchoscopy procedure. 5. We will continue to follow his chest x-rays. 6. Medical management and other comorbidities per primary care service and pulmonary medicine. 7. Patient may need a needle biopsy of the left upper lobe mass necessary for staging as his computed tomography scan of his chest demonstrates a 2.9 cm spiculated nodule to his left upper chest which could be consistent with bronchogenic carcinoma. 8. Patient also may need a Pleurx catheter. 9. Per oncology/hematology they will obtain a computed tomography scan of his chest/abdomen and pelvis today with contrast. 10. More recommendations to follow based on patient's clinical course. Time with Patient: Less than 30
--- NOTE | 2020-03-06 12:45 | CT ---
EXAMINATION TYPE: CT ChestAbdPelvis w con DATE OF EXAM: 03/06/2020 COMPARISON: Chest is compared to a previous study of 03/03/2003 abdomen and pelvis is compared to a pr evious study of 05/24/2017. HISTORY: Lung collapse CT DLP: 1516.9 mGycm Automated exposure control for dose reduction was used. TECHNIQUE: Helical acquisition through the abdomen and pelvis was obtained without oral contrast but following the intravenous administration of 100 ml mL of Isovue 300. The data was formatted in the a xial, coronal and sagittal projections. FINDINGS: There is a spiculated 1.5 x 2.6 x 1.8 cm mass in the left lung apex. This is essentially un changed from previous. There is underlying emphysematous change. There is a right posterior pleural drain in place. There are bubbles within the pleural space as well as some subcutaneous emphysema. There is a loculated fluid posterior and superior. There appears to be complete collapse of the right lung. Both the right upper and lower lobe bronchi are occluded. The re is slight shift of the mediastinal structures towards the right. No definite pericardial fluid is seen. The heart is not enlarged. Within the abdomen, there is an 11 mm hypoattenuating lesion in the posterior segment of the right lo be of the liver. This is unchanged from previous. The liver is otherwise unremarkable. The gallbladde r is been removed. The spleen is normal. There is a stable right adrenal mass measuring 2.1 cm. The left adrenal gland is normal. Right kidney is normal. There are 2 simple appearing cysts involving the upper pole of the left kidne y. The largest measures 2 cm. The pancreas is unremarkable. There is moderate atheromatous calcification of the visualized arterial tree. There is no significant retroperitoneal, iliac or inguinal adenopathy. The bladder is unremarkable. There is calcification within the prostate and there are prostate seeds present. There are scattered diverticula within the sigmoid colon there is evidence of a previous descending c olonic resection. The appendix is not visualized with certainty. Small bowel loops are normal in caliber. There is no free fluid and no free air. There is mild anasarca in the lower pelvis. There is a left-sided inguinal hernia containing fat only. There is an S-shaped scoliosis convex to the left in the upper thoracic region and to the right in th e lower thoracic region. There is degenerative disc disease, facet arthropathy and hypertrophic spond ylosis within the spine. There is a superior endplate infraction of the L1 vertebral body. This repre sents a new finding. IMPRESSION: 1. COMPLETE COLLAPSE OF THE RIGHT LUNG SECONDARY TO OCCLUSION OF BOTH THE UPPER AND LOWER LOBE PULMON NEAL BRONCHI. 2. AIR WITHIN THE RIGHT PLEURAL SPACE SECONDARY TO A PLEURAL DRAINAGE CATHETER. 3. STABLE SPICULATED MASS IN THE LEFT UPPER LOBE. 4. EMPHYSEMATOUS CHANGE. 5. STABLE LESION WITHIN THE POSTERIOR SEGMENT OF THE RIGHT LOBE OF THE LIVER. 6. STABLE RIGHT ADRENAL MASS MEASURING 2.1 CM. 7. SIMPLE APPEARING LEFT RENAL CYSTS. 8. MINIMAL UNCOMPLICATED DIVERTICULAR CHANGES SIGMOID COLON. 9. MILD ANASARCA OF THE LOWER ABDOMEN AND PELVIS. 10. LEFT INGUINAL HERNIA CONTAINING FAT ONLY. 11. SCOLIOSIS AND DEGENERATIVE CHANGES WITHIN THE SPINE. 12. INTERVAL DEVELOPMENT OF A SUPERIOR ENDPLATE INFRACTION AT L1.
--- NOTE | 2020-03-06 13:56 | P.PN ---
Subjective Progress Note Date: 03/06/20 On 03/06/2020, the patient is on police about 2 by nasal cannula. His shortness of breath with minimal amount of activity. He is doing okay at rest. Chest x- ray still showing significant opacification of the right lung. There is also volume loss of the shaft of the trachea to the right suspecting atelectasis. The right-sided pigtail catheter in place. The drainage has been in the order of 120 mL over the past 24 hours. He did receive 2 doses of alteplase earlier with improvement in the drainage and subsequently the patient collapsed the entire right lung. Based on that, I'm doing a CAT scan of the chest to evaluate the condition. The CAT scan was completed and the patient was found to have occlusion of the distal bronchus intermedius with a complete collapse of the right lung and there are areas of lacunar the pleural effusion scattered throughout the right hemithorax. The predominant finding however is right lung collapse. There is also a liver lesion that has been stable as noted on the CAT scan. I have ordered the bronchoscope this patient. There is no evidence of any endobronchial tumor. The distal bronchus intermedius was found to be patent. The segment and right middle lobe and the right lower lobe were narrowed mainly due to atelectasis. At that time the right mainstem bronchus and the right upper lobe bronchus were patent. I'm considering repeating the bronchoscope tomorrow for reevaluation should there be any mucous plugs obstructing the airway. Nevertheless, I was not able to visualize any endobronchial tumors. Noted the pleural fluid cytology came back positive for adenocarcinoma which is most likely of a lung primary. Objective - Vital Signs Vital signs: Vital Signs Temp 98 F 03/06/20 08:45 Pulse 97 03/06/20 08:45 Resp 18 03/06/20 08:45 BP 123/72 03/06/20 08:45 Pulse Ox 95 03/06/20 08:45 Intake & Output 03/05/20 03/06/20 03/06/20 18:59 06:59 18:59 Intake Total 120 Output Total 740 600 0 Balance -740 -600 120 Weight 122.7 kg Intake: Oral 120 Output: Chest Tube Drainage 440 0 0 Chest Tube Right Upper 440 0 0 Urine 300 600 Other: Voiding Method Urinal # Voids 1 0 # Bowel Movements 1 1 - Exam GENERAL EXAM: Alert, very pleasant, gentleman on 4 L of oxygen with a pulse ox of 97% comfortable in no apparent distress. HEAD: Normocephalic/atraumatic. EYES: Normal reaction of pupils, equal size. Conjunctiva pink, sclera white. NOSE: Clear with pink turbinates. THROAT: No erythema or exudates. NECK: No masses, no JVD, no thyroid enlargement, no adenopathy. CHEST: No chest wall deformity. Symmetrical expansion. right-sided chest tube in place, with small amount of serous drainage LUNGS: Equal air entry with diminished breath sounds throughout the right lung. Pigtail catheter is present, connected to Pleur-evac, with serous fluid CVS: Regular rate and rhythm, normal S1 and S2, no gallops, no murmurs, no rubs ABDOMEN: Soft, nontender. No hepatosplenomegaly, normal bowel sounds, no guarding or rigidity. EXTREMITIES: No clubbing, no edema, no cyanosis, 2+ pulses and upper and lower extremities. MUSCULOSKELETAL: Muscle strength and tone normal. SPINE: No scoliosis or deformity SKIN: No rashes CENTRAL NERVOUS SYSTEM: Alert and oriented -3. No focal deficits, tone is normal in all 4 extremities. PSYCHIATRIC: Alert and oriented -3. Appropriate affect. Intact judgment and insight. - Labs CBC & Chem 7: 03/06/20 07:11 03/06/20 07:11 Labs: Abnormal Lab Results - Last 24 Hours (Table) 03/06/20 03/06/20 Range/Units 07:11 07:11 RBC 3.07 L (4.30-5.90) m/uL Hgb 9.0 L (13.0-17.5) gm/dL Hct 29.0 L (39.0-53.0) % MCHC 30.9 L (31.0-37.0) g/dL RDW 17.2 H (11.5-15.5) % Neutrophils # 7.9 H (1.3-7.7) k/uL Lymphocytes # 0.8 L (1.0-4.8) k/uL Sodium 134 L (137-145) mmol/L Carbon Dioxide 21 L (22-30) mmol/L BUN 37 H (9-20) mg/dL Glucose 101 H (74-99) mg/dL Calcium 7.9 L (8.4-10.2) mg/dL Total Protein 4.7 L (6.3-8.2) g/dL Albumin 2.1 L (3.5-5.0) g/dL Microbiology - Last 24 Hours (Table) 03/04/20 11:55 Gram Stain - Final Bronchoalviolar Lavage - Right Bronchial Washings Culture - Final 02/28/20 16:20 Blood Culture - Final Blood No Growth after 144 hours Assessment and Plan Plan: 1. Right lung complete opacification due to right lung atelectasis. The patient has a malignancy within the chest which is thought to be adenocarcinoma of the lung most likely. The pleural fluid that was drained earlier was malignant. The patient had some partial reexpansion of the right lung following the initial thoracentesis and there was also partial reexpansion after utilization of alteplase with a pigtail catheter. Subsequently, the patient developed a complete right lung collapse. I have done a bronchoscopy earlier in this patient and there was no evidence of any endobronchial tumors. I think there is a large mass in the right lower lobe which is acting like a consolidati ve area and furthermore the patient had a complete collapse of the right lung. He is currently hypoxic requiring 3 L of oxygen by nasal cannula. No dyspnea at rest. 2. Large right loculated pleural effusion, initially drained by thoracentesis and subsequent drained by by the pigtail catheter. The fluid is a malignant effusion. The most recent CAT scan of the chest shows small areas of loculated pleural fluid. Predominant opacification the volume loss is related to complete right lung collapse. I think there is a mass within the right lower lobe as evident on the previous CAT scan of the chest. 3. New superior mediastinal density at the right lateral aspect of the trachea with the possibility of mediastinal fluid or mediastinal hematoma in on the CT of the chest today on 03/03/2020 4. Remote history of tobacco use with underlying chronic obstructive pulmonary disease. Quit smoking 5 years ago. 5. History of prostate cancer, status post radiation therapy and hormonal treatments. 6. History of colon cancer with previous colectomy. 7. History of gastroesophageal reflux disease. 8. Hypertension. 9. Hyperlipidemia. 10. Degenerative joint disease 11. Prior history of pneumonia and bronchitis. 12. Home O2 at 2 L/m at bedtime and when necessary. 13. History of glaucoma. 14. History of cataracts with bilateral cataract surgery and lens implants. Plan Poor prognosis In my opinion the best along the right lung is lost and the patient has complete collapse of the right lung. I'm going to do another bronchoscopy tomorrow to evaluate the patency of the airway again. My earlier bronchoscope showed no evidence of any endobronchial tumors or lesions. There was compressive atelectatic changes of the subsegments related to atelectasis. No evidence of any mucous or foreign bodies. This needs to be reevaluated based on the new findings of the complete right lung collapse. Keep the pigtail catheter in place Monitor the output from the pigtail Keep patient on oxygen at 3 L Oncology evaluation Poor prognosis based on the above-mentioned comorbidities. Family including the is aware of the diagnosis of cancer.
[2020-03-06] MEDS ORDERED: FAMOTIDINE 20 MG/2 ML VIAL IV SCH (21:00)
--- NOTE | 2020-03-06 21:34 | P.PN ---
Subjective This is a 79-year-old gentleman admitted to the hospital for community-acquired pneumonia, large right-sided pleural effusion. Underwent right-sided thoracentesis yesterday with 2.4 L removed. Tolerated procedure well. Pleural cytology pending. CT post thoracentesis reporting no evidence of mediastinal air or pneumothorax,right lower lobe with small to moderate residual pleural effusion, 2.9 cm spiculated mass anterior left upper lobe, no prior CTs here to compare to as per radiology. Tested negative for coronavirus. Legionella cultures pending. Maintaining O2 sats of mid 90s on 5 L nasal cannula in a patient who normally wears 2 L nasal cannula,. Sodium 128, potassium 4.7, creatinine 0.75. Afebrile. 03/02/2020 Minimal ambulation. Complains of constipation. Antibiotics adjusted to Zosyn and vancomycin. Maintaining O2 sats in the 90s on 5 L nasal cannula. Complained of increased shortness of breath earlier this morning , currently denies .Chest x-ray reporting increasing moderate to large right pleural effusion .scheduled for PIG tail placement with interventional radiology. Pleural cytology pending from prior thoracentesis. Afebrile. 03/03/2020 Chest x-ray reporting increasing right-sided moderate to large pleural effusion, minimal Pleur-evac output since initial drainage status post placement.repeat CT scan ordered for comparison regarding lung mass. TPA to chest tube pending as per pulmonary. Respiratory status worsened today, patient appears pasty with increased shortness of breath. Denies chest pain, pal pitations. Telemetry sinus rhythm. 03/04/2020 Antrum switched out last night with approximately 1.8 L output overnight including 1.3 L over the last 8 hours, post TPA to chest tube. Chest x-ray reporting improvement in aeration of right lung with improved riight side volume, persistent right basilar acute infiltrate/atelectasis, obstructing endobronchial lesion not excluded.Scheduled for another dose of TPA today. Complains of discomfort at chest tube insertion site. Currently NPO for Bro nchoscopy this morning. Potassium 6, rectal Kayexalate ordered. Follow-up CT reporting mediastinal shift to the right secondary to atelectasis, new care with increasing large right loculated pleural effusion rendering a hydropneumothorax. Pleural fluid loculated at the lung apex and surrounding the right upper lobe. New density in the mediastinum, cuttoff of the right main stem bronchi with pa ucity of distal aerated segment and subsegmental bronchi, questionable pneumomediastinum versus spray artifact from contrast. New adrenal gland nodule. Spiculated left upper lobe pulmonary nodule measuring 2.4 x 1 cm concerning for lung cancer and potential metastasis Small amount hepatic ascites. Cardiothoracic surgery consulted, radiology films reviewed, recommending diagnostic bronchoscopy regarding suspected bronchogenic carcinoma. At this time no surgical intervention recommended related to high suspicion of advanced stage. Creatinine mildly worsened, to 1.05. Currently maintaining O2 sats in the 90s on 6 L nasal cannula. Patient reports he had a rough night, with increased shortness of breath; at one point during the night required wearing a Ventimask. Afebrile, WBC up to 11.9, hemoglobin up to 10.5. Denies chest pain, palpitations. 03/05/2020 Yesterday he underwent diagnostic bronchoscopy reporting compressive atelectasis of the right lower lobe in addition to right middle lobe segments with no evidence of endobronchial tumor, airways patent. Maintaining O2 sats in the 90s on 5 L nasal cannula O2. Chest x-ray reporting near complete whiteout of the right hemothorax with suspected significant lobar collapse with concurrent effusion and consolidation .Cytology reporting metastatic adenocarcinoma, suspected lung versus upper GI. Pleural cultures pending. Yesterday hyperkalemic received Kayexalate with potassium down to 5.4 yesterday afternoon. Reports no flatus, no bowel movement post Kayexalate yesterday. Potassium currently at 5.8. Renal function worsening up to 1.47. Chest tube draining 345 during the day shift yesterday, and no further drainage overnight scheduled for another dose of TPA to the chest tube. Subjective: 03/06/2020 I Started taking care of the patient today over the weekend , Dr. Yu team to resume the care of the patient on Thursday 03/08 This is a pleasant 81 years old male presents with right hydropneumothorax and questionable air in the mediastinum, he has right located pleural effusion which was positive for metastatic adenocarcinoma, source possible GI or lung. With lung mass in the left upper lobe. This morning patient was lying in bed, still dyspneic and short of breath with talking. Occasional coughing. No chest pain. He has right-sided chest tube Vitals are stable and he is saturating 92% on 3 L. WBCs normal 5.1K, hemoglobin 9.0, electrolytes and creatinine are back to normal with sodium 134 and potas sium 4.1. Bronchial culture showing no gross. Chest x-ray showing near complete whiteout of the right lung with mediastinal shift likely on the basis of a combination of pleural fluid and atelectasis, radiology slightly worse. CT of the abdomen, pelvis and chest showed complete collapse of the right lung with anasarca, left upper lobe lung mass, spiculated. Pulmonary team for bronchoscopy in a.m. Patient currently on Zosyn, normal saline at 60 L per hour, oncology team on the case Objective - Vital Signs Vital signs: Vital Signs Temp 98.1 F 03/06/20 04:00 Pulse 88 03/06/20 04:00 Resp 19 03/06/20 04:00 BP 108/57 03/06/20 04:00 Pulse Ox 92 L 03/06/20 04:00 Intake & Output 03/05/20 03/06/20 03/06/20 18:59 06:59 18:59 Intake Total 120 Output Total 740 600 Balance -740 -600 120 Weight 122.7 kg Intake: Oral 120 Output: Chest Tube Drainage 440 0 Chest Tube Right Upper 440 0 Urine 300 600 Other: Voiding Method Urinal # Voids 1 # Bowel Movements 1 1 - Exam GENERAL: The patient is alert and oriented x3, not in any acute distress. Well developed, well nourished. HEENT: Pupils are round and equally reacting to light. EOMI. No scleral icterus. No conjunctival pallor. Normocephalic, atraumatic. No pharyngeal erythema. No thyromegaly. CARDIOVASCULAR: S1 and S2 present. No murmurs, rubs, or gallops. PULMONARY: Chest is clear to auscultation, no wheezing or crackles. ABDOMEN: Soft, nontender, nondistended, normoactive bowel sounds. No palpable organomegaly. MUSCULOSKELETAL: No joint swelling or deformity. EXTREMITIES: No cyanosis, clubbing, or pedal edema. NEUROLOGICAL: Gross neurological examination did not reveal any focal deficits. SKIN: No rashes. no petechiae. - Labs CBC & Chem 7: 03/06/20 07:11 03/06/20 07:11 Labs: Abnormal Lab Results - Last 24 Hours (Table) 03/06/20 03/06/20 Range/Units 07:11 07:11 RBC 3.07 L (4.30-5.90) m/uL Hgb 9.0 L (13.0-17.5) gm/dL Hct 29.0 L (39.0-53.0) % MCHC 30.9 L (31.0-37.0) g/dL RDW 17.2 H (11.5-15.5) % Neutrophils # 7.9 H (1.3-7.7) k/uL Lymphocytes # 0.8 L (1.0-4.8) k/uL Sodium 134 L (137-145) mmol/L Carbon Dioxide 21 L (22-30) mmol/L BUN 37 H (9-20) mg/dL Glucose 101 H (74-99) mg/dL Calcium 7.9 L (8.4-10.2) mg/dL Total Protein 4.7 L (6.3-8.2) g/dL Albumin 2.1 L (3.5-5.0) g/dL Microbiology - Last 24 Hours (Table) 03/04/20 11:55 Gram Stain - Final Bronchoalviolar Lavage - Right Bronchial Washings Culture - Final 02/28/20 16:20 Blood Culture - Final Blood No Growth after 144 hours Assessment and Plan Assessment: -Acute on chronic hypoxic, hypercapnic respiratory failure secondary to right large pleural effusion, possible right-sided pneumonia, with malignancy. Acute right large pleural effusion, status post thoracentesis, cytology reporting metastatic adenocarcinoma, suspect lung versus upper GI. Recurrent Right pleural effusion , s/p right pigtail cath placement. Repeat CT 03/03 reporting new air and increasing large right loculated pleural effusion, hydropneumothorax, atelectasis, possible mediastinal shift with questionable air in the mediastinum. New superior mediastinal density in the right lateral aspect of the trachea with possibility of hematoma. Bronchoscopy 03/04 reporting compressive atelectasis of the right lower lobe segments and right middle lobe segments with no evidence of endobronchial tumor, airways patent. -Collapse of the right leg secondary to above -2.9 cm spiculated mass anterior left upper lobe, suspicious for malignancy. -Acute on chronic hypoxic respiratory failure secondary to the above. Wears 2 L nasal cannula O2 at home. -Hyperkalemia, improved -Hyponatremia -History of nicotine dependence -Prostate cancer, history of radiation and hormonal treatments -Colon cancer with history of colectomy -Gastroesophageal reflux disease -Hypertension -Hyperlipidemia -Degenerative joint disease -Glaucoma -History of cataracts with lens implant -acute renal failure Plan: This is a pleasant 79 years old male who presents with right hydropneumothorax, Ehrman the mediastinum, with lung mass with possible infection component. Continue with Zosyn. Continue with normal saline. Continue with breathing treatment and oxygen as needed. Consult is on the case including pulmonary, cardiothoracic surgery for possible Pleurx catheter placement and oncology team Labs and medication were reviewed.. Continue same treatment. Continue with symptomatic treatment. Resume home medication. Monitor lytes and vitals. DVT and GI prophylaxis. Further recommendations of the clinical course of the patient DVT prophylaxis: Subcutaneous heparin GI Prophylaxis: Pepcid Prognosis is guarded
[2020-03-06] MEDS: ATORVASTATIN 20 MG TAB PO SCH (21:44)
[2020-03-06] MEDS: LATANOPROST 0.005% OPHTH DROPS 2.5 ML BTL BOTH EYES SCH (21:46)
[2020-03-06] MEDS: traMADol 50 MG TAB PO PRN (22:45)
[2020-03-07] MEDS: SODIUM CHLORIDE 0.9% 1,000 ML IV SCH ×2 (02:58→18:31)
[2020-03-07] MEDS: PIPERACILLIN-TAZOBACTAM 3.375 GM in SODIUM CHLORIDE 0.9% 100 ML IVPB SCH ×3 (03:45→20:17)
[2020-03-07] MEDS: DRONABINOL 2.5 MG CAP PO SCH ×2 (07:00→15:44)
[2020-03-07 07:08] LABS: African American GFR (CKD) >90 (>60 ml/min/1.73 sqM); Anion Gap 6 mmol/L; Blood Urea Nitrogen 30 mg/dL (9-20); Calcium 7.6 mg/dL (8.4-10.2); Carbon Dioxide 22 mmol/L (22-30); Chloride 108 mmol/L (98-107); Glucose 91 mg/dL (74-99); Non-African American GFR(CKD) 78 (>60 ml/min/1.73 sqM); Potassium 3.8 mmol/L (3.5-5.1); Sodium 136 mmol/L (137-145)
--- NOTE | 2020-03-07 07:13 | XR ---
EXAMINATION TYPE: XR chest 1V portable DATE OF EXAM: 03/07/2020 HISTORY: RT pleural effusion. REFERENCE: Previous study dated 03/06/2020. FINDINGS: There has been significant improvement in the aeration of the right lung. The left lung rem ains clear. Heart size remains obscured. IMPRESSION: IMPROVED AERATION, RIGHT LUNG.
[2020-03-07] MEDS: ALBUTEROL HFA INHALER INHALATION SCH ×4 (07:58→20:03)
[2020-03-07] MEDS: TIOTROPIUM 18 MCG/PUFF INHALER INHALATION SCH (07:58)
[2020-03-07] MEDS: DOCUSATE 100 MG CAP PO SCH ×3 (09:32→20:17)
[2020-03-07] MEDS: VERAPAMIL 40 MG TAB PO SCH ×4 (09:32→20:18)
[2020-03-07] MEDS: SENNOSIDES-DOCUSATE SODIUM 1 EACH TAB PO SCH ×2 (09:32→20:18)
--- NOTE | 2020-03-07 11:10 | P.PN ---
Subjective Progress Note Date: 03/07/20 Principal diagnosis: This is an 79-year-old gentleman who follows with Dr. Truman Yu on an outpatient basis. He has past medical history significant for hypertension, hyperlipidemia, chronic obstructive pulmonary disease with home oxygen use at bedtime and when necessary 2 L per nasal cannula, history of tobacco abuse which he quit smoking 5 years ago, prostate cancer with radiation/hormone treatments, colon cancer with colectomy, GERD, osteoarthritis, memory impairment and history of pneumonia. On 02/28/2020 the patient presented to the emergency department here at [facility] with complaints of shortness of breath and back pain which is worse when taking a deep breath. He denied any fevers, chills, cough, hemoptysis, headache, nausea, vomiting, or diarrhea. A chest x- ray was completed in the emergency department which showed a large right pleural effusion and probable right lower lobe consolidation that was new compared to his old exam. Dr. Johnson from pulmonary medicine was consulted and an ultrasound of his chest was completed which demonstrated a right pleural effusion pocket size of 14.1 cm. Subsequently, due to the large right pleural effusion he underwent a right thoracentesis with 2.4 L of dark yellow fluid drained from the pleural space. A repeat chest x-ray was completed yesterday which showed an increasing right-sided moderate to large pleural effusion. Due to the recurrent right pleural effusion he underwent an ultrasound-guided placement of a right pleural drainage tube catheter placed by interventional radiology. The patient right chest pigtail catheter remains in place to waterseal and his draining thin serosanguineous drainage. The x-ray completed this morning demonstrates a worsening large right pleural effusion despite the right thoracostomy tube positioning appears to be appropriately radiographically. It also showed a mediastinal shift to the right is partially secondary to the patient rotation but also likely partially related to atelectasis. For further evaluation and computed tomography scan of his chest with contrast was completed which the report demonstrated new air and an increasing large right loculated pleural effusion rendering this a hydropneumothorax by definition, also showed in increase in the degree of right lung atelectasis, near-complete with rightward mediastinal shift and areas of low density intervening within the atelectasis raising suspicion for underlying pneumonia, punctuate foci of questionable air in the mediastinum and directly adjacent to the superior vena cava, new superior mediastinal density at the right lateral aspect of the trachea that may represent mediastinal fluid or mediastinal hematoma, cut off of the right mainstem bronchus with paucity of downstream aerated right lung bronchi, new right adrenal gland nodule in comparison to his prior exam in 2017 and a spiculated left upper lobe pulmonary nodule with findings concerning for lung cancer and potential metastasis, and very small amount of perihepatic ascites. Due to the patient's presenting symptoms, and findings on his computed tomography scan of his chest a consult was placed to Dr. Gigi Munoz from cardiothoracic surgery for further evaluation and treatment recommendations. POD #4 placement of right pleural pigtail catheter inserted by interventional radiology. On 03/04/2020 the patient was seen in follow-up at his bedside on the cardiac stepdown unit. He is resting comfortably in bed. He is alert and oriented 2 and is in no acute distress. He remains hemodynamically stable, he has been afebrile the last 24 hours and his oxygen saturations are 100% on 4 L nasal cannula. His oxygenation has improved as yesterday he was on 5 L nasal cannula and was satting 96%. Currently denies any complaints of pain or shortness of breath, he remains with a productive cough with white frothy phlegm. Right chest pigtail catheter remains in place to low continuous wall suction -20 cm H2O. He received a dose of pleural instillation of alteplase 10 mg/100 mL normal saline yesterday 03/03/2020. He had 1.8 L of fluid drained from his right pleural pigtail catheter in the last 24 hours with 1.3 L output in the last 8 hours. A repeat chest x-ray was completed today which demonstrated marked improvement of aeration to his right lung, improved right-sided volume, and background chronic emphysematous change with persistent right basilar acute infiltrate and/or atelectasis. He has been on it heparin drip per protocol and is currently on hold as he is scheduled for a bronchoscopy to completed by Dr. Haro today. Laboratory results today show WBC count 11.9, hemoglobin 10.5, platelets 377, PTT 84.6, sodium 128, potassium 6.0, BUN 31, creatinine 1.05. On 03/05/2020 the patient was seen in follow-up at his bedside on the cardiac stepdown unit. He is currently resting comfortably in bed, he is in no acute distress. He is awake and alert and oriented 3 with periods of forgetfulness. Oxygen saturations are 95% on 4 L nasal cannula. He is achieving 500 mL on his incentive spirometry. Right pleural pigtail catheter remains in place to Pleur- evac and to low continuous wall suction -20 cm H2O. No air leak is present. Draining thin serosanguineous drainage with 280 mL output in the last 24 hours. He received a second dose of alteplase 10 mg/100 mils of normal saline yesterday. A repeat chest x-ray was completed today which shows new, near complete whiteout of the right hemithorax with suggestion of volume loss on this side. He also underwent a bronchoscopy yesterday completed by Dr. Haro from pulmonary medicine which showed compressive atelectasis of the right lower lobe segments in addition to the right middle lobe segments, no evidence of any endobronchial tumors and airways were essentially endobronchially patent. Laboratory results today show a WBC count 11.5, hemoglobin 9.7, platelets 352, sodium 131, potassium 5.8, BUN 41, and creatinine 1.47. Preliminary bronchial washing cultures showed rare gram-positive cocci. He remains on Zosyn for antibiotic coverage. The right pleural fluid thoracentesis cytology results are back and show malignant effusion consistent with metastatic adenocarcinoma. On 03/06/2020 the patient was seen in follow-up at his bedside on the cardiac stepdown unit. Currently, he is resting comfortably in bed and is in no acute distress. Denies any complaints of pain and reports that she does not have any shortness of breath and feels that his breathing is about the same as yesterday. Oxygen saturation are 92% on 3 L nasal cannula and he is achieving 1000 mL with encouragement on his incentive spirometry. He remains hemodynamically stable and has been afebrile the last 24 hours. A chest x-ray was completed this morning which demonstrates per the report and near complete white out of the right lung with mediastinal shift which is felt to be from a combination of pleural fluid and atelectasis. He remains with a right chest pigtail catheter in place draining thin serosanguineous drainage with 120 mL output in the last 24 hours. He did receive a dose of alteplase 10 mg/100 mL of normal saline pleural instillation yesterday which was his third dose today. There is no air leak present on the pigtail catheter and a remains to low continuous wall suction -20 cm H2O. The pleural fluid thoracentesis cytology results did come back positive for malignant effusion consistent with metastatic adenocarcinoma. His cultures from his bronchial alveolar lavage, pleural fluid, blood cultures and sputum cultures have all shown no growth at this time. He is receiving Zosyn for antibiotic coverage. Labs today show a WBC count 9.1, hemoglobin 9.0, platelets 355, sodium 134, BUN 37, and creatinine 1.08. On 03/07/2020 the patient was seen in follow-up at his bedside on the cardiac [facility] unit. The patient is laying in bed comfortably and is no acute distress. He denies any complaints of pain and actually reports his breathing feels somewhat better today. The patient reports that he is still having some episodes of shortness of breath with activity. He is hemodynamically stable, remains afebrile the last 24 hours and his oxygen saturations are 94% on 3 L nasal cannula. A right pleural pigtail catheter remains in place to low continuous wall suction -20 cm H2O. No air leak is present. Draining thin serosanguineous drainage with 40 mL output in the last 24 hours. A computed tomography scan of his chest/abdomen and pelvis was completed yesterday which demonstrated complete collapse of the right lung secondary to occlusion of both the upper and lower pulmonary bronchi, air within the right pleural space secondary to pleural drainage catheter, stable spiculated mass in the left upper lobe, emphysematous changes, stable lesion within the posterior segment of the right lobe of the liver, stable right adrenal mass measuring 2.1 cm, simple appearing left renal cyst, left inguinal hernia containing fat only, and interval development of a superior endplate infraction at L1. A repeat chest x- ray was completed this morning which demonstrates improved aeration of his right lung. He is using his incentive spirometry with encouragement and is achieving 1000 mL. Laboratory results today show a sodium 136, potassium 3.8, BUN 30, creatinine 0.92. He does continue to have 0.9% normal saline infusing at 80 mL per hour. Continues on Zosyn for antibiotic coverage. Objective - Vital Signs Vital signs: Vital Signs Temp 97.9 F 03/07/20 08:15 Pulse 95 03/07/20 08:15 Resp 18 03/07/20 08:15 BP 106/91 03/07/20 08:15 Pulse Ox 94 L 03/07/20 08:15 Intake & Output 03/06/20 03/07/20 03/07/20 18:59 06:59 18:59 Intake Total 760 Output Total 700 400 Balance 60 -400 Intake: Intake, IV Titration 520 Amount Piperacillin-Tazobactam 3 100 .375 gm In Sodium Chloride 0.9% 100 ml @ 25 mls/hr IVPB Q8H [facility] Rx#: [id number] Sodium Chloride 0.9% 1, 420 000 ml @ 60 mls/hr IV . [id number] [facility] Rx#:[id number] Oral 240 Output: Chest Tube Drainage 50 0 Chest Tube Right Upper 50 0 Urine 650 400 Other: Voiding Method Urinal Urinal # Voids 0 # Bowel Movements 0 - Exam The patient is pleasant 79-year-old gentleman who is alert and oriented 3 with periods of forgetfulness. He is in no acute distress. Oxygen saturation is 94% on 3 L nasal cannula. - Constitutional General appearance: Present: cooperative, morbidly obese, no acute distress - EENT Eyes: Present: PERRLA, normal appearance. Absent: scleral icterus ENT: Present: normal oropharynx. Absent: thrush - Neck Details: Neck is supple, no JVD. Neck: Absent: lymphadenopathy, thyromegaly - Respiratory Details: Lung sounds essentially clear to his bilateral upper lobes, diminished to his bilateral bases right greater than left. Right pleural pigtail catheter remains in place to low continuous wall suction -20 cm H2O. No air leak is present. Draining thin serosanguineous drainage with 30 mL output in the last 24 hours. Oxygen saturation is 94% on 3 L nasal cannula and he is achieving 1000 mL with encouragement on his incentive spirometry. - Cardiovascular Details: Regular rhythm and rate. S1 and S2 present, negative for S3, gallop or murmur. - Gastrointestinal Gastrointestinal Comment(s): Abdomen is soft, nontender and nondistended. Active bowel sounds present all 4 abdominal quadrants. No organomegaly appreciated. - Integumentary Integumentary Comment(s): Skin is warm and dry. No clubbing or cyanosis is present. Dressing to his right pleural pigtail catheter is clean, dry and in place. - Neurologic Neurologic: Present: CNII-XII intact - Musculoskeletal Musculoskeletal: Present: generalized weakness, strength equal bilaterally - Psychiatric Psychiatric: Present: A&O x's 3 (Periods of forgetfulness.), appropriate affect, intact judgment & insight - Allied health notes Allied health notes reviewed: nursing - Labs CBC & Chem 7: 03/06/20 07:11 03/07/20 05:51 Labs: Abnormal Lab Results - Last 24 Hours (Table) 03/07/20 Range/Units 05:51 Sodium 136 L (137-145) mmol/L Chloride 108 H (98-107) mmol/L BUN 30 H (9-20) mg/dL Calcium 7.6 L (8.4-10.2) mg/dL Microbiology - Last 24 Hours (Table) 03/04/20 11:55 Gram Stain - Final Bronchoalviolar Lavage - Right Bronchial Washings Culture - Final - Imaging and Cardiology Chest x-ray: report reviewed, image reviewed Assessment and Plan Assessment: 1. Shortness of breath and cough, in a patient with a large right-sided pleural effusion and lung consolidation, rule out pneumonia with pleural effusion. Certainly with a history of prior smoking, malignancy will have to be co nsidered. A 2.9 cm spiculated mass to his left upper lobe found on computed tomography scan of his chest, suspicious for malignancy. Status post placement of right chest pigtail catheter placed by interventional radiology. Computed tomography scan of his chest completed 03/03/2020 showing increased large right loculated pleural effusion and questionable for air in the mediastinum. Right pleural fluid thoracentesis cytology results showing malignant effusion consistent with metastatic adenocarcinoma. 2. Remote history of tobacco use with underlying chronic obstructive pulmonary disease. Quit smoking 5 years ago. 3. History of prostate cancer, status post radiation therapy and hormonal treatments. 4. History of colon cancer with previous colectomy. 5. History of gastroesophageal reflux disease. 6. Hypertension. 7. Hyperlipidemia. 8. Osteoarthritis 9. Prior history of pneumonia and bronchitis. 10. Home O2 at 2 L/m at bedtime and when necessary. 11. History of glaucoma. 12. History of cataracts with bilateral cataract surgery and lens implants. Plan: 1. Keep the right pleural pigtail catheter in place to low continuous wall suction -20 cm H2O. 2. We will hold on alteplase pleural fluid installation today. His x-ray from today shows improved aeration of the right lung. 3. Encourage use of incentive spirometry 10 times every hour while awake. 4. GI and DVT prophylaxis. 5. Medical management and other comorbidities per primary care service and pulmonary medicine. 6. Cardiothoracic surgery will continue to follow the patient on an as-needed basis. Please feel free to call us for any further recommendations. Time with Patient: Less than 30
--- NOTE | 2020-03-07 11:31 | P.PN ---
Subjective This is a 79-year-old gentleman admitted to the hospital for community-acquired pneumonia, large right-sided pleural effusion. Underwent right-sided thoracentesis yesterday with 2.4 L removed. Tolerated procedure well. Pleural cytology pending. CT post thoracentesis reporting no evidence of mediastinal air or pneumothorax,right lower lobe with small to moderate residual pleural effusion, 2.9 cm spiculated mass anterior left upper lobe, no prior CTs here to compare to as per radiology. Tested negative for coronavirus. Legionella cultures pending. Maintaining O2 sats of mid 90s on 5 L nasal cannula in a patient who normally wears 2 L nasal cannula,. Sodium 128, potassium 4.7, creatinine 0.75. Afebrile. 03/02/2020 Minimal ambulation. Complains of constipation. Antibiotics adjusted to Zosyn and vancomycin. Maintaining O2 sats in the 90s on 5 L nasal cannula. Complained of increased shortness of breath earlier this morning , currently denies .Chest x-ray reporting increasing moderate to large right pleural effusion .scheduled for PIG tail placement with interventional radiology. Pleural cytology pending from prior thoracentesis. Afebrile. 03/03/2020 Chest x-ray reporting increasing right-sided moderate to large pleural effusion, minimal Pleur-evac output since initial drainage status post placement.repeat CT scan ordered for comparison regarding lung mass. TPA to chest tube pending as per pulmonary. Respiratory status worsened today, patient appears pasty with increased shortness of breath. Denies chest pain, pal pitations. Telemetry sinus rhythm. 03/04/2020 Antrum switched out last night with approximately 1.8 L output overnight including 1.3 L over the last 8 hours, post TPA to chest tube. Chest x-ray reporting improvement in aeration of right lung with improved riight side volume, persistent right basilar acute infiltrate/atelectasis, obstructing endobronchial lesion not excluded.Scheduled for another dose of TPA today. Complains of discomfort at chest tube insertion site. Currently NPO for Bro nchoscopy this morning. Potassium 6, rectal Kayexalate ordered. Follow-up CT reporting mediastinal shift to the right secondary to atelectasis, new care with increasing large right loculated pleural effusion rendering a hydropneumothorax. Pleural fluid loculated at the lung apex and surrounding the right upper lobe. New density in the mediastinum, cuttoff of the right main stem bronchi with pa ucity of distal aerated segment and subsegmental bronchi, questionable pneumomediastinum versus spray artifact from contrast. New adrenal gland nodule. Spiculated left upper lobe pulmonary nodule measuring 2.4 x 1 cm concerning for lung cancer and potential metastasis Small amount hepatic ascites. Cardiothoracic surgery consulted, radiology films reviewed, recommending diagnostic bronchoscopy regarding suspected bronchogenic carcinoma. At this time no surgical intervention recommended related to high suspicion of advanced stage. Creatinine mildly worsened, to 1.05. Currently maintaining O2 sats in the 90s on 6 L nasal cannula. Patient reports he had a rough night, with increased shortness of breath; at one point during the night required wearing a Ventimask. Afebrile, WBC up to 11.9, hemoglobin up to 10.5. Denies chest pain, palpitations. 03/05/2020 Yesterday he underwent diagnostic bronchoscopy reporting compressive atelectasis of the right lower lobe in addition to right middle lobe segments with no evidence of endobronchial tumor, airways patent. Maintaining O2 sats in the 90s on 5 L nasal cannula O2. Chest x-ray reporting near complete whiteout of the right hemothorax with suspected significant lobar collapse with concurrent effusion and consolidation .Cytology reporting metastatic adenocarcinoma, suspected lung versus upper GI. Pleural cultures pending. Yesterday hyperkalemic received Kayexalate with potassium down to 5.4 yesterday afternoon. Reports no flatus, no bowel movement post Kayexalate yesterday. Potassium currently at 5.8. Renal function worsening up to 1.47. Chest tube draining 345 during the day shift yesterday, and no further drainage overnight scheduled for another dose of TPA to the chest tube. Subjective: 03/06/2020 I Started taking care of the patient today over the weekend , Dr. Yu team to resume the care of the patient on Thursday 03/08 This is a pleasant 81 years old male presents with right hydropneumothorax and questionable air in the mediastinum, he has right located pleural effusion which was positive for metastatic adenocarcinoma, source possible GI or lung. With lung mass in the left upper lobe. This morning patient was lying in bed, still dyspneic and short of breath with talking. Occasional coughing. No chest pain. He has right-sided chest tube Vitals are stable and he is saturating 92% on 3 L. WBCs normal 5.1K, hemoglobin 9.0, electrolytes and creatinine are back to normal with sodium 134 and potas sium 4.1. Bronchial culture showing no gross. Chest x-ray showing near complete whiteout of the right lung with mediastinal shift likely on the basis of a combination of pleural fluid and atelectasis, radiology slightly worse. CT of the abdomen, pelvis and chest showed complete collapse of the right lung with anasarca, left upper lobe lung mass, spiculated. Pulmonary team for bronchoscopy in a.m. Patient currently on Zosyn, normal saline at 60 L per hour, oncology team on the case 03/07/2020 Patient was sitting in bed, still dyspneic, however he can talk with some difficulty. He has little cough. He saturating 94% on 3 L oxygen via nasal cannula, rest of Vitas looks stable. Sodium is 136, creatinine 0.9. Chest x-ray showing improvement in the right lung herniation. Is status post right pleural pigtail catheter under suction Patient is followed closely by pulmonary and cardiothoracic surgery Dr. Yu team will resume the care of the patient tomorrow Objective - Vital Signs Vital signs: Vital Signs Temp 97.9 F 03/07/20 08:15 Pulse 95 03/07/20 08:15 Resp 18 03/07/20 08:15 BP 106/91 03/07/20 08:15 Pulse Ox 94 L 03/07/20 08:15 Intake & Output 03/06/20 03/07/20 03/07/20 18:59 06:59 18:59 Intake Total 760 Output Total 700 400 Balance 60 -400 Intake: Intake, IV Titration 520 Amount Piperacillin-Tazobactam 3 100 .375 gm In Sodium Chloride 0.9% 100 ml @ 25 mls/hr IVPB Q8H [facility] Rx#: [id number] Sodium Chloride 0.9% 1, 420 000 ml @ 60 mls/hr IV . [id number] [facility] Rx#:[id number] Oral 240 Output: Chest Tube Drainage 50 0 Chest Tube Right Upper 50 0 Urine 650 400 Other: Voiding Method Urinal Urinal # Voids 0 # Bowel Movements 0 - Exam GENERAL: The patient is alert and oriented x3, not in any acute distress. Well developed, well nourished. HEENT: Pupils are round and equally reacting to light. EOMI. No scleral icterus. No conjunctival pallor. Normocephalic, atraumatic. No pharyngeal erythema. No thyromegaly. CARDIOVASCULAR: S1 and S2 present. No murmurs, rubs, or gallops. PULMONARY: Chest is clear to auscultation, no wheezing or crackles. ABDOMEN: Soft, nontender, nondistended, normoactive bowel sounds. No palpable organomegaly. MUSCULOSKELETAL: No joint swelling or deformity. EXTREMITIES: No cyanosis, clubbing, or pedal edema. NEUROLOGICAL: Gross neurological examination did not reveal any focal deficits. SKIN: No rashes. no petechiae. - Labs CBC & Chem 7: 03/06/20 07:11 03/07/20 05:51 Labs: Abnormal Lab Results - Last 24 Hours (Table) 03/07/20 Range/Units 05:51 Sodium 136 L (137-145) mmol/L Chloride 108 H (98-107) mmol/L BUN 30 H (9-20) mg/dL Calcium 7.6 L (8.4-10.2) mg/dL Microbiology - Last 24 Hours (Table) 03/04/20 11:55 Gram Stain - Final Bronchoalviolar Lavage - Right Bronchial Washings Culture - Final Assessment and Plan Assessment: -Acute on chronic hypoxic, hypercapnic respiratory failure secondary to right large pleural effusion, possible right-sided pneumonia, with malignancy. Acute right large pleural effusion, status post thoracentesis, cytology reporting metastatic adenocarcinoma, suspect lung versus upper GI. Recurrent Right pleural effusion , s/p right pigtail cath placement. Repeat CT 03/03 reporting new air and increasing large right loculated pleural effusion, hydropneumothorax, atelectasis, possible mediastinal shift with questionable air in the mediastinum. New superior mediastinal density in the right lateral aspect of the trachea with possibility of hematoma. Bronchoscopy 03/04 reporting compressive atelectasis of the right lower lobe segments and right middle lobe segments with no evidence of endobronchial tumor, airways patent. -Collapse of the right leg secondary to above, improving -2.9 cm spiculated mass anterior left upper lobe, suspicious for malignancy. -Acute on chronic hypoxic respiratory failure secondary to the above. Wears 2 L nasal cannula O2 at home. -Hyperkalemia, improved -Hyponatremia -History of nicotine dependence -Prostate cancer, history of radiation and hormonal treatments -Colon cancer with history of colectomy -Gastroesophageal reflux disease -Hypertension -Hyperlipidemia -Degenerative joint disease -Glaucoma -History of cataracts with lens implant -acute renal failure Plan: This is a pleasant 79 years old male who presents with right hydropneumothorax, Ehrman the mediastinum, with lung mass with possible infection component. Continue with Zosyn. Continue with normal saline. Continue with breathing treatment and oxygen as needed. Consult is on the case including pulmonary, cardiothoracic surgery for possible Pleurx catheter placement and oncology team Labs and medication were reviewed.. Continue same treatment. Continue with symptomatic treatment. Resume home medication. Monitor lytes and vitals. DVT and GI prophylaxis. Further recommendations of the clinical course of the patient DVT prophylaxis: Subcutaneous heparin GI Prophylaxis: Pepcid Prognosis is guarded
[2020-03-07] MEDS: DONEPEZIL 10 MG TAB PO SCH (12:54)
[2020-03-07] MEDS: FAMOTIDINE 20 MG TAB PO SCH (12:55)
[2020-03-07] MEDS: HEPARIN SODIUM,PORCINE 5,000 UNIT/ML 1 ML VIAL SQ SCH ×3 (13:01→23:53)
--- NOTE | 2020-03-07 13:09 | P.PN ---
Subjective Progress Note Date: 03/07/20 Principal diagnosis: Large right-sided pleural effusion and lung consolidation This is an 79-year-old gentleman who follows with Dr. Truman Yu on an outpatient basis. He has a past medical history significant for COPD from previous tobacco use, GERD, hyperlipidemia, hypertension, DJD, by her episode of pneumonia, history of bronchitis, chronic hypoxemic respiratory failure, home oxygen use of 2 L at bedtime, colon cancer with previous colectomy, prostate cancer with previous radiation and hormonal therapy, glaucoma and memory impairment. The patient is somewhat a poor historian but apparently came into the emergency department on 02/28/2020 via EMS with complaints of back pain and shortness of breath. He does admit to coughing, producing phlegm but is unable to state what color it is. Denies any fevers, chills, nausea, vomiting, diarrhea, or hemoptysis. He reports that his back pain is predominantly right sided and that it is been present for at least a couple of days. A chest x-ray was completed which demonstrated consolidation to his right lower lobe and a large right-sided pleural effusion. Subsequently, the patient underwent a right-sided thoracentesis performed by Dr. Johnson with 2.4 L of yellow-colored fluid drained. Post thoracentesis the patient reported that his shortness of breath seemed to improve. The patient was seen in follow-up today 03/01/2020 on the cardiac stepdown unit. He is in no acute distress and his oxygen saturations are 95% on 5 L nasal cannula. He is hemodynamically stable and has remained afebrile the last 24 hours. The patient underwent a right-sided thoracentesis yesterday with 2.4 L of cloudy yellow fluid drained from his right side. Cytology results remain pending. He was tested for COVID19 which was not detected. There is no x-ray completed today and his laboratory results showed sodium 128, potassium 4.7, BUN 24, creatinine 0.75. He is on Zithromax and Rocephin for her antibiotic coverage he has 0.9% normal saline infusing at 75 mL per hour and is on albuterol inhaler 2 puffs 4 times a day and Spiriva 1 puff daily. A computed tomography scan of his chest was completed yesterday with contrast which demonstrated no evidence of mediastinal air or pneumothorax, residual consolidation in the right lower lobe with small to moderate residual pleural effusion, and a 2.9 cm speculated mass in the anterior segment of the right upper lobe. The patient was seen in follow-up today on the cardiac stepdown unit. He is in no acute distress, he remained hemodynamically stable and has been afebrile the last 24 hours. Oxygen saturations are 96% on 5 L nasal cannula. He does report that early this morning he was having some episodes of shortness of breath and was quite anxious. He currently denies any pain and reports his anxiety has improved. A repeat chest x-ray was completed today which demonstrated an increasing right-sided moderate to large left pleural effusion despite undergoing a right thoracentesis on 02/29/2020 with 2.4 L of cloudy yellow fluid drained. The fluid drained showed an exudative effusion and his cytology results remain pending. Laboratory results today showed a sodium 128, BUN 24, creatinine 0.75 and potassium 4.7. He is currently on Zithromax for antibiotic coverage. On 03/03/2020 patient seen in follow-up on selective care unit, he is awake and alert, in no acute distress, he is currently on 6 L of oxygen with a pulse ox of 94-95%, hemodynamically stable he is afebrile. Today's chest x-ray has been reviewed showing worsening large right pleural effusion, he is right-sided thoracostomy tube is connected to Pleur-evac, and and patient drained a total of 1860 mL initially after placement of the chest tube, and currently there is only 75 mL in the Pleur-evac of serous output. CT chest was obtained today, showing increasing large right loculated pleural effusion, degree of right lung atelectasis, near complete, with rightward mediastinal shift, punctate questionable air in the mediastinum, adjacent to the superior vena cava, new superior mediastinal density at the right lateral aspect of the trachea possible bronchial injury, new right adrenal gland nodule and spiculated left upper lobe pulmonary nodule with possibility of lung cancer and potential metastasis. Pleural fluid cultures so far have shown no growth, blood and sputum cultures have been negative, patient remains on Zosyn and vancomycin for antibiotic coverage. We'll consider TPA infusion, and consider CT surgery consultation. On 03/04/2020 patient seen in follow-up on selective care unit. Yesterday CT surgery refused TPA into has Pigtail catheter, and there was suspected occlusion, however after flushing the pig tail catheter with TPA 1745 ML of serous fluid has draine. Cytology of the pleural fluid from 03/01/2020 is still pending, we did speak to Dr. Guidry from pathology, and the preliminary report is positive for malignancy, pending final report and origin. he does have underlying history of prostate cancer and colon cancer however the reported stains were not consistent with prostate cancer origin. Will await final report. Fluid cultures remain negative thus far. Vital signs have been stable, patient has been afebrile. After draining another 1.7 L of fluid from his Pleurx catheter today's chest x-ray shows marked improved aeration of the right lung with improved right-sided volume, obstructing endobronchial lesion was not excluded related to persistent volume loss at the right base. In view of the persistent volume loss we were asked to consider the patient for bronchoscopy with BAL and airway examination. The patient and his agreed, and the patient underwent bronchoscopy by Dr. Haro, with no evidence of endobronchial masses, BAL cultures were taken for cultures. Today's labs have been reviewed showing white blood cell count of 11.9, hemoglobin of 10.5, platelet count of 377, sodium is 128, potassium is 6.0, CO2 is 17, BUN is 31 creatinine is 1.05. Hyperkalemia was treated by Kayexalate by primary care service, patient is on empiric antibiotics in the form of Zosyn and vancomycin The patient is seen today 03/05/2020 in follow-up on the selective care unit. He is currently sitting up in bed. Awake and alert in no acute distress. He is maintaining O2 saturations in the mid 90s on 4 L/m per nasal cannula. Afebrile. Bronchial washings and cultures are pending from yesterday. White count 11.5. Hemoglobin 9.7. Sodium 131. Potassium 5.8. Creatinine 1.47. He remains on bronchodilators. Continued on vancomycin and Zosyn. Today's chest x-ray shows new near complete white out of the right hemithorax and suggestion of volume loss on the side. Pigtail catheter remains in place. Alteplase to be infused today. Cardiothoracic have been consulted for possible Pleurx catheter placement. Pleural fluid was positive for metastatic adenocarcinoma, suspect lung versus GI cancer in origin. Metastatic colon cancer ruled out. On 03/06/2020, the patient is on police about 2 by nasal cannula. His shortness of breath with minimal amount of activity. He is doing okay at rest. Chest x- ray still showing significant opacification of the right lung. There is also volume loss of the shaft of the trachea to the right suspecting atelectasis. The right-sided pigtail catheter in place. The drainage has been in the order of 120 mL over the past 24 hours. He did receive 2 doses of alteplase earlier with improvement in the drainage and subsequently the patient collapsed the entire right lung. Based on that, I'm doing a CAT scan of the chest to evaluate the condition. The CAT scan was completed and the patient was found to have occlusion of the distal bronchus intermedius with a complete collapse of the right lung and there are areas of lacunar the pleural effusion scattered throughout the right hemithorax. The predominant finding however is right lung collapse. There is also a liver lesion that has been stable as noted on the CAT scan. I have ordered the bronchoscope this patient. There is no evidence of any endobronchial tumor. The distal bronchus intermedius was found to be patent. The segment and right middle lobe and the right lower lobe were narrowed mainly due to atelectasis. At that time the right mainstem bronchus and the right upper lobe bronchus were patent. I'm considering repeating the bronchoscope tomorrow for reevaluation should there be any mucous plugs obstru cting the airway. Nevertheless, I was not able to visualize any endobronchial tumors. Noted the pleural fluid cytology came back positive for adenocarcinoma which is most likely of a lung primary. The patient was seen today 03/07/2020 in follow-up on the selective care unit. He remains awake and alert in no acute distress. Maintaining O2 saturations in the 90s on 3 L/m per nasal cannula. He's been afebrile. Hemodynamically stable. Chest x-ray revealed improved aeration in the right lung. Bronchoscopy was canceled for today. Yesterday's CAT scan of the chest abdomen and pelvis had revealed complete collapse of the right lung secondary to occlusion of both the upper and lower lobe pulmonary bronchi. Remains with a stable spiculated mass in the left upper lobe. Evidence of emphysema. Right adrenal mass measuring 2.1 cm. Previous bronchial wash culture revealed no growth. Pigtail catheter remains in place in the right chest. He did receive alteplase 2 days ago. No clear air leak. There is some serous drainage noted. Remains on low continuous suction -20 cm of water. Sodium 136. Potassium 3.8. Bicarb 22. Creatinine 0.92. He remains on Zosyn and bronchodilators. Objective - Vital Signs Vital signs: Vital Signs Temp 97.9 F 03/07/20 08:15 Pulse 95 03/07/20 08:15 Resp 18 03/07/20 08:15 BP 106/91 03/07/20 08:15 Pulse Ox 94 L 03/07/20 08:15 Intake & Output 03/06/20 03/07/20 03/07/20 18:59 06:59 18:59 Intake Total 760 Output Total 700 400 200 Balance 60 -400 -200 Intake: Intake, IV Titration 520 Amount Piperacillin-Tazobactam 3 100 .375 gm In Sodium Chloride 0.9% 100 ml @ 25 mls/hr IVPB Q8H [facility] Rx#: [id number] Sodium Chloride 0.9% 1, 420 000 ml @ 60 mls/hr IV . [id number] [facility] Rx#:[id number] Oral 240 Output: Chest Tube Drainage 50 0 Chest Tube Right Upper 50 0 Urine 650 400 200 Other: Voiding Method Urinal Urinal # Voids 0 # Bowel Movements 0 - Exam GENERAL EXAM: Alert, very pleasant, 79-year-old gentleman, on 3 L of oxygen with a pulse ox of 94% comfortable in no apparent distress. HEAD: Normocephalic/atraumatic. EYES: Normal reaction of pupils, equal size. Conjunctiva pink, sclera white. NOSE: Clear with pink turbinates. THROAT: No erythema or exudates. NECK: No masses, no JVD, no thyroid enlargement, no adenopathy. CHEST: No chest wall deformity. Symmetrical expansion. right-sided chest tube in place, with small amount of serous drainage LUNGS: Equal air entry with diminished breath sounds throughout the right lung. Pigtail catheter is present, connected to Pleur-evac, with serous fluid CVS: Regular rate and rhythm, normal S1 and S2, no gallops, no murmurs, no rubs ABDOMEN: Soft, nontender. No hepatosplenomegaly, normal bowel sounds, no guarding or rigidity. EXTREMITIES: No clubbing, no edema, no cyanosis, 2+ pulses and upper and lower extremities. MUSCULOSKELETAL: Muscle strength and tone normal. SPINE: No scoliosis or deformity SKIN: No rashes CENTRAL NERVOUS SYSTEM: No focal deficits, tone is normal in all 4 extremities. PSYCHIATRIC: Alert and oriented -3. Appropriate affect. Intact judgment and insight. - Labs CBC & Chem 7: 03/06/20 07:11 03/07/20 05:51 Labs: Abnormal Lab Results - Last 24 Hours (Table) 03/07/20 Range/Units 05:51 Sodium 136 L (137-145) mmol/L Chloride 108 H (98-107) mmol/L BUN 30 H (9-20) mg/dL Calcium 7.6 L (8.4-10.2) mg/dL Assessment and Plan Assessment: 1. Shortness of breath and cough, in a patient with a large right-sided pleural effusion positive for metastatic adenocarcinoma possible GI versus lung in origin. Markers ruled out colon cancer metastasis. Suspect lung versus GI primary. A 2.9 cm spiculated mass to his left upper lobe found on computed tomography scan of his chest. Patient had a right-sided pigtail chest tube inserted on 03/02/2020 by interventional radiology and 1860 mL of pleural fluid was immediately drained cytology is positive for metastatic adenocarcinoma, cultures reveal no growth. 2. Large right loculated pleural effusion, hydropneumothorax, extensive degree of right lung atelectasis with mediastinal shift, questionable air in the mediastinum, patient's right-sided pigtail catheter was plugged, patient received TPA infusion and his drainage has significantly improved with improvement of aeration of the right lung. Today's chest x-ray shows improved aeration in the right lung compared to complete opacification yesterday. Repeat bronchoscopy canceled for today 03/07/2020 3. New superior mediastinal density at the right lateral aspect of the trachea with the possibility of mediastinal fluid or mediastinal hematoma in on the CT of the chest today on 03/03/2020 4. Remote history of tobacco use with underlying chronic obstructive pulmonary disease. Quit smoking 5 years ago. 5. History of prostate cancer, status post radiation therapy and hormonal treatments. 6. History of colon cancer with previous colectomy. 7. History of gastroesophageal reflux disease. 8. Hypertension. 9. Hyperlipidemia. 10. Degenerative joint disease 11. Prior history of pneumonia and bronchitis. 12. Home O2 at 2 L/m at bedtime and when necessary. 13. History of glaucoma. 14. History of cataracts with bilateral cataract surgery and lens implants. 15. Abdominal distention with possible generalized ileus versus obstruction Plan: The patient was seen and evaluated by Dr. Haro Chest x-ray shows improved aeration of the right chest with no plans for repeat bronchoscopy today Increased encouragement regarding these incentive spirometer Continued on vancomycin and Zosyn Continue bronchodilators Titrate down the FiO2 as tolerated We'll continue to follow I, the cosigning physician, performed a history & physical examination of the patient. Lungs sounds diminished in the right lung. Maintaining good O2 saturations in the 90s on 3 L/m per nasal cannula. I discussed the assessment and plan of care with my nurse practitioner, Kadi Dumont. I attest to the above note as dictated by her.
[2020-03-07] MEDS: traMADol 50 MG TAB PO PRN (15:44)
[2020-03-07] MEDS: LATANOPROST 0.005% OPHTH DROPS 2.5 ML BTL BOTH EYES SCH (20:18)
[2020-03-07] MEDS: ATORVASTATIN 20 MG TAB PO SCH (20:18)
[2020-03-08] MEDS: PIPERACILLIN-TAZOBACTAM 3.375 GM in SODIUM CHLORIDE 0.9% 100 ML IVPB SCH ×3 (04:09→23:16)
[2020-03-08] MEDS: DRONABINOL 2.5 MG CAP PO SCH ×2 (06:16→17:16)
[2020-03-08 06:40] LABS: African American GFR (CKD) >90 (>60 ml/min/1.73 sqM); Anion Gap 6 mmol/L; Blood Urea Nitrogen 24 mg/dL (9-20); Calcium 7.8 mg/dL (8.4-10.2); Carbon Dioxide 22 mmol/L (22-30); Chloride 108 mmol/L (98-107); Glucose 101 mg/dL (74-99); Non-African American GFR(CKD) 83 (>60 ml/min/1.73 sqM); Sodium 136 mmol/L (137-145)
[2020-03-08] MEDS: ALBUTEROL HFA INHALER INHALATION SCH ×4 (07:23→20:43)
[2020-03-08] MEDS: TIOTROPIUM 18 MCG/PUFF INHALER INHALATION SCH (07:23)
[2020-03-08] MEDS: DONEPEZIL 10 MG TAB PO SCH (09:24)
[2020-03-08] MEDS: SENNOSIDES-DOCUSATE SODIUM 1 EACH TAB PO SCH ×2 (09:24→23:10)
[2020-03-08] MEDS: FAMOTIDINE 20 MG TAB PO SCH (09:24)
[2020-03-08] MEDS: VERAPAMIL 40 MG TAB PO SCH ×3 (09:24→23:10)
[2020-03-08] MEDS: HEPARIN SODIUM,PORCINE 5,000 UNIT/ML 1 ML VIAL SQ SCH ×4 (09:24→23:10)
--- NOTE | 2020-03-08 11:48 | XR ---
EXAMINATION TYPE: XR chest 1V portable DATE OF EXAM: 03/08/2020 COMPARISON: 03/07/2020 HISTORY: Malignant right pleural effusion. Shortness of breath. TECHNIQUE: Single frontal view of the chest is obtained. FINDINGS: There is near complete opacification of the right hemithorax, marked progression from the prior. Right pleural catheter is coiled at the costophrenic angle. There is rightward mediastinal viktor ft partially due to patient rotation and also likely partially due to right-sided atelectasis. Left l samir remains well aerated. Mediastinal size is obscured. Spiculated left apical pulmonary nodule is no avi as seen on the prior CT of 03/06/2020. IMPRESSION: Near complete opacification of the right hemithorax, marked progression from the prior. A component of this is likely on the basis of atelectasis in addition to the known malignant right pl eural effusion. Similar positioning of the right thoracostomy tube.
--- NOTE | 2020-03-08 12:02 | P.PN ---
Subjective Progress Note Date: 03/08/20 Principal diagnosis: Large right-sided pleural effusion and lung consolidation This is an 79-year-old gentleman who follows with Dr. Truman Yu on an outpatient basis. He has a past medical history significant for COPD from previous tobacco use, GERD, hyperlipidemia, hypertension, DJD, by her episode of pneumonia, history of bronchitis, chronic hypoxemic respiratory failure, home oxygen use of 2 L at bedtime, colon cancer with previous colectomy, prostate cancer with previous radiation and hormonal therapy, glaucoma and memory impairment. The patient is somewhat a poor historian but apparently came into the emergency department on 02/28/2020 via EMS with complaints of back pain and shortness of breath. He does admit to coughing, producing phlegm but is unable to state what color it is. Denies any fevers, chills, nausea, vomiting, diarrhea, or hemoptysis. He reports that his back pain is predominantly right sided and that it is been present for at least a couple of days. A chest x-ray was completed which demonstrated consolidation to his right lower lobe and a large right-sided pleural effusion. Subsequently, the patient underwent a right-sided thoracentesis performed by Dr. Johnson with 2.4 L of yellow-colored fluid drained. Post thoracentesis the patient reported that his shortness of breath seemed to improve. The patient was seen in follow-up today 03/01/2020 on the cardiac stepdown unit. He is in no acute distress and his oxygen saturations are 95% on 5 L nasal cannula. He is hemodynamically stable and has remained afebrile the last 24 hours. The patient underwent a right-sided thoracentesis yesterday with 2.4 L of cloudy yellow fluid drained from his right side. Cytology results remain pending. He was tested for COVID19 which was not detected. There is no x-ray completed today and his laboratory results showed sodium 128, potassium 4.7, BUN 24, creatinine 0.75. He is on Zithromax and Rocephin for her antibiotic coverage he has 0.9% normal saline infusing at 75 mL per hour and is on albuterol inhaler 2 puffs 4 times a day and Spiriva 1 puff daily. A computed tomography scan of his chest was completed yesterday with contrast which demonstrated no evidence of mediastinal air or pneumothorax, residual consolidation in the right lower lobe with small to moderate residual pleural effusion, and a 2.9 cm speculated mass in the anterior segment of the right upper lobe. The patient was seen in follow-up today on the cardiac stepdown unit. He is in no acute distress, he remained hemodynamically stable and has been afebrile the last 24 hours. Oxygen saturations are 96% on 5 L nasal cannula. He does report that early this morning he was having some episodes of shortness of breath and was quite anxious. He currently denies any pain and reports his anxiety has improved. A repeat chest x-ray was completed today which demonstrated an increasing right-sided moderate to large left pleural effusion despite undergoing a right thoracentesis on 02/29/2020 with 2.4 L of cloudy yellow fluid drained. The fluid drained showed an exudative effusion and his cytology results remain pending. Laboratory results today showed a sodium 128, BUN 24, creatinine 0.75 and potassium 4.7. He is currently on Zithromax for antibiotic coverage. On 03/03/2020 patient seen in follow-up on selective care unit, he is awake and alert, in no acute distress, he is currently on 6 L of oxygen with a pulse ox of 94-95%, hemodynamically stable he is afebrile. Today's chest x-ray has been reviewed showing worsening large right pleural effusion, he is right-sided thoracostomy tube is connected to Pleur-evac, and and patient drained a total of 1860 mL initially after placement of the chest tube, and currently there is only 75 mL in the Pleur-evac of serous output. CT chest was obtained today, showing increasing large right loculated pleural effusion, degree of right lung atelectasis, near complete, with rightward mediastinal shift, punctate questionable air in the mediastinum, adjacent to the superior vena cava, new superior mediastinal density at the right lateral aspect of the trachea possible bronchial injury, new right adrenal gland nodule and spiculated left upper lobe pulmonary nodule with possibility of lung cancer and potential metastasis. Pleural fluid cultures so far have shown no growth, blood and sputum cultures have been negative, patient remains on Zosyn and vancomycin for antibiotic coverage. We'll consider TPA infusion, and consider CT surgery consultation. On 03/04/2020 patient seen in follow-up on selective care unit. Yesterday CT surgery refused TPA into has Pigtail catheter, and there was suspected occlusion, however after flushing the pig tail catheter with TPA 1745 ML of serous fluid has draine. Cytology of the pleural fluid from 03/01/2020 is still pending, we did speak to Dr. Guidry from pathology, and the preliminary report is positive for malignancy, pending final report and origin. he does have underlying history of prostate cancer and colon cancer however the reported stains were not consistent with prostate cancer origin. Will await final report. Fluid cultures remain negative thus far. Vital signs have been stable, patient has been afebrile. After draining another 1.7 L of fluid from his Pleurx catheter today's chest x-ray shows marked improved aeration of the right lung with improved right-sided volume, obstructing endobronchial lesion was not excluded related to persistent volume loss at the right base. In view of the persistent volume loss we were asked to consider the patient for bronchoscopy with BAL and airway examination. The patient and his agreed, and the patient underwent bronchoscopy by Dr. Haro, with no evidence of endobronchial masses, BAL cultures were taken for cultures. Today's labs have been reviewed showing white blood cell count of 11.9, hemoglobin of 10.5, platelet count of 377, sodium is 128, potassium is 6.0, CO2 is 17, BUN is 31 creatinine is 1.05. Hyperkalemia was treated by Kayexalate by primary care service, patient is on empiric antibiotics in the form of Zosyn and vancomycin The patient is seen today 03/05/2020 in follow-up on the selective care unit. He is currently sitting up in bed. Awake and alert in no acute distress. He is maintaining O2 saturations in the mid 90s on 4 L/m per nasal cannula. Afebrile. Bronchial washings and cultures are pending from yesterday. White count 11.5. Hemoglobin 9.7. Sodium 131. Potassium 5.8. Creatinine 1.47. He remains on bronchodilators. Continued on vancomycin and Zosyn. Today's chest x-ray shows new near complete white out of the right hemithorax and suggestion of volume loss on the side. Pigtail catheter remains in place. Alteplase to be infused today. Cardiothoracic have been consulted for possible Pleurx catheter placement. Pleural fluid was positive for metastatic adenocarcinoma, suspect lung versus GI cancer in origin. Metastatic colon cancer ruled out. On 03/06/2020, the patient is on police about 2 by nasal cannula. His shortness of breath with minimal amount of activity. He is doing okay at rest. Chest x- ray still showing significant opacification of the right lung. There is also volume loss of the shaft of the trachea to the right suspecting atelectasis. The right-sided pigtail catheter in place. The drainage has been in the order of 120 mL over the past 24 hours. He did receive 2 doses of alteplase earlier with improvement in the drainage and subsequently the patient collapsed the entire right lung. Based on that, I'm doing a CAT scan of the chest to evaluate the condition. The CAT scan was completed and the patient was found to have occlusion of the distal bronchus intermedius with a complete collapse of the right lung and there are areas of lacunar the pleural effusion scattered throughout the right hemithorax. The predominant finding however is right lung collapse. There is also a liver lesion that has been stable as noted on the CAT scan. I have ordered the bronchoscope this patient. There is no evidence of any endobronchial tumor. The distal bronchus intermedius was found to be patent. The segment and right middle lobe and the right lower lobe were narrowed mainly due to atelectasis. At that time the right mainstem bronchus and the right upper lobe bronchus were patent. I'm considering repeating the bronchoscope tomorrow for reevaluation should there be any mucous plugs obstru cting the airway. Nevertheless, I was not able to visualize any endobronchial tumors. Noted the pleural fluid cytology came back positive for adenocarcinoma which is most likely of a lung primary. The patient was seen today 03/07/2020 in follow-up on the selective care unit. He remains awake and alert in no acute distress. Maintaining O2 saturations in the 90s on 3 L/m per nasal cannula. He's been afebrile. Hemodynamically stable. Chest x-ray revealed improved aeration in the right lung. Bronchoscopy was canceled for today. Yesterday's CAT scan of the chest abdomen and pelvis had revealed complete collapse of the right lung secondary to occlusion of both the upper and lower lobe pulmonary bronchi. Remains with a stable spiculated mass in the left upper lobe. Evidence of emphysema. Right adrenal mass measuring 2.1 cm. Previous bronchial wash culture revealed no growth. Pigtail catheter remains in place in the right chest. He did receive alteplase 2 days ago. No clear air leak. There is some serous drainage noted. Remains on low continuous suction -20 cm of water. Sodium 136. Potassium 3.8. Bicarb 22. Creatinine 0.92. He remains on Zosyn and bronchodilators. The patient is seen today 03/08/2020 follow-up on the selective care unit. He is awake and alert in some mild respiratory distress. He is dyspneic with minimal exertion. He is maintaining O2 saturations in the 90s on 4 L/m per nasal cannula. He's been afebrile. Hemodynamically stable. Today's chest x- ray again reveals near complete opacification of the right hemithorax. Pigtail catheter remains in place. Bronchial wash cultures reveal no growth. Previous pleural fluid pathology had been positive for metastatic adenocarcinoma. Sodium 136. Potassium 4.0. Creatinine 0.84. He is currently on Zosyn and bronchodilators. Objective - Vital Signs Vital signs: Vital Signs Temp 98.2 F 03/08/20 08:00 Pulse 99 03/08/20 08:00 Resp 18 03/08/20 08:00 BP 131/76 03/08/20 08:00 Pulse Ox 97 03/08/20 08:00 Intake & Output 03/07/20 03/08/20 03/08/20 18:59 06:59 18:59 Intake Total 160 120 Output Total 200 410 Balance -40 -410 120 Weight 122.2 kg Intake: Intake, IV Titration 160 120 Amount Piperacillin-Tazobactam 3 100 100 .375 gm In Sodium Chloride 0.9% 100 ml @ 25 mls/hr IVPB Q8H [facility] Rx#: [id number] Sodium Chloride 0.9% 1, 60 20 000 ml @ 5 mls/hr IV . Q24H [facility] Rx#:[id number] Output: Chest Tube Drainage 10 Chest Tube Right Upper 10 Urine 200 400 Other: Voiding Method Urinal # Voids 1 - Exam GENERAL EXAM: Alert, very pleasant, 79-year-old gentleman, on 4 L of oxygen with a pulse ox of 97% comfortable in no apparent distress. HEAD: Normocephalic/atraumatic. EYES: Normal reaction of pupils, equal size. Conjunctiva pink, sclera white. NOSE: Clear with pink turbinates. THROAT: No erythema or exudates. NECK: No masses, no JVD, no thyroid enlargement, no adenopathy. CHEST: No chest wall deformity. Symmetrical expansion. right-sided chest tube in place, with small amount of serous drainage LUNGS: Equal air entry with diminished breath sounds throughout the right lung. Pigtail catheter is present, connected to Pleur-evac, with serous fluid CVS: Regular rate and rhythm, normal S1 and S2, no gallops, no murmurs, no rubs ABDOMEN: Soft, nontender. No hepatosplenomegaly, normal bowel sounds, no guarding or rigidity. EXTREMITIES: No clubbing, no edema, no cyanosis, 2+ pulses and upper and lower extremities. MUSCULOSKELETAL: Muscle strength and tone normal. SPINE: No scoliosis or deformity SKIN: No rashes CENTRAL NERVOUS SYSTEM: No focal deficits, tone is normal in all 4 extremities. PSYCHIATRIC: Alert and oriented -3. Appropriate affect. Intact judgment and insight. - Labs CBC & Chem 7: 03/06/20 07:11 03/08/20 05:44 Labs: Abnormal Lab Results - Last 24 Hours (Table) 03/08/20 Range/Units 05:44 Sodium 136 L (137-145) mmol/L Chloride 108 H (98-107) mmol/L BUN 24 H (9-20) mg/dL Glucose 101 H (74-99) mg/dL Calcium 7.8 L (8.4-10.2) mg/dL Microbiology - Last 24 Hours (Table) 02/29/20 09:00 Fungal Culture - Preliminary Pleural Fluid Assessment and Plan Assessment: 1. Shortness of breath and cough, in a patient with a large right-sided pleural effusion positive for metastatic adenocarcinoma possible GI versus lung in origi n. Markers ruled out colon cancer metastasis. Suspect lung versus GI primary. A 2.9 cm spiculated mass to his left upper lobe found on computed tomography scan of his chest. Patient had a right-sided pigtail chest tube inserted on 03/02/2020 by interventional radiology and 1860 mL of pleural fluid was immediately drained cytology is positive for metastatic adenocarcinoma, cultures reveal no growth. 2. Large right loculated pleural effusion, hydropneumothorax, extensive degree of right lung atelectasis with mediastinal shift, questionable air in the mediastinum, patient's right-sided pigtail catheter was plugged, patient received TPA infusion and his drainage has significantly improved with improvement of aeration of the right lung. However today's chest x-ray 03/08/2020 reveals near complete opacification of the right lung again. 3. New superior mediastinal density at the right lateral aspect of the trachea with the possibility of mediastinal fluid or mediastinal hematoma in on the CT of the chest today on 03/03/2020 4. Remote history of tobacco use with underlying chronic obstructive pulmonary disease. Quit smoking 5 years ago. 5. History of prostate cancer, status post radiation therapy and hormonal treatments. 6. History of colon cancer with previous colectomy. 7. History of gastroesophageal reflux disease. 8. Hypertension. 9. Hyperlipidemia. 10. Degenerative joint disease 11. Prior history of pneumonia and bronchitis. 12. Home O2 at 2 L/m at bedtime and when necessary. 13. History of glaucoma. 14. History of cataracts with bilateral cataract surgery and lens implants. 15. Abdominal distention with possible generalized ileus versus obstruction Plan: The patient was seen and evaluated by Dr. Strauss Chest x-ray again shows near complete opacification of the right lung He had a lengthy discussion with the patient regarding his diagnosis/prognosis The patient is requesting to go home with hospice without further intervention or treatment at this time Pigtail catheter will be removed prior to discharge Primary care provider informed of patient's request I, the cosigning physician, performed a history & physical examination of the patient. Lungs sounds diminished in the right lung. Maintaining good O2 saturations in the 90s on 3 L/m per nasal cannula. I discussed the assessment and plan of care with my nurse practitioner, Kadi Dumont. I attest to the above note as dictated by her.
--- NOTE | 2020-03-08 14:31 | P.PN ---
Subjective Progress Note Date: 03/08/20 This is a 79-year-old gentleman admitted to the hospital for community-acquired pneumonia, large right-sided pleural effusion. Underwent right-sided thoracentesis yesterday with 2.4 L removed. Tolerated procedure well. Pleural cytology pending. CT post thoracentesis reporting no evidence of mediastinal air or pneumothorax,right lower lobe with small to moderate residual pleural effusion, 2.9 cm spiculated mass anterior left upper lobe, no prior CTs here to compare to as per radiology. Tested negative for coronavirus. Legionella cultures pending. Maintaining O2 sats of mid 90s on 5 L nasal cannula in a patient who normally wears 2 L nasal cannula,. Sodium 128, potassium 4.7, creatinine 0.75. Afebrile. 03/02/2020 Minimal ambulation. Complains of constipation. Antibiotics adjusted to Zosyn and vancomycin. Maintaining O2 sats in the 90s on 5 L nasal cannula. Complained of increased shortness of breath earlier this morning , currently denies .Chest x-ray reporting increasing moderate to large right pleural effusion .scheduled for PIG tail placement with interventional radiology. Pleura l cytology pending from prior thoracentesis. Afebrile. 03/03/2020 Chest x-ray reporting increasing right-sided moderate to large pleural effusion, minimal Pleur-evac output since initial drainage status post placement.repeat CT scan ordered for comparison regarding lung mass. TPA to chest tube pending as per pulmonary. Respiratory status worsened today, patient appears pasty with increased shortness of breath. Denies chest pain, palpitations. Telemetry sinus rhythm. 03/04/2020 Antrum switched out last night with approximately 1.8 L output overnight including 1.3 L over the last 8 hours, post TPA to chest tube. Chest x-ray reporting improvement in aeration of right lung with improved riight side volume, persistent right basilar acute infiltrate/atelectasis, obstructing endobronchial lesion not excluded.Scheduled for another dose of TPA today. Complains of discomfort at chest tube insertion site. Currently NPO for Bronchoscopy this morning. Potassium 6, rectal Kayexalate ordered. Follow-up CT reporting mediastinal shift to the right secondary to atelectasis, new care with increasing large right loculated pleural effusion rendering a hydropneumothorax. Pleural fluid loculated at the lung apex and surrounding the right upper lobe. New density in the mediastinum, cuttoff of the right main stem bronchi with paucity of distal aerated segment and subsegmental bronchi, q uestionable pneumomediastinum versus spray artifact from contrast. New adrenal gland nodule. Spiculated left upper lobe pulmonary nodule measuring 2.4 x 1 cm concerning for lung cancer and potential metastasis Small amount hepatic ascites. Cardiothoracic surgery consulted, radiology films reviewed, recommending diagnostic bronchoscopy regarding suspected bronchogenic carcinoma. At this time no surgical intervention recommended related to high suspicion of advanced stage. Creatinine mildly worsened, to 1.05. Currently maintaining O2 sats in the 90s on 6 L nasal cannula. Patient reports he had a rough night, with increased shortness of breath; at one point during the night required wearing a Ventimask. Afebrile, WBC up to 11.9, hemoglobin up to 10.5. Denies chest pain, palpitations. 03/05/2020 Yesterday he underwent diagnostic bronchoscopy reporting compressive atelectasis of the right lower lobe in addition to right middle lobe segments with no evidence of endobronchial tumor, airways patent. Maintaining O2 sats in the 90s on 5 L nasal cannula O2. Chest x-ray reporting near complete whiteout of the right hemothorax with suspected significant lobar collapse with concurrent effusion and consolidation .Cytology reporting metastatic adenocarcinoma, suspected lung versus upper GI. Pleural cultures pending. Yesterday hyperkalemic received Kayexalate with potassium down to 5.4 yesterday afternoon. Reports no flatus, no bowel movement post Kayexalate yesterday. Potassium currently at 5.8. Renal function worsening up to 1.47. Chest tube draining 345 during the day shift yesterday, and no further drainage overnight scheduled for another dose of TPA to the chest tube. 03/08/2020 maintaining O2 sats in the 90s on 4 L nasal cannula. Chest x-ray continues to show near complete opacification of the right hemothorax, Jenelle progression from prior, likely on the basis of atelectasis in addition to known malignant right pleural effusion. Continues on Zosyn, nebulized bronchodilators. Pigtail catheter present Afebrile. Over the weekend patient had been sched uled for repeat bronchoscopy which was canceled as chest x-ray reporting improvement. Prior Bronch. washing cultures reporting no growth. Last bowel movement reported on the . Objective - Vital Signs Vital signs: Vital Signs Temp 98.3 F 03/08/20 12:00 Pulse 92 03/08/20 12:00 Resp 18 03/08/20 12:00 BP 119/64 03/08/20 12:00 Pulse Ox 95 03/08/20 12:00 Intake & Output 03/07/20 03/08/20 03/08/20 18:59 06:59 18:59 Intake Total 160 120 Output Total 200 410 Balance -40 -410 120 Weight 122.2 kg Intake: Intake, IV Titration 160 120 Amount Piperacillin-Tazobactam 3 100 100 .375 gm In Sodium Chloride 0.9% 100 ml @ 25 mls/hr IVPB Q8H [facility] Rx#: [id number] Sodium Chloride 0.9% 1, 60 20 000 ml @ 5 mls/hr IV . Q24H [facility] Rx#:[id number] Output: Chest Tube Drainage 10 Chest Tube Right Upper 10 Urine 200 400 Other: Voiding Method Urinal # Voids 1 - Exam PHYSICAL EXAM: VITAL SIGNS: As above GENERAL: Sitting up in bed, pale, no acute distress HEENT: Conjunctivae normal. eyes normal. Oral mucosa placed NECK: No JVD. No thyroid enlargement. No LNs CARDIOVASCULAR: S1, S2 regular. No murmur RESPIRATION: Labored, Bilateral bases diminished, right pigtail catheter connected to Pleur-evac.No rhonchi, few scattered crackles. ABDOMEN: Soft, nontender . No guarding. no masses palpable. Bowel sounds heard. LEGS: No edema. no swelling PSYCHIATRY: Alert and oriented X2, mood and affect normal, mildly anxious, doesn't appear to comprehend NERVOUS SYSTEM: Cranial N 2-12 grossly normal. Moves all 4 limbs. Diffuse weakness. No focal deficits. Strength and sensation grossly intact. Skin: no rash. - Labs CBC & Chem 7: 03/06/20 07:11 03/08/20 05:44 Labs: Abnormal Lab Results - Last 24 Hours (Table) 03/08/20 Range/Units 05:44 Sodium 136 L (137-145) mmol/L Chloride 108 H (98-107) mmol/L BUN 24 H (9-20) mg/dL Glucose 101 H (74-99) mg/dL Calcium 7.8 L (8.4-10.2) mg/dL Microbiology - Last 24 Hours (Table) 02/29/20 09:00 Fungal Culture - Preliminary Pleural Fluid Assessment and Plan Assessment: -Acute on chronic hypoxic, hypercapnic respiratory failure secondary to right large pleural effusion, possible right-sided pneumonia, possible malignancy. Wears 2 L O2 nasal cannula at home. Acute right large pleural effusion, status post thoracentesis, cytology reporting metastatic adenocarcinoma, suspect lung versus upper GI. Recurrent Right pleural effusion , s/p right pigtail cath placement. Repeat CT 03/03 reporting new air and increasing large right loculated pleural effusion, hydropneumothorax, atelectasis, possible mediastinal shift with questionable air in the mediastinum. New superior mediastinal density in the right lateral aspect of the trachea with possibility of hematoma. Bronchoscopy 03/04 reporting compressive atelectasis of the right lower lobe segments and right middle lobe segments with no evidence of endobronchial tumor, airways patent. -2.9 cm spiculated mass anterior left upper lobe, suspicious for malignancy. -Left kidney cyst 2, simple appearing, largest measuring 2 cm -Acute on chronic hypoxic respiratory failure secondary to the above. Wears 2 L nasal cannula O2 at home. -Distended small bowel loops measuring 3.7 cm, scattered colonic air, suggesting ileus -Ruling out Legionella -Hyperkalemia -Hyponatremia -History of nicotine dependence -Prostate cancer, history of radiation and hormonal treatments -Colon cancer with history of colectomy -Gastroesophageal reflux disease -Hypertension -Hyperlipidemia -Degenerative joint disease -Glaucoma -History of cataracts with lens implant -acute renal failure Plan: Continue current medication regime ,monitoring and symptomatic treatment. Maintain nebulized bronchodilators, antibiotics of Zosyn. Diet intake poor, consuming less than 25%, discussed with dietitian, further diet adjustments and supplementations to follow. Pulmonary updated patient, including options of hospice. Dr. Yu attempting to connect with , further update, discussed options including hospice. The impression and plan of care has been dictated as directed. : I performed a history and examination of this patient, discussed the same with the dictator. I agree with the dictator's note ,documented as a scribe. Any additional findings or plans will be noted.
[2020-03-08 14:43] VITALS: BMI 46.2
[2020-03-08] MEDS: traMADol 50 MG TAB PO PRN (15:47)
--- NOTE | 2020-03-08 16:53 | P.PN ---
Subjective Progress Note Date: 03/08/20 Principal diagnosis: Pneumonia Seen in follow-up this am and awake and alert in no acute distress. maintaining oxygen at 3 L nasal cannula. He's been afebrile. Hemodynamically stable. Bronchoscopy was cancelled for today? Previous pleural fluid pathology had been positive for metastatic adenocarcinoma. He continues on antibiotics per ID for positive blood cultures and possible pneumonia. Objective - Vital Signs Vital signs: Vital Signs Temp 98.3 F 03/08/20 12:00 Pulse 92 03/08/20 12:00 Resp 18 03/08/20 12:00 BP 119/64 03/08/20 12:00 Pulse Ox 95 03/08/20 12:00 Intake & Output 03/07/20 03/08/20 03/08/20 18:59 06:59 18:59 Intake Total 160 120 Output Total 200 410 Balance -40 -410 120 Weight 122.2 kg 122.2 kg Intake: Intake, IV Titration 160 120 Amount Piperacillin-Tazobactam 3 100 100 .375 gm In Sodium Chloride 0.9% 100 ml @ 25 mls/hr IVPB Q8H [facility] Rx#: [id number] Sodium Chloride 0.9% 1, 60 20 000 ml @ 5 mls/hr IV . Q24H [facility] Rx#:[id number] Output: Chest Tube Drainage 10 Chest Tube Right Upper 10 Urine 200 400 Other: Voiding Method Urinal # Voids 1 - Exam - Constitutional General appearance: mild distress - EENT Eyes: EOMI, PERRLA ENT: hearing grossly normal, normal oropharynx - Neck Neck: no lymphadenopathy Thyroid: bilateral: normal size - Respiratory Respiratory: right: CTA - Cardiovascular Rhythm: regular Heart sounds: normal: S1, S2 - Gastrointestinal Localized gastrointestinal: tender: LUQ, rebound: LUQ - Integumentary Integumentary: normal - Neurologic Neurologic: CNII-XII intact - Musculoskeletal Musculoskeletal: generalized weakness, strength equal bilaterally - Psychiatric recall poor, comprehension seems diminished Psychiatric: A&O x's 3 - Labs CBC & Chem 7: 03/06/20 07:11 03/08/20 05:44 Labs: Abnormal Lab Results - Last 24 Hours (Table) 03/08/20 Range/Units 05:44 Sodium 136 L (137-145) mmol/L Chloride 108 H (98-107) mmol/L BUN 24 H (9-20) mg/dL Glucose 101 H (74-99) mg/dL Calcium 7.8 L (8.4-10.2) mg/dL Microbiology - Last 24 Hours (Table) 02/29/20 09:00 Fungal Culture - Preliminary Pleural Fluid Assessment and Plan Plan: Assessment and Recommendations: Large PLeural Effusions: Malignant Positive cytology for metastatic adenocarcinoma - CUrrently with drainage via pleura vac chest tube - Pulmonary following - Reviewed CT scans - Bronch is currently on hold Metastatic Adenocarcinoma: - Primary site unknown ig upper GI versus lung - Once patient improves rec further work-up with EGD, MRCP and CT imaging - Will discuss with to determine aggressiveness of work--up and goals of overall care Hx: Colorectal Cancer: - Last seen in regards to this with stable picture in 2017 CBC in am Continue care per pulm and ID Await recs regarding bronchoscopy
[2020-03-08] MEDS: SODIUM CHLORIDE 0.9% 1,000 ML IV SCH (17:16)
[2020-03-08] MEDS: DOCUSATE 100 MG CAP PO SCH (23:08)
[2020-03-08] MEDS: ATORVASTATIN 20 MG TAB PO SCH (23:08)
[2020-03-08] MEDS: LATANOPROST 0.005% OPHTH DROPS 2.5 ML BTL BOTH EYES SCH (23:11)
[2020-03-09] MEDS: PIPERACILLIN-TAZOBACTAM 3.375 GM in SODIUM CHLORIDE 0.9% 100 ML IVPB SCH ×2 (05:24→13:36)
[2020-03-09 06:12] LABS: Anisocytosis Slight; Basophils % (A) 0 %; Eosinophils % (A) 1 %; HCT 25.7 % (39.0-53.0); HGB 8.2 gm/dL (13.0-17.5); Hypochromasia Marked; Lymphocytes # (A) 0.9 k/uL (1.0-4.8); Lymphocytes % (A) 13 %; MCH 29.7 pg (25.0-35.0); MCHC 31.9 g/dL (31.0-37.0); Mean Platelet Volume 6.8; Monocytes # (A) 0.2 k/uL (0-1.0); Monocytes % (A) 3 %; Neutrophils # (A) 5.6 k/uL (1.3-7.7); Neutrophils % (A) 83 %; Platelet Count 353 k/uL (150-450); RBC 2.76 m/uL (4.30-5.90); RDW 17.4 % (11.5-15.5); WBC 6.8 k/uL (3.8-10.6)
[2020-03-09] MEDS: DRONABINOL 2.5 MG CAP PO SCH ×2 (06:21→16:55)
[2020-03-09] MEDS: traMADol 50 MG TAB PO PRN ×2 (06:21→16:56)
[2020-03-09] MEDS: ALBUTEROL HFA INHALER INHALATION SCH ×4 (07:03→19:27)
[2020-03-09] MEDS: TIOTROPIUM 18 MCG/PUFF INHALER INHALATION SCH (07:03)
[2020-03-09] MEDS: DOCUSATE 100 MG CAP PO SCH ×2 (08:51→20:37)
[2020-03-09] MEDS: VERAPAMIL 40 MG TAB PO SCH ×3 (08:51→20:28)
[2020-03-09] MEDS: SENNOSIDES-DOCUSATE SODIUM 1 EACH TAB PO SCH ×2 (08:51→20:27)
[2020-03-09] MEDS: HEPARIN SODIUM,PORCINE 5,000 UNIT/ML 1 ML VIAL SQ SCH ×4 (08:51→21:56)
[2020-03-09] MEDS: DONEPEZIL 10 MG TAB PO SCH (08:51)
[2020-03-09] MEDS: FAMOTIDINE 20 MG TAB PO SCH (08:51)
[2020-03-09] MEDS: ACETAMINOPHEN TAB 325 MG TAB PO PRN ×2 (08:51→20:30)
--- NOTE | 2020-03-09 12:32 | P.PN ---
Subjective Progress Note Date: 03/09/20 Principal diagnosis: Large right-sided pleural effusion and lung consolidation This is an 79-year-old gentleman who follows with Dr. Truman Yu on an outpatient basis. He has a past medical history significant for COPD from previous tobacco use, GERD, hyperlipidemia, hypertension, DJD, by her episode of pneumonia, history of bronchitis, chronic hypoxemic respiratory failure, home oxygen use of 2 L at bedtime, colon cancer with previous colectomy, prostate cancer with previous radiation and hormonal therapy, glaucoma and memory impairment. The patient is somewhat a poor historian but apparently came into the emergency department on 02/28/2020 via EMS with complaints of back pain and shortness of breath. He does admit to coughing, producing phlegm but is unable to state what color it is. Denies any fevers, chills, nausea, vomiting, diarrhea, or hemoptysis. He reports that his back pain is predominantly right sided and that it is been present for at least a couple of days. A chest x-ray was completed which demonstrated consolidation to his right lower lobe and a large right-sided pleural effusion. Subsequently, the patient underwent a right-sided thoracentesis performed by Dr. Johnson with 2.4 L of yellow-colored fluid drained. Post thoracentesis the patient reported that his shortness of breath seemed to improve. The patient was seen in follow-up today 03/01/2020 on the cardiac stepdown unit. He is in no acute distress and his oxygen saturations are 95% on 5 L nasal cannula. He is hemodynamically stable and has remained afebrile the last 24 hours. The patient underwent a right-sided thoracentesis yesterday with 2.4 L of cloudy yellow fluid drained from his right side. Cytology results remain pending. He was tested for COVID19 which was not detected. There is no x-ray completed today and his laboratory results showed sodium 128, potassium 4.7, BUN 24, creatinine 0.75. He is on Zithromax and Rocephin for her antibiotic coverage he has 0.9% normal saline infusing at 75 mL per hour and is on albuterol inhaler 2 puffs 4 times a day and Spiriva 1 puff daily. A computed tomography scan of his chest was completed yesterday with contrast which demonstrated no evidence of mediastinal air or pneumothorax, residual consolidation in the right lower lobe with small to moderate residual pleural effusion, and a 2.9 cm speculated mass in the anterior segment of the right upper lobe. The patient was seen in follow-up today on the cardiac stepdown unit. He is in no acute distress, he remained hemodynamically stable and has been afebrile the last 24 hours. Oxygen saturations are 96% on 5 L nasal cannula. He does report that early this morning he was having some episodes of shortness of breath and was quite anxious. He currently denies any pain and reports his anxiety has improved. A repeat chest x-ray was completed today which demonstrated an increasing right-sided moderate to large left pleural effusion despite undergoing a right thoracentesis on 02/29/2020 with 2.4 L of cloudy yellow fluid drained. The fluid drained showed an exudative effusion and his cytology results remain pending. Laboratory results today showed a sodium 128, BUN 24, creatinine 0.75 and potassium 4.7. He is currently on Zithromax for antibiotic coverage. On 03/03/2020 patient seen in follow-up on selective care unit, he is awake and alert, in no acute distress, he is currently on 6 L of oxygen with a pulse ox of 94-95%, hemodynamically stable he is afebrile. Today's chest x-ray has been reviewed showing worsening large right pleural effusion, he is right-sided thoracostomy tube is connected to Pleur-evac, and and patient drained a total of 1860 mL initially after placement of the chest tube, and currently there is only 75 mL in the Pleur-evac of serous output. CT chest was obtained today, showing increasing large right loculated pleural effusion, degree of right lung atelectasis, near complete, with rightward mediastinal shift, punctate questionable air in the mediastinum, adjacent to the superior vena cava, new superior mediastinal density at the right lateral aspect of the trachea possible bronchial injury, new right adrenal gland nodule and spiculated left upper lobe pulmonary nodule with possibility of lung cancer and potential metastasis. Pleural fluid cultures so far have shown no growth, blood and sputum cultures have been negative, patient remains on Zosyn and vancomycin for antibiotic coverage. We'll consider TPA infusion, and consider CT surgery consultation. On 03/04/2020 patient seen in follow-up on selective care unit. Yesterday CT surgery refused TPA into has Pigtail catheter, and there was suspected occlusion, however after flushing the pig tail catheter with TPA 1745 ML of serous fluid has draine. Cytology of the pleural fluid from 03/01/2020 is still pending, we did speak to Dr. Guidry from pathology, and the preliminary report is positive for malignancy, pending final report and origin. he does have underlying history of prostate cancer and colon cancer however the reported stains were not consistent with prostate cancer origin. Will await final report. Fluid cultures remain negative thus far. Vital signs have been stable, patient has been afebrile. After draining another 1.7 L of fluid from his Pleurx catheter today's chest x-ray shows marked improved aeration of the right lung with improved right-sided volume, obstructing endobronchial lesion was not excluded related to persistent volume loss at the right base. In view of the persistent volume loss we were asked to consider the patient for bronchoscopy with BAL and airway examination. The patient and his agreed, and the patient underwent bronchoscopy by Dr. Haro, with no evidence of endobronchial masses, BAL cultures were taken for cultures. Today's labs have been reviewed showing white blood cell count of 11.9, hemoglobin of 10.5, platelet count of 377, sodium is 128, potassium is 6.0, CO2 is 17, BUN is 31 creatinine is 1.05. Hyperkalemia was treated by Kayexalate by primary care service, patient is on empiric antibiotics in the form of Zosyn and vancomycin The patient is seen today 03/05/2020 in follow-up on the selective care unit. He is currently sitting up in bed. Awake and alert in no acute distress. He is maintaining O2 saturations in the mid 90s on 4 L/m per nasal cannula. Afebrile. Bronchial washings and cultures are pending from yesterday. White count 11.5. Hemoglobin 9.7. Sodium 131. Potassium 5.8. Creatinine 1.47. He remains on bronchodilators. Continued on vancomycin and Zosyn. Today's chest x-ray shows new near complete white out of the right hemithorax and suggestion of volume loss on the side. Pigtail catheter remains in place. Alteplase to be infused today. Cardiothoracic have been consulted for possible Pleurx catheter placement. Pleural fluid was positive for metastatic adenocarcinoma, suspect lung versus GI cancer in origin. Metastatic colon cancer ruled out. On 03/06/2020, the patient is on police about 2 by nasal cannula. His shortness of breath with minimal amount of activity. He is doing okay at rest. Chest x- ray still showing significant opacification of the right lung. There is also volume loss of the shaft of the trachea to the right suspecting atelectasis. The right-sided pigtail catheter in place. The drainage has been in the order of 120 mL over the past 24 hours. He did receive 2 doses of alteplase earlier with improvement in the drainage and subsequently the patient collapsed the entire right lung. Based on that, I'm doing a CAT scan of the chest to evaluate the condition. The CAT scan was completed and the patient was found to have occlusion of the distal bronchus intermedius with a complete collapse of the right lung and there are areas of lacunar the pleural effusion scattered throughout the right hemithorax. The predominant finding however is right lung collapse. There is also a liver lesion that has been stable as noted on the CAT scan. I have ordered the bronchoscope this patient. There is no evidence of any endobronchial tumor. The distal bronchus intermedius was found to be patent. The segment and right middle lobe and the right lower lobe were narrowed mainly due to atelectasis. At that time the right mainstem bronchus and the right upper lobe bronchus were patent. I'm considering repeating the bronchoscope tomorrow for reevaluation should there be any mucous plugs obstru cting the airway. Nevertheless, I was not able to visualize any endobronchial tumors. Noted the pleural fluid cytology came back positive for adenocarcinoma which is most likely of a lung primary. The patient was seen today 03/07/2020 in follow-up on the selective care unit. He remains awake and alert in no acute distress. Maintaining O2 saturations in the 90s on 3 L/m per nasal cannula. He's been afebrile. Hemodynamically stable. Chest x-ray revealed improved aeration in the right lung. Bronchoscopy was canceled for today. Yesterday's CAT scan of the chest abdomen and pelvis had revealed complete collapse of the right lung secondary to occlusion of both the upper and lower lobe pulmonary bronchi. Remains with a stable spiculated mass in the left upper lobe. Evidence of emphysema. Right adrenal mass measuring 2.1 cm. Previous bronchial wash culture revealed no growth. Pigtail catheter remains in place in the right chest. He did receive alteplase 2 days ago. No clear air leak. There is some serous drainage noted. Remains on low continuous suction -20 cm of water. Sodium 136. Potassium 3.8. Bicarb 22. Creatinine 0.92. He remains on Zosyn and bronchodilators. The patient is seen today 03/08/2020 follow-up on the selective care unit. He is awake and alert in some mild respiratory distress. He is dyspneic with minimal exertion. He is maintaining O2 saturations in the 90s on 4 L/m per nasal cannula. He's been afebrile. Hemodynamically stable. Today's chest x- ray again reveals near complete opacification of the right hemithorax. Pigtail catheter remains in place. Bronchial wash cultures reveal no growth. Previous pleural fluid pathology had been positive for metastatic adenocarcinoma. Sodium 136. Potassium 4.0. Creatinine 0.84. He is currently on Zosyn and bronchodilators. The patient is seen today 03/09/2020 in follow-up on the selective care unit. He remains awake and alert. He is maintaining O2 saturations in the 90s on 4 L/m per nasal cannula. He remains afebrile. Hemodynamically stable. Bronchoscopy cultures revealed no growth. Pleural fluid revealed metastatic adenocarcinoma. Further discussion was held by the attending, the patient and his . The plan is for home with hospice once the pigtail catheter was remov ed. Objective - Vital Signs Vital signs: Vital Signs Temp 98.3 F 03/09/20 08:00 Pulse 92 03/09/20 08:00 Resp 20 03/09/20 08:00 BP 114/61 03/09/20 08:00 Pulse Ox 94 L 03/09/20 08:00 Intake & Output 03/08/20 03/09/20 03/09/20 18:59 06:59 18:59 Intake Total 700 300 Output Total 600 100 0 Balance 100 200 0 Weight 122.2 kg 122 kg Intake: Intake, IV Titration 220 100 Amount Piperacillin-Tazobactam 3 200 100 .375 gm In Sodium Chloride 0.9% 100 ml @ 25 mls/hr IVPB Q8H [facility] Rx#: [id number] Sodium Chloride 0.9% 1, 20 000 ml @ 5 mls/hr IV . Q24H [facility] Rx#:[id number] Oral 480 200 Output: Chest Tube Drainage 0 0 0 Chest Tube Right Upper 0 0 0 Urine 600 100 - Exam GENERAL EXAM: Alert, very pleasant, 79-year-old gentleman, on 4 L of oxygen with a pulse ox of 97% comfortable in no apparent distress. HEAD: Normocephalic/atraumatic. EYES: Normal reaction of pupils, equal size. Conjunctiva pink, sclera white. NOSE: Clear with pink turbinates. THROAT: No erythema or exudates. NECK: No masses, no JVD, no thyroid enlargement, no adenopathy. CHEST: No chest wall deformity. Symmetrical expansion. right-sided chest tube in place, with small amount of serous drainage LUNGS: Equal air entry with diminished breath sounds throughout the right lung. Pigtail catheter is present, connected to Pleur-evac, with serous fluid CVS: Regular rate and rhythm, normal S1 and S2, no gallops, no murmurs, no rubs ABDOMEN: Soft, nontender. No hepatosplenomegaly, normal bowel sounds, no guarding or rigidity. EXTREMITIES: No clubbing, no edema, no cyanosis, 2+ pulses and upper and lower extremities. MUSCULOSKELETAL: Muscle strength and tone normal. SPINE: No scoliosis or deformity SKIN: No rashes CENTRAL NERVOUS SYSTEM: No focal deficits, tone is normal in all 4 extremities. PSYCHIATRIC: Alert and oriented -3. Appropriate affect. Intact judgment and insight. - Labs CBC & Chem 7: 03/09/20 05:35 03/08/20 05:44 Labs: Abnormal Lab Results - Last 24 Hours (Table) 03/09/20 Range/Units 05:35 RBC 2.76 L (4.30-5.90) m/uL Hgb 8.2 L (13.0-17.5) gm/dL Hct 25.7 L (39.0-53.0) % RDW 17.4 H (11.5-15.5) % Lymphocytes # 0.9 L (1.0-4.8) k/uL Microbiology - Last 24 Hours (Table) 02/29/20 09:00 Acid Fast Bacilli Smear - Final Pleural Fluid Acid Fast Bacilli Culture - Preliminary 02/29/20 09:00 Fungal Culture - Preliminary Pleural Fluid Assessment and Plan Assessment: 1. Shortness of breath and cough, in a patient with a large right-sided pleural effusion positive for metastatic adenocarcinoma possible GI versus lung in origin. Markers ruled out colon cancer metastasis. Suspect lung versus GI primary. A 2.9 cm spiculated mass to his left upper lobe found on computed tomography scan of his chest. Patient had a right-sided pigtail chest tube inserted on 03/02/2020 by interventional radiology and 1860 mL of pleural fluid was immediately drained cytology is positive for metastatic adenocarcinoma, cultures reveal no growth. 2. Large right loculated pleural effusion, hydropneumothorax, extensive degree of right lung atelectasis with mediastinal shift, questionable air in the m ediastinum, patient's right-sided pigtail catheter was plugged, patient received TPA infusion and his drainage has significantly improved with improvement of aeration of the right lung. However today's chest x-ray 03/08/2020 reveals near complete opacification of the right lung again. 3. New superior mediastinal density at the right lateral aspect of the trachea with the possibility of mediastinal fluid or mediastinal hematoma in on the CT of the chest today on 03/03/2020 4. Remote history of tobacco use with underlying chronic obstructive pulmonary disease. Quit smoking 5 years ago. 5. History of prostate cancer, status post radiation therapy and hormonal treatments. 6. History of colon cancer with previous colectomy. 7. History of gastroesophageal reflux disease. 8. Hypertension. 9. Hyperlipidemia. 10. Degenerative joint disease 11. Prior history of pneumonia and bronchitis. 12. Home O2 at 2 L/m at bedtime and when necessary. 13. History of glaucoma. 14. History of cataracts with bilateral cataract surgery and lens implants. 15. Abdominal distention with possible generalized ileus versus obstruction Plan: The patient was seen and evaluated by Dr. Strauss The patient is requesting to go home with hospice without further intervention or treatment at this time Pigtail catheter will be removed prior to discharge, consult IR for removal I, the cosigning physician, performed a history & physical examination of the patient. Lungs sounds diminished in the right lung. Maintaining good O2 saturations in the 90s on 4 L/m per nasal cannula. I discussed the assessment and plan of care with my nurse practitioner, Kadi Dumont. I attest to the above note as dictated by her.
--- NOTE | 2020-03-09 14:23 | P.PN ---
Subjective Progress Note Date: 03/09/20 Principal diagnosis: Pneumonia Hemoglobin 8.2 Further diagnostics have been canceled secondary to patient and wifes decision on hospice care. Planning for pigtail cath Objective - Vital Signs Vital signs: Vital Signs Temp 98.3 F 03/09/20 08:00 Pulse 92 03/09/20 08:00 Resp 20 03/09/20 08:00 BP 114/61 03/09/20 08:00 Pulse Ox 94 L 03/09/20 08:00 Intake & Output 03/08/20 03/09/20 03/09/20 18:59 06:59 18:59 Intake Total 700 300 Output Total 600 100 0 Balance 100 200 0 Weight 122.2 kg 122 kg Intake: Intake, IV Titration 220 100 Amount Piperacillin-Tazobactam 3 200 100 .375 gm In Sodium Chloride 0.9% 100 ml @ 25 mls/hr IVPB Q8H [facility] Rx#: [id number] Sodium Chloride 0.9% 1, 20 000 ml @ 5 mls/hr IV . Q24H [facility] Rx#:[id number] Oral 480 200 Output: Chest Tube Drainage 0 0 0 Chest Tube Right Upper 0 0 0 Urine 600 100 - Exam - Constitutional General appearance: mild distress - EENT Eyes: EOMI, PERRLA ENT: hearing grossly normal, normal oropharynx - Neck Neck: no lymphadenopathy Thyroid: bilateral: normal size - Respiratory Respiratory: right: CTA - Cardiovascular Rhythm: regular Heart sounds: normal: S1, S2 - Gastrointestinal Localized gastrointestinal: tender: LUQ, rebound: LUQ - Integumentary Integumentary: normal - Neurologic Neurologic: CNII-XII intact - Musculoskeletal Musculoskeletal: generalized weakness, strength equal bilaterally - Psychiatric recall poor, comprehension seems diminished Psychiatric: A&O x's 3 - Labs CBC & Chem 7: 03/09/20 05:35 03/08/20 05:44 Labs: Abnormal Lab Results - Last 24 Hours (Table) 03/09/20 Range/Units 05:35 RBC 2.76 L (4.30-5.90) m/uL Hgb 8.2 L (13.0-17.5) gm/dL Hct 25.7 L (39.0-53.0) % RDW 17.4 H (11.5-15.5) % Lymphocytes # 0.9 L (1.0-4.8) k/uL Microbiology - Last 24 Hours (Table) 02/29/20 09:00 Acid Fast Bacilli Smear - Final Pleural Fluid Acid Fast Bacilli Culture - Preliminary 02/29/20 09:00 Fungal Culture - Preliminary Pleural Fluid Assessment and Plan Plan: Assessment and Recommendations: Large PLeural Effusions: Malignant Positive cytology for metastatic adenocarcinoma - CUrrently with drainage via pleura vac chest tube - Pulmonary following - Reviewed CT scans - Bronch is currently on hold Metastatic Adenocarcinoma: - Primary site unknown ig upper GI versus lung - Once patient improves rec further work-up with EGD, MRCP and CT imaging - Will discuss with to determine aggressiveness of work--up and goals of overall care Hx: Colorectal Cancer: - Last seen in regards to this with stable picture in 2017 Plan home hospice after pigtail catheter per patient and decision
--- NOTE | 2020-03-09 15:37 | P.DS ---
Providers Date of admission: 02/28/20 15:29 Expected date of discharge: 03/09/20 Attending physician: Truman Yu Consults: 02/28/20 15:29 Consult Physician Routine Consulting Provider: Kevin Haro Consult Reason/Comments: Right pleural effusion, pneumonia Do you want consulting provider notified?: Yes 02/28/20 16:36 Consult Physician Urgent Consulting Provider: [facility] Consult Reason/Comments: intermittent afib Do you want consulting provider notified?: Yes 03/03/20 12:39 Consult Physician Urgent Consulting Provider: Gigi Munoz Consult Reason/Comments: hydropneumothorax, possible pneumomediastinum Do you want consulting provider notified?: Yes 03/05/20 10:25 Consult Physician Routine Consulting Provider: Jose Lacey Consult Reason/Comments: metastatic lung adenocarcinoma Do you want consulting provider notified?: Yes Primary care physician: Truman Yu [place] Hospital Course: Final Diagnoses: -Acute on chronic hypoxic, hypercapnic respiratory failure secondary to acute right large pleural effusion, secondary to metastatic adenocarcinoma, suspected lung versus upper GI per cytology and CT reported-2.9 cm spiculated mass anterior left upper lobe. Cultures reported no growth.Recurrent Right pleural effusion , s/p right pigtail cath placement. Repeat CT 03/03 reporting new air and increasing large right loculated pleural effusion, hydropneumothorax, atelectasis, possible mediastinal shift with questionable air in the mediastinum. New superior mediastinal density in the right lateral aspect of the trachea with possibility of hematoma. Bronchoscopy 03/04 reporting compressive atelectasis of the right lower lobe segments and right middle lobe segments with no evidence of endobronchial tumor, airways patent. 03/08/2020 chest x-ray reporting near complete opacity occasional the right lung again. -Acute on chronic hypoxic respiratory failure secondary to the above. Wears 2 L nasal cannula O2 at home. -Left kidney cyst 2, simple appearing, largest measuring 2 cm -Distended small bowel loops measuring 3.7 cm, scattered colonic air, suggesting ileus, -Ruling out Legionella -Hyperkalemia -Hyponatremia -History of nicotine dependence -Prostate cancer, history of radiation and hormonal treatments -Colon cancer with history of colectomy -Gastroesophageal reflux disease -Hypertension -Hyperlipidemia -Degenerative joint disease -Glaucoma -History of cataracts with lens implant -acute renal failure Hospital course:This is a 79-year-old gentleman admitted to the hospital for community-acquired pneumonia, large right-sided pleural effusion. Underwent right-sided thoracentesis yesterday with 2.4 L removed. Tolerated procedure well. Pleural cytology pending. CT post thoracentesis reporting no evidence of mediastinal air or pneumothorax,right lower lobe with small to moderate residual pleural effusion, 2.9 cm spiculated mass anterior left upper lobe, no prior CTs here to compare to as per radiology. Tested negative for coronavirus. Legionella cultures pending. Maintaining O2 sats of mid 90s on 5 L nasal cannula in a patient who normally wears 2 L nasal cannula,. Sodium 128, potassium 4.7, creatinine 0.75. Afebrile. 03/02/2020 Minimal ambulation. Complains of constipation. Antibiotics adjusted to Zosyn and vancomycin. Maintaining O2 sats in the 90s on 5 L nasal cannula. Complained of increased shortness of breath earlier this morning , currently denies .Chest x-ray reporting increasing moderate to large right pleural effusion .scheduled for PIG tail placement with interventional radiology. Pleural cytology pending from prior thoracentesis. Afebrile. 03/03/2020 Chest x-ray reporting increasing right-sided moderate to large pleural effusion, minimal Pleur-evac output since initial drainage status post placement.repeat CT scan ordered for comparison regarding lung mass. TPA to chest tube pending as per pulmonary. Respiratory status worsened today, patient appears pasty with increased shortness of breath. Denies chest pain, palpitations. Telemetry sinus rhythm. 03/04/2020 Antrum switched out last night with approximately 1.8 L output overnight including 1.3 L over the last 8 hours, post TPA to chest tube. Chest x-ray reporting improvement in aeration of right lung with improved riight side volume, persistent right basilar acute infiltrate/atelectasis, obstructing endobronchial lesion not excluded.Scheduled for another dose of TPA today. Complains of discomfort at chest tube insertion site. Currently NPO for Bronchoscopy this morning. Potassium 6, rectal Kayexalate ordered. Follow-up CT reporting mediastinal shift to the right secondary to atelectasis, new care with increasing large right loculated pleural effusion rendering a hydropneumothorax. Pleural fluid loculated at the lung apex and surrounding the right upper lobe. New density in the mediastinum, cuttoff of the right main stem bronchi with paucity of distal aerated segment and subsegmental bronchi, questionable pneumomediastinum versus spray artifact from contrast. New adrenal gland nodule. Spiculated left upper lobe pulmonary nodule measuring 2.4 x 1 cm concerning for lung cancer and potential metastasis Small amount hepatic ascites. Cardiothoracic surgery consulted, radiology films reviewed, recommending diagnostic bronchoscopy regarding suspected bronchogenic carcinoma. At this time no surgical intervention recommended related to high suspicion of advanced stage. Creatinine mildly worsened, to 1.05. Currently maintaining O2 sats in the 90s on 6 L nasal cannula. Patient reports he had a rough night, with increased shortness of breath; at one point during the night required wearing a Ventimask. Afebrile, WBC up to 11.9, hemoglobin up to 10.5. Denies chest pain, palpitations. 03/05/2020 Yesterday he underwent diagnostic bronchoscopy reporting compressive atelectasis of the right lower lobe in addition to right middle lobe segments with no evidence of endobronchial tumor, airways patent. Maintaining O2 sats in the 90s on 5 L nasal cannula O2. Chest x-ray reporting near complete whiteout of the right hemothorax with suspected significant lobar collapse with concurrent effusion and consolidation .Cytology reporting metastatic adenocarcinoma, suspected lung versus upper GI. Pleural cultures pending. Yesterday hyperkalemic received Kayexalate with potassium down to 5.4 yesterday afternoon. Reports no flatus, no bowel movement post Kayexalate yesterday. Potassium currently at 5.8. Renal function worsening up to 1.47. Chest tube draining 345 during the day shift yesterday, and no further drainage overnight scheduled for another dose of TPA to the chest tube. 03/08/2020 maintaining O2 sats in the 90s on 4 L nasal cannula. Chest x-ray continues to show near complete opacification of the right hemothorax, Jenelle progression from prior, likely on the basis of atelectasis in addition to known malignant right pleural effusion. Continues on Zosyn, nebulized bronchodilators. Pigtail catheter present Afebrile. Over the weekend patient had been scheduled for repeat bronchoscopy which was canceled as chest x-ray reporting improvement. Prior Bronch. washing cultures reporting no growth. Last bowel movement reported on the . Further diagnostics have been canceled secondary to patient and 's decision on hospice care. Pigtail catheter to be DC'd per IR as per Pulmonary at [facility]. Patient is being discharged home with hospice in a stable condition with guarded prognosis. The impression and plan of care has been dictated as directed. : I performed a history and examination of this patient, discussed the same with the dictator. I agree with the dictator's note ,documented as a scribe. Any additional findings or plans will be noted. Patient Condition at Discharge: Stable Plan - Discharge Summary Discharge Rx Participant: No New Discharge Prescriptions: New Docusate [Colace] 100 mg PO BID #60 cap Verapamil [Isoptin] 40 mg PO TID #90 tab Famotidine [Pepcid] 20 mg PO DAILY #30 tab Sennosides-Docusate Sodium [Senokot-S] 2 each PO BID #60 tab Acetaminophen Tab [Tylenol] 650 mg PO Q6HR PRN tab PRN Reason: Fever And/ Or Pain Ipratropium-Albuterol Nebulize [Duoneb 0.5 mg-3 mg/3 ml Soln] 3 ml INHALATION QID #120 neb Continue Latanoprost Ophth [Xalatan 0.005%] 1 drop BOTH EYES HS Donepezil HCl [Aricept] 10 mg PO DAILY traMADol HCL [Ultram] 50 mg PO BID PRN PRN Reason: Pain Dronabinol [Marinol] 2.5 mg PO AC-BID Discontinued Albuterol Inhaler (Mhu) [Ventolin Hfa Inhaler (Mhu)] 2 puff INHALATION RT-QID PRN PRN Reason: Shortness Of Breath Lisinopril [Prinivil] 10 mg PO QAM Rosuvastatin [Crestor] 10 mg PO HS Discharge Medication List Latanoprost Ophth [Xalatan 0.005%] 1 drop BOTH EYES HS 06/06/17 [History] Donepezil HCl [Aricept] 10 mg PO DAILY 04/03/19 [History] Dronabinol [Marinol] 2.5 mg PO AC-BID 02/28/20 [History] traMADol HCL [Ultram] 50 mg PO BID PRN 02/28/20 [History] Acetaminophen Tab [Tylenol] 650 mg PO Q6HR PRN tab 03/09/20 [Rx] Docusate [Colace] 100 mg PO BID #60 cap 03/09/20 [Rx] Famotidine [Pepcid] 20 mg PO DAILY #30 tab 03/09/20 [Rx] Ipratropium-Albuterol Nebulize [Duoneb 0.5 mg-3 mg/3 ml Soln] 3 ml INHALATION QID #120 neb 03/09/20 [Rx] Sennosides-Docusate Sodium [Senokot-S] 2 each PO BID #60 tab 03/09/20 [Rx] Verapamil [Isoptin] 40 mg PO TID #90 tab 03/09/20 [Rx] Follow up Appointment(s)/Referral(s): Truman Yu DO [Primary Care Provider] - As Needed Activity/Diet/Wound Care/Special Instructions: [facility] Discharge Disposition: HOME WITH HOSPICE
[2020-03-09] MEDS: ATORVASTATIN 20 MG TAB PO SCH (20:27)
[2020-03-09] MEDS: LATANOPROST 0.005% OPHTH DROPS 2.5 ML BTL BOTH EYES SCH (20:37)
[2020-03-09] MEDS: SODIUM CHLORIDE 0.9% 1,000 ML IV SCH (21:55)
[2020-03-09 23:42] VITALS: TEMP 97.9
[2020-03-10] MEDS: traMADol 50 MG TAB PO PRN ×2 (02:39→08:38)
[2020-03-10] MEDS: LATANOPROST 0.005% OPHTH DROPS 2.5 ML BTL BOTH EYES SCH (02:41)
[2020-03-10 02:47] VITALS: BP 147/83; PULSE 97; RESP 24
[2020-03-10] MEDS: DRONABINOL 2.5 MG CAP PO SCH (06:13)
[2020-03-10] MEDS: DONEPEZIL 10 MG TAB PO SCH (08:38)
[2020-03-10] MEDS: SENNOSIDES-DOCUSATE SODIUM 1 EACH TAB PO SCH (08:38)
[2020-03-10] MEDS: FAMOTIDINE 20 MG TAB PO SCH (08:38)
[2020-03-10] MEDS: VERAPAMIL 40 MG TAB PO SCH (08:38)
[2020-03-10] MEDS: DOCUSATE 100 MG CAP PO SCH (08:38)
[2020-03-10] MEDS: HEPARIN SODIUM,PORCINE 5,000 UNIT/ML 1 ML VIAL SQ SCH (08:39)
[2020-03-10] MEDS: ALBUTEROL HFA INHALER INHALATION SCH (08:57)
[2020-03-10] MEDS: TIOTROPIUM 18 MCG/PUFF INHALER INHALATION SCH (08:57)
--- NOTE | 2020-03-11 09:57 | CDI ---
Documentation Clarification Form Date: 03/11/20 From: Mirta Gonzales CCS Phone: If you have a question about this query, please contact Laura Hou, Project Technician at [phone] between 8am and 5pm. Admit Date: 02/28/20 Discharge Date:03/10/20 Patient Name: Peewee Schuster Visit Number: [id number] ATTENTION: The Clinical Documentation Specialists (CDI) and [facility] Coding Staff appreciate your assistance in clarifying documentation. Please respond to the clarification below the line at the bottom and electronically sign. The CDI & [facility] Coding staff will review the response and follow-up if needed. Please note: Queries are made part of the Legal Health Record. If you have any questions, please contact the author of this message via ITS. Dear Dr. Yu, Malnutrition has been documented in H&P, PN. History/Risk Factors: Metastatic lung malignancy, PNA, COPD, Chronic Resp Failure, Dementia Clinical Indicators: Cachexia Labs: Albumin 3.3, 2.1- Total Protein 6.7, 4.7 Current BMI: 46.5 Insufficient energy intake: Inadequate oral intake- meal intake 25% or less Treatment: Ensure TID for additional kcal, protein, monitor oral intake Dietary Consult: 03/05, 03/08 Supplements: Ensure, [place] Instant breakfast In your professional opinion, can you please clarify if these findings signify one of the following conditions? Mild Protein-Calorie Malnutrition Moderate Protein-Calorie Malnutrition Severe Protein-Calorie Malnutrition Malnutrition, unspecified Malnutrition following GI surgery Other condition, please specify Unable to determine moderated malnutrition. MTDD
== END 2020-03-10 09:20 | disposition hospice, home (50) | DRG 180 ==
LOC: EC 13:42 → 4SSUR 15:29 → 3SCARD 16:36
PROVIDERS: ADMIT Family Medicine; ATTEND Family Medicine
PROC: 0W993ZZ Drainage of Right Pleural Cavity, Percutaneous Approach (ICD-10-PCS; 2020-02-29)
PROC: 0W9930Z Drainage of Right Pleural Cavity with Drainage Device, Percutaneous Approach (ICD-10-PCS; 2020-03-02)
PROC: 3E0L3GC Introduction of Other Therapeutic Substance into Pleural Cavity, Percutaneous Approach (ICD-10-PCS; 2020-03-03)
PROC: 0B9F8ZX Drainage of Right Lower Lung Lobe, Via Natural or Artificial Opening Endoscopic, Diagnostic (ICD-10-PCS; principal; 2020-03-04 07:30)
DX: C34.12 Malignant neoplasm of upper lobe, left bronchus or lung (principal); J18.9 Pneumonia, unspecified organism; J96.21 Acute and chronic respiratory failure with hypoxia; J96.22 Acute and chronic respiratory failure with hypercapnia; J44.0 Chronic obstructive pulmonary disease with (acute) lower respiratory infection; Z68.42 Body mass index [BMI] 45.0-49.9, adult; R64 Cachexia; E46 Unspecified protein-calorie malnutrition; E44.0 Moderate protein-calorie malnutrition; N17.9 Acute kidney failure, unspecified; C79.71 Secondary malignant neoplasm of right adrenal gland; R18.8 Other ascites; C78.01 Secondary malignant neoplasm of right lung; J44.1 Chronic obstructive pulmonary disease with (acute) exacerbation; J94.8 Other specified pleural conditions; E87.1 Hypo-osmolality and hyponatremia; K56.7 Ileus, unspecified; J91.0 Malignant pleural effusion; J98.11 Atelectasis; Z20.828 Contact with and (suspected) exposure to other viral communicable diseases; C26.9 Malignant neoplasm of ill-defined sites within the digestive system; F03.90 Unspecified dementia, unspecified severity, without behavioral disturbance, psychotic disturbance, mood disturbance, and anxiety; E66.01 Morbid (severe) obesity due to excess calories; M19.90 Unspecified osteoarthritis, unspecified site; K21.9 Gastro-esophageal reflux disease without esophagitis; I10 Essential (primary) hypertension; F41.9 Anxiety disorder, unspecified; I25.10 Atherosclerotic heart disease of native coronary artery without angina pectoris; K59.00 Constipation, unspecified; E87.5 Hyperkalemia; N28.1 Cyst of kidney, acquired; K40.90 Unilateral inguinal hernia, without obstruction or gangrene, not specified as recurrent; K76.9 Liver disease, unspecified; D63.0 Anemia in neoplastic disease; E78.5 Hyperlipidemia, unspecified; R00.0 Tachycardia, unspecified; H40.9 Unspecified glaucoma; Z79.899 Other long term (current) drug therapy; Z87.01 Personal history of pneumonia (recurrent); Z85.038 Personal history of other malignant neoplasm of large intestine; Z99.81 Dependence on supplemental oxygen; Z90.49 Acquired absence of other specified parts of digestive tract; Z92.3 Personal history of irradiation; Z98.42 Cataract extraction status, left eye; Z98.41 Cataract extraction status, right eye; Z96.1 Presence of intraocular lens; Z87.891 Personal history of nicotine dependence; Z98.890 Other specified postprocedural states; Z82.49 Family history of ischemic heart disease and other diseases of the circulatory system; Z83.2 Family history of diseases of the blood and blood-forming organs and certain disorders involving the immune mechanism; Z85.46 Personal history of malignant neoplasm of prostate; Z71.3 Dietary counseling and surveillance
CPT/HCPCS: 31624; 31645; 32551; 36415; 71045; 71046; 71260; 74018; 74177; 76604; 76942; 80048; 80053; 80202; 82550; 82945; 83605; 83615; 83735; 83880; 84132; 84145; 84157; 84484; 85025; 85610; 85730; 87040; 87070; 87102; 87116; 87205; 87206; 87252; 87496; 87498; 87502; 87529; 87634; 87635; 87798; 88108; 88305; 88341; 88342; 89050; 93005; 93306; 94640; 94760; 96361; 96365; 96375; 99285